=== PATIENT | male | born 1965 | race African-American/Black ===

== ENCOUNTER 2016-10-24 09:35 | Emergency (ER) | payer MEDICAID ==
[2016-10-24] MEDS ORDERED: OXYCODONE-ACETAMINOPHEN 5-325 MG TABLET PO ONE (10:36)
--- NOTE | 2016-10-24 11:23 | ER Document Report ---
ED Skin Rash/Insect Bite/Abscs - General Mode of Arrival: Ambulatory Information source: Patient TRAVEL OUTSIDE OF THE U[place] IN LAST 30 DAYS: No - HPI Patient complains to provider of: Tender/swollen area Onset: Other - Chronic, worse over the past 2-1/2 weeks Onset/Duration: Worse Quality of pain: Sharp Pain Level: 5 Skin Character: Abscess, Warm Skin Temperature: Warm Quality of rash: Painful Exacerbated by: Movement Relieved by: Denies Similar symptoms previously: Yes Recently seen / treated by doctor: No <LUCIE LAUREANO - Last Filed: 10/24/16 19:19> <LATRELL RAMOS - Last Filed: 10/25/16 14:44> - General Chief Complaint: Abscess Stated Complaint: BUTTOCKS PAIN Time Seen by Provider: 10/24/16 10:22 Notes: Patient complains of an abscess to the groin area for the past 2-1/2 weeks. Patient states he has a history of hidradenitis suprative and has had over 8 procedures including skin grafts to the sacral area, and perineum. Patient reports fever 2 days ago but none since then. Patient states that he has been taking doxycycline without improvement of his symptoms. Patient does state that he has had draining from his right inguinal abscess as well as draining from his sacral abscess. Patient states that he has had to take Percocet periodically for this and has not had any pain medication at home recently ( LUCIE LAUREANO) - Related Data Allergies/Adverse Reactions: No Known Allergies Allergy (Verified 10/24/16 09:45) Past Medical History - General Information source: Patient - Social History Smoking Status: Never Smoker Chew tobacco use (# tins/day): No Frequency of alcohol use: None Drug Abuse: None Occupation: none Family History: Reviewed & Not Pertinent Patient has suicidal ideation: No Patient has homicidal ideation: No Endocrine Medical History: Denies: Hx Diabetes Mellitus Type 1, Hx Diabetes Mellitus Type 2 Renal/ Medical History: Denies: Hx Peritoneal Dialysis Skin Medical History: Reports Hx MRSA, Reports Other - hidradenitis suprativa Psychiatric Medical History: Reports: Hx Bipolar Disorder, Hx Depression, Hx Schizophrenia Past Surgical History: Reports: Other - skin graft - Immunizations Hx Diphtheria, Pertussis, Tetanus Vaccination: Yes <LUCIE LAUREANO - Last Filed: 10/24/16 19:19> Review of Systems - Review of Systems Constitutional: Fever - 2 days ago EENT: No symptoms reported Cardiovascular: No symptoms reported Respiratory: No symptoms reported Gastrointestinal: No symptoms reported. denies: Nausea, Vomiting Genitourinary: No symptoms reported Male Genitourinary: Other - tender lump to inguinal area Musculoskeletal: No symptoms reported Skin: Lesions - perineum Hematologic/Lymphatic: No symptoms reported Neurological/Psychological: No symptoms reported <LUCIE LAUREANO - Last Filed: 10/24/16 19:19> Physical Exam - General General appearance: Appears well, Alert In distress: None - HEENT Head: Normocephalic, Atraumatic Eyes: Normal Nasal: Normal Mouth/Lips: Normal Mucous membranes: Normal Pharynx: Normal - Respiratory Respiratory status: No respiratory distress Chest status: Nontender Breath sounds: Normal Chest palpation: Normal - Cardiovascular Rhythm: Regular Heart sounds: S1 appreciated, S2 appreciated Murmur: No - Abdominal Inspection: Normal Distension: No distension Tenderness: Nontender - Back Back: Normal, Nontender - Extremities General upper extremity: Normal inspection, Normal ROM General lower extremity: Normal inspection, Normal ROM - Neurological Neuro grossly intact: Yes Cognition: Normal Hermann Coma Scale Eye Opening: Spontaneous Hermann Coma Scale Verbal: Oriented Penelope Coma Scale Motor: Obeys Commands Hermann Coma Scale Total: 15 - Psychological Associated symptoms: Normal affect, Normal mood - Skin Skin Temperature: Warm Skin Moisture: Dry Skin irregularity: Tender indurated area - Patient with tender indurated lesion to right inguinal area, left medial thigh and area to perineal raphe, no fluctuance, no obvious drainable abscess. Patient with additional tender indurated area superior aspect of gluteal cleft, this area open without any purulent drainage at this time <LUCIE LAUREANO - Last Filed: 10/24/16 19:19> Course - Laboratory Result Diagrams: 10/24/16 11:35 10/24/16 12:58 <LUCIE LAUREANO - Last Filed: 10/24/16 19:19> - Laboratory Result Diagrams: 10/24/16 11:35 10/24/16 12:58 <LATRELL RAMOS - Last Filed: 10/25/16 14:44> - Re-evaluation Re-evalutation: 10/24/16 10:[address] Ramos who agrees to examine pt 10/24/16 11:21 Dr. Ramos to bedside for examination, recommends ordering CT of pelvis with IV contrast in addition to lab work. Does not recommend any additional antibiotics at this time pending results of CT scan. States lesions do not look acutely infected 10/24/16 14:[address] ramos who advises consultation with surgery to assist with out pt f/u. 10/24/16 15:[address] Peng who agrees to come and evaluate patient 10/24/16 16:09 Dr. Peng to bedside for consultation. Incision and drainage procedure performed per Dr. Peng. Advises having patient continue on his doxycycline and giving him a short course of pain medication such as Percocet 15 tabs to go home with. (LUCIE LAUREANO) - Vital Signs Vital signs: Temp Pulse Resp BP Pulse Ox 98.0 F 76 18 124/78 100 10/24/16 16:35 10/24/16 16:35 10/24/16 16:35 10/24/16 16:35 10/24/16 16:35 - Laboratory Laboratory results interpreted by me: 10/24/16 10/24/16 11:35 12:58 WBC 12.1 H Hgb 12.2 L MCV 71 L MCH 22.2 L MCHC 31.4 L RDW 15.0 H Absolute Neutrophils 8.6 H Chloride 108 H AST 16 L Labs- Entire Visit 10/24/16 10/24/16 10/24/16 11:35 11:35 12:58 WBC 12.1 H RBC 5.52 Hgb 12.2 L Hct 39.0 MCV 71 L MCH 22.2 L MCHC 31.4 L RDW 15.0 H Plt Count 294 Seg Neutrophils % 71.3 Lymphocytes % 20.2 Monocytes % 6.4 Eosinophils % 1.3 Basophils % 0.8 Absolute Neutrophils 8.6 H Absolute Lymphocytes 2.4 Absolute Monocytes 0.8 Absolute Eosinophils 0.2 Absolute Basophils 0.1 Sodium Cancelled 140.9 Potassium Cancelled 3.9 Chloride Cancelled 108 H Carbon Dioxide Cancelled 24 Anion Gap Cancelled 9 BUN Cancelled 9 Creatinine Cancelled 0.95 Est GFR ( Amer) Cancelled > 60 Est GFR (Non-Af Amer) Cancelled > 60 Glucose Cancelled 107 Calcium Cancelled 9.1 Total Bilirubin Cancelled 0.5 Direct Bilirubin Cancelled 0.3 Indirect Bilirubin Cancelled Not Reportable Neonat Total Bilirubin Cancelled Not Reportable AST Cancelled 16 L ALT Cancelled 22 Alkaline Phosphatase Cancelled 79 Total Protein Cancelled 7.3 Albumin Cancelled 3.7 10/24/16 19:24 (LUCIE LAUREANO) Discharge <LUCIE LAUREANO - Last Filed: 10/24/16 19:19> <LATRELL RAMOS - Last Filed: 10/25/16 14:44> - Discharge Clinical Impression: Hx of hidradenitis suppurativa, Encounter for incision and drainage procedure, Abscess of left thigh Condition: Stable Disposition: HOME, SELF-CARE Instructions: Abscess ([facility]), Oral Narcotic Medication ([facility]), Post Incision and Drainage Additional Instructions: Return immediately for any new or worsening symptoms Followup with the surgical clinic on Thursday to have your packing removed continue to take your doxycycline as previously prescribed culture is pending, we will call if you need different treatment Prescriptions: Oxycodone HCl/Acetaminophen [Percocet 5-325 mg Tablet] 1 - 2 tab PO ASDIR PRN # 15 tablet PRN Reason: Referrals: DREA PENG MD [ARELY BECERRIL] - Follow up as needed [facility] [Provider Group] - 10/27/16
[2016-10-24 11:49] LABS: ABSOLUTE BASOPHILS # (AUTO) 0.1 10^3/uL (0.0-0.2); ABSOLUTE EOSINOPHILS # (AUTO) 0.2 10^3/uL (0.0-0.6); ABSOLUTE LYMPHOCYTES (AUTO) 2.4 10^3/uL (0.5-4.7); ABSOLUTE MONOCYTES (AUTO) 0.8 10^3/uL (0.1-1.4); ABSOLUTE NEUT (AUTO) 8.6 10^3/uL (1.7-8.2); BASOPHILS % (AUTO) 0.8 % (0-2); EOSINOPHILS % (AUTO) 1.3 % (0-6); HEMOGLOBIN 12.2 g/dL (13.5-17.0); HGB HCT DIFFERENCE -2.4; LYMPHOCYTES % (AUTO) 20.2 % (13-45); MEAN CORPUSCULAR HEMOGLOBIN 22.2 pg (27.0-33.4); MEAN CORPUSCULAR HGB CONC 31.4 g/dL (32.0-36.0); MEAN CORPUSCULAR VOLUME 71 fl (80-97); MONOCYTES % (AUTO) 6.4 % (3-13); RED BLOOD COUNT 5.52 10^6/uL (4.35-5.55); SEGMENTED NEUTROPHILS % (AUTO) 71.3 % (42-78); WHITE BLOOD COUNT 12.1 10^3/uL (4.0-10.5)
[2016-10-24 13:36] LABS: ALANINE AMINOTRANSFERASE 22 U/L (21-72); ALBUMIN 3.7 g/dL (3.5-5.0); ALKALINE PHOSPHATASE 79 U/L (38-126); ANION GAP 9 (5-19); ASPARTATE AMINO TRANSFERASE 16 U/L (17-59); BILIRUBIN,DIRECT 0.3 mg/dL (0.0-0.4); BILIRUBIN,TOTAL 0.5 mg/dL (0.2-1.3); BLOOD UREA NITROGEN 9 mg/dL (7-20); CALCIUM 9.1 mg/dL (8.4-10.2); CARBON DIOXIDE 24 mmol/L (22-30); CHLORIDE 108 mmol/L (98-107); CREATININE RESULT 0.95 mg/dL (0.52-1.25); GLUCOSE 107 mg/dL (75-110); POTASSIUM 3.9 mmol/L (3.6-5.0); SODIUM 140.9 mmol/L (137-145); TOTAL PROTEIN 7.3 g/dL (6.3-8.2)
--- NOTE | 2016-10-24 14:22 | RADIOLOGY REPORT (SQ) ---
EXAM DESCRIPTION: CT PELVIS WITH COMPLETED DATE/TIME: 10/24/2016 2:08 pm REASON FOR STUDY: hx hidradenitis, pain to perineal raphe/inguinal COMPARISON: None. TECHNIQUE: CT scan of the pelvis performed with intravenous or oral contrast. Images reviewed with soft tissue and bone windows. Reconstructed coronal and sagittal MPR images reviewed. All images st ored on PACS. Patient was injected with 95 mL of Isovue- 370 low osmolar contrast. Creatinine 0.95. All CT scanners at this facility use dose modulation, iterative reconstruction, and/or weight based d osing when appropriate to reduce radiation dose to as low as reasonably achievable (ALARA). [facility]: Dose Right [facility]: CareDose [facility]: Dose Right [facility]: Teradose 4D [facility]: Smart Wireless Safety RADIATION DOSE: Up-to-date CT equipment and radiation dose reduction techniques were employed. CTDIv ol: 13.6 - 17.6 mGy. DLP: 1242 mGy-cm. mGy. LIMITATIONS: None. FINDINGS: In the upper medial left site, on coronal image 48 and axial image 60, there is skin thick ening and a 3.6 x 1.7 cm cyst in the skin and immediate subcutaneous fat. In the upper medial right thigh, there is skin thickening without evidence cutaneous or deep cyst or abscess. Along the perineum, there are postsurgical changes with subcutaneous fat surgical clips on axial imag es 50-54. No deep ischial rectal fossa abscess or cyst. No perianal fissures or abscesses. Visualized right a nd left scrotum are unremarkable. Incidental finding of small fat containing bilateral inguinal hernias. PELVIC BONES: No acute fracture. No worrisome bone lesions. VISUALIZED SPINE: No acute findings. HIPS: No acute fracture or dislocation. No worrisome bone lesions. PELVIC SOFT TISSUES: No significant findings. EXTRAPELVIC SOFT TISSUES: As above. OTHER: No other significant finding. IMPRESSION: Evidence of prior surgery along the perineum with surgical clips. No deep perineal absc ess is identified. 3.6 x 1.7 cm cystic fluid collection in the skin of the medial left upper thigh. TECHNICAL DOCUMENTATION: JOB ID: [id number] Quality ID # [id number]: Final reports with documentation of one or more dose reduction techniques (e.g., Au tomated exposure control, adjustment of the mA and/or kV according to patient size, use of iterative reconstruction technique) 2010 [employer]- All Rights Reserved
[2016-10-24] MEDS ORDERED: LIDOCAINE 1% INJ-PF (10 MG/ML) 30 ML SDV ONE (15:50)
--- NOTE | 2016-10-24 16:48 | OPERATIVE REPORT E ---
Operative Report NAME: SUSAN VILLALOBOS : 1965 AGE: 51Y DATE OF SURGERY: 10/24/2016 ROOM: PREOPERATIVE DIAGNOSIS: INFECTED HIDRADENITIS OF THE LEFT THIGH. POSTOPERATIVE DIAGNOSIS: INFECTED HIDRADENITIS OF THE LEFT THIGH. OPERATION: Incision and drainage of hidradenitis left thigh. SURGEON: DREA PENG M.D. ANESTHESIA: Local. INDICATIONS: This is a 51-year-old male who had previous incision and drainage of hidradenitis long both groins and thighs in the past. He has been complaining of pains along the left thigh for the past few days. DESCRIPTION OF PROCEDURE: The patient was placed in the supine position with the left thigh slightly bent. The abscess site was then prepped and draped in the usual sterile fashion. Local anesthesia infiltrated around the abscess area and with the use of an 11 blade, an incision was made right in the middle of the fluctuant area. An incision about 1 cm long was made. Purulent material extruded out and culture specimens were obtained. Further squeezing of the contents was done. Next, the abscess cavity was then packed with quarter-inch Iodoform gauze. Sterile dressings were placed over the operative site. The patient tolerated the procedure well. The patient is to continue with his doxycycline and Percocet p.r.n. for pain. He will be scheduled for followup at the surgical clinic on Thursday10/27/2016 to have the packing removed. DICTATING PHYSICIAN: DREA PENG M.D. [id number] PHY#: [id number] ID: [id number] JOB#: [id number] ACCT: [id number] cc:DREA PENG M.D. >
[2016-10-24 16:50] VITALS: BP 124/78
== END 2016-10-24 16:35 | disposition home or self-care (01) ==
LOC: ER 09:35
PROC: 0H9JXZZ Drainage of Left Upper Leg Skin, External Approach (ICD-10-PCS; principal; 2016-10-24)
DX: L02.416 Cutaneous abscess of left lower limb (principal); L73.2 Hidradenitis suppurativa; Z86.14 Personal history of Methicillin resistant Staphylococcus aureus infection; R50.9 Fever, unspecified
CPT/HCPCS: 99284; 36415; 87040; 87070; 87205; 85025; 87075; 80053; 72193; 10060; J3490; A6266

== ENCOUNTER 2016-11-06 12:19 | Emergency (ER) | payer MEDICAID ==
--- NOTE | 2016-11-06 13:26 | ER Document Report ---
ED Medical Screen (RME) - General Chief Complaint: Abscess Stated Complaint: BODY PAIN Time Seen by Provider: 11/06/16 13:24 Notes: Patient is here for a return visit for infection and boils in his groin region that has not gotten any better since he was here a week ago. He says that he has had this condition for well over a year and is had multiple surgeries when he lived in [place]. He recently moved here. This current episode of the boils started about 3 days ago. Says that 1 of the lesions was "lacerated" by the provider, and he had antibiotics left over from treatment in [place] but he has run out of the latter. Says the condition has not improved. TRAVEL OUTSIDE OF THE [place] IN LAST 30 DAYS: No - Related Data Allergies/Adverse Reactions: No Known Allergies Allergy (Verified 11/06/16 12:34) Past Medical History - Social History Chew tobacco use (# tins/day): No Frequency of alcohol use: None Drug Abuse: None Endocrine Medical History: Denies: Hx Diabetes Mellitus Type 1, Hx Diabetes Mellitus Type 2 Renal/ Medical History: Denies: Hx Peritoneal Dialysis Skin Medical History: Reports Hx MRSA Psychiatric Medical History: Reports: Hx Bipolar Disorder, Hx Depression, Hx Schizophrenia Past Surgical History: Reports: Other - skin graft - Immunizations Hx Diphtheria, Pertussis, Tetanus Vaccination: Yes Physical Exam - Vital signs Vitals: Temp Pulse Resp BP Pulse Ox 98.9 F 80 14 108/73 97 11/06/16 12:34 11/06/16 12:34 11/06/16 12:34 11/06/16 12:34 11/06/16 12:34 Course - Vital Signs Vital signs: Temp Pulse Resp BP Pulse Ox 98.9 F 80 14 108/73 97 11/06/16 12:34 11/06/16 12:34 11/06/16 12:34 11/06/16 12:34 11/06/16 12:34
[2016-11-06] MEDS ORDERED: CLINDAMYCIN HCL 150 MG CAPSULE PO ONE (14:25)
[2016-11-06] MEDS ORDERED: NAPROXEN 250 MG TABLET PO ONE (14:25)
[2016-11-06] MEDS ORDERED: LIDOCAINE 1% INJ-PF (10 MG/ML) 30 ML SDV INJ ONE (14:26)
[2016-11-06] MEDS ORDERED: OXYCODONE-ACETAMINOPHEN 5-325 MG TABLET PO ONE (14:26)
--- NOTE | 2016-11-06 15:22 | ER Document Report ---
ED Skin Rash/Insect Bite/Abscs - General Chief Complaint: Abscess Stated Complaint: BODY PAIN Time Seen by Provider: 11/06/16 13:24 Notes: Patient is a 51-year-old male, past medical history hidradenitis supportiva that has required multiple I&D's and surgeries in [place], presents with multiple abscesses in groin and buttocks region. He was seen here 2 weeks ago and had them drained by the surgeon. He went home on doxycycline, which she said helped with some of the abscesses. He is out of Percocet. He just obtained Medicaid and has not followed up with the surgeon yet, but he says he will be able to now. He denies fevers, diarrhea, constipation, nausea, vomiting or any other wounds. TRAVEL OUTSIDE OF THE [place] IN LAST 30 DAYS: No - Related Data Allergies/Adverse Reactions: No Known Allergies Allergy (Verified 11/06/16 12:34) Past Medical History - General Information source: Patient - Social History Smoking Status: Never Smoker Chew tobacco use (# tins/day): No Frequency of alcohol use: None Drug Abuse: None Family History: Reviewed & Not Pertinent Patient has suicidal ideation: No Patient has homicidal ideation: No Endocrine Medical History: Denies: Hx Diabetes Mellitus Type 1, Hx Diabetes Mellitus Type 2 Renal/ Medical History: Denies: Hx Peritoneal Dialysis Skin Medical History: Reports Hx MRSA Psychiatric Medical History: Reports: Hx Bipolar Disorder, Hx Depression, Hx Schizophrenia Past Surgical History: Reports: Other - skin graft - Immunizations Hx Diphtheria, Pertussis, Tetanus Vaccination: Yes Review of Systems - Review of Systems Notes: REVIEW OF SYSTEMS: CONSTITUTIONAL: -fevers, -chills EENT: -eye pain, -difficulty swallowing, -nasal congestion CARDIOVASCULAR:-chest pain, -syncope. RESPIRATORY: -cough, -SOB GASTROINTESTINAL: -abdominal pain, - nausea, -vomiting, -diarrhea GENITOURINARY: -dysuria, -hematuria MUSCULOSKELETAL: -back pain, -neck pain SKIN: +multiple groin and buttock abscesses HEMATOLOGIC: -easy bruising or bleeding. LYMPHATIC: -swollen, enlarged glands. NEUROLOGICAL: -altered mental status or loss of consciousness, -headache, - neurologic symptoms PSYCHIATRIC: -anxiety, -depression. ALL OTHER SYSTEMS REVIEWED AND NEGATIVE. Physical Exam - Vital signs Vitals: Temp Pulse Resp BP Pulse Ox 98.9 F 80 14 108/73 97 11/06/16 12:34 11/06/16 12:34 11/06/16 12:34 11/06/16 12:34 11/06/16 12:34 - Notes Notes: PHYSICAL EXAMINATION: GENERAL: Well-appearing, well-nourished and in no acute distress. HEAD: Atraumatic, normocephalic. EYES: Pupils equal round and reactive to light, extraocular movements intact, sclera anicteric, conjunctiva are normal. ENT: nares patent, oropharynx clear without exudates. Moist mucous membranes. NECK: Normal range of motion, supple without lymphadenopathy LUNGS: Breath sounds clear to auscultation bilaterally and equal. No wheezes rales or rhonchi. HEART: Regular rate and rhythm without murmurs ABDOMEN: Soft, nontender, normoactive bowel sounds. No guarding, no rebound. No masses appreciated. EXTREMITIES: Normal range of motion, no pitting or edema. No cyanosis. NEUROLOGICAL: Cranial nerves grossly intact. Normal speech, normal gait. Normal sensory and motor exams. PSYCH: Normal mood, normal affect. SKIN: 2 cm fluctuant abscess in right groin, evidence of prior surgeries on buttocks, hard tender areas on right inner buttocks without fluctuance, warm, dry, normal turgor Course - Re-evaluation Re-evalutation: Only one abscess able to be I&D'ed at this time. Instructed him to continue clindamycin, anti-inflammatories and follow-up with surgeon next week. He will soak in warm bath to help with the wound. - Vital Signs Vital signs: Temp Pulse Resp BP Pulse Ox 98.9 F 80 14 108/73 97 11/06/16 12:34 11/06/16 12:34 11/06/16 12:34 11/06/16 12:34 11/06/16 12:34 Procedures - Incision and Drainage Right Groin Time completed: 15:27 Type: Simple Anesthetic type: 1% Lidocaine mL's of anesthetic: 3 Blade size: 11 I&D procedure: Betadine prep applied, Chlorprep applied, Sterile dressing applied Incision Method: Incision made by scalpel Amount/type of drainage: 3 mL serosanguinous drainage Discharge - Discharge Clinical Impression: Abscess, Hidradenitis suppurativa Condition: Stable Disposition: HOME, SELF-CARE Additional Instructions: ABSCESS: You have an abscess (boil). This a pus-forming infection, usually due to staph. Some boils may be left to drain on their own, but most require lancing. From the time the tender lump first appears, it may be three or four days before the abscess is ready to betina. Local heat and rest help at this stage of treatment. An antibiotic may prevent spread of the infection. Once the abscess is opened, packing may be placed into it. This is done so pus is not sealed inside by premature closure of the cavity. The packing will be removed at your follow-up visit or you may be advised to remove it yourself at home. Sometimes this packing must be replaced a few times during healing. The wound will heal with surprisingly little scar. Depending on the size and location of an abscess, healing can take one to four weeks. You may shower and wash the area around the incision site two or three times a day. Antibiotics may be prescribed, but are usually not necessary after an abscess has been drained. If you develop fever, chills, worsening pain, or increasing swelling in the area, call the doctor or return immediately. POST INCISION AND DRAINAGE: You have had an incision made to allow drainage of an abscess. The incision must remain open so that pus and debris can drain from the wound. If the abscess cavity is large, packing is placed. This keeps the tissues from collapsing and trapping pus inside, while the body shrinks the cavity. The packing may need to be replaced every day or two. The physician will instruct you on the packing. Keep a bulky dressing over the area. Replace it if it becomes saturated with blood or pus. Do not disturb the packing (if present). You may shower and cleanse the area with gentle soap and warm water two or three times a day. Local warmth may be soothing, and may promote faster healing. Return if you develop high fever or chills, or if you note spreading redness, increasing swelling, or increasing tenderness. MRSA CELLULITIS: You have an infection of your skin and underlying soft tissues called cellulitis. This is due to bacteria, which can enter through any break in the skin, or even through an irritated hair follicle. Untreated, cellulitis will usually worsen and may form an abscess which requires draining. Although many bacterial organisms can cause cellulitis and abscess formations, the most likely bacteria is Methicillin-Resistant Staph Aureus, or MRSA for short. Antibiotics are required. Usually, warm packs or warm soaks, and elevation of the infected area are recommended. You should start getting better within 24 to 36 hours. Most infections respond quickly to the right medication. Follow-up care is important, however, to check for abscess (boil) formation, unsuspected foreign body, or resistant infection. If you develop fever, chills, or if the area of infection is becoming rapidly more swollen or painful, call the doctor at once. ORAL NARCOTIC MEDICATION: You have been given a prescription for pain control. This medication is a narcotic. It's best taken with food, as nausea can result if taken on an empty stomach. Don't operate machinery or drive within six hours of taking this medication. Do not combine this medicine with alcohol, or with any medication which can cause sedation (such as cold tablets or sleeping pills) unless you get permission from the physician. Narcotics tend to cause constipation. If possible, drink plenty of fluids and eat a diet high in fiber and fruits. FOLLOW-UP CARE: Most simple abscesses will not require a follow up visit. If you had packing placed in the abscess, remove it as instructed by the physician. If you have been referred to a physician for follow-up care, call the physicians office for an appointment as you were instructed or within the next two days. If you experience worsening or a significant change in your symptoms, return to the Emergency Department at any time for re-evaluation. Prescriptions: Clindamycin HCl 300 mg PO Q8H #21 capsule Oxycodone HCl/Acetaminophen [Percocet 5-325 mg Tablet] 1 - 2 tab PO Q4H PRN #15 tablet PRN Reason: Referrals: LUCAS MILLER MD [ACTIVE STAFF] - Follow up as needed
[2016-11-06 16:29] VITALS: BP 107/72
== END 2016-11-06 16:23 | disposition home or self-care (01) ==
LOC: ER 12:19
PROC: 0H98XZZ Drainage of Buttock Skin, External Approach (ICD-10-PCS; principal; 2016-11-06)
DX: L73.2 Hidradenitis suppurativa (principal); L02.31 Cutaneous abscess of buttock; R52 Pain, unspecified
CPT/HCPCS: 99283; 10060; J3490 ×3; A6266

== ENCOUNTER → 2016-11-11 | Emergency (ER) | payer MEDICAID ==
[2016-11-11 15:08] VITALS: BP 134/78
--- NOTE | 2016-11-11 16:42 | ER Document Report ---
ED General - General Chief Complaint: Abscess Stated Complaint: POSSIBLE ABSCESS Time Seen by Provider: 11/11/16 16:17 Mode of Arrival: Ambulatory Information source: Patient Notes: 51-year-old male history of hydradenitis. Geovani presents for concerns of pain control. Patient states he had antibiotics he wishes for pain control, patient denies any fevers or chills nausea vomiting or diarrhea. TRAVEL OUTSIDE OF THE [place] IN LAST 30 DAYS: No - HPI Onset: Other Onset/Duration: Persistent Quality of pain: Achy Severity: Mild Pain Level: 2 Associated symptoms: Other Exacerbated by: Denies Relieved by: Denies Similar symptoms previously: Yes Recently seen / treated by doctor: Yes - Related Data Allergies/Adverse Reactions: No Known Allergies Allergy (Verified 11/11/16 16:12) Past Medical History - Social History Smoking Status: Never Smoker Cigarette use (# per day): No Chew tobacco use (# tins/day): No Smoking Education Provided: No Frequency of alcohol use: None Drug Abuse: None Family History: Reviewed & Not Pertinent Patient has suicidal ideation: No Patient has homicidal ideation: No Endocrine Medical History: Denies: Hx Diabetes Mellitus Type 1, Hx Diabetes Mellitus Type 2 Renal/ Medical History: Denies: Hx Peritoneal Dialysis Skin Medical History: Reports Hx MRSA Psychiatric Medical History: Reports: Hx Bipolar Disorder, Hx Depression, Hx Schizophrenia Past Surgical History: Reports: Other - skin graft - Immunizations Hx Diphtheria, Pertussis, Tetanus Vaccination: Yes Review of Systems - Review of Systems Notes: REVIEW OF SYSTEMS: CONSTITUTIONAL : Denies fever, chills, or sweats. Denies recent illness. EENT: Denies eye, ear, throat, or mouth pain or symptoms. Denies nasal or sinus congestion or discharge. Denies throat, tongue, or mouth swelling or difficulty swallowing. CARDIOVASCULAR: Denies chest pain. Denies palpitations or racing or irregular heart beat. Denies ankle edema. RESPIRATORY: Denies cough, cold, or chest congestion. Denies shortness of breath, difficulty breathing, or wheezing. GASTROINTESTINAL: Denies abdominal pain or distention. Denies nausea, vomiting , or diarrhea. Denies blood in vomitus, stools, or per rectum. Denies black, tarry stools. Denies constipation. GENITOURINARY: Denies difficulty urinating, painful urination, burning, frequency, blood in urine, or discharge. MUSCULOSKELETAL: Denies back or neck pain or stiffness. Denies joint pain or swelling. SKIN: Abscesses HEMATOLOGIC : Denies easy bruising or bleeding. LYMPHATIC: Denies swollen, enlarged glands. NEUROLOGICAL: Denies confusion or altered mental status. Denies passing out or loss of consciousness. Denies dizziness or lightheadedness. Denies headache. Denies weakness or paralysis or loss of use of either side. Denies problems with gait or speech. Denies sensory loss, numbness, or tingling. Denies seizures. PSYCHIATRIC: Denies anxiety or stress. Denies depression, suicidal ideation, or homicidal ideation. ALL OTHER SYSTEMS REVIEWED AND NEGATIVE. Dictation was performed using [employer] voice recognition software PHYSICAL EXAMINATION: GENERAL: Well-appearing, well-nourished and in no acute distress. HEAD: Atraumatic, normocephalic. EYES: Pupils equal round and reactive to light, extraocular movements intact, sclera anicteric, conjunctiva are normal. ENT: Nares patent, oropharynx clear without exudates. Moist mucous membranes. NECK: Normal range of motion, supple without lymphadenopathy LUNGS: Breath sounds clear to auscultation bilaterally and equal. No wheezes rales or rhonchi. HEART: Regular rate and rhythm without murmurs ABDOMEN: Soft, nontender, nondistended abdomen. No guarding, no rebound. No masses appreciated. Musculoskeletal: Normal range of motion, no pitting or edema. No cyanosis. NEUROLOGICAL: Cranial nerves grossly intact. Normal speech, normal gait. Normal sensory, motor exams PSYCH: Normal mood, normal affect. SKIN: No abscesses noted of the right groin and right buttocks left thigh the perianal region without any rectal involvement extensive skin Physical Exam - Vital signs Vitals: Temp Pulse Resp BP Pulse Ox 98.2 F 71 16 134/78 H 98 11/11/16 15:04 11/11/16 15:04 11/11/16 15:04 11/11/16 15:04 11/11/16 15:04 Course - Re-evaluation Re-evalutation: 11/11/16 19:22 Does not wish to have any of his abscesses incised, he has had these done at with 6 surgical procedures and wishes for pain control, he already has antibiotics therefore I will discharge him home at his request is obviously will not improve his abscesses and he states he understands After performing a Medical Screening Examination, I estimate there is LOW risk for OPEN FRACTURE, COMPARTMENT SYNDROME, TENDON RUPTURE, ACUTE NEUROVASCULAR INJURY, or RETAINED FOREIGN BODY, thus I consider the discharge disposition reasonable. Also, there is no evidence or peritonitis, sepsis, or toxicity. I have reevaluated this patient multiple times and no significant life threatening changes are noted. The patient and I have discussed the diagnosis and risks, and we agree with discharging home with close follow-up with the understanding that symptoms and presentations can change. We also discussed returning to the Emergency Department immediately if new or worsening symptoms occur. We have discussed the symptoms which are most concerning (e.g., changing or worsening pain, fever, numbness, weakness, cool or painful digits) that necessitate immediate return. - Vital Signs Vital signs: Temp Pulse Resp BP Pulse Ox 98.2 F 71 18 134/78 H 98 11/11/16 15:04 11/11/16 15:04 11/11/16 16:12 11/11/16 15:04 11/11/16 15:04 Discharge - Discharge Clinical Impression: Hidradenitis suppurativa Condition: Stable Disposition: HOME, SELF-CARE Instructions: Abscess ([facility]) Prescriptions: Oxycodone HCl/Acetaminophen [Percocet 10-325 Mg Tablet] 1 each PO Q6 #20 tablet Referrals: LUCAS MILLER MD [ACTIVE STAFF] - Follow up tomorrow
== END | disposition home or self-care (01) ==
LOC: ER 14:58
DX: L73.2 Hidradenitis suppurativa (principal); Z86.14 Personal history of Methicillin resistant Staphylococcus aureus infection
CPT/HCPCS: 99282

== ENCOUNTER 2016-11-17 09:15 | Emergency (ER) | payer MEDICAID ==
[2016-11-17 09:20] VITALS: BP 112/88
[2016-11-17] MEDS ORDERED: CEPHALEXIN 500 MG CAPSULE PO ONE (12:01)
[2016-11-17] MEDS ORDERED: SULFAMETHOXAZOLE/TRIMETHOPRIM 800-160 MG TABLET PO ONE (12:01)
[2016-11-17] MEDS ORDERED: OXYCODONE-ACETAMINOPHEN 5-325 MG TABLET PO ONE (12:02)
--- NOTE | 2016-11-17 12:08 | ER Document Report ---
ED Skin Rash/Insect Bite/Abscs - General Chief Complaint: Abscess Stated Complaint: ABSCESS Time Seen by Provider: 11/17/16 09:50 Notes: Patient is a 51-year-old male who presents emergency department complaining of groin pain secondary to hidradenitis suppurativa. patient has been evaluated in the emergency department 4 times previously in the past month. Patient underwent an I&D with Dr. Cavazos on October 24, patient has been to our emergency department was placed on antibiotics and followed up once in the outpatient and was told to follow-up on November 11. Patient did not go to this appointment because he did not have a ride but he was able to come to the ED. He has been to the department at least once a week for pain management and incision and drainage. Patient states over and over again that he does not have medicaid and that he has been applying but waiting for his card. Patient states that he understands that he was told to follow-up with the surgeon but that he does not want to because they will not manage his pain medication, he states that he is waiting for his Medicaid so that he can get a primary care physician. Patient states that he refuses to go to pain management because he says that he does not have any dependence on drugs and does not think he needs to be monitored by a physician for chronic narcotics. He denies any fevers, chills. He admits that his left groin area has been draining spontaneously on its own, with pain. He also has an area along his right gluteal area that is spontaneously draining as well. TRAVEL OUTSIDE OF THE [place] IN LAST 30 DAYS: No - Related Data Allergies/Adverse Reactions: No Known Allergies Allergy (Verified 11/17/16 09:17) Past Medical History - Social History Smoking Status: Never Smoker Family History: Reviewed & Not Pertinent Patient has suicidal ideation: No Patient has homicidal ideation: No Endocrine Medical History: Denies: Hx Diabetes Mellitus Type 1, Hx Diabetes Mellitus Type 2 Renal/ Medical History: Denies: Hx Peritoneal Dialysis Skin Medical History: Reports Hx MRSA Psychiatric Medical History: Reports: Hx Bipolar Disorder, Hx Depression, Hx Schizophrenia Past Surgical History: Reports: Other - skin graft - Immunizations Hx Diphtheria, Pertussis, Tetanus Vaccination: Yes Review of Systems - Review of Systems Constitutional: No symptoms reported Cardiovascular: No symptoms reported Genitourinary: No symptoms reported Skin: See HPI -: Yes All other systems reviewed and negative Physical Exam - Vital signs Vitals: Temp Pulse Resp BP Pulse Ox 98.4 F 84 16 112/88 H 96 11/17/16 09:17 11/17/16 09:17 11/17/16 09:17 11/17/16 09:11/17/16 09:17 - General General appearance: Appears well, Other - irritable In distress: None - Respiratory Respiratory status: No respiratory distress Chest status: Nontender Breath sounds: Normal Chest palpation: Normal - Cardiovascular Rhythm: Regular Heart sounds: Normal auscultation, S1 appreciated, S2 appreciated Murmur: No Gallop: None auscultated Pulses: Normal: Femoral Normal capillary refill: Yes - Genitourinary Inspection: Normal Tenderness: Nontender Cremasteric reflex: Normal Scrotum: Normal - Extremities General upper extremity: Normal inspection, Nontender, Normal color, Normal ROM , Normal strength, Normal temperature General lower extremity: Normal inspection, Nontender, Normal color, Normal ROM , Normal strength, Normal temperature, Normal weight bearing - Skin Location of irregularity: Other - groin Irregularity with: Swelling, Tenderness, Warmth, Induration, Inflammation, Other - multiple areas or induration. two areas that are draining one along the left groin and one on the right gluteal area. no areas are appreciated for fluctance requiring I & D Course - Re-evaluation Re-evalutation: 11/17/16 21:28 Patient is a 51-year-old male who is hemodynamically stable, no acute distress afebrile. No indication for I&D today given that the areas of complaint are chronically draining wounds. No indication for additional imaging or laboratory studies given that the patient has stable vital signs and complain is chronic in nature. Discussed with patient indication to follow-up with surgery as well as primary care. We were able to evaluate in the emergency department today if he has been approved for Medicaid which he has we are able to give him his Medicaid information so that he is able to attend his appointments without paying the co-pay. Also discussed with patient our department and States policy on chronic pain management. Patient understands that the emergency department can no longer supply him with narcotic pain medications until he follows up with the appropriate specialist and primary care. Patient has been given antibiotics to help prevent any other developing infection. Otherwise patient was given strict return precautions. I have also consulted case resource manager Sudarshan Mullins regarding this patient to help follow along with his management. - Vital Signs Vital signs: Temp Pulse Resp BP Pulse Ox 98.4 F 84 16 112/88 H 96 11/17/16 09:17 11/17/16 09:17 11/17/16 09:17 11/17/16 09:17 11/17/16 09:17 Discharge - Discharge Clinical Impression: Hidradenitis suppurativa Condition: Good Disposition: HOME, SELF-CARE Instructions: MRSA Cellulitis ([facility]), Abscess ([facility]), Cephalexin ([facility]), Trimethoprim-Sulfa ([facility]) Additional Instructions: [id number] [place] [address] For Appointments Call: Hours: Thu 8am to 5pm *Your appointment is on November 19 at 10:30AM at the above listed address *Please take your antibiotics as prescribed. *Have an appointment scheduled tomorrow with a general surgeon to evaluate her hidradenitis supra T. Please follow-up with them as scheduled. Otherwise please follow-up with Kylah Mishra [facility] listed above for pain management and possible referral to pain management. Chronic Pain Control Stress, inactivity, and depression make pain more severe regardless of the cause of the pain. Stress and poor physical condition can cause pain such as headaches and backache. Relaxation: Rest in a quiet place with your eyes closed for 20 minutes twice daily. Concentrate on a pleasant image, or simply "feel" your breathing. Clear your mind. Stress management: Deal with your "stressors." Either take action, or eliminate the stressor from your life. Don't let things hang over you. Accept those things you can't change. Nutrition: Eat small, balanced meals -- don't skip, don't overeat. Meals should be high-carbohydrate, low-sugar, low-fat. Exercise: Exercise helps painful conditions and eases stress. Get 30 minutes of moderate exercise, five days a week. Do an activity that does not flare your pain. Precautions: Pain which continues to disrupt daily activities, or which changes in nature, requires a medical evaluation. Pain Clinic referral is available. We do not manage chronic pain in the Emergency Department. We will try to appropriately help you through an acute flare of your chronic painful condition , but for on-going chronic pain that does not improve, you will need to see your private doctor or industrial painter. We do not provide repeated medication management of chronic painful conditions. If you wish, we can provide the name of local pain management physicians. Prescriptions: Cephalexin Monohydrate [Keflex 500 mg Capsule] 500 mg PO QID 7 Days Ibuprofen [Motrin 800 mg Tablet] 800 mg PO Q8H PRN #30 tab PRN Reason: Sulfamethoxazole/Trimethoprim [Bactrim Ds Tablet] 1 each PO BID #14 tablet Referrals: LUCAS MILLER MD [ACTIVE STAFF] - 11/18/16 3:30 pm (Surgery)
[2016-11-17] MEDS ORDERED: HYDROCODONE/ACETAMINOPHEN 5-325 MG 6 TAB/DSPK PO PRN (12:13)
== END 2016-11-17 12:34 | disposition home or self-care (01) ==
LOC: ER 09:15
DX: L73.2 Hidradenitis suppurativa (principal); Z86.14 Personal history of Methicillin resistant Staphylococcus aureus infection
CPT/HCPCS: 99282; J3490

== ENCOUNTER 2016-12-09 12:12 | Day surgery (SDC) | payer MEDICAID ==
[2016-12-09] MEDS ORDERED: NORMAL SALINE 1000 ML 1,000 ML IV PRN ×2 (12:41→19:10)
--- NOTE | 2016-12-09 12:43 | ER Document Report ---
ED Medical Screen (RME) - General Chief Complaint: Rectal Pain Stated Complaint: WEAKNESS Time Seen by Provider: 12/09/16 12:40 Notes: Patient states he has a history of hidradenitis with multiple operations including skin graft. He states for several days now he has had some swelling and tenderness around the rectal area that is consistent with his previous hidradenitis flareups. He states that his blood pressure does run low when he has flareups. He denies taking any current medications. TRAVEL OUTSIDE OF THE [place] IN LAST 30 DAYS: No - Related Data Allergies/Adverse Reactions: No Known Allergies Allergy (Verified 12/09/16 12:22) Past Medical History - Social History Frequency of alcohol use: None Drug Abuse: None Endocrine Medical History: Denies: Hx Diabetes Mellitus Type 1, Hx Diabetes Mellitus Type 2 Renal/ Medical History: Denies: Hx Peritoneal Dialysis Skin Medical History: Reports Hx MRSA Psychiatric Medical History: Reports: Hx Bipolar Disorder, Hx Depression, Hx Schizophrenia Past Surgical History: Reports: Other - skin graft - Immunizations Hx Diphtheria, Pertussis, Tetanus Vaccination: Yes Physical Exam - Vital signs Vitals: Temp Pulse Resp BP Pulse Ox 98.6 F 93 16 99/70 L 98 12/09/16 12:20 12/09/16 12:20 12/09/16 12:20 12/09/16 12:20 12/09/16 12:20 Course - Vital Signs Vital signs: Temp Pulse Resp BP Pulse Ox 98.6 F 93 16 99/70 L 98 12/09/16 12:20 12/09/16 12:20 12/09/16 12:20 12/09/16 12:20 12/09/16 12:20
[2016-12-09 13:03] LABS: ABSOLUTE BASOPHILS # (AUTO) 0.1 10^3/uL (0.0-0.2); ABSOLUTE EOSINOPHILS # (AUTO) 0.2 10^3/uL (0.0-0.6); ABSOLUTE LYMPHOCYTES (AUTO) 1.9 10^3/uL (0.5-4.7); ABSOLUTE MONOCYTES (AUTO) 1.2 10^3/uL (0.1-1.4); ABSOLUTE NEUT (AUTO) 14.2 10^3/uL (1.7-8.2); BASOPHILS % (AUTO) 0.5 % (0-2); HEMATOCRIT 43.9 % (37.9-51.0); HEMOGLOBIN 14.2 g/dL (13.5-17.0); HGB HCT DIFFERENCE -1.3; LYMPHOCYTES % (AUTO) 10.8 % (13-45); MEAN CORPUSCULAR HEMOGLOBIN 22.7 pg (27.0-33.4); MEAN CORPUSCULAR HGB CONC 32.3 g/dL (32.0-36.0); MEAN CORPUSCULAR VOLUME 70 fl (80-97); MONOCYTES % (AUTO) 6.9 % (3-13); RED BLOOD COUNT 6.25 10^6/uL (4.35-5.55); RED CELL DISTRIBUTION WIDTH 15.1 % (11.5-14.0); SEGMENTED NEUTROPHILS % (AUTO) 80.8 % (42-78); WHITE BLOOD COUNT 17.6 10^3/uL (4.0-10.5)
[2016-12-09 13:25] LABS: ALANINE AMINOTRANSFERASE 18 U/L (21-72); ALBUMIN 3.4 g/dL (3.5-5.0); ALKALINE PHOSPHATASE 76 U/L (38-126); ANION GAP 8 (5-19); ASPARTATE AMINO TRANSFERASE 15 U/L (17-59); BILIRUBIN,DIRECT 0.3 mg/dL (0.0-0.4); BILIRUBIN,TOTAL 0.6 mg/dL (0.2-1.3); BLOOD UREA NITROGEN 9 mg/dL (7-20); CALCIUM 8.7 mg/dL (8.4-10.2); CARBON DIOXIDE 25 mmol/L (22-30); CHLORIDE 107 mmol/L (98-107); CREATININE RESULT 0.93 mg/dL (0.52-1.25); GLUCOSE 94 mg/dL (75-110); POTASSIUM 4.5 mmol/L (3.6-5.0); SODIUM 139.8 mmol/L (137-145); TOTAL PROTEIN 6.5 g/dL (6.3-8.2)
--- NOTE | 2016-12-09 13:32 | ER Document Report ---
ED General - General Mode of Arrival: Ambulatory Information source: Patient TRAVEL OUTSIDE OF THE [place] IN LAST 30 DAYS: No <JOHNNY ROBBINS - Last Filed: 12/09/16 13:46> <JACKIE PARSON - Last Filed: 12/09/16 16:58> - General Chief Complaint: Rectal Pain Stated Complaint: WEAKNESS Time Seen by Provider: 12/09/16 12:40 Notes: Patient is a 51 year old male who presents to the ED with complaints of drainage from his anus x3 days. Patient states he has had multiple surgeries for pilonidal cysts in past. Patient states he tried to wait it out for the swelling to go down but states it has not done so. Patient states the last time he was on antibiotics 3 weeks ago approximately. (JOHNNY ROBBINS) - Related Data Allergies/Adverse Reactions: No Known Allergies Allergy (Verified 12/09/16 12:22) Past Medical History - General Information source: Patient - Social History Smoking Status: Never Smoker Frequency of alcohol use: None Drug Abuse: None Family History: Reviewed & Not Pertinent Patient has suicidal ideation: No Patient has homicidal ideation: No Endocrine Medical History: Denies: Hx Diabetes Mellitus Type 1, Hx Diabetes Mellitus Type 2 Renal/ Medical History: Denies: Hx Peritoneal Dialysis Skin Medical History: Reports Hx MRSA Psychiatric Medical History: Reports: Hx Bipolar Disorder, Hx Depression, Hx Schizophrenia Past Surgical History: Reports: Other - skin graft - Immunizations Hx Diphtheria, Pertussis, Tetanus Vaccination: Yes <JOHNNY ROBBINS - Last Filed: 12/09/16 13:46> Review of Systems - Review of Systems Constitutional: No symptoms reported EENT: No symptoms reported Cardiovascular: No symptoms reported Respiratory: No symptoms reported Gastrointestinal: No symptoms reported Genitourinary: No symptoms reported Male Genitourinary: No symptoms reported Musculoskeletal: No symptoms reported Skin: See HPI, Other - pilondial cyst with drainage Hematologic/Lymphatic: No symptoms reported Neurological/Psychological: No symptoms reported <JOHNNY ROBBINS - Last Filed: 12/09/16 13:46> Physical Exam - General General appearance: Alert - HEENT Head: Normocephalic, Atraumatic Eyes: Normal Extraocular movements intact: Yes Pupils: PERRL - Respiratory Respiratory status: No respiratory distress Breath sounds: Normal - Cardiovascular Rhythm: Regular Heart sounds: Normal auscultation Murmur: No - Abdominal Inspection: Normal Distension: No distension Bowel sounds: Normal Tenderness: Nontender - Back Back: Normal - Extremities General upper extremity: Normal inspection, Normal ROM General lower extremity: Normal inspection, Normal ROM - Neurological Neuro grossly intact: Yes - Psychological Associated symptoms: Normal affect, Normal mood - Skin Skin Temperature: Warm Skin Moisture: Dry Skin Color: Normal Skin irregularity: other - see rectal <JOHNNY ROBBINS - Last Filed: 12/09/16 13:46> <JACKIE PARSON - Last Filed: 12/09/16 16:58> - Vital signs Vitals: Temp Pulse Resp BP Pulse Ox 98.6 F 93 16 99/70 L 98 12/09/16 12:20 12/09/16 12:20 12/09/16 12:20 12/09/16 12:20 12/09/16 12:20 - Rectal Notes: scarring around anus and peritoneal area, right buttock, high near cleft small tender area with a scab that looks like it has previously drained from a small abscess, left proximal posterior thigh 4 cm indurated area that is very tender and appears to have abscess developing in a lot of scar tissue, area to right of anus patient states he can feel abscess, nothing felt on exam, depigmentation around anal area. (JOHNNY ROBBINS) Course - Laboratory Result Diagrams: 12/09/16 12:47 12/09/16 12:47 - Consults Dr. Cavazos Time consulted: 13:42 Consulted provider: will come to ER <JOHNNY ROBBINS - Last Filed: 12/09/16 13:46> - Laboratory Result Diagrams: 12/09/16 12:47 12/09/16 12:47 <JACKIE PARSON - Last Filed: 12/09/16 16:58> - Vital Signs Vital signs: Temp Pulse Resp BP Pulse Ox 98.4 F 88 18 101/79 99 12/09/16 16:56 12/09/16 16:56 12/09/16 16:56 12/09/16 16:56 12/09/16 16:56 - Laboratory Laboratory results interpreted by me: 12/09/16 12/09/16 12:47 12:47 WBC 17.6 H RBC 6.25 H MCV 70 L MCH 22.7 L RDW 15.1 H Seg Neutrophils % 80.8 H Lymphocytes % 10.8 L Absolute Neutrophils 14.2 H AST 15 L ALT 18 L Albumin 3.4 L - Consults Dr. Cavazos Reason for consultation: 12/09/16 13:42 Discussed patient. He will come see the patient in the ED. (JOHNNY ROBBINS) Discharge <JOHNNY ROBBINS - Last Filed: 12/09/16 13:46> - Discharge Admitting Provider: Surgicalist Unit Admitted: OR <JACKIE PARSON - Last Filed: 12/09/16 16:58> - Discharge Clinical Impression: Perineal abscess Leukocytosis Qualifiers: Leukocytosis type: unspecified Qualified Code(s): D72.829 - Elevated white blood cell count, unspecified Hypotension Qualifiers: Hypotension type: unspecified hypotension type Qualified Code(s): I95.9 - Hypotension, unspecified Condition: Stable Disposition: ADMITTED INPATIENT Referrals: LOCALMD,NO [Primary Care Provider] - Follow up as needed Scribe Attestation: 12/09/16 15:05 I personally performed the services described in the documentation, reviewed and edited the documentation which was dictated to the scribe in my presence, and it accurately records my words and actions. (JACKIE PARSON) Scribe Documentation - Scribe Written by Kaylen:: kaylen Ramirez. 12/09/2016, 1328 acting as scribe for :: Mann <JOHNNY ROBBINS - Last Filed: 12/09/16 13:46>
[2016-12-09] MEDS ORDERED: ONDANSETRON HCL INJ/PF 4 MG/2 ML SDV IV ONE (13:45)
[2016-12-09] MEDS ORDERED: CLINDAMYCIN 600 MG/D5W RTU 50 ML IV ONE (13:45)
[2016-12-09] MEDS ORDERED: MORPHINE SULFATE 10 MG/ML INJ IV ONE (13:45)
[2016-12-09] MEDS ORDERED: NORMAL SALINE 1000 ML 1,000 ML IV ONE (13:45)
--- NOTE | 2016-12-09 15:32 | HISTORY AND PHYSICAL E ---
History and Physical NAME: CHERELLE VILLALOBOS : 1965 AGE: 51Y ADMITTED: 12/09/2016 ROOM: CHIEF COMPLAINT: Pains in left upper inner thigh with tenderness and swelling. HISTORY OF PRESENT ILLNESS: This is a 51-year-old male, -[place]ian, that I did an I and D of an hidradenitis on the left upper inner thigh about a month ago. This has been getting bigger and more painful and within the past month since the I and D. He had a history of multiple hidradenitis in the past that were treated by excision and a skin graft along the perianal and the thigh areas. He also had a pilonidal cyst removed, and at this time it seems like it is starting to flare up again. ALLERGIES: None known. PAST MEDICAL HISTORY: 1. No history of drug abuse or alcohol use. 2. Endocrine history: Denies any diabetes. 3. : No VD. 4. Skin history: Reports history of MRSA. 5. Psychiatry: Reports bipolar, depression, and schizophrenia. PAST SURGICAL HISTORY: 1. History of excision of pilonidal cyst. 2. History of multiple hidradenitis with skin graft. The first operation was in [place] in February, and then the second more major operation was in [place] in April and then in August of 2015. IMMUNIZATIONS: The DPT vaccination. FAMILY HISTORY: Noncontributory. REVIEW OF SYSTEMS: As in HPI. Denies any vision or hearing problems. No history of seizures. No chest pains or shortness of breath. No abdominal pains. No diarrhea or constipation. Pains along the left thigh and along the sacrococcygeal area where he had a pilonidal cyst removed. No dysuria. Rest of the systems reviewed and unremarkable. PHYSICAL EXAMINATION: GENERAL: Well-developed, well-nourished, 51-year-old -[place]ian male, alert and oriented complaining of pains along the left upper inner thigh. VITAL SIGNS: Temperature 98.6 Fahrenheit and a pulse of 93 per minute, respirations 16 per minute, blood pressure 99/70 and a pulse oximetry of 98 on room air. HEENT: Neck is supple. No thyromegaly. LUNGS: Clear. HEART: Regular sinus rhythm. ABDOMEN: Soft, nontender. SKIN: In sacral area, there is a small area of superficial ulceration about 1 cm in diameter that is slightly tender but no drainage. He has another hidradenitis right close to the anal area on the right side. He has a large area of hidradenitis with abscess on the left upper inner thigh that is markedly tender. IMPRESSION: 1. Hidradenitis with an abscess along the left upper inner thigh. 2. Post excision of pilonidal cyst, possible recurrence. PLAN: The plan is to drain the abscess in the OR under general anesthesia since it is very tender and a little bit enlarged, roughly about 5 cm wide in inflammation with at least about 2 areas of subcutaneous abscesses. DICTATING PHYSICIAN: DREA PENG M.D. [id number] PHY#: [id number] ID: [id number] JOB#: [id number] ACCT: [id number] cc:DREA PENG M.D. NO Silvio BENITEZ
[2016-12-09 16:13] LABS: APPEARANCE,URINE CLEAR; BILIRUBIN,URINE NEGATIVE (NEGATIVE); GLUCOSE, URINE NEGATIVE (NEGATIVE); KETONES,URINE NEGATIVE (NEGATIVE); LEUKOCYTE ESTERASE,URINE NEGATIVE (NEGATIVE); NITRITE,URINE NEGATIVE (NEGATIVE); PROTEIN,URINE NEGATIVE (NEGATIVE); URINE SPECIFIC GRAVITY 1.004; UROBILINOGEN,URINE NEGATIVE mg/dL (<2.0)
[2016-12-09 16:29] LABS: URINE BARBITURATES SCREEN NEGATIVE; URINE METHADONE SCREEN NEGATIVE; URINE OPIATES LOW UNCONFIRMED POSITIVE; URINE PHENCYCLIDINE SCREEN NEGATIVE
[2016-12-09] MEDS ORDERED: LIDOCAINE 0.5% INJ-PF (5 MG/ML) 50 ML SDV ONE (17:24)
[2016-12-09] MEDS ORDERED: FENTANYL CITRATE INJ/PF 100 MCG/2 ML AMPUL ONE (17:25)
[2016-12-09] MEDS ORDERED: PROPOFOL INJ 200 MG/20 ML VIAL IV ONE (17:25)
[2016-12-09] MEDS ORDERED: IBUPROFEN INJ 800 MG/8 ML VIAL IV ONE (17:25)
[2016-12-09] MEDS ORDERED: MIDAZOLAM 2 MG/2 ML INJ ONE (17:25)
[2016-12-09] MEDS ORDERED: HYDROMORPHONE HCL INJ/PF 2 MG/ML AMPULE ONE (17:26)
[2016-12-09] MEDS ORDERED: CEFAZOLIN INJ 1 GM VIAL ONE (18:18)
[2016-12-09] MEDS ORDERED: PROMETHAZINE HCL INJ 25 MG/1 ML VIAL IV PRN ×2 (18:25)
[2016-12-09] MEDS ORDERED: ONDANSETRON HCL INJ/PF 4 MG/2 ML SDV IV PRN (18:25)
[2016-12-09] MEDS ORDERED: FENTANYL CITRATE INJ/PF 100 MCG/2 ML AMPUL IV PRN ×3 (18:25)
[2016-12-09] MEDS ORDERED: OXYCODONE-ACETAMINOPHEN 5-325 MG TABLET PO PRN ×2 (18:25)
[2016-12-09] MEDS ORDERED: MORPHINE SULFATE 10 MG/ML INJ IV PRN (18:25)
[2016-12-09] MEDS ORDERED: MEPERIDINE HCL/PF INJ 25 MG/1 ML DISP.SYRIN IV PRN (18:25)
[2016-12-09] MEDS ORDERED: DIPHENHYDRAMINE HCL 50 MG/ML VIAL IV PRN (18:25)
[2016-12-09] MEDS ORDERED: BUPIVACAINE HCL 0.5%-EPI 1:200000 INJ/PF 30 ML VIAL ONE (18:30)
[2016-12-09] MEDS ORDERED: VANCOMYCIN HCL INJ 500 MG VIAL ONE ×2 (19:01→19:03)
--- NOTE | 2016-12-09 19:57 | OPERATIVE REPORT E ---
Operative Report NAME: CHERELLE VILLALOBOS : 1965 AGE: 51Y DATE OF SURGERY: 12/09/2016 ROOM: 533 PREOPERATIVE DIAGNOSIS: Abscess of the left upper inner thigh with hidradenitis. POSTOPERATIVE DIAGNOSIS: Abscess of the left upper inner thigh with hidradenitis. OPERATION: Incision and drainage of an abscess of the left upper inner thigh. SURGEON: DREA PENG M.D. ANESTHESIA: General. INDICATIONS: This is a 51-year-old male with multiple procedures for hidradenitis suppurativa in the past. He had multiple operations along the perianal area and even had a skin grafting done at [place] about a year ago. He has been complaining of pains along the left thigh for the past several days and noted some fluctuation in one area of the thigh. DESCRIPTION OF PROCEDURE: The patient was placed in the lithotomy position after general anesthesia. The left thigh and groin were then prepped and draped in the usual sterile fashion. The incision was made over the fluctuant area on the left upper inner thigh, and purulent material extruded out. Culture of this was obtained. The area was probed and noted to be going further towards the area of the rectum. The incision was extended towards that area and also distally to a distance of about 5 cm. Further finger palpation was done, and no other obvious evidence of tunneling noted. Cautery was used to obtain hemostasis. The area appeared to be quite and measured about 1.5 cm deep but does not appear to be going below the fascia. The area was subsequently injected with Marcaine with epinephrine. It was then packed with 1/4-inch Iodoform gauze, and a sterile dressing placed over the operative site. The area was copiously irrigated with saline solution prior to placement of the packing. The patient tolerated the procedure well and brought to the recovery room in satisfactory condition. Needle, instrument, sponge count were all correct. ESTIMATED BLOOD LOSS: About 10 mL. DICTATING PHYSICIAN: DREA PENG M.D. [id number] PHY#: [id number] ID: [id number] JOB#: [id number] ACCT: [id number] cc:DREA PENG M.D. >
[2016-12-09] MEDS: OXYCODONE-ACETAMINOPHEN 5-325 MG TABLET PO PRN (20:46)
[2016-12-10] MEDS: OXYCODONE-ACETAMINOPHEN 5-325 MG TABLET PO PRN ×2 (01:14→09:02)
[2016-12-10] MEDS ORDERED: OXYCODONE HCL IR 5 MG TABLET PO PRN (09:25)
[2016-12-10] MEDS ORDERED: SUCCINYLCHOLINE CHLORIDE INJ 200 MG/10 ML VIAL ONE (12:11)
[2016-12-10 13:13] VITALS: BP 101/79
[2016-12-10] MEDS ORDERED: OXYCODONE-ACETAMINOPHEN 5-325 MG TABLET PO PRN (14:00)
--- NOTE | 2016-12-14 22:47 | DISCHARGE SUMMARY E ---
Discharge Summary NAME: CHERELLE VILLALOBOS : 1965 AGE: 51Y ADMITTED: 12/09/2016 DISCHARGED: 12/10/2016 FINAL DIAGNOSIS: Abscess of the left thigh secondary to hydradenitis suppurativa. PROCEDURE: 12/09/2016: Incision and drainage of abscess of the left upper inner thigh under general anesthesia on 12/09/2016. HOSPITAL COURSE: The patient has had multiple operations for hydradenitis along the perianal area. The *------* was done at [place] where skin grafting was done at the same time. The patient has been complaining of pains along the left thigh for the past several days and noted some fluctuation in one area of this hydradenitis site. He was then taken to the OR on 12/18 and an incision and drainage of an abscess about 5 cm wide and 1.5 cm deep was done. It was then packed with iodoform gauze. The next day on 12/10/2016, the patient has been stable and discharged on p.o. Augmentin 500 mg p.o. t.i.d. for the next 10 days. The patient is to be followed up in the surgical clinic in about 2 days for removal of the packing. DICTATING PHYSICIAN: DREA PENG M.D. [id number] PHY#: [id number] ID: [id number] JOB#: [id number] ACCT: [id number] cc:[facility], DREA WILSON M.D, M.D. >
== END 2016-12-10 13:03 | disposition home or self-care (01) ==
LOC: OROUT 12:12 → UNDOADMIN 17:11 → EH 17:11 → UNDOADMIN 18:50 → OROUT 18:50 → 5 18:50 → EH 19:22 → 5 19:22 → UNDODISIN 12-10 13:03 → OROUT 12-10 13:03
PROVIDERS: ATTEND Surgery
PROC: 0J9M0ZZ Drainage of Left Upper Leg Subcutaneous Tissue and Fascia, Open Approach (ICD-10-PCS; principal; 2016-12-09 16:00)
DX: L02.416 Cutaneous abscess of left lower limb (principal); B95.4 Other streptococcus as the cause of diseases classified elsewhere; L73.2 Hidradenitis suppurativa; F20.9 Schizophrenia, unspecified; F31.9 Bipolar disorder, unspecified; Z86.14 Personal history of Methicillin resistant Staphylococcus aureus infection
CPT/HCPCS: 99285; 96361; 96375; 96365; 36415; 87070; 87205; 85025; 87075; 87077; 80053; 81001; 87186; 80307; 10060; A6266; J2250; J3490 ×3; J0690; J3010; J2270; J1170; J0330; J2405; J3370; J7030; J2704; J1741; 400

== ENCOUNTER 2017-01-12 17:34 | Emergency (ER) | payer MEDICAID ==
[2017-01-12 17:48] VITALS: BP 107/83
== END 2017-01-12 18:45 | disposition left against medical advice (07) ==
LOC: ER 17:34
DX: Z53.9 Procedure and treatment not carried out, unspecified reason (principal); L02.91 Cutaneous abscess, unspecified

== ENCOUNTER 2017-02-06 17:34 | Emergency (ER) | payer MEDICAID ==
[2017-02-06 17:45] VITALS: BP 107/78
[2017-02-06] MEDS ORDERED: OXYCODONE-ACETAMINOPHEN 5-325 MG TABLET PO ONE (18:15)
[2017-02-06] MEDS ORDERED: SULFAMETHOXAZOLE/TRIMETHOPRIM 800-160 MG TABLET PO ONE (18:15)
--- NOTE | 2017-02-06 18:19 | ER Document Report ---
HPI - HPI Patient complains to provider of: Abscess Onset: Other - 3 days Onset/Duration: Persistent Quality of pain: Sharp Pain Level: 4 Context: Patient has a history of hidradenitis suppurativa and complains of an abscess to the left inner thigh for the past 3 days. Patient states that area has started to drain. Patient reports subjective fever a few days ago but none today. Associated Symptoms: Other - Abscess. denies: Fever Exacerbated by: Movement Relieved by: Denies Similar symptoms previously: Yes Recently seen / treated by doctor: No - ROS ROS below otherwise negative: Yes Systems Reviewed and Negative: Yes All other systems reviewed and negative - REPRODUCTIVE Reproductive: DENIES: : - MUSCULOSKELETAL Musculoskeletal: REPORTS: Extremity pain - DERM Skin Color: Normal Notes: Abscess Past Medical History - General Information source: Patient - Social History Smoking Status: Current Every Day Smoker Occupation: None Lives with: Family Family History: Reviewed & Not Pertinent Patient has suicidal ideation: No Patient has homicidal ideation: No Endocrine Medical History: Denies: Hx Diabetes Mellitus Type 1, Hx Diabetes Mellitus Type 2 Renal/ Medical History: Denies: Hx Peritoneal Dialysis Musculoskeltal Medical History: Reports Hx Arthritis Skin Medical History: Reports Hx MRSA, Reports Other - Hidradenitis Psychiatric Medical History: Reports: Hx Bipolar Disorder, Hx Depression, Hx Schizophrenia Past Surgical History: Reports: Other - skin graft - Immunizations Hx Diphtheria, Pertussis, Tetanus Vaccination: Yes Vertical Provider Document - CONSTITUTIONAL Agree With Documented VS: Yes Exam Limitations: No Limitations General Appearance: WD/WN, No Apparent Distress - INFECTION CONTROL TRAVEL OUTSIDE OF THE [place] IN LAST 30 DAYS: No - HEENT HEENT: Atraumatic, Normocephalic - NECK Neck: Normal Inspection - RESPIRATORY Respiratory: Breath Sounds Normal, No Respiratory Distress O2 Sat by Pulse Oximetry: 96 - CARDIOVASCULAR Cardiovascular: Regular Rate, Regular Rhythm - BACK Back: Normal Inspection - MUSCULOSKELETAL/EXTREMETIES Musculoskeletal/Extremeties: KIESHA LACEY - NEURO Level of Consciousness: Awake, Alert, Appropriate Motor/Sensory: No Motor Deficit, No Sensory Deficit - DERM Integumentary: Warm, Dry, Abscess - Spontaneously draining abscess medial aspect of left thigh Adult Front & Back Diagram: 1 - Spontaneously draining abscess, no scrotal tenderness, no concern for perirectal abscess Course - Vital Signs Vital signs: Temp Pulse Resp BP Pulse Ox 97.9 F 91 14 107/78 96 02/06/17 17:45 02/06/17 17:45 02/06/17 17:45 02/06/17 17:45 02/06/17 17:45 Discharge - Discharge Clinical Impression: Abscess of thigh, Hx of hidradenitis suppurativa Condition: Stable Disposition: HOME, SELF-CARE Instructions: Abscess ([facility]), Oral Narcotic Medication ([facility]), Trimethoprim- Sulfa ([facility]) Additional Instructions: Return immediately for any new or worsening symptoms Followup with your primary care provider, call tomorrow to make a followup appointment Continue to use warm compresses to the area Prescriptions: Oxycodone HCl/Acetaminophen [Percocet 5-325 mg Tablet] 1 tab PO ASDIR PRN #15 tablet PRN Reason: Sulfamethoxazole/Trimethoprim [Bactrim Ds Tablet] 1 each PO BID #20 tablet Referrals: [facility] [Provider Group] - Follow up as needed
== END 2017-02-06 18:25 | disposition home or self-care (01) ==
LOC: ER 17:34
DX: L02.416 Cutaneous abscess of left lower limb (principal); R50.9 Fever, unspecified; F17.200 Nicotine dependence, unspecified, uncomplicated
CPT/HCPCS: 99282; J3490

== ENCOUNTER 2017-02-18 09:12 | Emergency (ER) | payer MEDICAID ==
[2017-02-18 10:50] LABS: ABSOLUTE BASOPHILS # (AUTO) 0.1 10^3/uL (0.0-0.2); ABSOLUTE EOSINOPHILS # (AUTO) 0.2 10^3/uL (0.0-0.6); ABSOLUTE LYMPHOCYTES (AUTO) 1.8 10^3/uL (0.5-4.7); ABSOLUTE NEUT (AUTO) 7.5 10^3/uL (1.7-8.2); BASOPHILS % (AUTO) 0.6 % (0-2); EOSINOPHILS % (AUTO) 2.3 % (0-6); HEMATOCRIT 41.1 % (37.9-51.0); HEMOGLOBIN 13.4 g/dL (13.5-17.0); HGB HCT DIFFERENCE -0.9; LYMPHOCYTES % (AUTO) 17.4 % (13-45); MEAN CORPUSCULAR HGB CONC 32.5 g/dL (32.0-36.0); MEAN CORPUSCULAR VOLUME 71 fl (80-97); RED BLOOD COUNT 5.82 10^6/uL (4.35-5.55); RED CELL DISTRIBUTION WIDTH 15.2 % (11.5-14.0); SEGMENTED NEUTROPHILS % (AUTO) 70.7 % (42-78); WHITE BLOOD COUNT 10.6 10^3/uL (4.0-10.5)
[2017-02-18 11:02] LABS: ALANINE AMINOTRANSFERASE 25 U/L (21-72); ALBUMIN 3.5 g/dL (3.5-5.0); ALKALINE PHOSPHATASE 75 U/L (38-126); ANION GAP 9 (5-19); ASPARTATE AMINO TRANSFERASE 15 U/L (17-59); BILIRUBIN,DIRECT 0.3 mg/dL (0.0-0.4); BILIRUBIN,TOTAL 0.3 mg/dL (0.2-1.3); BLOOD UREA NITROGEN 11 mg/dL (7-20); CALCIUM 8.9 mg/dL (8.4-10.2); CARBON DIOXIDE 25 mmol/L (22-30); CHLORIDE 109 mmol/L (98-107); CREATININE RESULT 0.92 mg/dL (0.52-1.25); GLUCOSE 96 mg/dL (75-110); LIPASE 64.8 U/L (23-300); POTASSIUM 4.5 mmol/L (3.6-5.0); SODIUM 142.6 mmol/L (137-145); TOTAL PROTEIN 6.3 g/dL (6.3-8.2)
[2017-02-18] MEDS ORDERED: SULFAMETHOXAZOLE/TRIMETHOPRIM 800-160 MG TABLET PO ONE (14:26)
[2017-02-18] MEDS ORDERED: TRAMADOL HCL 50 MG TABLET PO ONE (14:27)
--- NOTE | 2017-02-18 14:33 | ER Document Report ---
ED General - General Chief Complaint: Rectal Abscess Stated Complaint: RECTAL BLEEDING Time Seen by Provider: 02/18/17 10:17 TRAVEL OUTSIDE OF THE U.S. IN LAST 30 DAYS: No - HPI Patient complains to provider of: Hidradenitis abscess Notes: Patient coming in with a history of hidradenitis coming in for possible multiple other abscesses. Patient currently states he is homeless. Patient denies fevers chills nausea vomiting diarrhea. Patient states multiple surgeries in the past. Patient states no recent antibiotics. Patient denies fevers chills. Patient states also having bleeding whenever he wipes. No gross bloody stools no black stools no maroon stools. Patient is resting comfortably upon my evaluation requesting something to eat. - Related Data Allergies/Adverse Reactions: No Known Allergies Allergy (Verified 02/18/17 09:34) Past Medical History - Social History Smoking Status: Current Every Day Smoker Chew tobacco use (# tins/day): No Frequency of alcohol use: None Drug Abuse: None Family History: Reviewed & Not Pertinent Patient has suicidal ideation: No Patient has homicidal ideation: No Endocrine Medical History: Denies: Hx Diabetes Mellitus Type 1, Hx Diabetes Mellitus Type 2 Renal/ Medical History: Denies: Hx Peritoneal Dialysis Musculoskeltal Medical History: Reports Hx Arthritis Skin Medical History: Reports Hx MRSA Psychiatric Medical History: Reports: Hx Bipolar Disorder, Hx Depression, Hx Schizophrenia Past Surgical History: Reports: Other - skin graft - Immunizations Hx Diphtheria, Pertussis, Tetanus Vaccination: Yes Review of Systems - Review of Systems Constitutional: No symptoms reported EENT: No symptoms reported Cardiovascular: No symptoms reported Respiratory: No symptoms reported Gastrointestinal: No symptoms reported Genitourinary: No symptoms reported Male Genitourinary: No symptoms reported Musculoskeletal: No symptoms reported Skin: Other - Abscess formations Hematologic/Lymphatic: No symptoms reported Neurological/Psychological: No symptoms reported Physical Exam - Vital signs Vitals: Temp Pulse Resp BP Pulse Ox 98.4 F 64 18 131/84 H 100 02/18/17 09:32 02/18/17 09:32 02/18/17 09:32 02/18/17 09:32 02/18/17 09:32 Interpretation: Normal - General General appearance: Appears well, Alert - HEENT Head: Normocephalic, Atraumatic Eyes: Normal Pupils: PERRL - Respiratory Respiratory status: No respiratory distress Chest status: Nontender Breath sounds: Normal Chest palpation: Normal - Cardiovascular Rhythm: Regular Heart sounds: Normal auscultation Murmur: No - Abdominal Inspection: Normal Distension: No distension Bowel sounds: Normal Tenderness: Nontender Organomegaly: No organomegaly - Rectal Notes: Patient with an area on the left hip consistent with subcutaneous abscess fluctuance pain to palpation. This is approximate 1 cm x 1 cm. Patient also has a another area approximately 2 cm x 3 cm on the inner left thigh fluctuant painful consistent with abscess. Patient has diffuse scar tissue in the perirectal region with induration some mild fluctuance near the anus difficult to perform rectal exam due to pain. Concern for perirectal abscess. - Back Back: Normal, Nontender - Extremities General upper extremity: Normal inspection, Nontender, Normal color, Normal ROM , Normal temperature General lower extremity: Normal inspection, Nontender, Normal color, Normal ROM , Normal temperature, Normal weight bearing. No: Jerod's sign - Neurological Neuro grossly intact: Yes Cognition: Normal Orientation: AAOx4 [place] Coma Scale Eye Opening: Spontaneous [place] Coma Scale Verbal: Oriented [place] Coma Scale Motor: Obeys Commands [place] Coma Scale Total: 15 Speech: Normal Motor strength normal: LUE, RUE, LLE, RLE Sensory: Normal - Psychological Associated symptoms: Normal affect, Normal mood - Skin Skin Temperature: Warm Skin Moisture: Dry Skin Color: Normal Course - Re-evaluation Re-evalutation: 02/18/17 15:03 Surgical consult was requested. Discussed with Dr. Cavazos states that he recommended I&D however patient this time does not request I&D only antibiotics and pain medication. Dr. Briones recommended Bactrim. Bactrim and Ultram will be given to the patient patient was educated that this was more likely not cure his disease and possibly cause worsening of his disease. Patient states that normally they will go away after antibiotics. Pathophysiology of abscesses were explained to patient however continued with his request for only antibiotics no surgery at this time. Patient does not like the choice of Ultram for pain control requesting Percocet explained that we would only give him Ultram at this time. - Vital Signs Vital signs: Temp Pulse Resp BP Pulse Ox 98.4 F 64 18 131/84 H 100 02/18/17 09:32 02/18/17 09:32 02/18/17 09:32 02/18/17 09:32 02/18/17 09:32 - Laboratory Result Diagrams: 02/18/17 10:30 02/18/17 10:30 Laboratory results interpreted by me: 02/18/17 02/18/17 10:30 10:30 WBC 10.6 H RBC 5.82 H Hgb 13.4 L MCV 71 L MCH 23.0 L RDW 15.2 H Chloride 109 H AST 15 L Discharge - Discharge Clinical Impression: Perineal abscess Condition: Good Disposition: HOME, SELF-CARE Instructions: Abscess ([facility]), Oral Narcotic Medication ([facility]), Trimethoprim- Sulfa ([facility]) Additional Instructions: Your seen and evaluated by our surgical team and came to the conclusion that she would not want any surgery at this time surgeon is recommended that we start you on antibiotics I will give you Ultram for pain control he may also take Tylenol and Motrin. Return to the ER if symptoms worsen. Prescriptions: Sulfamethoxazole/Trimethoprim [Bactrim Ds Tablet] 1 each PO BID #14 tablet Tramadol HCl [Ultram] 50 mg PO TID #20 tablet
[2017-02-18 15:01] VITALS: BP 133/85
== END 2017-02-18 15:00 | disposition home or self-care (01) ==
LOC: ER 09:12
DX: K61.0 Anal abscess (principal); F17.200 Nicotine dependence, unspecified, uncomplicated
CPT/HCPCS: 99283; 36415; 83690; 85025; 80053; J3490

== ENCOUNTER 2017-05-13 14:02 | Emergency (ER) | payer MEDICAID ==
[2017-05-13] MEDS ORDERED: OXYCODONE-ACETAMINOPHEN 5-325 MG TABLET PO ONE ×2 (15:42→21:38)
--- NOTE | 2017-05-13 15:45 | ER Document Report ---
ED Medical Screen (RME) - General Chief Complaint: Rectal Abscess Stated Complaint: ABSCESS Time Seen by Provider: 05/13/17 15:41 Mode of Arrival: Ambulatory Information source: Patient Notes: Pt is a 51 year old male who presents to the ER today for possible rectal abscess, he has an extensive history of this and also has sciatica. He has no hx of hemorrhoids. he has had f/c at home. TRAVEL OUTSIDE OF THE [place] IN LAST 30 DAYS: No - Related Data Allergies/Adverse Reactions: ibuprofen Allergy (Verified 05/13/17 14:04) sulfamethoxazole [From Bactrim] Allergy (Verified 05/13/17 14:04) trimethoprim [From Bactrim] Allergy (Verified 05/13/17 14:04) Past Medical History - General Information source: Patient Endocrine Medical History: Denies: Hx Diabetes Mellitus Type 1, Hx Diabetes Mellitus Type 2 Renal/ Medical History: Denies: Hx Peritoneal Dialysis Musculoskeltal Medical History: Reports Hx Arthritis Skin Medical History: Reports Hx MRSA Psychiatric Medical History: Reports: Hx Bipolar Disorder, Hx Depression, Hx Schizophrenia Past Surgical History: Reports: Other - skin graft - Immunizations Hx Diphtheria, Pertussis, Tetanus Vaccination: Yes Review of Systems - Review of Systems Gastrointestinal: See HPI Musculoskeletal: See HPI Physical Exam - Vital signs Vitals: Temp Pulse Resp BP Pulse Ox 98.0 F 98 16 116/78 97 05/13/17 14:16 05/13/17 14:16 05/13/17 14:16 05/13/17 14:16 05/13/17 14:16 - Notes Notes: General: limping, won't sit flat on bottom Course - Vital Signs Vital signs: Temp Pulse Resp BP Pulse Ox 98.0 F 98 16 116/78 97 05/13/17 14:16 05/13/17 14:16 05/13/17 14:16 05/13/17 14:16 05/13/17 14:16
[2017-05-13 16:52] LABS: ABSOLUTE BASOPHILS # (AUTO) 0.1 10^3/uL (0.0-0.2); ABSOLUTE EOSINOPHILS # (AUTO) 0.2 10^3/uL (0.0-0.6); ABSOLUTE LYMPHOCYTES (AUTO) 2.3 10^3/uL (0.5-4.7); ABSOLUTE MONOCYTES (AUTO) 0.9 10^3/uL (0.1-1.4); ABSOLUTE NEUT (AUTO) 9.5 10^3/uL (1.7-8.2); BASOPHILS % (AUTO) 0.7 % (0-2); EOSINOPHILS % (AUTO) 1.8 % (0-6); HEMATOCRIT 42.5 % (37.9-51.0); HEMOGLOBIN 13.6 g/dL (13.5-17.0); LYMPHOCYTES % (AUTO) 17.8 % (13-45); MEAN CORPUSCULAR HEMOGLOBIN 22.3 pg (27.0-33.4); MEAN CORPUSCULAR HGB CONC 31.9 g/dL (32.0-36.0); MEAN CORPUSCULAR VOLUME 70 fl (80-97); MONOCYTES % (AUTO) 6.9 % (3-13); PLATELET COUNT 379 10^3/uL (150-450); RED BLOOD COUNT 6.08 10^6/uL (4.35-5.55); RED CELL DISTRIBUTION WIDTH 14.7 % (11.5-14.0); SEGMENTED NEUTROPHILS % (AUTO) 72.8 % (42-78); TOTAL CELLS COUNTED % (AUTO) 100 %; WHITE BLOOD COUNT 13.1 10^3/uL (4.0-10.5)
[2017-05-13 17:17] LABS: ALANINE AMINOTRANSFERASE 25 U/L (21-72); ALBUMIN 4.6 g/dL (3.5-5.0); ALKALINE PHOSPHATASE 73 U/L (38-126); ANION GAP 11 (5-19); ASPARTATE AMINO TRANSFERASE 19 U/L (17-59); BILIRUBIN,DIRECT 0.2 mg/dL (0.0-0.4); BILIRUBIN,TOTAL 0.2 mg/dL (0.2-1.3); BLOOD UREA NITROGEN 12 mg/dL (7-20); CALCIUM 10.6 mg/dL (8.4-10.2); CARBON DIOXIDE 27 mmol/L (22-30); CHLORIDE 103 mmol/L (98-107); GLUCOSE 98 mg/dL (75-110); POTASSIUM 4.5 mmol/L (3.6-5.0); SODIUM 141.2 mmol/L (137-145); TOTAL PROTEIN 7.9 g/dL (6.3-8.2)
[2017-05-13 19:08] LABS: CHLAM PCR NOT DETECTED (NOT DETECT); GON PCR NOT DETECTED (NOT DETECT)
--- NOTE | 2017-05-13 20:46 | ER Document Report ---
HPI - HPI Patient complains to provider of: Abscess Onset: Other Onset/Duration: Persistent - 3 days Quality of pain: Sharp Pain Level: 5 Context: Patient complains of draining abscess to the perianal area for the past 3 days. Patient reports subjective fevers at home. Patient has a history of hidradenitis. Associated Symptoms: Fever, Other - Draining abscess to the perianal area Exacerbated by: Movement Relieved by: Denies Similar symptoms previously: Yes Recently seen / treated by doctor: No - ROS ROS below otherwise negative: Yes Systems Reviewed and Negative: Yes All other systems reviewed and negative - CONSTITUTIONAL Constitutional: REPORTS: Fever - RESPIRATORY Respiratory: DENIES: Trouble Breathing, Coughing - GASTROINTESTINAL Gastrointestinal: DENIES: Abdominal Pain, Nausea - REPRODUCTIVE Reproductive: DENIES: : - MUSCULOSKELETAL Musculoskeletal: DENIES: Extremity pain - DERM Skin Color: Normal Notes: Abscess to the perianal area Past Medical History - General Information source: Patient - Social History Smoking Status: Former Smoker Frequency of alcohol use: None Drug Abuse: None Occupation: None Lives with: Family Family History: Reviewed & Not Pertinent Patient has suicidal ideation: No Patient has homicidal ideation: No Endocrine Medical History: Denies: Hx Diabetes Mellitus Type 1, Hx Diabetes Mellitus Type 2 Renal/ Medical History: Denies: Hx Peritoneal Dialysis Musculoskeltal Medical History: Reports Hx Arthritis Skin Medical History: Reports Hx MRSA Psychiatric Medical History: Reports: Hx Bipolar Disorder, Hx Depression, Hx Schizophrenia Past Surgical History: Reports: Other - skin graft - Immunizations Hx Diphtheria, Pertussis, Tetanus Vaccination: Yes Vertical Provider Document - CONSTITUTIONAL Agree With Documented VS: Yes Exam Limitations: No Limitations General Appearance: WD/WN, No Apparent Distress - INFECTION CONTROL TRAVEL OUTSIDE OF THE [place] IN LAST 30 DAYS: No - HEENT HEENT: Atraumatic, Normocephalic - NECK Neck: Normal Inspection, Supple - RESPIRATORY Respiratory: Breath Sounds Normal, No Respiratory Distress O2 Sat by Pulse Oximetry: 97 - CARDIOVASCULAR Cardiovascular: Regular Rate, Regular Rhythm - GI/ABDOMEN Gastrointestinal: Abdomen Soft, Abdomen Non-Tender Notes: Patient with swelling and mild erythema to the perianal area concerning for abscess. Area is exquisitely tender to palpation. - BACK Back: Normal Inspection - MUSCULOSKELETAL/EXTREMETIES Musculoskeletal/Extremeties: MAEW - NEURO Level of Consciousness: Awake, Alert, Appropriate Motor/Sensory: No Motor Deficit - DERM Integumentary: Warm, Abscess - Perianal area with 1 cm area of erythema and fluctuance exquisitely tender to palpation Course - Re-evaluation Re-evalutation: 05/13/17 20:[address] Cavazos who agrees to come and evaluate patient in the ER 05/13/17 21:38 Dr Cavazos saw patient and patient declines to stay here for definitive treatment. Patient told surgeon that the area is draining and he would like to be discharged home and plans to follow-up with the primary doctor on Thursday. Dr. Cavazos recommends placing patient on Percocet as well as Cipro with good return precautions. 05/14/17 01:35 - Vital Signs Vital signs: Temp Pulse Resp BP Pulse Ox 98.0 F 98 16 116/78 97 05/13/17 14:16 05/13/17 14:16 05/13/17 14:16 05/13/17 14:16 05/13/17 14:16 - Laboratory Result Diagrams: 05/13/17 16:40 05/13/17 16:40 Laboratory results interpreted by me: 05/13/17 05/13/17 16:40 16:40 WBC 13.1 H RBC 6.08 H MCV 70 L MCH 22.3 L MCHC 31.9 L RDW 14.7 H Absolute Neutrophils 9.5 H Calcium 10.6 H 05/13/17 21:39 Labs- Entire Visit 05/13/17 05/13/17 05/13/17 16:40 16:40 17:10 WBC 13.1 H RBC 6.08 H Hgb 13.6 Hct 42.5 MCV 70 L MCH 22.3 L MCHC 31.9 L RDW 14.7 H Plt Count 379 Seg Neutrophils % 72.8 Lymphocytes % 17.8 Monocytes % 6.9 Eosinophils % 1.8 Basophils % 0.7 Absolute Neutrophils 9.5 H Absolute Lymphocytes 2.3 Absolute Monocytes 0.9 Absolute Eosinophils 0.2 Absolute Basophils 0.1 Sodium 141.2 Potassium 4.5 Chloride 103 Carbon Dioxide 27 Anion Gap 11 BUN 12 Creatinine 0.86 Est GFR ( Amer) > 60 Est GFR (Non-Af Amer) > 60 Glucose 98 Calcium 10.6 H Total Bilirubin 0.2 Direct Bilirubin 0.2 Neonat Total Bilirubin Not Reportable Neonat Direct Bilirubin Not Reportable Neonat Indirect Bili Not Reportable AST 19 ALT 25 Alkaline Phosphatase 73 Total Protein 7.9 Albumin 4.6 Chlamydia DNA (PCR) NOT DETECTED N.gonorrhoeae DNA (PCR) NOT DETECTED Discharge - Discharge Clinical Impression: Perianal abscess Condition: Stable Disposition: HOME, SELF-CARE Instructions: Abscess ([facility]), Ciprofloxacin ([facility]), Oral Narcotic Medication ([facility] ) Additional Instructions: Return immediately for any new or worsening symptoms Followup with your primary care provider, call tomorrow to make a followup appointment Follow-up with a surgeon for further management call tomorrow for an appointment Prescriptions: Ciprofloxacin HCl [Cipro 500 mg Tablet] 500 mg PO BID #20 tablet Oxycodone HCl/Acetaminophen [Percocet 5-325 mg Tablet] 1 tab PO ASDIR PRN #20 tablet PRN Reason: Referrals: DREA CAVAZOS MD [[facility]] - Follow up in 3-5 days
[2017-05-13] MEDS ORDERED: HYDROMORPHONE HCL INJ/PF 2 MG/ML AMPULE IM ONE (21:28)
[2017-05-13] MEDS ORDERED: CIPROFLOXACIN HCL 500 MG TABLET PO ONE (21:38)
--- NOTE | 2017-05-13 22:02 | PDOC CONSULTATION ---
Consultation Consult Date: 05/13/17 Consult reason:: Right radha-anal abscess History of Present Illness History of Present Illness: CHERELLE VILLALOBOS is a 51 year old male c/o right perianal pains past 4 days. This started draining yesterday. He came to the ER today to have pain medication.He refuses surgery because it already started to drain. He has had at least 8 I&D of radha-anal abscesses according to him. He is to see his primary physician05/18/17 to have pain medications. He also claims he injured his left leg causing sciatica pains. Past Medical History Endocrine Medical History: Denies: Diabetes Mellitus Type 1, Diabetes Mellitus Type 2 Musculoskeltal Medical History: Reports: Arthritis Psychiatric Medical History: Reports: Bipolar Disorder, Depression Past Surgical History Past Surgical History: Reports: Other - skin graft and multiple I&D's of radha- anal abscesses Social History Smoking Status: Current Every Day Smoker Family History Family History: Reviewed & Not Pertinent Parental Family History Reviewed: Yes Children Family History Reviewed: No Sibling(s) Family History Reviewed.: No Medication/Allergy Home Medications: Sulfamethoxazole/Trimethoprim [Bactrim Ds Tablet] 1 each PO BID #14 tablet 02/18 Tramadol HCl [Ultram] 50 mg PO TID #20 tablet 02/18/17 Ciprofloxacin HCl [Cipro 500 mg Tablet] 500 mg PO BID #20 tablet 05/13/17 Oxycodone HCl/Acetaminophen [Percocet 5-325 mg Tablet] 1 tab PO ASDIR PRN #20 tablet 05/13/17 Allergies/Adverse Reactions: ibuprofen Allergy (Verified 05/13/17 14:04) sulfamethoxazole [From Bactrim] Allergy (Verified 05/13/17 14:04) tramadol Allergy (Verified 05/13/17 15:46) trimethoprim [From Bactrim] Allergy (Verified 05/13/17 14:04) Review of Systems Constitutional: PRESENT: other - no fever no chills Eyes: PRESENT: other - No visual or hearing problems Nose, Mouth, and Throat: PRESENT: other - No sore throat Cardiovascular: PRESENT: other - No chest pains Respiratory: PRESENT: other - No cough Gastrointestinal: PRESENT: other - No abdominal pains Genitourinary: PRESENT: other - No dysuria Musculoskeletal: PRESENT: other - Left leg pains attributable to patient claims sciatica Integumentary: PRESENT: other - Pains perianal area Neurological: PRESENT: other - Pains left leg attributed to sciatica according to the patient Psychiatric: PRESENT: other - No anxiety Endocrine: PRESENT: other - No polydipsia no polyuria Hematologic/Lymphatic: PRESENT: other - No easy bruisability Physical Exam Vital Signs: Temp Pulse Resp BP Pulse Ox 98.0 F 98 16 116/78 97 05/13/17 14:16 05/13/17 14:16 05/13/17 14:16 05/13/17 14:16 05/13/17 21:40 Intake & Output 05/12/17 05/13/17 05/14/17 06:59 06:59 06:59 Weight 81.7 kg General appearance: PRESENT: no acute distress Head exam: PRESENT: atraumatic Eye exam: PRESENT: conjunctiva pink Mouth exam: PRESENT: moist, tongue midline Neck exam: PRESENT: full ROM Respiratory exam: PRESENT: clear to auscultation lubna Cardiovascular exam: PRESENT: RRR Pulses: PRESENT: normal radial pulses GI/Abdominal exam: PRESENT: soft Rectal exam: PRESENT: tenderness - Over minimal swelling along the right perianal area Extremities exam: PRESENT: full ROM Musculoskeletal exam: PRESENT: ambulatory Neurological exam: PRESENT: alert, oriented to person, oriented to place, oriented to time, oriented to situation Psychiatric exam: PRESENT: anxious Skin exam: PRESENT: normal color, warm Results Laboratory Results: 05/13/17 16:40 05/13/17 16:40 05/13/17 05/13/17 16:40 16:40 WBC 13.1 H RBC 6.08 H Hgb 13.6 Hct 42.5 MCV 70 L MCH 22.3 L MCHC 31.9 L RDW 14.7 H Plt Count 379 Seg Neutrophils % 72.8 Lymphocytes % 17.8 Monocytes % 6.9 Eosinophils % 1.8 Basophils % 0.7 Absolute Neutrophils 9.5 H Absolute Lymphocytes 2.3 Absolute Monocytes 0.9 Absolute Eosinophils 0.2 Absolute Basophils 0.1 Sodium 141.2 Potassium 4.5 Chloride 103 Carbon Dioxide 27 Anion Gap 11 BUN 12 Creatinine 0.86 Est GFR ( Amer) > 60 Est GFR (Non-Af Amer) > 60 Glucose 98 Calcium 10.6 H Total Bilirubin 0.2 AST 19 ALT 25 Alkaline Phosphatase 73 Total Protein 7.9 Albumin 4.6 Assessment & Plan - Diagnosis (1) Perianal abscess Is this a current diagnosis for this admission?: Yes - Time Time Spent: 30 to 50 Minutes - Plan Summary Plan Summary: Patient refuses to stay for IV antibiotics and possible I&D. He claims it already started draining yesterday.He just wants pain medications until he sees his primary care 05/18/17. D/W ER PA who will prescribe Cipro and Percocet. Pt claims if it gets worse then he will come back to the ED. I have done an I&D of perineal hydradenitis in the past and he recognized me He promised me to come back if it gets worse.
[2017-05-13 22:03] VITALS: BP 120/76
== END 2017-05-13 21:48 | disposition home or self-care (01) ==
LOC: ER 14:02
DX: K61.0 Anal abscess (principal); Z87.891 Personal history of nicotine dependence; Z86.14 Personal history of Methicillin resistant Staphylococcus aureus infection
CPT/HCPCS: 99284; 36415; 85025; 80053; 87491; 87591; J3490

== ENCOUNTER 2017-05-28 10:59 | Emergency (ER) | payer MEDICAID ==
[2017-05-28 11:30] VITALS: BP 128/95
[2017-05-28] MEDS ORDERED: DOXYCYCLINE HYCLATE 100 MG TABLET PO ONE (13:06)
--- NOTE | 2017-05-28 13:08 | ER Document Report ---
HPI - HPI Patient complains to provider of: abscess Onset: Other - 2 days Pain Level: 4 Context: 51 yo male with hx hydradenitis has new abscess left groin/upper thigh. No fever. Associated Symptoms: None Exacerbated by: Movement Relieved by: Denies Similar symptoms previously: Yes Recently seen / treated by doctor: No - ROS ROS below otherwise negative: Yes Systems Reviewed and Negative: Yes All other systems reviewed and negative - REPRODUCTIVE Reproductive: DENIES: : Past Medical History - General Information source: Patient - Social History Smoking Status: Unknown if Ever Smoked Frequency of alcohol use: None Drug Abuse: None Lives with: Family Family History: Reviewed & Not Pertinent - Medical History Medical History: Negative Renal/ Medical History: Denies: Hx Peritoneal Dialysis Musculoskeltal Medical History: Reports Hx Arthritis Skin Medical History: Reports Hx MRSA Psychiatric Medical History: Reports: Hx Bipolar Disorder, Hx Depression, Hx Schizophrenia Past Surgical History: Reports: Other - skin graft - Immunizations Hx Diphtheria, Pertussis, Tetanus Vaccination: Yes Vertical Provider Document - CONSTITUTIONAL Agree With Documented VS: Yes Exam Limitations: No Limitations General Appearance: No Apparent Distress - INFECTION CONTROL TRAVEL OUTSIDE OF THE [place] IN LAST 30 DAYS: No - RESPIRATORY O2 Sat by Pulse Oximetry: 98 - MUSCULOSKELETAL/EXTREMETIES Musculoskeletal/Extremeties: MAEW - NEURO Level of Consciousness: Awake, Alert - DERM Integumentary: Abscess - left upper medial thigh abscess 1.5 cm Course - Vital Signs Vital signs: Temp Pulse Resp BP Pulse Ox 98.2 F 76 16 128/95 H 98 05/28/17 11:29 05/28/17 11:29 05/28/17 11:29 05/28/17 11:29 05/28/17 11:29 Procedures - Incision and Drainage Left Groin Time completed: 15:42 Type: Simple Anesthetic type: 1% Lidocaine mL's of anesthetic: 3 Blade size: 11 I&D procedure: Betadine prep applied Incision Method: Incision made by scalpel Amount/type of drainage: large pus Discharge - Discharge Clinical Impression: abscess I and D Condition: Good Disposition: HOME, SELF-CARE Instructions: Abscess ([facility]), Doxycycline ([facility]), Oral Narcotic Medication ([facility]) Additional Instructions: warm compress take the antibiotic doxycycline twice a day for a week to er if worse Prescriptions: Doxycycline Hyclate 100 mg PO BID #14 capsule Oxycodone HCl/Acetaminophen [Percocet 5-325 mg Tablet] 1 - 2 tab PO ASDIR PRN # 10 tablet PRN Reason:
[2017-05-28] MEDS ORDERED: LIDOCAINE 4%/TETRACAINE 0.5%/EPI 0.18% 5 ML TOPICAL SOLN TOP ONE (14:54)
== END 2017-05-28 16:15 | disposition home or self-care (01) ==
LOC: ER 10:59
PROC: 0H9JXZZ Drainage of Left Upper Leg Skin, External Approach (ICD-10-PCS; principal; 2017-05-28)
DX: L02.214 Cutaneous abscess of groin (principal)
CPT/HCPCS: 99283; 10060; J3490 ×2

== ENCOUNTER 2017-08-08 09:09 | Emergency (ER) | payer MEDICAID ==
[2017-08-08 09:21] VITALS: BP 114/79
[2017-08-08] MEDS ORDERED: LIDOCAINE 5% (700 MG) TRANSDERMAL ADH..PATCH TP ONE (09:44)
[2017-08-08] MEDS ORDERED: DEXAMETHASONE SOD PHOS INJ 10 MG/1 ML VIAL IM ONE (09:44)
[2017-08-08] MEDS ORDERED: KETOROLAC TROMETHAMINE 60 MG/2 ML SDV IM ONE (09:44)
--- NOTE | 2017-08-08 09:44 | ER Document Report ---
ED Neck/Back Problem - General Chief Complaint: Low Back Pain Stated Complaint: BACK PAIN Time Seen by Provider: 08/08/17 09:23 Mode of Arrival: Ambulatory Information source: Patient Notes: 51-year-old male presents to ED for complaint of draining hidradenitis and back pain with sciatica that is worse than it has been. Patient is seen here frequently for pain. Patient is able to get up and walk around in the room. He is alert oriented speaks with full sentences and walks with a even steady gait. TRAVEL OUTSIDE OF THE [place] IN LAST 30 DAYS: No - HPI Patient complains to provider of: Pain, Lower back - And in his groin where his hidradenitis is Onset: Other - Chronic Onset: Chronic Timing: Still present Quality of pain: Burning, Sharp Severity: Severe Pain Level: 5 Recent injury: No Associated symptoms: Like prior neck/back pain, Radiation to leg, Lower back pain, Other - Hidradenitis pain in his groin no open active lesions. denies: Constipation, Incontinence, Motor loss, Numbness/tingling, Radiation to arm, Radiation to chest, Sensory loss, Sweaty, Upper back pain Exacerbated by: Sitting position Relieved by: Nothing Similar symptoms previously: Yes Recently seen / treated by doctor: Yes - Related Data Allergies/Adverse Reactions: sulfamethoxazole [From Bactrim] Allergy (Verified 05/13/17 14:04) tramadol Allergy (Verified 05/13/17 15:46) trimethoprim [From Bactrim] Allergy (Verified 05/13/17 14:04) Past Medical History - General Information source: Patient - Social History Smoking Status: Current Every Day Smoker Cigarette use (# per day): Yes - 6 cigarettes a day Chew tobacco use (# tins/day): No Smoking Education Provided: Yes - 4 minutes Frequency of alcohol use: None Drug Abuse: None Lives with: Family Family History: Reviewed & Not Pertinent Patient has suicidal ideation: No Patient has homicidal ideation: No - Past Medical History Cardiac Medical History: Reports: None Pulmonary Medical History: Reports: None EENT Medical History: Reports: None Neurological Medical History: Reports: None Endocrine Medical History: Reports: None Renal/ Medical History: Reports: None Malignancy Medical History: Reports None GI Medical History: Reports: None Musculoskeltal Medical History: Reports Hx Arthritis Skin Medical History: Reports Hx MRSA, Reports Other - Hydradenitis Psychiatric Medical History: Reports: Hx Bipolar Disorder, Hx Depression, Hx Schizophrenia Traumatic Medical History: Reports: None Infectious Medical History: Reports: None Past Surgical History: Reports: Other - skin graft - Immunizations Hx Diphtheria, Pertussis, Tetanus Vaccination: Yes Review of Systems - Review of Systems Constitutional: No symptoms reported EENT: No symptoms reported Cardiovascular: No symptoms reported Respiratory: No symptoms reported Gastrointestinal: No symptoms reported Genitourinary: Other - Scarring and tenderness to area where he has previously had an hydradenitis active lesions noted at this time Male Genitourinary: No symptoms reported Musculoskeletal: Back pain Skin: No symptoms reported Hematologic/Lymphatic: No symptoms reported Neurological/Psychological: No symptoms reported -: Yes All other systems reviewed and negative Physical Exam - Vital signs Vitals: Temp Pulse Resp BP Pulse Ox 97.9 F 82 16 114/79 99 08/08/17 09:20 08/08/17 09:20 08/08/17 09:20 08/08/17 09:20 08/08/17 09:20 Interpretation: Normal - General General appearance: Appears well, Alert - HEENT Head: Normocephalic, Atraumatic Eyes: Normal Pupils: PERRL - Respiratory Respiratory status: No respiratory distress Chest status: Nontender Breath sounds: Normal Chest palpation: Normal - Cardiovascular Rhythm: Regular Heart sounds: Normal auscultation Murmur: No - Abdominal Inspection: Normal Distension: No distension Bowel sounds: Normal Tenderness: Nontender Organomegaly: No organomegaly - Back Back: Normal, Tender, Vertebra tenderness. No: Deformity/step-off, CVA tenderness, Scars, Scoliosis, Wounds Notes: Signs of cauda equina, no saddle anesthesia, no loss of control of bowel bladder , no loss control of lower extremities, no loss of sensation to the lower extremities. - Extremities General upper extremity: Normal inspection, Nontender, Normal color, Normal ROM , Normal temperature General lower extremity: Normal inspection, Nontender, Normal color, Normal ROM , Normal temperature, Normal weight bearing. No: Jerod's sign - Neurological Neuro grossly intact: Yes Cognition: Normal Orientation: AAOx4 [place] Coma Scale Eye Opening: Spontaneous [place] Coma Scale Verbal: Oriented [place] Coma Scale Motor: Obeys Commands [place] Coma Scale Total: 15 Speech: Normal Motor strength normal: LUE, RUE, LLE, RLE Sensory: Normal - Psychological Associated symptoms: Normal affect, Normal mood - Skin Skin Temperature: Warm Skin Moisture: Dry Skin Color: Normal Course - Re-evaluation Re-evalutation: 08/08/17 10:14 After performing a Medical Screening Examination, patient was treated with Toradol 60 mg IM and Decadron 10 mg IM and a Lidoderm patch. I looked up the patient on the [facility] chronic controlled substance reporting system and he has been getting Percocets on a regular basis from his primary care doctor last ones were 07/28/2017. I estimate there is LOW risk for EXPANDING OR RUPTURED ABDOMINAL AORTIC ANEURYSM, CAUDA EQUINA SYNDROME, EPIDURAL MASS LESION, or HERNIATED DISK CAUSING SEVERE SPINAL STENOSIS, thus I consider the discharge disposition reasonable. I have reevaluated this patient multiple times and no significant life threatening changes are noted. The patient and I have discussed the diagnosis and risks, and we agree with discharging home and close follow-up. We also discussed returning to the Emergency Department immediately if new or worsening symptoms occur with the understanding that symptoms and presentations can change. We have discussed the symptoms which are most concerning (e.g., saddle anesthesia, urinary or bowel incontinence or retention , changing or worsening pain) that necessitate immediate return. - Vital Signs Vital signs: Temp Pulse Resp BP Pulse Ox 97.9 F 82 16 114/79 99 08/08/17 09:20 08/08/17 09:20 08/08/17 09:20 08/08/17 09:20 08/08/17 09:20 Discharge - Discharge Clinical Impression: Chronic back pain greater than 3 months duration, Hydradenitis Condition: Stable Disposition: HOME, SELF-CARE Additional Instructions: LOW BACK PAIN: Three out of every four people will have an episode of disabling back pain during their lifetime. Most commonly the pain is due to straining of the muscles and ligaments in the low back. Usual treatment includes: (1) Rest on a firm surface. Avoid lying on your stomach. (2) Ice pack the painful area. After a few days, gentle heat may be used intermittently to relax the area, or ice packs can be continued. (3) Medication may be needed -- muscle relaxers and antiinflammatory medicines are commonly used. (4) As the back improves, exercises are prescribed to strengthen the back and abdominal muscles. Your doctor will advise you on the proper care for your back at each stage in your recovery. You may be better in a few days -- or healing may take several weeks. If new symptoms of a "herniated disc" (radiation of pain, numbness, or tingling down the back of the leg or weakness in the leg) occur, you should be re-examined. Further testing may be necessary. Chronic Pain Control Stress, inactivity, and depression make pain more severe regardless of the cause of the pain. Stress and poor physical condition can cause pain such as headaches and backache. Relaxation: Rest in a quiet place with your eyes closed for 20 minutes twice daily. Concentrate on a pleasant image, or simply "feel" your breathing. Clear your mind. Stress management: Deal with your "stressors." Either take action, or eliminate the stressor from your life. Don't let things hang over you. Accept those things you can't change. Nutrition: Eat small, balanced meals -- don't skip, don't overeat. Meals should be high-carbohydrate, low-sugar, low-fat. Exercise: Exercise helps painful conditions and eases stress. Get 30 minutes of moderate exercise, five days a week. Do an activity that does not flare your pain. Precautions: Pain which continues to disrupt daily activities, or which changes in nature, requires a medical evaluation. Pain Clinic referral is available. We do not manage chronic pain in the Emergency Department. We will try to appropriately help you through an acute flare of your chronic painful condition , but for on-going chronic pain that does not improve, you will need to see your private doctor or film painter. We do not provide repeated medication management of chronic painful conditions. If you wish, we can provide the name of local pain management physicians. Cephalexin The antibiotic you've been prescribed is a member of the cephalosporin class. This type of antibiotic covers a wide variety of infections, including those of the skin, lungs, and urinary tract. It's useful for staph infections. This antibiotic is slightly similar to the penicillin family. In rare cases , a person who is allergic to penicillin will also be allergic to this medication. If you have had a severe allergic reaction to penicillin, and have not taken this antibiotic since that time, notify your doctor. Antibiotics which cover many germs ("broad spectrum" antibiotics) are more likely to cause diarrhea or "yeast" infections. Women prone to vaginal yeast problems may suffer an attack after taking this antibiotic. In infants, oral thrush (white spots "stuck" on the cheek) or yeast diaper rash may result. See your doctor if these problems occur. Call at once if you develop itching, hives , shortness of breath, or lightheadedness. Toradol Injection You have been given an injection of ketorolac tromethamine (Toradol). This is an excellent, safe drug for pain control. It also has potent antiinflammatory action. You should have significant pain relief within about one hour. Toradol is not addicting and is non-sedating. It does not interfere with driving or work. Call or return if you develop itching, hives, shortness of breath, or rash. STEROID MEDICATION: You have been given an injection of medicine of the cortisone/steroid class. This medication is used to control inflammation or allergy. It is often continued as a pill for a short period of time, until the acute process subsides. There are usually no side effects from short-term use of cortisone-like medications. Some persons feel an increased sense of well-being and are not sleepy at bedtime. Long-term use of cortisone medications is best avoided, unless required for a severe condition. If your condition does not remit, or relapses after the course of corticosteroid medication, you should consult your physician. Stretching Exercises for the Back The physician has recommended that you begin stretching exercises for your back. These are often used even while the back is painful. However, you should notify the physician if the activities seem to increase your pain. PELVIC TILT: Lie flat on your back with knees bent. Tighten your stomach and buttock muscles so it flattens your lower back against the floor. Hold 10 seconds. Repeat 10 times, twice daily. KNEE RAISE: Lying on the back with knees bent, raise one knee to your chest, then the other. Hold both knees against the chest 10 seconds, then lower one knee at a time. Repeat 10 times, twice daily. PARTIAL TRUNK RAISE: Lie face down, arms at your sides. Keeping your waist on the floor, use your arms raise your chest up. Support yourself on your elbows for 30 seconds. Repeat twice daily, increasing the time to two minutes as you recover. You were given the Lidoderm patch for your pain today. Please take this often 12 hours. You can use Aspercreme 12 hrs. after you take the Lidoderm patch off this will also help you back pain. FOLLOW-UP CARE: If you have been referred to a physician for follow-up care, call the physician s office for an appointment as you were instructed or within the next two days. If you experience worsening or a significant change in your symptoms, notify the physician immediately or return to the Emergency Department at any time for re-evaluation. Prescriptions: Cephalexin Monohydrate [Keflex 500 mg Capsule] 500 mg PO Q6H 5 Days capsule Forms: Smoking Cessation Education Referrals: AMADOR BAEZ DO [Primary Care Provider] - Follow up as needed
== END 2017-08-08 10:09 | disposition home or self-care (01) ==
LOC: ER 09:09
DX: M54.5 Low back pain (principal); G89.29 Other chronic pain; L73.2 Hidradenitis suppurativa; M54.2 Cervicalgia; F17.210 Nicotine dependence, cigarettes, uncomplicated
CPT/HCPCS: 99283; 96372; J1885; J3490; J1100

== ENCOUNTER 2017-08-17 10:31 | Emergency (ER) | payer MEDICAID ==
[2017-08-17 10:48] VITALS: BP 99/64
--- NOTE | 2017-08-17 11:27 | ER Document Report ---
ED Skin Rash/Insect Bite/Abscs - General Chief Complaint: Skin Problem Stated Complaint: PELVIC PAIN Time Seen by Provider: 08/17/17 10:54 Mode of Arrival: Ambulatory Information source: Patient Notes: 51-year-old male presents to ED for complaint of sores to the groin and buttocks 3 days. He has a history of hidradenitis. He has had multiple surgeries for this condition. He does not have an abscess at this time there are several very small areas that he needs to discontinue his current antibiotics and sitz bath to control. TRAVEL OUTSIDE OF THE [place] IN LAST 30 DAYS: No - HPI Patient complains to provider of: Tender/swollen area Onset: Other - 3 days Onset/Duration: Gradual Quality of pain: Sharp Severity: Moderate Pain Level: 3 Skin Character: Macules Quality of rash: Painful Identify cause: Yes - Hydradenitis Exacerbated by: Denies Relieved by: Denies Similar symptoms previously: Yes Recently seen / treated by doctor: Yes - Related Data Allergies/Adverse Reactions: sulfamethoxazole [From Bactrim] Allergy (Verified 08/17/17 10:34) tramadol Allergy (Verified 08/17/17 10:34) trimethoprim [From Bactrim] Allergy (Verified 08/17/17 10:34) Past Medical History - General Information source: Patient - Social History Smoking Status: Current Every Day Smoker Cigarette use (# per day): Yes - 6-8 cigarettes a day Smoking Education Provided: Yes - 4 minutes Frequency of alcohol use: None Drug Abuse: None Lives with: Family Family History: Reviewed & Not Pertinent Patient has suicidal ideation: No Patient has homicidal ideation: No - Past Medical History Cardiac Medical History: Reports: None Pulmonary Medical History: Reports: None EENT Medical History: Reports: None Neurological Medical History: Reports: None Endocrine Medical History: Reports: None Renal/ Medical History: Reports: None Malignancy Medical History: Reports None GI Medical History: Reports: None Musculoskeltal Medical History: Reports Hx Arthritis Skin Medical History: Reports Hx MRSA Psychiatric Medical History: Reports: Hx Bipolar Disorder, Hx Depression, Hx Schizophrenia Traumatic Medical History: Reports: None Infectious Medical History: Reports: Hx MRSA Past Surgical History: Reports: Other - skin graft - Immunizations Hx Diphtheria, Pertussis, Tetanus Vaccination: Yes Review of Systems - Review of Systems Constitutional: No symptoms reported EENT: No symptoms reported Cardiovascular: No symptoms reported Respiratory: No symptoms reported Gastrointestinal: No symptoms reported Genitourinary: No symptoms reported Male Genitourinary: No symptoms reported Musculoskeletal: No symptoms reported Skin: Other - Tender swelling areas in the groin Hematologic/Lymphatic: No symptoms reported Neurological/Psychological: No symptoms reported -: Yes All other systems reviewed and negative Physical Exam - Vital signs Vitals: Temp Pulse Resp BP Pulse Ox 97.9 F 77 16 99/64 L 97 08/17/17 10:46 08/17/17 10:46 08/17/17 10:46 08/17/17 10:46 08/17/17 10:46 Interpretation: Normal - General General appearance: Appears well, Alert - HEENT Head: Normocephalic, Atraumatic Eyes: Normal Pupils: PERRL - Respiratory Respiratory status: No respiratory distress Chest status: Nontender Breath sounds: Normal Chest palpation: Normal - Cardiovascular Rhythm: Regular Heart sounds: Normal auscultation Murmur: No - Abdominal Inspection: Normal Distension: No distension Bowel sounds: Normal Tenderness: Nontender Organomegaly: No organomegaly - Back Back: Normal, Nontender - Extremities General upper extremity: Normal inspection, Nontender, Normal color, Normal ROM , Normal temperature General lower extremity: Normal inspection, Nontender, Normal color, Normal ROM , Normal temperature, Normal weight bearing. No: Jerod's sign - Neurological Neuro grossly intact: Yes Cognition: Normal Orientation: AAOx4 [place] Coma Scale Eye Opening: Spontaneous [place] Coma Scale Verbal: Oriented [place] Coma Scale Motor: Obeys Commands [place] Coma Scale Total: 15 Speech: Normal Motor strength normal: LUE, RUE, LLE, RLE Sensory: Normal - Psychological Associated symptoms: Normal affect, Normal mood - Skin Skin Temperature: Warm Skin Moisture: Dry Skin Color: Normal Skin irregularity: Abscess Location of irregularity: Other - Very small abscesses in the groin. Character of irregularity: Macular Irregularity with: Tenderness. negative: Warmth, Lymphangitis, Inflammation Course - Re-evaluation Re-evalutation: 08/17/17 20:06 Patient was instructed to continue taking his medications as prescribed to continue his sitz bath and to follow-up with his primary doctor and his surgeon if he continues to have problems with his hidradenitis. - Vital Signs Vital signs: Temp Pulse Resp BP Pulse Ox 97.9 F 77 16 99/64 L 97 08/17/17 10:46 08/17/17 10:46 08/17/17 10:46 08/17/17 10:46 08/17/17 10:46 Discharge - Discharge Clinical Impression: Perineal abscess, Hydradenitis Condition: Stable Disposition: HOME, SELF-CARE Instructions: Family Physicians / Practices Additional Instructions: ABSCESS: You have an abscess (boil). This a pus-forming infection, usually due to staph. Some boils may be left to drain on their own, but most require lancing. From the time the tender lump first appears, it may be three or four days before the abscess is ready to betina. Local heat and rest help at this stage of treatment. An antibiotic may prevent spread of the infection. Once the abscess is opened, packing may be placed into it. This is done so pus is not sealed inside by premature closure of the cavity. The packing will be removed at your follow-up visit or you may be advised to remove it yourself at home. Sometimes this packing must be replaced a few times during healing. The wound will heal with surprisingly little scar. Depending on the size and location of an abscess, healing can take one to four weeks. You may shower and wash the area around the incision site two or three times a day. Antibiotics may be prescribed, but are usually not necessary after an abscess has been drained. If you develop fever, chills, worsening pain, or increasing swelling in the area, call the doctor or return immediately. CEPHALEXIN: The antibiotic you've been using is a member of the cephalosporin class. This type of antibiotic covers a wide variety of infections, including those of the skin, lungs, and urinary tract. It's useful for staph infections. This antibiotic is slightly similar to the penicillin family. In rare cases , a person who is allergic to penicillin will also be allergic to this medication. If you have had a severe allergic reaction to penicillin, and have not taken this antibiotic since that time, notify your doctor. Antibiotics which cover many germs ("broad spectrum" antibiotics) are more likely to cause diarrhea or "yeast" infections. Women prone to vaginal yeast problems may suffer an attack after taking this antibiotic. In infants, oral thrush (white spots "stuck" on the cheek) or yeast diaper rash may result. See your doctor if these problems occur. Call at once if you develop itching, hives , shortness of breath, or lightheadedness. Clindamycin You have been using clindamycin please continue prescription. It is often prescribed for infections in the mouth, such as dental infections or abscesses, and for skin infections due to MRSA. It's important that you take all the medication, unless instructed otherwise by your physician. Failure to complete the entire course can result in relapse of your condition. Common side effects of antibiotics include nausea, intestinal cramping, or diarrhea. Women may develop vaginal yeast infections, and babies can get yeast (thrush) in the mouth following the use of antibiotics. Contact your physician if you develop significant side effects from this medication. Allergy to this antibiotic can result in hives, wheezing, faintness, or itching. If symptoms of allergy occur, stop the medication and call the doctor. FOLLOW-UP CARE: Most simple abscesses will not require a follow up visit. If you had packing placed in the abscess, remove it as instructed by the physician. If you have been referred to a physician for follow-up care, call the physicians office for an appointment as you were instructed or within the next two days. If you experience worsening or a significant change in your symptoms, return to the Emergency Department at any time for re-evaluation.
== END 2017-08-17 11:35 | disposition home or self-care (01) ==
LOC: ER 10:31
DX: L02.215 Cutaneous abscess of perineum (principal); L73.2 Hidradenitis suppurativa; F17.210 Nicotine dependence, cigarettes, uncomplicated; Z86.14 Personal history of Methicillin resistant Staphylococcus aureus infection
CPT/HCPCS: 99283; 99406

== ENCOUNTER 2017-09-21 13:26 | Emergency (ER) | payer MEDICAID ==
--- NOTE | 2017-09-21 15:27 | ER Document Report ---
ED General - General Chief Complaint: Abscess Stated Complaint: ABSCESS Time Seen by Provider: 09/21/17 15:00 Mode of Arrival: Ambulatory Information source: Patient TRAVEL OUTSIDE OF THE [place] IN LAST 30 DAYS: No - HPI Notes: Patient is a 51-year-old male nondiabetic history of recurrent hidradenitis suppurativa resents to the emergency department with report of skin abscesses that have been draining, but is concerned that he is out of his antibiotic. Patient denies any fever or chills or penile drainage or dysuria or abdominal pain or nausea or vomiting. - Related Data Allergies/Adverse Reactions: sulfamethoxazole [From Bactrim] Allergy (Verified 08/17/17 10:34) tramadol Allergy (Verified 08/17/17 10:34) trimethoprim [From Bactrim] Allergy (Verified 08/17/17 10:34) Past Medical History - General Information source: Patient - Social History Smoking Status: Current Every Day Smoker Chew tobacco use (# tins/day): No Frequency of alcohol use: None Drug Abuse: None Family History: Reviewed & Not Pertinent Patient has suicidal ideation: No Patient has homicidal ideation: No Endocrine Medical History: Denies: Hx Diabetes Mellitus Type 1, Hx Diabetes Mellitus Type 2 Renal/ Medical History: Denies: Hx Peritoneal Dialysis Musculoskeltal Medical History: Reports Hx Arthritis Skin Medical History: Reports Hx MRSA Psychiatric Medical History: Reports: Hx Bipolar Disorder, Hx Depression, Hx Schizophrenia Infectious Medical History: Reports: Hx MRSA Past Surgical History: Reports: Other - skin graft - Immunizations Hx Diphtheria, Pertussis, Tetanus Vaccination: Yes Review of Systems - Review of Systems Notes: REVIEW OF SYSTEMS: CONSTITUTIONAL : Denies fever, chills, or sweats. Denies recent illness. EENT: Denies eye, ear, throat, or mouth pain or symptoms. Denies nasal or sinus congestion or discharge. Denies throat, tongue, or mouth swelling or difficulty swallowing. CARDIOVASCULAR: Denies chest pain. Denies palpitations or racing or irregular heart beat. Denies ankle edema. RESPIRATORY: Denies cough, cold, or chest congestion. Denies shortness of breath, difficulty breathing, or wheezing. GASTROINTESTINAL: Denies abdominal pain or distention. Denies nausea, vomiting , or diarrhea. Denies blood in vomitus, stools, or per rectum. Denies black, tarry stools. Denies constipation. GENITOURINARY: Denies difficulty urinating, painful urination, burning, frequency, blood in urine, or discharge. MUSCULOSKELETAL: Denies back or neck pain or stiffness. Denies joint pain or swelling. SKIN: Chronic rash and lesions on the perennial region. HEMATOLOGIC : Denies easy bruising or bleeding. LYMPHATIC: Denies swollen, enlarged glands. NEUROLOGICAL: Denies confusion or altered mental status. Denies passing out or loss of consciousness. Denies dizziness or lightheadedness. Denies headache. Denies weakness or paralysis or loss of use of either side. Denies problems with gait or speech. Denies sensory loss, numbness, or tingling. Denies seizures. PSYCHIATRIC: Denies anxiety or stress. Denies depression, suicidal ideation, or homicidal ideation. ALL OTHER SYSTEMS REVIEWED AND NEGATIVE. Dictation was performed using [employer] voice recognition software Physical Exam - Vital signs Vitals: Temp Pulse Resp BP Pulse Ox 98.4 F 75 14 104/68 96 09/21/17 13:42 09/21/17 13:42 09/21/17 13:42 09/21/17 13:42 09/21/17 13:42 - Notes Notes: PHYSICAL EXAMINATION: GENERAL: Well-appearing, well-nourished and in no acute distress. HEAD: Atraumatic, normocephalic. EYES: Pupils equal round and reactive to light, extraocular movements intact, sclera anicteric, conjunctiva are normal. ENT: Nares patent, oropharynx clear without exudates. Moist mucous membranes. NECK: Normal range of motion, supple without lymphadenopathy LUNGS: Breath sounds clear to auscultation bilaterally and equal. No wheezes rales or rhonchi. HEART: Regular rate and rhythm without murmurs ABDOMEN: Soft, nontender, nondistended abdomen. No guarding, no rebound. No masses appreciated. Musculoskeletal: Normal range of motion, no pitting or edema. No cyanosis. NEUROLOGICAL: Cranial nerves grossly intact. Normal speech, normal gait. Normal sensory, motor exams PSYCH: Normal mood, normal affect. SKIN: Patient has area of scarring on the perineal region with 2 small areas which are draining one in the left inguinal fold and one on the lower right inguinal fold. He has no evidence for significant residual abscess. There is no evidence for Rayshawn's gangrene, and he states this is normal for a draining abscess in his location. There is no perianal involvement. Patient has one area along the proximal right thigh which has about 2.5 cm of borderline induration, but the patient states that this is not ready for incision and drainage and he will try warm compresses which she states usually works when it is at this stage. There is no significant adenopathy. Distally, the patient is neurovascularly intact with good distal sensation and capillary refill. Course - Re-evaluation Re-evalutation: 09/21/17 15:44 No evidence for systemic infection nor obvious abscess that needs to be drained.. - Vital Signs Vital signs: Temp Pulse Resp BP Pulse Ox 98.4 F 75 14 104/68 96 09/21/17 13:42 09/21/17 13:42 09/21/17 13:42 09/21/17 13:42 09/21/17 13:42 Discharge - Discharge Clinical Impression: Hidradenitis suppurativa Condition: Stable Disposition: HOME, SELF-CARE Instructions: Abscess ([facility]) Additional Instructions: Warm compresses to wound. Return to the ED in case of worsening redness or swelling. Prescriptions: Oxycodone HCl/Acetaminophen [Percocet 10-325 Mg Tablet] 1 each PO QHS PRN #10 tablet PRN Reason: For Pain Clindamycin HCl 300 mg PO TID #30 capsule Nystatin 1 each MC BIDP PRN #60 powder.ea. PRN Reason: Referrals: AMADOR BAEZ DO [NO LOCAL MD] - Follow up as needed
[2017-09-21 15:53] VITALS: BP 130/99
== END 2017-09-21 15:53 | disposition home or self-care (01) ==
LOC: ER 13:26
DX: L73.2 Hidradenitis suppurativa (principal); F17.200 Nicotine dependence, unspecified, uncomplicated; Z86.14 Personal history of Methicillin resistant Staphylococcus aureus infection; Z88.1 Allergy status to other antibiotic agents; Z88.5 Allergy status to narcotic agent
CPT/HCPCS: 99282

== ENCOUNTER 2017-09-24 11:12 | Emergency (ER) | payer MEDICAID ==
--- NOTE | 2017-09-24 11:44 | ER Document Report ---
ED General - General Chief Complaint: Abscess Stated Complaint: POSSIBLE ABCESS Time Seen by Provider: 09/24/17 11:43 Mode of Arrival: Ambulatory Information source: Patient TRAVEL OUTSIDE OF THE [place] IN LAST 30 DAYS: No - HPI Notes: 51-year-old male with a past medical history of hidradenitis supprurativa presents emergency room for evaluation of an abscess to his right thigh and has been managing for the last week. Seen approximately 3 days ago, prescribed clindamycin and pain medication. Patient states that been applying heat and doing sitz baths. Pain is 4 out of 10, throbbing achy. Reports she has had multiple abscesses drained in the past. Eating and drinking without any issues. Denies any testicular rectal pain. Denies fevers, chills, chest pain, palpitations, shortness of breath, dyspnea, nausea, vomiting, diarrhea, abdominal pain, hematuria,blurred vision, double vision, loss of vision, speech changes, LH, dizziness, syncope, headaches, wheezing, ST, URI, neck pain, weakness, bowel or bladder dysfunction, saddle anesthesia, numbness or tingling in bilateral upper or lower extremities equally, muscle paralysis, weakness in bilateral upper or lower extremities equally or rash. Denies IV drug use. - Related Data Allergies/Adverse Reactions: sulfamethoxazole [From Bactrim] Allergy (Verified 08/17/17 10:34) tramadol Allergy (Verified 08/17/17 10:34) trimethoprim [From Bactrim] Allergy (Verified 08/17/17 10:34) Past Medical History - General Information source: Patient - Social History Smoking Status: Current Every Day Smoker Family History: Reviewed & Not Pertinent Endocrine Medical History: Denies: Hx Diabetes Mellitus Type 1, Hx Diabetes Mellitus Type 2 Renal/ Medical History: Denies: Hx Peritoneal Dialysis Musculoskeltal Medical History: Reports Hx Arthritis Skin Medical History: Reports Hx MRSA Psychiatric Medical History: Reports: Hx Bipolar Disorder, Hx Depression, Hx Schizophrenia Infectious Medical History: Reports: Hx MRSA Past Surgical History: Reports: Other - skin graft - Immunizations Hx Diphtheria, Pertussis, Tetanus Vaccination: Yes Review of Systems - Review of Systems Constitutional: No symptoms reported EENT: No symptoms reported Cardiovascular: No symptoms reported Respiratory: No symptoms reported Gastrointestinal: No symptoms reported Genitourinary: No symptoms reported Male Genitourinary: No symptoms reported Musculoskeletal: No symptoms reported Skin: See HPI Hematologic/Lymphatic: No symptoms reported Neurological/Psychological: No symptoms reported Physical Exam - Vital signs Vitals: Temp Pulse Resp BP Pulse Ox 98.9 F 70 16 118/78 99 09/24/17 11:25 09/24/17 11:25 09/24/17 11:25 09/24/17 11:25 09/24/17 11:25 - Respiratory Respiratory status: No respiratory distress Chest status: Nontender Breath sounds: Normal Chest palpation: Normal - Cardiovascular Rhythm: Regular Heart sounds: Normal auscultation Normal capillary refill: Yes - Genitourinary Scrotum: Normal - Back Back: Normal, Nontender - Extremities Hand: Normal Hip: Normal, Nontender Thigh: Normal, Nontender Knee: Normal, Nontender - Neurological Motor strength normal: LUE, RUE, LLE, RLE Additional motor exam normals: Equal cabinet installer, Dorsiflexion, Plantar flexion Sensory: Normal Knee - Reflex grade: 2 = Normal Ankle - Reflex grade: 2 = Normal - Psychological Associated symptoms: Normal affect, Normal mood - Skin Skin Temperature: Warm Skin Color: Normal Skin irregularity: Abscess - right medial aspect of thigh approx [id number]. no drainage. noted fluctuance, induration, erythema. No surrounding erythema. Course - Re-evaluation Re-evalutation: 09/24/17 15:33 Healthy 51-year-old male who is afebrile, vital centimeters in no distress presents for incision and drainage. Patient is taking oral clindamycin and hydrocodone as prescribed for his abscess. Tetanus is up-to-date. Patient gave verbal consent to perform incision and drainage. Patient tolerated procedure without distress. Discussed with patient that he will need to return in 2 days for packing change. Advised to continue taking antibiotic and pain control as directed, do not drive, drink alcohol or operating machinery while taking controlled pain medication. Advised to return to the ER symptoms become worse. Wound culture sent. I have reevaluated this patient multiple times and no significant life threatening changes, no signs of toxicity, sepsis or peritonitis are noted. The patient and I have discussed the diagnosis and risks , and we agree with discharging home and close follow-up. We also discussed returning to the Emergency Department immediately if new or worsening symptoms occur with the understanding that symptoms and presentations can change. At this time will discharge with return precautions and follow-up recommendations. Verbal discharge instructions given a the bedside and opportunity for questions given. We have discussed the symptoms which are most concerning (e.g. , saddle anesthesia, urinary or bowel incontinence or retention, changing or worsening pain) that necessitate immediate return. Medication warnings reviewed. Patient is in agreement with this plan and has verbalized understanding of return precautions and the need for primary care follow-up in the next 24-72 hours. Patient verbalized understanding of plan of care and agree with plan of care. After performing a Medical Screening Examination, I estimate there is LOW risk for CLOSED OR OPEN FRACTURE, COMPARTMENT SYNDROME, TENDON RUPTURE, ACUTE NEUROVASCULAR INJURY, or RETAINED FOREIGN BODY, thus I consider the discharge disposition reasonable. Also, there is no evidence or peritonitis, sepsis, or toxicity. I have reevaluated this patient multiple times and no significant life threatening changes are noted. The patient and I have discussed the diagnosis and risks, and we agree with discharging home with close follow-up with the understanding that symptoms and presentations can change. We also discussed returning to the Emergency Department immediately if new or worsening symptoms occur. We have discussed the symptoms which are most concerning (e.g., changing or worsening pain, fever, numbness, weakness, cool or painful digits) that necessitate immediate return. - Vital Signs Vital signs: Temp Pulse Resp BP Pulse Ox 98.3 F 74 20 105/81 98 09/24/17 13:44 09/24/17 13:44 09/24/17 13:44 09/24/17 13:44 09/24/17 13:44 Procedures - Incision and Drainage Left Thigh Time completed: 13:05 Type: Simple Anesthetic type: 1% Lidocaine mL's of anesthetic: 5 Blade size: 11 I&D procedure: Betadine prep applied Incision Method: Incision made by scalpel Amount/type of drainage: 4mL bloody, purulent Notes: 09/24/17 13:05 Verbal consent obtained to conduct incision and drainage. Patient tolerated procedure without incident. Discharge - Discharge Clinical Impression: Abscess, Encounter for incision and drainage procedure, Hidradenitis suppurativa Condition: Good Disposition: HOME, SELF-CARE Instructions: Abscess ([facility]), Clindamycin ([facility]), MRSA Cellulitis ([facility]), Post Incision and Drainage Additional Instructions: Abscess You have an abscess (boil). This a pus-forming infection, usually due to staph. Some boils may be left to drain on their own, but most require lancing. From the time the tender lump first appears, it may be three or four days before the abscess is ready to betina. Local heat and rest help at this stage of treatment. An antibiotic may prevent spread of the infection. Once the abscess is opened, packing may be placed into it. This is done so pus is not sealed inside by premature closure of the cavity. The packing will be removed at your follow-up visit or you may be advised to remove it yourself at home. Sometimes this packing must be replaced a few times during healing. The wound will heal with surprisingly little scar. Depending on the size and location of an abscess, healing can take one to four weeks. You may shower and wash the area around the incision site two or three times a day. Antibiotics may be prescribed, but are usually not necessary after an abscess has been drained. If you develop fever, chilling, worsening pain, or increasing swelling in the area, call the doctor or return immediately. Continue taking her oral clindamycin as prescribed for you. Continue taking hydrocodone is already prescribed for you. Do not drive, drink alcohol patient. Return in 2 days packing change. Take [id number] Tylenol and ibuprofen as needed for pain or fever. Become worse. Return immediately for any new or worsening symptoms. Follow up with primary care provider, call tomorrow to make followup appointment. Referrals: ANJEL DALY MD [ACTIVE STAFF] - Follow up in 3-5 days
[2017-09-24] MEDS ORDERED: LIDOCAINE 1% INJ-PF (10 MG/ML) 30 ML SDV INJ ONE (12:39)
[2017-09-24 13:46] VITALS: BP 105/81
== END 2017-09-24 13:46 | disposition home or self-care (01) ==
LOC: ER 11:12
DX: L02.415 Cutaneous abscess of right lower limb (principal); L73.2 Hidradenitis suppurativa; F17.200 Nicotine dependence, unspecified, uncomplicated; Z86.14 Personal history of Methicillin resistant Staphylococcus aureus infection; Z88.1 Allergy status to other antibiotic agents; Z88.5 Allergy status to narcotic agent
CPT/HCPCS: 99283; 87070; 87205; 87075; 87077; 10060; A6266; J3490

== ENCOUNTER 2017-09-29 13:25 | Emergency (ER) | payer MEDICAID ==
[2017-09-29 13:33] VITALS: BP 120/77
--- NOTE | 2017-09-29 14:25 | ER Document Report ---
HPI - HPI Pain Level: 4 Notes: Patient is a 52-year-old male with a history of hidradenitis who presents to the ED for a recheck of his abscess from previous I&D a week ago. Patient states that he believes there might be one other spot that started right next to it. He does continue to have discomfort. He has not noticed any other formation of an abscess, purulence, or discharge otherwise. No red streaks. Patient is also requesting his narcotics refill of oxycodone. No other concerns or complaints at this time. Denies any headache, fever, URI, sore throat, chest pain, palpitations, syncope, cough, shortness of breath, wheeze, dyspnea, abdominal pain, nausea/vomiting/diarrhea, urinary retention, dysuria, hematuria, or rash. - ROS Systems Reviewed and Negative: Yes All other systems reviewed and negative - REPRODUCTIVE Reproductive: DENIES: : Past Medical History - Social History Smoking Status: Current Every Day Smoker Chew tobacco use (# tins/day): No Frequency of alcohol use: None Drug Abuse: None Family History: Reviewed & Not Pertinent Patient has suicidal ideation: No Patient has homicidal ideation: No Endocrine Medical History: Denies: Hx Diabetes Mellitus Type 1, Hx Diabetes Mellitus Type 2 Renal/ Medical History: Denies: Hx Peritoneal Dialysis Musculoskeltal Medical History: Reports Hx Arthritis Skin Medical History: Reports Hx MRSA Psychiatric Medical History: Reports: Hx Bipolar Disorder, Hx Depression, Hx Schizophrenia Infectious Medical History: Reports: Hx MRSA Past Surgical History: Reports: Other - skin graft - Immunizations Hx Diphtheria, Pertussis, Tetanus Vaccination: Yes Vertical Provider Document - CONSTITUTIONAL Agree With Documented VS: Yes Notes: PHYSICAL EXAMINATION: GENERAL: Well-appearing, well-nourished and in no acute distress. LUNGS: Breath sounds clear to auscultation bilaterally and equal. No wheezes rales or rhonchi. HEART: Regular rate and rhythm without murmurs, rubs, gallops. Extremities: No cyanosis, clubbing, or edema b/l. Peripheral pulses 2+. Capillary refill less than 3 seconds. NEUROLOGICAL: Normal speech, normal gait. PSYCH: Normal mood, normal affect. SKIN: there is mild induration and erythema noted next to prev I&D site. No fluctuance or streaks. No discharge. + tenderness. - INFECTION CONTROL TRAVEL OUTSIDE OF THE [place] IN LAST 30 DAYS: No Course - Re-evaluation Re-evalutation: 09/29/17 14:25 Patient is an afebrile, well-hydrated, 52-year-old male who presents to the ED with continued mild skin infection to his right medial thigh. Vitals are acceptable. PE is otherwise unremarkable. No I&D warranted at this time based on H&P. He has no significant tachycardia, tachypnea, or hypoxia. Patient has an allergy to Bactrim. I will be sending him home with a perception for Keflex. Previous cultures have been shown to be resistant to clindamycin as well as doxycycline. Low suspicion for any other sepsis, meningitis, dehydration, or other systemic emergent condition at this time. Patient to monitor symptoms closely and seek medical attention with any acute changes. Conservative measures for symptoms otherwise. Recheck with your PCM in 3-5 days. Consider consult with the general surgeon. Return to the ED with any worsening/concerning symptoms otherwise as reviewed discharge. Patient is in agreement. - Vital Signs Vital signs: Temp Pulse Resp BP Pulse Ox 98.1 F 82 16 120/77 97 09/29/17 13:32 09/29/17 13:32 09/29/17 13:32 09/29/17 13:32 09/29/17 13:32 Discharge - Discharge Clinical Impression: Skin infection Condition: Stable Disposition: HOME, SELF-CARE Instructions: Cephalexin ([facility]) Additional Instructions: Keep the skin clean Wash with soap and water Tylenol/ibuprofen if needed Triple antibiotic ointment daily Take medication as directed Monitor for any worsening symptoms Recheck with your PCM in 3-5 days Consider consult with General Surgeon for ongoing/worsening symptoms Return to the ED with any worsening symptoms and/or development of fever, headache, chest pain, palpitations, syncope, shortness of breath, trouble breathing, abdominal pain, n/v/d, abscess, purulent discharge, red streaks, worsening swelling, or other worsening symptoms that are concerning to you. Prescriptions: Cephalexin Monohydrate [Keflex 500 mg Capsule] 500 mg PO TID #30 capsule Referrals: LUCAS MILLER MD [ACTIVE STAFF] - Follow up as needed
== END 2017-09-29 14:33 | disposition home or self-care (01) ==
LOC: ER 13:25
DX: L02.415 Cutaneous abscess of right lower limb (principal); Z98.890 Other specified postprocedural states; Z86.14 Personal history of Methicillin resistant Staphylococcus aureus infection; E11.9 Type 2 diabetes mellitus without complications; F17.200 Nicotine dependence, unspecified, uncomplicated
CPT/HCPCS: 99282

== ENCOUNTER 2017-11-19 15:10 | Emergency (ER) | payer MEDICAID ==
--- NOTE | 2017-11-19 15:19 | ER Document Report ---
HPI - HPI Patient complains to provider of: Right buttocks boil Onset: Other - 3 days Quality of pain: Achy Pain Level: 5 Context: 52-year-old male with a history of hidradenitis suppurativa is complaining of a new abscess to his right buttocks it hurts to sit on it. He wants antibiotics and pain medication. He really does not want me to incise it but he wanted me to look at it. No fever or chills. Associated Symptoms: None Exacerbated by: Movement Relieved by: Denies Similar symptoms previously: Yes Recently seen / treated by doctor: No - ROS ROS below otherwise negative: Yes Systems Reviewed and Negative: Yes All other systems reviewed and negative - REPRODUCTIVE Reproductive: DENIES: : Past Medical History - General Information source: Patient - Social History Smoking Status: Unknown if Ever Smoked Frequency of alcohol use: None Drug Abuse: None Lives with: Family Family History: Reviewed & Not Pertinent Renal/ Medical History: Denies: Hx Peritoneal Dialysis Musculoskeletal Medical History: Reports Hx Arthritis Skin Medical History: Reports Hx MRSA Psychiatric Medical History: Reports: Hx Bipolar Disorder, Hx Depression, Hx Schizophrenia Infectious Medical History: Reports: Hx MRSA Past Surgical History: Reports: Other - skin graft - Immunizations Hx Diphtheria, Pertussis, Tetanus Vaccination: Yes Vertical Provider Document - CONSTITUTIONAL Agree With Documented VS: Yes Exam Limitations: No Limitations - INFECTION CONTROL TRAVEL OUTSIDE OF THE [place] IN LAST 30 DAYS: No - MUSCULOSKELETAL/EXTREMETIES Musculoskeletal/Extremeties: MAEW, FROM, Tender - 1 cm fluctuant minimally inflamed abscess without induration, right buttocks - NEURO Level of Consciousness: Alert - DERM Integumentary: Abscess Course - Re-evaluation Re-evalutation: 11/19/17 15:39 Patient does not want incision and drainage offered, wants to try Bactroban and antibiotics and also states he will need about 5 pain pills. 11/19/17 15:39 - Vital Signs Vital signs: Temp Pulse Resp BP Pulse Ox 98.2 F 93 18 114/75 97 11/19/17 15:15 11/19/17 15:15 11/19/17 15:15 11/19/17 15:15 11/19/17 15:15 Discharge - Discharge Clinical Impression: Posterior right upper thigh abscess Condition: Good Disposition: HOME, SELF-CARE Instructions: Bactroban Ointment ([facility]), Doxycycline ([facility]) Additional Instructions: Warm compress Return if this gets larger, Hotter, red, fever Topical Bactroban 3 times a day small amount over the lesion for 5 days Doxycycline twice a day. Prescriptions: Hydrocodone Bit/Acetaminophen [Hydrocodon-Acetaminophen 5-325] 1 each PO Q4HP PRN #6 tablet PRN Reason: Doxycycline Hyclate 100 mg PO BID #14 capsule
[2017-11-19 15:21] VITALS: BP 114/75
[2017-11-19] MEDS ORDERED: MUPIROCIN 2% OINTMENT 22 GM TP ONE (15:28)
== END 2017-11-19 15:56 | disposition home or self-care (01) ==
LOC: ER 15:10
DX: L02.415 Cutaneous abscess of right lower limb (principal); L02.31 Cutaneous abscess of buttock; Z86.14 Personal history of Methicillin resistant Staphylococcus aureus infection
CPT/HCPCS: 99282; J3490

== ENCOUNTER 2017-11-22 11:26 | Emergency (ER) | payer MEDICAID ==
[2017-11-22] MEDS ORDERED: LIDOCAINE 1%/EPINEPHRINE INJ 20 ML VIAL INJ ONE (12:03)
--- NOTE | 2017-11-22 12:04 | ER Document Report ---
ED Medical Screen (RME) - General Chief Complaint: Abscess Stated Complaint: RECTAL BLEEDING Time Seen by Provider: 11/22/17 12:03 TRAVEL OUTSIDE OF THE [place] IN LAST 30 DAYS: No - HPI Notes: 11/22/17 12:04 States history of hidradenitis coming in with abscess to his thigh and on his tailbone. Patient was placed in the back for examination. - Related Data Allergies/Adverse Reactions: sulfamethoxazole [From Bactrim] Allergy (Verified 11/22/17 11:27) tramadol Allergy (Verified 11/22/17 11:27) trimethoprim [From Bactrim] Allergy (Verified 11/22/17 11:27) Past Medical History - Social History Chew tobacco use (# tins/day): No Frequency of alcohol use: None Endocrine Medical History: Denies: Hx Diabetes Mellitus Type 1, Hx Diabetes Mellitus Type 2 Renal/ Medical History: Denies: Hx Peritoneal Dialysis Musculoskeltal Medical History: Reports Hx Arthritis Skin Medical History: Reports Hx MRSA Psychiatric Medical History: Reports: Hx Bipolar Disorder, Hx Depression, Hx Schizophrenia Infectious Medical History: Reports: Hx MRSA Past Surgical History: Reports: Other - skin graft - Immunizations Hx Diphtheria, Pertussis, Tetanus Vaccination: Yes Review of Systems - Review of Systems Constitutional: Other - Abscess Physical Exam - Vital signs Vitals: Temp Pulse Resp BP Pulse Ox 97.7 F 78 18 112/90 H 98 11/22/17 11:48 11/22/17 11:48 11/22/17 11:48 11/22/17 11:48 11/22/17 11:48 - Respiratory Respiratory status: No respiratory distress Chest status: Nontender Breath sounds: Normal Chest palpation: Normal Course - Vital Signs Vital signs: Temp Pulse Resp BP Pulse Ox 97.7 F 78 18 112/90 H 98 11/22/17 11:48 11/22/17 11:48 11/22/17 11:48 11/22/17 11:48 11/22/17 11:48
[2017-11-22] MEDS ORDERED: OXYCODONE-ACETAMINOPHEN 5-325 MG TABLET PO ONE (14:34)
--- NOTE | 2017-11-22 14:40 | ER Document Report ---
ED Skin Rash/Insect Bite/Abscs - General Chief Complaint: Abscess Stated Complaint: RECTAL BLEEDING Time Seen by Provider: 11/22/17 12:03 Mode of Arrival: Ambulatory Information source: Patient TRAVEL OUTSIDE OF THE [place] IN LAST 30 DAYS: No - HPI Patient complains to provider of: Tender/swollen area Onset/Duration: Gradual Quality of pain: Fullness, Pressure Severity: Moderate Pain Level: 3 Skin Character: Abscess Skin Temperature: Warm Quality of rash: Painful Notes: Patient is a 52-year-old male with a history of hidradenitis suppurativa with various abscesses in different stages, presenting to the emergency room particularly concerned about an abscess on his right medial thigh that is painful tender and swollen, he also has one on his left inner thigh that seems to be in early stages and one on his "tailbone", that seems to be in early stages as well, he was seen in this department 3 days ago and prescribed antibiotics but declined an incision and drainage at the time, he is back today to have the right inner thigh 1 incised and drained as it is become quite more swollen and painful, he denies any fevers, has a long-standing history of abscesses - Related Data Allergies/Adverse Reactions: sulfamethoxazole [From Bactrim] Allergy (Verified 11/22/17 11:27) tramadol Allergy (Verified 11/22/17 11:27) trimethoprim [From Bactrim] Allergy (Verified 11/22/17 11:27) Past Medical History - General Information source: Patient - Social History Smoking Status: Current Every Day Smoker Chew tobacco use (# tins/day): No Frequency of alcohol use: None Family History: Reviewed & Not Pertinent Patient has suicidal ideation: No Patient has homicidal ideation: No Endocrine Medical History: Denies: Hx Diabetes Mellitus Type 1, Hx Diabetes Mellitus Type 2 Renal/ Medical History: Denies: Hx Peritoneal Dialysis Musculoskeletal Medical History: Reports Hx Arthritis Skin Medical History: Reports Hx MRSA Psychiatric Medical History: Reports: Hx Bipolar Disorder, Hx Depression, Hx Schizophrenia Infectious Medical History: Reports: Hx MRSA Past Surgical History: Reports: Other - skin graft - Immunizations Hx Diphtheria, Pertussis, Tetanus Vaccination: Yes Review of Systems - Review of Systems Constitutional: No symptoms reported EENT: No symptoms reported Cardiovascular: No symptoms reported Respiratory: No symptoms reported Gastrointestinal: No symptoms reported Genitourinary: No symptoms reported Male Genitourinary: No symptoms reported Musculoskeletal: No symptoms reported Skin: See HPI Hematologic/Lymphatic: No symptoms reported Neurological/Psychological: No symptoms reported -: Yes All other systems reviewed and negative Physical Exam - Vital signs Vitals: Temp Pulse Resp BP Pulse Ox 97.7 F 78 18 112/90 H 98 11/22/17 11:48 11/22/17 11:48 11/22/17 11:48 11/22/17 11:48 11/22/17 11:48 - Notes Notes: - General General appearance: Appears well, Alert In distress: None - HEENT Head: Normocephalic, Atraumatic Eyes: Normal Conjunctiva: Normal Extraocular movements intact: Yes Eyelashes: Normal Pupils: PERRL - Respiratory Respiratory status: No respiratory distress - Cardiovascular Rhythm: Regular - Abdominal Inspection: Normal - Back Back: Mild tender indurated area over sacral spine, no fluctuance, no erythema - Extremities General upper extremity: Normal inspection General lower extremity: Tender swollen indurated lesion to the right inner thigh positive fluctuance, tender swollen slightly indurated lesion to the left inner thigh, no fluctuance - Neurological Neuro grossly intact: Yes Orientation: AAOx4 [place] Coma Scale Eye Opening: Spontaneous [place] Coma Scale Verbal: Oriented [place] Coma Scale Motor: Obeys Commands [place] Coma Scale Total: 15 - Psychological Associated symptoms: Normal affect, Normal mood - Skin Skin Temperature: Warm Skin Moisture: Dry Skin Color: Normal Course - Vital Signs Vital signs: Temp Pulse Resp BP Pulse Ox 97.7 F 78 18 112/90 H 98 11/22/17 11:48 11/22/17 11:48 11/22/17 11:48 11/22/17 11:48 11/22/17 11:48 Procedures - Incision and Drainage Right Medial Thigh Time completed: 14:38 Type: Simple Anesthetic type: 1% Lidocaine mL's of anesthetic: 6 Blade size: 11 I&D procedure: Shurclens applied Incision Method: Incision made by scalpel Amount/type of drainage: Copious purulent drainage Discharge - Discharge Clinical Impression: Hidradenitis Subcutaneous abscess Qualifiers: Site of cutaneous abscess: extremity Site of cutaneous abscess of extremity: lower extremity Laterality: right Qualified Code(s): L02.415 - Cutaneous abscess of right lower limb Condition: Stable Disposition: HOME, SELF-CARE Instructions: Abscess ([facility]), Post Incision and Drainage, Oral Narcotic Medication ([facility]) Additional Instructions: Follow up with your primary care provider in one to 2 days. Return to the emergency room immediately if symptoms worsen or any additional concerns. Prescriptions: Oxycodone HCl/Acetaminophen [Percocet 5-325 mg Tablet] 1 - 2 tab PO ASDIR PRN # 10 tablet PRN Reason: Referrals: LUCAS MILLER MD [ACTIVE STAFF] - Follow up as needed
[2017-11-22 16:43] VITALS: BP 122/81
== END 2017-11-22 15:30 | disposition home or self-care (01) ==
LOC: ER 11:26
DX: L02.415 Cutaneous abscess of right lower limb (principal); L73.2 Hidradenitis suppurativa; F17.200 Nicotine dependence, unspecified, uncomplicated; Z86.14 Personal history of Methicillin resistant Staphylococcus aureus infection; Z88.1 Allergy status to other antibiotic agents; Z88.5 Allergy status to narcotic agent
CPT/HCPCS: 99283; 10060; J3490

== ENCOUNTER 2017-11-24 01:18 | Emergency (ER) | payer MEDICAID ==
[2017-11-24] MEDS ORDERED: NORMAL SALINE 1000 ML 1,000 ML IV ONE (01:49)
--- NOTE | 2017-11-24 01:55 | ER Document Report ---
ED General - General Chief Complaint: Flank Pain Stated Complaint: FLANK PAIN Time Seen by Provider: 11/24/17 01:39 Mode of Arrival: Ambulatory Information source: Patient Notes: Patient is a 52-year-old female who presents with complaint of right flank pain and abdominal pain. Patient reports that the pain started this morning around 11:30 AM. Patient reports that over the last 2 hours and gotten worse. Patient reports that yesterday he vomited once and he has had diarrhea for the last 2-3 days. Patient denies any history of similar episodes. Patient denies any fevers. Patient reports that he also has dark colored urine. Patient's past medical history includes depression, anxiety, arthritis, scoliosis. TRAVEL OUTSIDE OF THE [place] IN LAST 30 DAYS: No - Related Data Allergies/Adverse Reactions: sulfamethoxazole [From Bactrim] Allergy (Verified 11/22/17 11:27) tramadol Allergy (Verified 11/22/17 11:27) trimethoprim [From Bactrim] Allergy (Verified 11/22/17 11:27) Past Medical History - General Information source: Patient - Social History Smoking Status: Never Smoker Frequency of alcohol use: None Drug Abuse: None Family History: Reviewed & Not Pertinent Endocrine Medical History: Denies: Hx Diabetes Mellitus Type 1, Hx Diabetes Mellitus Type 2 Renal/ Medical History: Denies: Hx Peritoneal Dialysis Musculoskeletal Medical History: Reports Hx Arthritis Skin Medical History: Reports Hx MRSA Psychiatric Medical History: Reports: Hx Bipolar Disorder, Hx Depression, Hx Schizophrenia Infectious Medical History: Reports: Hx MRSA Surgical Hx: Negative Past Surgical History: Reports: Other - skin graft - Immunizations Hx Diphtheria, Pertussis, Tetanus Vaccination: Yes Review of Systems - Review of Systems Constitutional: No symptoms reported EENT: No symptoms reported Cardiovascular: No symptoms reported Respiratory: No symptoms reported Gastrointestinal: See HPI Genitourinary: See HPI Male Genitourinary: No symptoms reported Musculoskeletal: No symptoms reported Skin: No symptoms reported Hematologic/Lymphatic: No symptoms reported Neurological/Psychological: No symptoms reported Physical Exam - Vital signs Vitals: Temp Pulse Resp BP Pulse Ox 98.6 F 71 16 109/77 96 11/24/17 01:22 11/24/17 01:22 11/24/17 01:22 11/24/17 01:22 11/24/17 01:22 - Notes Notes: PHYSICAL EXAMINATION: GENERAL: Well-appearing, well-nourished and in no acute distress. HEAD: Atraumatic, normocephalic. EYES: Pupils equal round and reactive to light, extraocular movements intact, sclera anicteric, conjunctiva are normal. ENT: Nares patent, oropharynx clear without exudates. Moist mucous membranes. NECK: Normal range of motion, supple without lymphadenopathy LUNGS: Breath sounds clear to auscultation bilaterally and equal. No wheezes rales or rhonchi. HEART: Regular rate and rhythm without murmurs ABDOMEN: Soft, nondistended abdomen. Tenderness to palpation to right upper and left upper quadrant, right flank. No guarding, no rebound. No masses appreciated. Musculoskeletal: Normal range of motion, no pitting or edema. No cyanosis. NEUROLOGICAL: Cranial nerves grossly intact. Normal speech, normal gait. Normal sensory, motor exams PSYCH: Normal mood, normal affect. SKIN: Warm, Dry, normal turgor, no rashes or lesions noted. Course - Re-evaluation Re-evalutation: Patient is an otherwise healthy well appearing 52-year-old male who presents with chief complaint of right flank pain and abdominal pain. Patient reports no history of similar. Will order lab workup as well as CT renal protocol. Patient reports he is allergic to tramadol, hydrocodone, Tylenol and naproxen. Will hold off on medicating patient for pain as he is with multiple allergies. Patient declines need for anti-emetics. CBC and comprehensive metabolic panel are unremarkable. Urinalysis without signs of infection. CT renal study reveals a 0.3 cm obstructing calculus in the distal right ureter producing mild right hydroureter and hydronephrosis. Will start patient on Flomax and discharged home in stable condition. Patient received a prescription for Percocet in this emergency room yesterday for an abscess so I will not be prescribing any additional narcotics. Patient instructed to take ibuprofen 600 mg every 6 hours and use his Percocet as needed for breakthrough pain. Patient verbalizes understanding of same and agrees with plan of care. Patient understands the need to present back to the emergency department for worsening pain, fever or any other symptom that is concerning to him. - Vital Signs Vital signs: Temp Pulse Resp BP Pulse Ox 98.9 F 61 15 115/68 94 11/24/17 04:30 11/24/17 04:30 11/24/17 04:30 11/24/17 04:30 11/24/17 04:30 - Laboratory Result Diagrams: 11/24/17 02:05 11/24/17 02:05 Laboratory results interpreted by me: 11/24/17 11/24/17 11/24/17 01:55 02:05 02:05 WBC 12.9 H RBC 5.59 H Hgb 12.3 L MCV 70 L MCH 22.1 L MCHC 31.6 L RDW 15.4 H Absolute Neutrophils 9.1 H Sodium 145.8 H Chloride 112 H BUN 21 H AST 12 L ALT 17 L Total Protein 6.2 L Albumin 3.3 L Urine Blood LARGE H Urine Urobilinogen 2.0 H Discharge - Discharge Clinical Impression: Kidney stone on right side Condition: Stable Disposition: HOME, SELF-CARE Additional Instructions: KIDNEY STONE: You are passing or have passed a kidney stone. These stones are usually due to increased calcium or uric acid concentrations in your urine. Stones within the kidney itself are not painful. The pain occurs as the stone leaves the kidney to pass down the long tube, called the ureter, leading to the bladder. If the stone is small, it will usually pass by itself. Most patients can pass the stone at home. You will usually receive medications for pain, nausea or vomiting, and sometimes a medication to assist in passing the kidney stone. However, if the pain is very severe or if vomiting prevents you from taking oral pain medications, you may need to return for further treatment. Drink three or four quarts of fluids per day. You will be given pain medication (if needed) and urine strainers. Strain all your urine to see if the stone passes. If your doctor has asked you to bring the stone in for analysis, return with the stone once it has passed. Return if pain or vomiting become severe, if you develop a high fever, if you are unable to pass your urine, or if other unusual symptoms occur. ANT[place] MEDICATION: You have been given a medication to suppress nausea and vomiting. This type of medication can be given as a shot, pill, or suppository. It will usually last for many hours. Pills and shots usually last six to eight hours, suppositories last about 12 hours. For the typical illness, only one or two doses of the medication may be necessary. Mild lightheadedness may occur. This type of medicine can cause drowsiness. Do not drive or operate dangerous machinery while under its influence. Do not mix with alcohol. See your doctor at once if you have muscle spasms or tightness, or uncontrollable motions (particularly of the neck, mouth, or jaw). Persistent vomiting or severe lightheadedness should also be evaluated by the physician. FLOMAX (tamsulosin): Flomax is a medicine that shrinks the prostate gland. It helps relieve symptoms of benign prostatic hypertrophy, such as frequent urination, weak stream, and inadequate emptying. It has been shown to dilate the ureter (tube leading from the kidney to the bladder) and help in passing kidney stones Flomax usually causes no side effects. You may notice slight tiredness and dizziness for a few days. Some patients develop nasal congestion. Rarely, impotence can occur. If the symptoms are bothersome and don't improve with continued use, call your doctor. Contact your doctor or return if you have fainting spells, severe weakness or dizziness, shortness of breath, or rash. FOLLOW-UP CARE: If you have been referred to a physician for follow-up care, call the physician s office for an appointment as you were instructed or within the next two days. If you experience worsening or a significant change in your symptoms, notify the physician immediately or return to the Emergency Department at any time for re-evaluation. Please take the Flomax as directed. Please use Motrin 600 mg every 6 hours for pain. You were given a prescription for Percocet yesterday please use this for severe pain. Please follow-up with your primary care provider in the next 3-5 days for follow-up. Return to the emergency department for worsening flank pain , development of fever or any other symptoms that are concerning to you. Prescriptions: Tamsulosin HCl [Flomax 0.4 mg Cap.sr] 0.4 mg PO DAILY #7 cap.sr.[id number] Referrals: [facility] [Provider Group] - Follow up as needed [facility] [Provider Group] - Follow up as needed
[2017-11-24 02:15] LABS: ABSOLUTE BASOPHILS # (AUTO) 0.1 10^3/uL (0.0-0.2); ABSOLUTE EOSINOPHILS # (AUTO) 0.3 10^3/uL (0.0-0.6); ABSOLUTE LYMPHOCYTES (AUTO) 2.3 10^3/uL (0.5-4.7); ABSOLUTE MONOCYTES (AUTO) 1.1 10^3/uL (0.1-1.4); ABSOLUTE NEUT (AUTO) 9.1 10^3/uL (1.7-8.2); BASOPHILS % (AUTO) 0.7 % (0-2); EOSINOPHILS % (AUTO) 2.6 % (0-6); HEMOGLOBIN 12.3 g/dL (13.5-17.0); LYMPHOCYTES % (AUTO) 17.7 % (13-45); MEAN CORPUSCULAR HEMOGLOBIN 22.1 pg (27.0-33.4); MEAN CORPUSCULAR HGB CONC 31.6 g/dL (32.0-36.0); MEAN CORPUSCULAR VOLUME 70 fl (80-97); MONOCYTES % (AUTO) 8.3 % (3-13); PLATELET COUNT 271 10^3/uL (150-450); RED BLOOD COUNT 5.59 10^6/uL (4.35-5.55); RED CELL DISTRIBUTION WIDTH 15.4 % (11.5-14.0); SEGMENTED NEUTROPHILS % (AUTO) 70.7 % (42-78); TOTAL CELLS COUNTED % (AUTO) 100 %; WHITE BLOOD COUNT 12.9 10^3/uL (4.0-10.5)
[2017-11-24 02:20] LABS: APPEARANCE,URINE SLIGHTLY-CLOUDY; BILIRUBIN,URINE NEGATIVE (NEGATIVE); COLOR,URINE YELLOW; GLUCOSE, URINE NEGATIVE (NEGATIVE); KETONES,URINE NEGATIVE (NEGATIVE); LEUKOCYTE ESTERASE,URINE NEGATIVE (NEGATIVE); NITRITE,URINE NEGATIVE (NEGATIVE); PROTEIN,URINE NEGATIVE (NEGATIVE); URINE SPECIFIC GRAVITY 1.026
[2017-11-24 02:33] LABS: ALANINE AMINOTRANSFERASE 17 U/L (21-72); ALBUMIN 3.3 g/dL (3.5-5.0); ALKALINE PHOSPHATASE 71 U/L (38-126); ANION GAP 12 (5-19); ASPARTATE AMINO TRANSFERASE 12 U/L (17-59); BILIRUBIN,DIRECT 0.3 mg/dL (0.0-0.4); BILIRUBIN,TOTAL 0.4 mg/dL (0.2-1.3); BLOOD UREA NITROGEN 21 mg/dL (7-20); CARBON DIOXIDE 22 mmol/L (22-30); CHLORIDE 112 mmol/L (98-107); GLUCOSE 103 mg/dL (75-110); POTASSIUM 3.8 mmol/L (3.6-5.0); SODIUM 145.8 mmol/L (137-145); TOTAL PROTEIN 6.2 g/dL (6.3-8.2)
--- NOTE | 2017-11-24 03:48 | RADIOLOGY REPORT (SQ) ---
EXAM DESCRIPTION: CT ABDOMEN WITHOUT IV CONTRAST COMPLETED DATE/TME: 11/24/2017 02:37 CLINICAL HISTORY: right flank pain COMPARISON: None Available. TECHNIQUE: CT of the abdomen and pelvis without IV contrast. Evaluation of the solid organs and vasculature is suboptimal due to lack of IV contrast. DLP: 852.60 mGy-cm FINDINGS: Lung Bases: The visualized lung bases are clear. Bones: No destructive bone lesions identified. Degenerative spondylosis of the visualized thoracic and lumbar spine. Abdomen: Liver: The liver has normal size and density. Gallbladder: No calcified gallstones. Spleen, Pancreas, and Adrenal Glands: The spleen, pancreas, and adrenal glands are unremarkable. Kidneys: There is a 0.3 cm obstructing calculus in the distal right ureter producing mild right hydroureter and hydronephrosis. Punctate nonobstructing right renal calculi. No left-sided hydronephrosis. Vasculature: Aortoiliac atherosclerosis. IVC is unremarkable. Stomach: The stomach and duodenum have normal course. Other: No free intraperitoneal air. No free fluid or lymphadenopathy. Pelvis: Bladder: Urinary bladder is decompressed. Bowel: Scattered diverticula of the colon. No dilated loops of large or small bowel. Appendix: Normal appendix. Pelvis: Prostate is not enlarged. IMPRESSION: 1. There is a 0.3 cm obstructing calculus in the distal right ureter producing mild right hydroureter and hydronephrosis. 2. Nonobstructing right nephrolithiasis. 2. Diverticulosis without evidence of acute diverticulitis. This exam was performed according to our departmental dose-optimization program, which includes automated exposure control, adjustment of the mA and/or kV according to patient size and/or use of iterative reconstruction technique.
[2017-11-24] MEDS ORDERED: TAMSULOSIN HCL 0.4 MG CAP.SR.24H PO ONE (04:07)
[2017-11-24] MEDS ORDERED: MORPHINE SULFATE IR 15 MG TABLET PO ONE (04:13)
[2017-11-24] MEDS ORDERED: ONDANSETRON ODT 4 MG TAB (6 TAB/ER DISP) PO PRN (04:18)
[2017-11-24 09:12] VITALS: BP 107/74
== END 2017-11-24 09:23 | disposition home or self-care (01) ==
LOC: ER 01:18
DX: N20.0 Calculus of kidney (principal); R10.9 Unspecified abdominal pain; R11.10 Vomiting, unspecified; R19.7 Diarrhea, unspecified; Z88.3 Allergy status to other anti-infective agents; Z86.14 Personal history of Methicillin resistant Staphylococcus aureus infection
CPT/HCPCS: 99284; 96360; 36415; 83690; 85025; 80053; 81001; 76380; J3490; J7030

== ENCOUNTER 2017-12-10 09:52 | Emergency (ER) | payer MEDICAID ==
[2017-12-10 10:11] VITALS: BP 122/81
[2017-12-10] MEDS ORDERED: LIDOCAINE 1% INJ-PF (10 MG/ML) 30 ML SDV INJ ONE (10:56)
--- NOTE | 2017-12-10 10:56 | ER Document Report ---
ED Medical Screen (RME) - General Chief Complaint: Abscess Stated Complaint: scrotom Time Seen by Provider: 12/10/17 10:43 Mode of Arrival: Medic TRAVEL OUTSIDE OF THE [place] IN LAST 30 DAYS: No - HPI Notes: 12/10/17 10:51 52-year-old male with a medical history of chronic boils and abscesses presents to the ED with complaints of complaints of boils on testicles, states he has one on his right testicle, left posterior testicle and left inner groin, and they have been occurring over the last several weeks, patient has a continuous prescription for clindamycin due to having chronic boils. Patient reports he has been experiencing some fever and chills in the last 2 days. He is currently on oral antibiotics. Patient has been trying bleach baths as well as using antibacterial soap however he states he has been getting more and his boils have been occurring more frequently. Denies chest pain,palpitations, shortness of breath, dyspnea, nausea, vomiting, diarrhea, abdominal pain, hematuria, she is closed there is 2 of us weakness, bowel or bladder dysfunction , saddle anesthesia, numbness or tingling in bilateral upper or lower extremities equally, muscle paralysis, weakness in bilateral upper or lower extremities equally or rash. I have greeted and performed a rapid initial assessment of this patient. A comprehensive ED assessment and evaluation of the patient, analysis of test results and completion of medical decision making process will be conducted by an additional ED providers.: - Related Data Allergies/Adverse Reactions: tramadol Allergy (Verified 12/10/17 10:56) sulfamethoxazole [From Bactrim] Adverse Reaction (Verified 12/10/17 10:56) trimethoprim [From Bactrim] Adverse Reaction (Verified 12/10/17 10:56) Past Medical History Endocrine Medical History: Denies: Hx Diabetes Mellitus Type 1, Hx Diabetes Mellitus Type 2 Renal/ Medical History: Denies: Hx Peritoneal Dialysis Musculoskeltal Medical History: Reports Hx Arthritis Skin Medical History: Reports Hx MRSA Psychiatric Medical History: Reports: Hx Bipolar Disorder, Hx Depression, Hx Schizophrenia Infectious Medical History: Reports: Hx MRSA Past Surgical History: Reports: Other - skin graft - Immunizations Hx Diphtheria, Pertussis, Tetanus Vaccination: Yes Physical Exam - Vital signs Vitals: Temp Pulse Resp BP Pulse Ox 98.7 F 81 18 122/81 99 12/10/17 10:08 08/09/18 10:08 12/10/17 10:08 12/10/17 10:08 12/10/17 10:08 Course - Vital Signs Vital signs: Temp Pulse Resp BP Pulse Ox 98.7 F 81 18 122/81 99 12/10/17 10:08 12/10/17 10:08 12/10/17 10:08 12/10/17 10:08 12/10/17 10:08 - Laboratory Result Diagrams: 12/10/17 11:03 12/10/17 11:03 Laboratory results interpreted by me: 12/10/17 11:03 WBC 11.7 H RBC 5.75 H Hgb 12.6 L MCV 71 L MCH 22.0 L MCHC 31.1 L RDW 15.4 H Absolute Neutrophils 8.5 H Doctor's Discharge - Discharge Disposition: AGAINST MEDICAL ADVICE
[2017-12-10 11:14] LABS: ABSOLUTE BASOPHILS # (AUTO) 0.1 10^3/uL (0.0-0.2); ABSOLUTE EOSINOPHILS # (AUTO) 0.2 10^3/uL (0.0-0.6); ABSOLUTE LYMPHOCYTES (AUTO) 2.1 10^3/uL (0.5-4.7); ABSOLUTE MONOCYTES (AUTO) 0.9 10^3/uL (0.1-1.4); ABSOLUTE NEUT (AUTO) 8.5 10^3/uL (1.7-8.2); BASOPHILS % (AUTO) 0.4 % (0-2); EOSINOPHILS % (AUTO) 1.5 % (0-6); HEMATOCRIT 40.6 % (37.9-51.0); HEMOGLOBIN 12.6 g/dL (13.5-17.0); MEAN CORPUSCULAR HGB CONC 31.1 g/dL (32.0-36.0); MEAN CORPUSCULAR VOLUME 71 fl (80-97); PLATELET COUNT 255 10^3/uL (150-450); RED BLOOD COUNT 5.75 10^6/uL (4.35-5.55); RED CELL DISTRIBUTION WIDTH 15.4 % (11.5-14.0); SEGMENTED NEUTROPHILS % (AUTO) 72.1 % (42-78); TOTAL CELLS COUNTED % (AUTO) 100 %; WHITE BLOOD COUNT 11.7 10^3/uL (4.0-10.5)
== END 2017-12-10 13:04 | disposition left against medical advice (07) ==
LOC: ER 09:52
DX: N45.4 Abscess of epididymis or testis (principal); Z86.14 Personal history of Methicillin resistant Staphylococcus aureus infection; Z88.3 Allergy status to other anti-infective agents
CPT/HCPCS: 36415; 85025; 99283

== ENCOUNTER 2018-03-26 09:54 | Emergency (ER) | payer MEDICAID ==
[2018-03-26] MEDS ORDERED: MORPHINE SULFATE 10 MG/ML INJ IV ONE (11:11)
[2018-03-26] MEDS ORDERED: ONDANSETRON HCL INJ/PF 4 MG/2 ML SDV IV ONE (11:11)
[2018-03-26] MEDS ORDERED: CLINDAMYCIN 600 MG/D5W RTU 600 MG/50 ML RTUPB IV SCH ×2 (11:15→18:00)
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
[2018-03-26] MEDS ORDERED: CLINDAMYCIN 600 MG/D5W RTU 600 MG/50 ML RTUPB IV ONE (11:30)
[2018-03-26 11:38] LABS: ABSOLUTE BASOPHILS # (AUTO) 0.1 10^3/uL (0.0-0.2); ABSOLUTE EOSINOPHILS # (AUTO) 0.1 10^3/uL (0.0-0.6); ABSOLUTE LYMPHOCYTES (AUTO) 1.9 10^3/uL (0.5-4.7); ABSOLUTE MONOCYTES (AUTO) 0.9 10^3/uL (0.1-1.4); BASOPHILS % (AUTO) 0.4 % (0-2); EOSINOPHILS % (AUTO) 0.8 % (0-6); HEMATOCRIT 41.6 % (37.9-51.0); HEMOGLOBIN 13.7 g/dL (13.5-17.0); LYMPHOCYTES % (AUTO) 13.3 % (13-45); MEAN CORPUSCULAR HEMOGLOBIN 22.8 pg (27.0-33.4); MEAN CORPUSCULAR HGB CONC 32.9 g/dL (32.0-36.0); MEAN CORPUSCULAR VOLUME 69 fl (80-97); MONOCYTES % (AUTO) 6.7 % (3-13); PLATELET COUNT 307 10^3/uL (150-450); RED BLOOD COUNT 5.99 10^6/uL (4.35-5.55); RED CELL DISTRIBUTION WIDTH 14.9 % (11.5-14.0); SEGMENTED NEUTROPHILS % (AUTO) 78.8 % (42-78); TOTAL CELLS COUNTED % (AUTO) 100 %
[2018-03-26 11:48] LABS: ANION GAP 12 (5-19); BLOOD UREA NITROGEN 14 mg/dL (7-20); CALCIUM 9.4 mg/dL (8.4-10.2); CARBON DIOXIDE 25 mmol/L (22-30); CHLORIDE 106 mmol/L (98-107); GLUCOSE 93 mg/dL (75-110); POTASSIUM 3.9 mmol/L (3.6-5.0)
--- NOTE | 2018-03-26 12:52 | RADIOLOGY REPORT (SQ) ---
EXAM DESCRIPTION: CT PELVIS WITH COMPLETED DATE/TIME: 03/26/2018 12:33 pm REASON FOR STUDY: h/o rectal abscess/fistula COMPARISON: None. TECHNIQUE: CT scan of the pelvis performed with intravenous and oral contrast using helical scanning technique with dynamic intravenous contrast injection. Images reviewed with soft tissue and bone win dows. Reconstructed coronal and sagittal MPR images reviewed. Delayed images for evaluation of the ur inary system also acquired. All images stored on PACS. All CT scanners at this facility use dose modulation, iterative reconstruction, and/or weight based d osing when appropriate to reduce radiation dose to as low as reasonably achievable (ALARA). [facility]: Dose Right [facility]: CareDose [facility]: Dose Right [facility]: Teradose 4D [facility]: Podcast Ready CONTRAST TYPE AND DOSE: contrast/concentration: Isovue 370.00 mg/ml; Total Contrast Delivered: 91.0 ml; Total Saline Delivered: 70.0 ml RENAL FUNCTION: BUN 14 creatinine 1.07. RADIATION DOSE: CT Rad equipment meets quality standard of care and radiation dose reduction techniq ues were employed. CTDIvol: 8.2 - 9.6 mGy. DLP: 922 mGy-cm.. LIMITATIONS: None. FINDINGS: PELVIC BONES: No acute fracture. No worrisome bone lesions. VISUALIZED SPINE: No acute findings. HIP(S): No acute fracture or dislocation. No worrisome bone lesions. PELVIC SOFT TISSUES: No significant findings. EXTRAPELVIC SOFT TISSUES: Surgical clips in the left perirectal region. No focal fluid collection. OTHER: No other significant finding. IMPRESSION: SURGICAL CLIPS IN THE LEFT PERIRECTAL REGION. NO EVIDENCE OF ABSCESS OR OTHER SIGNIFICA NT FINDING. TECHNICAL DOCUMENTATION: JOB ID: [id number] Quality ID # [id number]: Final reports with documentation of one or more dose reduction techniques (e.g., Au tomated exposure control, adjustment of the mA and/or kV according to patient size, use of iterative reconstruction technique) 2010 [employer]- All Rights Reserved Reading location - IP/workstation name: [email or web address]
[2018-03-26 13:34] LABS: APPEARANCE,URINE CLEAR; BILIRUBIN,URINE NEGATIVE (NEGATIVE); COLOR,URINE YELLOW; GLUCOSE, URINE NEGATIVE (NEGATIVE); KETONES,URINE 20 mg/dL (NEGATIVE); LEUKOCYTE ESTERASE,URINE NEGATIVE (NEGATIVE); NITRITE,URINE NEGATIVE (NEGATIVE); PROTEIN,URINE NEGATIVE (NEGATIVE); URINE SPECIFIC GRAVITY 1.053
[2018-03-26 14:03] VITALS: BP 117/86
== END 2018-03-26 14:03 | disposition home or self-care (01) ==
LOC: ER 09:54
DX: L73.2 Hidradenitis suppurativa (principal); K62.89 Other specified diseases of anus and rectum; D72.829 Elevated white blood cell count, unspecified; L02.214 Cutaneous abscess of groin; R11.0 Nausea; Z86.14 Personal history of Methicillin resistant Staphylococcus aureus infection; F17.210 Nicotine dependence, cigarettes, uncomplicated
CPT/HCPCS: 99406; 99284; 96374; 96375; 36415; 87040; 85025; 80048; 81001; 72193; S0077; J2270; J2405

== ENCOUNTER 2018-04-06 02:49 | Emergency (ER) | payer MEDICAID ==
[2018-04-06 03:04] VITALS: BP 110/62
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
[2018-04-06] MEDS ORDERED: HYDROCODONE/ACETAMINOPHEN 5-325 MG (6 TAB/ER DISP) PO PRN (03:46)
== END 2018-04-06 03:59 | disposition home or self-care (01) ==
LOC: ER 02:49
DX: L02.91 Cutaneous abscess, unspecified (principal); M25.551 Pain in right hip; L29.9 Pruritus, unspecified; F19.10 Other psychoactive substance abuse, uncomplicated; Z86.14 Personal history of Methicillin resistant Staphylococcus aureus infection; Z88.5 Allergy status to narcotic agent
CPT/HCPCS: 99283

== ENCOUNTER 2018-04-06 22:39 | Emergency (ER) | payer MEDICAID ==
[2018-04-06 23:13] VITALS: BP 104/56
[2018-04-07] MEDS ORDERED: HYDROXYZINE PAMOATE 25 MG CAPSULE (4 CAP/ER DISP) PO SCH ×2 (00:30→22:00)
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
[2018-04-07] MEDS ORDERED: HYDROXYZINE PAMOATE 25 MG CAPSULE (4 CAP/ER DISP) PO ONE (00:45)
== END 2018-04-07 01:19 | disposition home or self-care (01) ==
LOC: ER 22:39
DX: L29.0 Pruritus ani (principal); L02.31 Cutaneous abscess of buttock; Z98.890 Other specified postprocedural states; G47.00 Insomnia, unspecified; F17.200 Nicotine dependence, unspecified, uncomplicated; Z86.14 Personal history of Methicillin resistant Staphylococcus aureus infection
CPT/HCPCS: 99282; J3490

== ENCOUNTER 2018-04-23 10:00 | Emergency (ER) | payer MEDICAID ==
[2018-04-23] MEDS ORDERED: DOXYCYCLINE HYCLATE 100 MG TABLET PO ONE (10:39)
[2018-04-23] MEDS ORDERED: OXYCODONE-ACETAMINOPHEN 5-325 MG TABLET PO ONE (10:39)
[2018-04-23] MEDS ORDERED: HYDROXYZINE PAMOATE 25 MG CAPSULE PO ONE (10:39)
[2018-04-23 11:33] VITALS: BP 109/87
--- NOTE | 2018-04-23 11:38 | ER Document Report ---
ED General - General Chief Complaint: Boil Stated Complaint: SKIN PROBLEM Time Seen by Provider: 04/23/18 10:08 Mode of Arrival: Ambulatory Information source: Patient Notes: Patient is an otherwise healthy 52-year-old male who presents to the emergency department with chief complaint of flareup of his hidradenitis. He reports he has areas to his bilateral axilla as well as his groin. He states that he typically takes doxycycline 100 mg twice daily every day and states that he is out of his medication. Patient denies any fevers, chills or drainage from the areas. TRAVEL OUTSIDE OF THE [place] IN LAST 30 DAYS: No - Related Data Allergies/Adverse Reactions: tramadol Allergy (Verified 12/10/17 10:56) sulfamethoxazole [From Bactrim] Adverse Reaction (Verified 12/10/17 10:56) trimethoprim [From Bactrim] Adverse Reaction (Verified 12/10/17 10:56) Past Medical History - General Information source: Patient - Social History Smoking Status: Current Every Day Smoker Chew tobacco use (# tins/day): No Frequency of alcohol use: None Drug Abuse: None Family History: Reviewed & Not Pertinent Patient has suicidal ideation: No Patient has homicidal ideation: No - Medical History Medical History: Other - Hidradenitis Endocrine Medical History: Denies: Hx Diabetes Mellitus Type 1, Hx Diabetes Mellitus Type 2 Renal/ Medical History: Reports: Hx Kidney Stones. Denies: Hx Peritoneal Dialysis Musculoskeletal Medical History: Reports Hx Arthritis Skin Medical History: Reports Hx MRSA Psychiatric Medical History: Reports: Hx Bipolar Disorder, Hx Depression, Hx Schizophrenia Infectious Medical History: Reports: Hx MRSA Past Surgical History: Reports: Other - skin graft - Immunizations Hx Diphtheria, Pertussis, Tetanus Vaccination: Yes Review of Systems - Review of Systems Skin: See HPI -: Yes All other systems reviewed and negative Physical Exam - Vital signs Vitals: Temp Pulse Resp BP Pulse Ox 97.9 F 42 L 20 109/87 H 97 04/23/18 11:31 04/23/18 11:31 04/23/18 11:31 04/23/18 11:31 04/23/18 11:31 - Notes Notes: PHYSICAL EXAMINATION: GENERAL: Well-appearing, well-nourished and in no acute distress. HEAD: Atraumatic, normocephalic. EYES: Pupils equal round and reactive to light, extraocular movements intact, sclera anicteric, conjunctiva are normal. ENT: Nares patent, oropharynx clear without exudates. Moist mucous membranes. NECK: Normal range of motion, supple without lymphadenopathy LUNGS: Breath sounds clear to auscultation bilaterally and equal. No wheezes rales or rhonchi. HEART: Regular rate and rhythm without murmurs ABDOMEN: Soft, nontender, nondistended abdomen. No guarding, no rebound. No masses appreciated. Musculoskeletal: Normal range of motion, no pitting or edema. No cyanosis. NEUROLOGICAL: Cranial nerves grossly intact. Normal speech, normal gait. Normal sensory, motor exams PSYCH: Normal mood, normal affect. SKIN: Warm, Dry, normal turgor. Multiple areas of induration to patient's bilateral axilla as well as groin, no fluctuance noted no drainable abscess is identified. Course - Re-evaluation Re-evalutation: There are no drainable abscess is identified as patient is having a flareup of his hidradenitis. Patient's routine scheduled medications will be ordered for him. He already states that he is planning to follow-up with surgery as he has had multiple surgeries in the past for his problems. He does not have any fever or chills and his vital signs are stable. Patient discharged home in stable condition at this time. - Vital Signs Vital signs: Temp Pulse Resp BP Pulse Ox 97.9 F 42 L 20 109/87 H 97 04/23/18 11:31 04/23/18 11:31 04/23/18 11:31 04/23/18 11:31 04/23/18 11:31 Discharge - Discharge Clinical Impression: Hidradenitis suppurativa Condition: Stable Disposition: HOME, SELF-CARE Additional Instructions: I have prescribed your medications that you use for your hidradenitis. It is important for you to follow-up with both primary care and probably a surgeon for long-term management of this. I have included the number of a surgeon in our area for you to follow-up with. Please take all medications as prescribed. Prescriptions: Doxycycline Hyclate 100 mg PO BID #60 capsule Hydroxyzine HCl [Atarax 25 mg Tablet] 1 - 2 tab PO QID #30 tablet Oxycodone HCl/Acetaminophen [Percocet 5-325 mg Tablet] 1 - 2 tab PO Q4H PRN #14 tablet PRN Reason: Pramoxine HCl/Mineral Oil/Znox [Anusol Ointment] 24 gm RC BID #24 oint..gm.
== END 2018-04-23 11:51 | disposition home or self-care (01) ==
LOC: ER 10:00
DX: L73.2 Hidradenitis suppurativa (principal); F17.200 Nicotine dependence, unspecified, uncomplicated
CPT/HCPCS: 99283; J3490 ×2

== ENCOUNTER 2018-05-05 10:31 | Emergency (ER) | payer MEDICAID ==
--- NOTE | 2018-05-05 11:14 | ER Document Report ---
ED Medical Screen (RME) - General Chief Complaint: Abscess Stated Complaint: POSSIBLE ABSCESS Time Seen by Provider: 05/05/18 11:01 Mode of Arrival: Ambulatory Information source: Patient, [facility] Records Notes: 52-year-old male with hidradenitis suppurativa, recurrent rectal and inguinal abscess, MRSA presents with complaint of buttocks pain, and rectal bleeding. Patient has had multiple surgeries in the past for this. States today he feels like he tore something. I have greeted and performed a rapid initial assessment of this patient. A comprehensive ED assessment and evaluation of the patient, analysis of test results and completion of medical decision making process we will be contacted by additional ED providers. PHYSICAL EXAMINATION: Vital signs reviewed-within normal limits GENERAL: Well-appearing, well-nourished and in no acute distress. LUNGS: No respiratory distress Musculoskeletal: Normal range of motion NEUROLOGICAL: Normal speech, normal gait. PSYCH: Normal mood, normal affect. TRAVEL OUTSIDE OF THE [place] IN LAST 30 DAYS: No - HPI Onset: Other Onset/Duration: Persistent Quality of pain: Throbbing Severity: Moderate Associated Symptoms: denies: Fever, Nausea Exacerbated by: Movement Relieved by: Denies Similar symptoms previously: Yes Recently seen / treated by doctor: Yes - Related Data Smoking: Non-smoker Frequency of alcohol use: None Drug Abuse: None Allergies/Adverse Reactions: tramadol Allergy (Verified 05/05/18 10:39) sulfamethoxazole [From Bactrim] Adverse Reaction (Verified 05/05/18 10:39) trimethoprim [From Bactrim] Adverse Reaction (Verified 05/05/18 10:39) Past Medical History - Social History Chew tobacco use (# tins/day): No Frequency of alcohol use: None Drug Abuse: None Endocrine Medical History: Denies: Hx Diabetes Mellitus Type 1, Hx Diabetes Mellitus Type 2 Renal/ Medical History: Reports: Hx Kidney Stones. Denies: Hx Peritoneal Dialysis Musculoskeltal Medical History: Reports Hx Arthritis Skin Medical History: Reports Hx MRSA Psychiatric Medical History: Reports: Hx Bipolar Disorder, Hx Depression, Hx Schizophrenia Infectious Medical History: Reports: Hx MRSA Past Surgical History: Reports: Other - skin graft - Immunizations Hx Diphtheria, Pertussis, Tetanus Vaccination: Yes Physical Exam - Vital signs Vitals: Temp Pulse Resp BP Pulse Ox 98.8 F 68 16 118/64 98 05/05/18 10:49 05/05/18 10:49 05/05/18 10:49 05/05/18 10:49 05/05/18 10:49 Course - Vital Signs Vital signs: Temp Pulse Resp BP Pulse Ox 98.8 F 68 16 118/64 98 05/05/18 10:49 05/05/18 10:49 05/05/18 10:49 05/05/18 10:49 05/05/18 10:49
--- NOTE | 2018-05-05 12:57 | ER Document Report ---
ED General - General Chief Complaint: Abscess Stated Complaint: POSSIBLE ABSCESS Time Seen by Provider: 05/05/18 11:01 Mode of Arrival: Ambulatory Notes: Patient is a 52-year-old male with history of hidradenitis that presents to the emergency department for chief complaint of rectal pain and pus drainage. Patient states that he is been having pain associated with his hidradenitis, and he wants to have a bowel movement and he felt a pop sensation 2 days ago, and it started spontaneously draining pus. He has been having pain, and lots of itching is been scratching back very states that his been excoriated as a result. He said significant pain. He states he is going to see a physician next Thursday, but has not been in to see a surgeon yet. He had his previous surgeries performed in [place]. He denies noting any fevers, chills, night sweats. He currently rates his pain as a 6 out of 10, worse with sitting down, and any pressure, and any bowel movement. Past Medical History: Hidradenitis Past Surgical History: Multiple surgeries including 8 for his perirectal abscesses Social History: Denies tobacco, alcohol or illicit drug use. Family History: Reviewed and noncontributory for presenting illness Allergies: Reviewed, see documented allergy list. REVIEW OF SYSTEMS: Other than noted above, the 12 point review of systems was reviewed with the patient and were negative, all pertinent findings are included in the HPI. PHYSICAL EXAMINATION: Vital signs reviewed, nursing noted reviewed. GENERAL: Well-appearing, well-nourished and in no acute distress. HEAD: Atraumatic, normocephalic. EYES: Eyes appear normal, extraocular movements intact, sclera anicteric, conjunctiva are normal. ENT: nares patent, oropharynx clear without exudates. Moist mucous membranes. NECK: Normal range of motion, supple without lymphadenopathy LUNGS: Breath sounds clear to auscultation bilaterally and equal. No wheezes rales or rhonchi. HEART: Regular rate and rhythm without murmurs ABDOMEN: Soft, nontender, normoactive bowel sounds. No rebound, guarding, or rigidity. No masses appreciated. External anal exam: With hand rug cleaner present, patient was noted to have what appears to be a draining perirectal abscess fistula, in the 3 o'clock position, there is some excoriation, and purulent drainage. Tenderness with palpation. Other small perianal abscess is noted as well. Consistent with the patient's history of hidradenitis. EXTREMITIES: Nontender, good range of motion, no pitting or edema. NEUROLOGICAL: No focal neurological deficits. Moves all extremities spontaneously Motor and sensory grossly intact on exam. PSYCH: Normal mood, normal affect. SKIN: Warm, Dry, normal turgor, no rashes or lesions noted on exposed skin TRAVEL OUTSIDE OF THE [place] IN LAST 30 DAYS: No - Related Data Allergies/Adverse Reactions: hydrocodone Allergy (Verified 05/05/18 12:25) ibuprofen Allergy (Verified 05/05/18 12:25) naproxen Allergy (Verified 05/05/18 12:25) tramadol Allergy (Verified 05/05/18 12:25) sulfamethoxazole [From Bactrim] Adverse Reaction (Verified 05/05/18 12:25) trimethoprim [From Bactrim] Adverse Reaction (Verified 05/05/18 12:25) Past Medical History - General Information source: Patient, [facility] Records - Social History Smoking Status: Current Every Day Smoker Chew tobacco use (# tins/day): No Frequency of alcohol use: None Drug Abuse: None Family History: Reviewed & Not Pertinent Patient has suicidal ideation: No Patient has homicidal ideation: No Endocrine Medical History: Denies: Hx Diabetes Mellitus Type 1, Hx Diabetes Mellitus Type 2 Renal/ Medical History: Reports: Hx Kidney Stones. Denies: Hx Peritoneal Dialysis Musculoskeletal Medical History: Reports Hx Arthritis Skin Medical History: Reports Hx MRSA Psychiatric Medical History: Reports: Hx Bipolar Disorder, Hx Depression, Hx Schizophrenia Infectious Medical History: Reports: Hx MRSA Past Surgical History: Reports: Other - skin graft - Immunizations Hx Diphtheria, Pertussis, Tetanus Vaccination: Yes Physical Exam - Vital signs Vitals: Temp Pulse Resp BP Pulse Ox 98.8 F 68 16 118/64 98 05/05/18 10:49 05/05/18 10:49 05/05/18 10:49 05/05/18 10:49 05/05/18 10:49 Course - Re-evaluation Re-evalutation: Patient seen and examined vital signs reviewed. Patient was evaluated and treated as appropriate for the patient's presenting symptoms and complaint, with consideration of any critical or life threatening conditions that may be associated with their obtained history and exam as noted above. Patient was treated with Percocet 5 mg / 325 mg and given a dose of doxycycline 100 mg. The patient was re-evaluated and was stable, I did have the surgeon Dr. Medrano see the patient, he recommended outpatient treatment with antibiotics, as it is spontaneously draining, there is no emergent need for surgery, but he does need follow-up Evaluation was most consistent with perirectal abscess with fistulization, with spontaneous drainage, patient be discharged home on doxycycline, given 10 days worth, as well as oxycodone for his pain, hemorrhoid cream for itching, and hydroxyzine for his itching patient was agreeable to this plan of care and discharge. Plan of care was discussed with the patient at this point, after careful consideration I feel that that patient can be discharged from the emergency department, the patient was educated treatments and reasons to return to the emergency department based on their presumed diagnosis as noted above, they were advised to followup with a primary care physician in 2-3 days. Patient was agreeable to plan of care. *Note is created using voice recognition software and may contain spelling, syntax or grammatical errors. - Vital Signs Vital signs: Temp Pulse Resp BP Pulse Ox 98.7 F 81 16 113/88 H 100 05/05/18 14:01 05/05/18 14:01 05/05/18 14:01 05/05/18 14:01 05/05/18 14:01 Discharge - Discharge Clinical Impression: Perirectal abscess, Perirectal fistula Condition: Stable Disposition: HOME, SELF-CARE Instructions: Abscess ([facility]) Additional Instructions: Please follow-up with the surgeon you are scheduled to see. Please take all medications as prescribed and complete the course of antibiotics. Prescriptions: RX: Doxycycline Hyclate 100 mg PO BID #20 capsule RX: Hydroxyzine HCl [Atarax 25 mg Tablet] 1 - 2 tab PO QID #25 tablet Oxycodone HCl/Acetaminophen [Percocet 5-325 mg Tablet] 1 tab PO Q8H PRN #15 tab PRN Reason: general pain Pramoxine HCl/Mineral Oil/Znox [Anusol Ointment] 1 applic RC TID #24 gm Referrals: JADIEL MEDRANO MD [ACTIVE STAFF] - Follow up as needed (or the surgeon you were scheduled with. )
[2018-05-05] MEDS ORDERED: DOXYCYCLINE HYCLATE 100 MG TABLET PO ONE (13:21)
[2018-05-05] MEDS ORDERED: OXYCODONE HCL IR 5 MG TABLET PO ONE (13:21)
[2018-05-05 14:07] VITALS: BP 113/88
== END 2018-05-05 14:30 | disposition home or self-care (01) ==
LOC: ER 10:31
DX: K61.1 Rectal abscess (principal)
CPT/HCPCS: 99283; J3490 ×2

== ENCOUNTER 2018-05-24 13:32 | Emergency (ER) | payer MEDICAID ==
[2018-05-24 13:37] VITALS: BP 119/81
--- NOTE | 2018-05-24 14:55 | ER Document Report ---
ED Medical Screen (RME) - General Chief Complaint: Skin Problem Stated Complaint: SKIN PROBLEM Time Seen by Provider: 05/24/18 14:54 Mode of Arrival: Ambulatory Information source: Patient Notes: Patient is an otherwise healthy 52-year-old male with past medical history of hidradenitis supra T the. He has been to this facility multiple times lately. Last time he was here he was admitted for IV antibiotics and seen by surgery. He has been going to the outpatient surgical clinic. Patient reports daily use of doxycycline. Patient reports he now he has 2 worsening abscesses to his buttock and groin. Patient upgraded to SABRA 3. I have greeted and performed a rapid initial assessment of this patient. A comprehensive ED assessment and evaluation of the patient, analysis of test results and completion of the medical decision making process will be conducted by additional ED providers. Dictation of this chart was performed using voice recognition software; therefore, there may be some unintended grammatical errors. TRAVEL OUTSIDE OF THE [place] IN LAST 30 DAYS: No - Related Data Allergies/Adverse Reactions: hydrocodone Allergy (Verified 05/24/18 13:33) ibuprofen Allergy (Verified 05/24/18 13:33) naproxen Allergy (Verified 05/24/18 13:33) tramadol Allergy (Verified 05/24/18 13:33) sulfamethoxazole [From Bactrim] Adverse Reaction (Verified 05/24/18 13:33) trimethoprim [From Bactrim] Adverse Reaction (Verified 05/24/18 13:33) Past Medical History Endocrine Medical History: Denies: Hx Diabetes Mellitus Type 1, Hx Diabetes Mellitus Type 2 Renal/ Medical History: Reports: Hx Kidney Stones. Denies: Hx Peritoneal Dialysis Musculoskeltal Medical History: Reports Hx Arthritis Skin Medical History: Reports Hx MRSA Psychiatric Medical History: Reports: Hx Bipolar Disorder, Hx Depression, Hx Schizophrenia Infectious Medical History: Reports: Hx MRSA Past Surgical History: Reports: Other - skin graft - Immunizations Hx Diphtheria, Pertussis, Tetanus Vaccination: Yes Physical Exam - Vital signs Vitals: Temp Pulse Resp BP Pulse Ox 98.0 F 99 16 119/81 99 05/24/18 13:36 05/24/18 13:36 05/24/18 13:36 05/24/18 13:36 05/24/18 13:36 Course - Vital Signs Vital signs: Temp Pulse Resp BP Pulse Ox 98.0 F 99 16 119/81 99 05/24/18 13:36 05/24/18 13:36 05/24/18 13:36 05/24/18 13:36 05/24/18 13:36
[2018-05-24] MEDS ORDERED: DIPHENHYDRAMINE HCL 25 MG CAPSULE PO ONE (16:07)
--- NOTE | 2018-05-24 17:27 | ER Document Report ---
ED General - General Chief Complaint: Skin Problem Stated Complaint: SKIN PROBLEM Time Seen by Provider: 05/24/18 14:54 Mode of Arrival: Ambulatory Notes: 52-year-old male known to this emergency department presents here for pain after scratching a lesion in the perirectal area. Patient has a history of hydradenitis suppurativa and is being followed by the surgery clinic. He states he ran out of itching/pain/powder medications and the itching is been so severe that he keeps scratching and now he is in pain. He denies fevers, chills, nausea, vomiting. Denies urinary symptoms. TRAVEL OUTSIDE OF THE [place] IN LAST 30 DAYS: No - Related Data Allergies/Adverse Reactions: hydrocodone Allergy (Verified 05/24/18 13:33) ibuprofen Allergy (Verified 05/24/18 13:33) naproxen Allergy (Verified 05/24/18 13:33) tramadol Allergy (Verified 05/24/18 13:33) sulfamethoxazole [From Bactrim] Adverse Reaction (Verified 05/24/18 13:33) trimethoprim [From Bactrim] Adverse Reaction (Verified 05/24/18 13:33) Past Medical History - General Information source: Patient - Social History Smoking Status: Unknown if Ever Smoked Family History: Reviewed & Not Pertinent Patient has suicidal ideation: No Patient has homicidal ideation: No Endocrine Medical History: Denies: Hx Diabetes Mellitus Type 1, Hx Diabetes Mellitus Type 2 Renal/ Medical History: Reports: Hx Kidney Stones. Denies: Hx Peritoneal Dialysis Musculoskeletal Medical History: Reports Hx Arthritis Skin Medical History: Reports Hx MRSA Psychiatric Medical History: Reports: Hx Bipolar Disorder, Hx Depression, Hx Schizophrenia Infectious Medical History: Reports: Hx MRSA Past Surgical History: Reports: Other - skin graft - Immunizations Hx Diphtheria, Pertussis, Tetanus Vaccination: Yes Review of Systems - Review of Systems Constitutional: See HPI EENT: No symptoms reported Cardiovascular: No symptoms reported Respiratory: No symptoms reported Gastrointestinal: See HPI Genitourinary: No symptoms reported Male Genitourinary: No symptoms reported Musculoskeletal: No symptoms reported Skin: See HPI Hematologic/Lymphatic: No symptoms reported Neurological/Psychological: No symptoms reported Physical Exam - Vital signs Vitals: Temp Pulse Resp BP Pulse Ox 98.0 F 99 16 119/81 99 05/24/18 13:36 05/24/18 13:36 05/24/18 13:36 05/24/18 13:36 05/24/18 13:36 - Notes Notes: PHYSICAL EXAMINATION: Reviewed vital signs and charting by RN GENERAL: Well-appearing, well-nourished and in no acute distress. HEAD: Atraumatic, normocephalic. EYES: Pupils equal round, extraocular movements intact, sclera anicteric, conjunctiva are normal. ENT: nares patent. Moist mucous membranes. NECK: Normal range of motion, supple without lymphadenopathy EXTREMITIES: Normal range of motion, no pitting or edema. No cyanosis. NEUROLOGICAL: Face symmetric. PSYCH: Normal mood, normal affect. SKIN: Warm, Dry, normal turgor, perirectal lesion in the right buttock open with minimal clear discharge, approximately the size of a quarter. No evidence of infection, erythema, edema - General General appearance: Appears well, Alert In distress: None - Respiratory Respiratory status: No respiratory distress Course - Re-evaluation Re-evalutation: 05/24/18 17:24 Well-appearing 52-year-old male well-known to this emergency room presents emergency department for severe itching at the site of an abscess secondary to hidradenitis suppurativa. Patient being followed by the surgery clinic but ran out of medications. He is seeking relief. I saw this patient on April 07 and prescribe him Atarax and he states he had great improvement of his symptoms from that. I am not giving him any type of narcotic medication. I will refill his Atarax. He received Benadryl 50 mg p.o. 1 time while here so we will not give him a dose here. Patient is safe and stable for discharge with close follow-up to the surgery clinic tomorrow - Vital Signs Vital signs: Temp Pulse Resp BP Pulse Ox 98.0 F 99 16 119/81 99 05/24/18 13:36 05/24/18 13:36 05/24/18 13:36 05/24/18 13:36 05/24/18 13:36 Discharge - Discharge Clinical Impression: Skin abnormality Condition: Good Disposition: HOME, SELF-CARE Additional Instructions: You were seen in the emergency department this afternoon for an open wound to an area where you have a lesion. There is no evidence of infection with the lesion. As we discussed, Atarax gave you great relief from itching so I am prescribing you Atarax again. If you develop high fever, inability to sit down, have complete numbness in your sit bones, or have any other concerning symptoms please immediately return to the emergency room. Please call the surgery clinic tomorrow for close follow-up.
== END 2018-05-24 17:42 | disposition home or self-care (01) ==
LOC: ER 13:32
DX: L98.9 Disorder of the skin and subcutaneous tissue, unspecified (principal); L29.9 Pruritus, unspecified; Z86.14 Personal history of Methicillin resistant Staphylococcus aureus infection; Z87.442 Personal history of urinary calculi; Z88.6 Allergy status to analgesic agent; Z88.3 Allergy status to other anti-infective agents
CPT/HCPCS: 99283; J3490

== ENCOUNTER 2018-07-11 13:51 | Emergency (ER) | payer MEDICAID ==
[2018-07-11] MEDS ORDERED: LIDOCAINE 1% INJ-PF (10 MG/ML) 30 ML SDV INJ ONE (14:13)
[2018-07-11] MEDS ORDERED: OXYCODONE-ACETAMINOPHEN 5-325 MG TABLET PO ONE (14:14)
--- NOTE | 2018-07-11 14:20 | ER Document Report ---
ED General - General Chief Complaint: Boil Stated Complaint: ABSCESS/GROIN AREA Time Seen by Provider: 07/11/18 14:06 Mode of Arrival: Ambulatory Information source: Patient TRAVEL OUTSIDE OF THE [place] IN LAST 30 DAYS: No - HPI Patient complains to provider of: Multiple abscesses Onset: Other - 2-3 days Onset/Duration: Gradual Severity: Severe Context: Recurrent abscesses due to hidradenitis suppurativa Associated symptoms: denies: Chills, Fever Exacerbated by: Denies Relieved by: Denies Similar symptoms previously: No Recently seen / treated by doctor: No Notes: 52-year-old -[place] male with history of hidradenitis suppurativa coming in today with 2 abscesses on the left inner thigh. Also thinks he might have a perirectal abscess because he feels pain near his rectum and says that there is a purulent or bloody drainage coming from that area. He cannot pinpoint exactly where the abscesses. No fevers or shaking chills. He is not diabetic. He does not have any known immune compromise. - Related Data Allergies/Adverse Reactions: hydrocodone Allergy (Verified 05/24/18 13:33) ibuprofen Allergy (Verified 05/24/18 13:33) naproxen Allergy (Verified 05/24/18 13:33) tramadol Allergy (Verified 05/24/18 13:33) sulfamethoxazole [From Bactrim] Adverse Reaction (Verified 05/24/18 13:33) trimethoprim [From Bactrim] Adverse Reaction (Verified 05/24/18 13:33) Past Medical History - General Information source: Patient - Social History Smoking Status: Never Smoker Family History: Reviewed & Not Pertinent Endocrine Medical History: Denies: Hx Diabetes Mellitus Type 1, Hx Diabetes Mellitus Type 2 Renal/ Medical History: Reports: Hx Kidney Stones. Denies: Hx Peritoneal Dialysis Musculoskeletal Medical History: Reports Hx Arthritis Skin Medical History: Reports Hx MRSA Psychiatric Medical History: Reports: Hx Bipolar Disorder, Hx Depression, Hx Schizophrenia Infectious Medical History: Reports: Hx MRSA Past Surgical History: Reports: Other - skin graft - Immunizations Hx Diphtheria, Pertussis, Tetanus Vaccination: Yes Review of Systems - Review of Systems Notes: Constitutional: No fevers. No chills. EENT: No eye redness. No eye pain. No ear pain. No sore throat. Cardiovascular: No chest pain. No palpitations. Respiratory: No cough. No shortness of breath. No respiratory distress. Gastrointestinal: No abdominal pain. No nausea, vomiting, or diarrhea. Genitourinary: Atraumatic. No lesions. No pain. No discharge. Musculoskeletal: Atraumatic. No swelling. No deformities. Skin: Positive for abscess Lymphatic: No swollen lymph nodes. Neurologic: No headache. No syncope. Psychiatric: No suicidal or homicidal ideation. Physical Exam - Vital signs Vitals: Temp Pulse Resp BP Pulse Ox 98.4 F 79 16 115/76 99 07/11/18 13:57 07/11/18 13:57 07/11/18 13:57 07/11/18 13:57 07/11/18 13:57 - Notes Notes: Derm: There are 2 semi-fluctuant exquisitely tender abscesses in the left thigh. No active drainage. Extensive scar tissue evidence of multiple incisions and drainage in this area. The perirectal area is examined and there is no obvious fluctuant abscess and there is no bloody or purulent drainage noted. General: Well-developed, well-nourished. In no acute distress. Non-toxic appearing. Cardiac: Well-perfused. Regular rate and rhythm. No murmurs, rubs, or gallops. Pulmonary: No respiratory distress. No cyanosis. Bilateral lung fiels are clear to auscultation. Abdominal: Non-distended. Non-rigid. Bowels sounds are present in all four quadrants. No guarding or rebound. HEENT: Head is atraumatic. Conjunctivae not reddened. No tearing. PERRL. EOMI. Orbits atraumatic. No periorbital swelling or erythema. Oropharynx is without erythema, swelling, or exudates. Neck: Supple. No adenopathy. No meningismus. Chest: Atraumatic. No chest wall tenderness to palpation. Musculoskeletal: Moves all extremities well. No range of motion deficits. no muscular or joint tenderness. No paraspinal muscle tenderness. no midline spinal tenderness or step-off. Genitourinary: Examination deferred Neurologic: No gross neurologic deficits. Psychiatric: Normal mood. Course - Re-evaluation Re-evalutation: 07/11/18 14:19 We will need to incise and drain the 2 abscesses on the thigh. We will refer the patient to general surgery for further evaluation of a possible perirectal abscess. He is nontoxic appearing. No history of diabetes. I think he would benefit from some antibiotics for now and have the surgeon determine if there is a perirectal abscess that needs to be drained. - Vital Signs Vital signs: Temp Pulse Resp BP Pulse Ox 98.4 F 79 16 115/76 99 07/11/18 13:57 07/11/18 13:57 07/11/18 13:57 07/11/18 13:57 07/11/18 13:57 Procedures - Incision and Drainage Left thigh abscess Type: Simple Anesthetic type: 1% Lidocaine mL's of anesthetic: 1 Blade size: 11 I&D procedure: Shurclens applied Incision Method: Incision made by scalpel Amount/type of drainage: Minimal purulent sanguinous drainage. Patient tolerated well Left Thigh Type: Simple Anesthetic type: 1% Lidocaine mL's of anesthetic: 1 Blade size: 11 I&D procedure: Shurclens applied Incision Method: Incision made by scalpel Amount/type of drainage: Small amount 1-2 cc sanguinous drainage Discharge - Discharge Clinical Impression: Hidradenitis suppurativa, Perirectal abscess Condition: Good Disposition: HOME, SELF-CARE Instructions: Abscess ([facility]), Post Incision and Drainage, Oral Narcotic Medication ([facility]), Cephalexin ([facility]), Trimethoprim-Sulfa ([facility]) Additional Instructions: We do not incise and drain abscesses in the rectal area in the emergency dep artment. Please follow-up with the general surgeon provided for further evaluation and treatment of possible perirectal abscess. Prescriptions: Oxycodone HCl/Acetaminophen [Percocet 5-325 mg Tablet] 1 tab PO Q8HP PRN #6 tab PRN Reason: Cephalexin Monohydrate [Keflex 500 mg Capsule] 500 mg PO Q6H 10 Days #40 capsule Sulfamethoxazole/Trimethoprim [Bactrim Ds Tablet] 1 each PO BID 10 Days #20 tablet Referrals: DAVE YODER MD [ACTIVE STAFF] - Follow up in 3-5 days
[2018-07-11 15:39] VITALS: BP 104/75
== END 2018-07-11 15:46 | disposition home or self-care (01) ==
LOC: ER 13:51
PROC: 0H9JXZZ Drainage of Left Upper Leg Skin, External Approach (ICD-10-PCS; principal; 2018-07-11)
DX: L73.2 Hidradenitis suppurativa (principal); K61.1 Rectal abscess
CPT/HCPCS: 99283; 10060; J3490

== ENCOUNTER 2018-08-03 09:59 | Emergency (ER) | payer MEDICAID ==
--- NOTE | 2018-08-03 10:35 | ER Document Report ---
ED Medical Screen (RME) - General Chief Complaint: Skin Problem Stated Complaint: POSSIBLE ABSCESS TRAVEL OUTSIDE OF THE [place] IN LAST 30 DAYS: No - HPI Notes: 08/03/18 10:33 Patient is a 52-year-old male with a history of recurrent abscesses who presents to the emergency department complaining of swelling and possible abscess to his buttocks area midline superiorly. Patient states that he has had an abscess in this area before. He has noticed swelling and increasing pain. Denies any headache, fever, neck pain, URI, sore throat, chest pain, palpitations, syncope, cough, shortness of breath, wheeze, dyspnea, abdominal pain, nausea/vomiting/diarrhea, urinary retention, dysuria, hematuria. I have treated and performed a rapid initial assessment of this patient. A comprehensive ED assessment and evaluation of the patient, analysis of test results and completion of medical decision making process will be conducted by additional ED providers. PHYSICAL EXAMINATION: GENERAL: Well-appearing, well-nourished and in no acute distress. A&Ox4. Answers questions appropriately. LUNGS: Breath sounds clear to auscultation bilaterally and equal. No wheezes rales or rhonchi. HEART: Regular rate and rhythm without murmurs, rubs, gallops. Buttock: there is induration, swelling, and tenderness midline buttock superiorly with possible pit noted as well. - Related Data Allergies/Adverse Reactions: hydrocodone Allergy (Verified 08/03/18 10:27) ibuprofen Allergy (Verified 08/03/18 10:27) naproxen Allergy (Verified 08/03/18 10:27) tramadol Allergy (Verified 08/03/18 10:27) sulfamethoxazole [From Bactrim] Adverse Reaction (Verified 08/03/18 10:27) trimethoprim [From Bactrim] Adverse Reaction (Verified 08/03/18 10:27) Past Medical History Endocrine Medical History: Denies: Hx Diabetes Mellitus Type 1, Hx Diabetes Mellitus Type 2 Renal/ Medical History: Reports: Hx Kidney Stones. Denies: Hx Peritoneal Dialysis Musculoskeltal Medical History: Reports Hx Arthritis Skin Medical History: Reports Hx MRSA Psychiatric Medical History: Reports: Hx Bipolar Disorder, Hx Depression, Hx Schizophrenia Infectious Medical History: Reports: Hx MRSA Past Surgical History: Reports: Other - skin graft - Immunizations Hx Diphtheria, Pertussis, Tetanus Vaccination: Yes Physical Exam - Vital signs Vitals: Temp Pulse Resp BP Pulse Ox 97.8 F 68 14 122/83 100 08/03/18 10:03 08/03/18 10:03 08/03/18 10:03 08/03/18 10:03 08/03/18 10:03 Course - Vital Signs Vital signs: Temp Pulse Resp BP Pulse Ox 97.8 F 68 14 122/83 100 08/03/18 10:03 08/03/18 10:03 08/03/18 10:03 08/03/18 10:03 08/03/18 10:03
[2018-08-03] MEDS: LIDOCAINE 1% INJ-PF (10 MG/ML) 30 ML SDV INJ ONE ×2 (11:45→12:36)
--- NOTE | 2018-08-03 12:15 | ER Document Report ---
ED General - General Chief Complaint: Skin Problem Stated Complaint: POSSIBLE ABSCESS Time Seen by Provider: 08/03/18 10:35 TRAVEL OUTSIDE OF THE [place] IN LAST 30 DAYS: No - HPI Notes: Patient is a 52-year-old male that presents to the emergency department for chief complaint of buttock abscess. Patient reports history of frequent abscesses on his buttocks. He states he has an appointment on Thursday with a surgeon but he has a new area of abscess. He states it is most painful around his gluteal cleft. He states he has had surgery for pilonidal cyst in the past but it seems to have returned. He states he has taken Percocet previously but has not had a primary care doctor and has been unable to get pain medication. Patient does report drainage from the area. He denies any fever, chills, difficulty with bowel movements, abdominal pain, vomiting or diarrhea. Past Medical History: Pilonidal cyst Past Surgical History: Pilonidal cyst removal Social History: Daily tobacco. Denies drugs and alcohol Family History: Reviewed and noncontributory for presenting illness Allergies: Reviewed, see documented allergy list. REVIEW OF SYSTEMS: CONSTITUTIONAL : No fever No chills No diaphoresis No recent illness EENT: No vision changes No congestion No sore throat CARDIOVASCULAR: No chest pain No palpitations RESPIRATORY: No shortness of breath No cough No difficulty breathing GASTROINTESTINAL: No abdominal pain No nausea No vomiting No diarrhea GENITOURINARY: No dysuria No hematuria No difficulty urinating MUSCULOSKELETAL: No back pain No leg pain No arm pain SKIN: No rashes lesions LYMPHATIC: No swollen, enlarged glands. NEUROLOGICAL: No lightheadedness No headache No weakness No paresthesias PSYCHIATRIC: No anxiety No depression PHYSICAL EXAMINATION: Vital signs reviewed, nursing noted reviewed. GENERAL: Well-appearing, well-nourished and in no acute distress. HEAD: Atraumatic, normocephalic. EYES: Eyes appear normal, extraocular movements intact, sclera anicteric, conjunctiva are normal. ENT: nares patent, oropharynx clear without exudates. Moist mucous membranes. NECK: Normal range of motion, supple without lymphadenopathy LUNGS: Breath sounds clear to auscultation bilaterally and equal. No wheezes rales or rhonchi. HEART: Regular rate and rhythm without murmurs ABDOMEN: Soft, nontender, normoactive bowel sounds. No rebound, guarding, or rigidity. No masses appreciated. EXTREMITIES: Nontender, good range of motion, no pitting or edema. NEUROLOGICAL: No focal neurological deficits. Moves all extremities spontaneously Motor and sensory grossly intact on exam. PSYCH: Normal mood, normal affect. SKIN: Warm, Dry, normal turgor, 2.0 cm x 2.0 cm area of fluctuance at gluteal cleft with trace purulent and bloody drainage, tender to palpation, no overlying erythema. Extensive scarring to entire gluteal cleft with no other areas of tenderness or fluctuance - Related Data Allergies/Adverse Reactions: hydrocodone Allergy (Verified 08/03/18 10:27) ibuprofen Allergy (Verified 08/03/18 10:27) naproxen Allergy (Verified 08/03/18 10:27) tramadol Allergy (Verified 08/03/18 10:27) sulfamethoxazole [From Bactrim] Adverse Reaction (Verified 08/03/18 10:27) trimethoprim [From Bactrim] Adverse Reaction (Verified 08/03/18 10:27) Past Medical History - Social History Smoking Status: Current Every Day Smoker Frequency of alcohol use: None Drug Abuse: None Family History: Reviewed & Not Pertinent Patient has suicidal ideation: No Patient has homicidal ideation: No Endocrine Medical History: Denies: Hx Diabetes Mellitus Type 1, Hx Diabetes Mellitus Type 2 Renal/ Medical History: Reports: Hx Kidney Stones. Denies: Hx Peritoneal Dialysis Musculoskeletal Medical History: Reports Hx Arthritis Skin Medical History: Reports Hx MRSA Psychiatric Medical History: Reports: Hx Bipolar Disorder, Hx Depression, Hx Schizophrenia Infectious Medical History: Reports: Hx MRSA Past Surgical History: Reports: Other - skin graft - Immunizations Hx Diphtheria, Pertussis, Tetanus Vaccination: Yes Physical Exam - Vital signs Vitals: Temp Pulse Resp BP Pulse Ox 97.8 F 68 14 122/83 100 08/03/18 10:03 08/03/18 10:03 08/03/18 10:03 08/03/18 10:03 08/03/18 10:03 Course - Re-evaluation Re-evalutation: 08/03/18 12:12 Vitals reviewed. Nursing notes reviewed. Patient has a small abscess at his gluteal cleft which was incised and drained. He has extensive scarring and likely recurrence of pilonidal cyst. He already has an appointment with surgery on Thursday which he will keep. Patient will be started on Bactrim which she states has worked well for him in the past. He will be discharged home in stable condition. - Vital Signs Vital signs: Temp Pulse Resp BP Pulse Ox 97.8 F 68 14 122/83 100 08/03/18 10:03 08/03/18 10:03 08/03/18 10:03 08/03/18 10:03 08/03/18 10:03 Procedures - Incision and Drainage Buttock Time completed: 12:10 Type: Complex Anesthetic type: 1% Lidocaine w/epi mL's of anesthetic: 2 Blade size: 11 I&D procedure: Betadine prep applied Incision Method: Incision made by scalpel Amount/type of drainage: Moderate Notes: 08/03/18 12:14 Loculations broken up with curvilinear clamp, moderate purulent and bloody discharge expressed. Bulky gauze dressing placed over. Patient tolerated well. Discharge - Discharge Clinical Impression: Gluteal abscess, Pilonidal abscess Condition: Stable Disposition: HOME, SELF-CARE Instructions: Abscess ([facility]), Trimethoprim-Sulfa ([facility]), Post Incision and Drainage Additional Instructions: Please return to the emergency department if you have any worsening, or concern of your symptoms. Please return to the emergency department if you develop chest pain, difficulty breathing, severe abdominal pain, or ongoing vomiting. Please follow-up with your primary care physician in 2-3 days and any other recommended physicians. If prescribed, take all medications as directed. If you have any questions or concerns do not hesitate to return the emergency department for evaluation. Keep your appointment with surgery on Thursday Prescriptions: Oxycodone HCl/Acetaminophen [Percocet 5-325 mg Tablet] 1 tab PO Q12 PRN #6 tablet PRN Reason: Pain Sulfamethoxazole/Trimethoprim [Bactrim Ds Tablet] 1 each PO BID #14 tablet
[2018-08-03 12:25] VITALS: BP 121/76
== END 2018-08-03 12:14 | disposition home or self-care (01) ==
LOC: ER 09:59
PROC: 0H98XZZ Drainage of Buttock Skin, External Approach (ICD-10-PCS; principal; 2018-08-03)
DX: L05.01 Pilonidal cyst with abscess (principal); Z79.899 Other long term (current) drug therapy; F17.200 Nicotine dependence, unspecified, uncomplicated
CPT/HCPCS: 99283; J3490

== ENCOUNTER 2018-12-09 08:04 | Inpatient (IN) | payer MEDICAID ==
--- NOTE | 2018-12-09 08:23 | ER Document Report ---
ED General - General Chief Complaint: Abscess Stated Complaint: ABSCESS Time Seen by Provider: 12/09/18 08:22 Mode of Arrival: Medic Information source: Patient TRAVEL OUTSIDE OF THE [place] IN LAST 30 DAYS: No - HPI Notes: 53-year-old male with a history of hidradenitis suppurativa, recurrent rectal and inguinal abscesses, MRSA presents with complaints of pain to his buttocks, with severe itching that is been occurring for the last 3 days. Patient had multiple recurrences of pilonidal cyst. Patient did have rectal surgery in [facility] approximately 4 years ago. 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 Patient states he has having pain with having a bowel movement, last bowel movement was yesterday. Denies any black tarry stool, denies any nausea or vomiting, denies history of GI bleed. Denies fevers, chills, chest pain,palpitations, shortness of breath, dyspnea, nausea, vomiting, diarrhea, abdominal pain, hematuria,neck pain, weakness, bowel or bladder dysfunction, saddle anesthesia, numbness or tingling in bilateral upper or lower extremities equally, muscle paralysis, weakness in bilateral upper or lower extremities equally or rash. - Related Data Allergies/Adverse Reactions: hydrocodone Allergy (Verified 08/03/18 10:27) ibuprofen Allergy (Verified 08/03/18 10:27) naproxen Allergy (Verified 08/03/18 10:27) tramadol Allergy (Verified 08/03/18 10:27) Past Medical History - General Information source: Patient - Social History Smoking Status: Current Every Day Smoker Family History: Reviewed & Not Pertinent Patient has suicidal ideation: No Patient has homicidal ideation: No Endocrine Medical History: Denies: Hx Diabetes Mellitus Type 1, Hx Diabetes Mellitus Type 2 Renal/ Medical History: Reports: Hx Kidney Stones. Denies: Hx Peritoneal Dialysis Musculoskeletal Medical History: Reports Hx Arthritis Skin Medical History: Reports Hx MRSA Psychiatric Medical History: Reports: Hx Bipolar Disorder, Hx Depression, Hx Schizophrenia Infectious Medical History: Reports: Hx MRSA Past Surgical History: Reports: Other - skin graft - Immunizations Hx Diphtheria, Pertussis, Tetanus Vaccination: Yes Review of Systems - Review of Systems Constitutional: No symptoms reported EENT: No symptoms reported Cardiovascular: No symptoms reported Respiratory: No symptoms reported Gastrointestinal: See HPI Genitourinary: No symptoms reported Male Genitourinary: No symptoms reported Musculoskeletal: No symptoms reported Skin: See HPI Hematologic/Lymphatic: No symptoms reported Neurological/Psychological: No symptoms reported Physical Exam - Vital signs Vitals: Temp Pulse BP Pulse Ox 98.2 F 81 115/89 H 99 12/09/18 08:11 12/09/18 08:11 12/09/18 08:11 12/09/18 08:11 - Notes Notes: PHYSICAL EXAMINATION: GENERAL: Well-appearing, well-nourished and in no acute distress. HEAD: Atraumatic, normocephalic. EYES: Pupils equal round and reactive to light, extraocular movements intact, sclera anicteric, conjunctiva are normal. ENT: Nares patent, oropharynx clear without exudates. Moist mucous membranes. NECK: Normal range of motion, supple without lymphadenopathy LUNGS: Breath sounds clear to auscultation bilaterally and equal. No wheezes rales or rhonchi. HEART: Regular rate and rhythm without murmurs ABDOMEN: Soft, nontender, nondistended abdomen. No guarding, no rebound. No masses appreciated. : Skin changes consistent with hidradenitis, right buttocks with tunneling, scant purulent drainage no induration or warmth to touch, noted tenderness on palpation Musculoskeletal: Normal range of motion, no pitting or edema. No cyanosis. NEUROLOGICAL: Cranial nerves grossly intact. Normal speech, normal gait. Normal sensory, motor exams PSYCH: Normal mood, normal affect. SKIN: Warm, Dry, normal turgor, no rashes or lesions noted. Course - Re-evaluation Re-evalutation: 12/09/18 17:20 53-year-old male afebrile in some distress due to pain vitals stable. Nurse's notes reviewed. CBC shows a leukocytosis of 17. CT of pelvis does show cyst suspicion for perirectal abscess, Dr. Rosa, radiologist was not sure if she could entirely see a fistula, did recommend getting an MRI of the pelvis. MRI shows a 2 x 1.7 cm peripheral rim fluid collection along the posterior aspect of the rectum, there is some perirectal soft tissue down to the anus with a tract of fluid as well as wall thickening of the rectum and inflammatory stranding with contrast enhancement in the perirectal fat. Consulted with Dr. Sonido Winston, surgeon on-call at approximately 1300, for perirectal abscess with fis nicholas. Dr. Winston will take patient to OR for drainage of abscess. Patient was agreeable with admission for surgery, throughout duration of stay patient's pain is been managed with IV Dilaudid, vitals have remained stable, afebrile. Patient will be admitted to surgical service. Presents to the emergency department via ground rescue complaining of worsening perianal pain, bloody rectal drainage, increased pain in his left inner thigh. Patient has a long, complex history of hidradenitis suppurativa of the perineum. - Vital Signs Vital signs: Temp Pulse Resp BP Pulse Ox 97.9 F 64 16 112/66 97 12/09/18 13:47 12/09/18 13:47 12/09/18 13:47 12/09/18 13:47 12/09/18 13:47 - Laboratory Result Diagrams: 12/09/18 08:55 12/09/18 08:55 Laboratory results interpreted by me: 12/09/18 12/09/18 08:55 09:40 WBC 17.2 H RBC 5.73 H Hgb 12.7 L MCV 70 L MCH 22.2 L MCHC 31.8 L RDW 15.0 H Lymphocytes % 12.6 L Absolute Neutrophils 13.4 H Absolute Monocytes 1.5 H Urine Protein 30 H Urine Ketones TRACE H Urine Blood SMALL H Urine Bilirubin SMALL H Urine Urobilinogen 4.0 H Urine Ascorbic Acid 20 H Discharge - Discharge Clinical Impression: Perirectal fistula, Perirectal abscess Condition: Stable Disposition: ADMITTED INPATIENT Admitting Provider: Surgicalist - Dr. Sonido Winston Unit Admitted: Surgical Floor
[2018-12-09] MEDS ORDERED: HYDROMORPHONE HCL INJ/PF 2 MG/ML AMPULE IV ONE ×2 (08:50→12:30)
[2018-12-09 09:07] LABS: ABSOLUTE BASOPHILS # (AUTO) 0.1 10^3/uL (0.0-0.2); ABSOLUTE EOSINOPHILS # (AUTO) 0.1 10^3/uL (0.0-0.6); ABSOLUTE LYMPHOCYTES (AUTO) 2.2 10^3/uL (0.5-4.7); ABSOLUTE MONOCYTES (AUTO) 1.5 10^3/uL (0.1-1.4); ABSOLUTE NEUT (AUTO) 13.4 10^3/uL (1.7-8.2); BASOPHILS % (AUTO) 0.4 % (0-2); EOSINOPHILS % (AUTO) 0.8 % (0-6); HEMOGLOBIN 12.7 g/dL (13.5-17.0); LYMPHOCYTES % (AUTO) 12.6 % (13-45); MEAN CORPUSCULAR HEMOGLOBIN 22.2 pg (27.0-33.4); MEAN CORPUSCULAR HGB CONC 31.8 g/dL (32.0-36.0); MEAN CORPUSCULAR VOLUME 70 fl (80-97); MONOCYTES % (AUTO) 8.4 % (3-13); PLATELET COUNT 294 10^3/uL (150-450); RED BLOOD COUNT 5.73 10^6/uL (4.35-5.55); SEGMENTED NEUTROPHILS % (AUTO) 77.8 % (42-78); TOTAL CELLS COUNTED % (AUTO) 100 %; WHITE BLOOD COUNT 17.2 10^3/uL (4.0-10.5)
[2018-12-09 09:28] LABS: ALBUMIN 4.2 g/dL (3.5-5.0); ALKALINE PHOSPHATASE 82 U/L (38-126); ANION GAP 10 (5-19); ASPARTATE AMINO TRANSFERASE 20 U/L (17-59); BILIRUBIN,DIRECT 0.3 mg/dL (0.0-0.4); BILIRUBIN,TOTAL 0.6 mg/dL (0.2-1.3); BLOOD UREA NITROGEN 14 mg/dL (7-20); CALCIUM 9.3 mg/dL (8.4-10.2); CARBON DIOXIDE 25 mmol/L (22-30); CHLORIDE 105 mmol/L (98-107); GLUCOSE 93 mg/dL (75-110); POTASSIUM 3.6 mmol/L (3.6-5.0); TOTAL PROTEIN 7.9 g/dL (6.3-8.2)
[2018-12-09] MEDS: NORMAL SALINE 1000 ML 1,000 ML IV PRN ×3 (09:29→18:54)
[2018-12-09] MEDS ORDERED: CEFEPIME 2 GM/D5W RTU 2 GM/50 ML RTUPB IV ONE (10:36)
[2018-12-09] MEDS ORDERED: METRONIDAZOLE 500 MG/NS RTU 500 MG/100 ML RTUPB IV ONE (10:36)
[2018-12-09 10:38] LABS: APPEARANCE,URINE SLIGHTLY-CLOUDY; BILIRUBIN,URINE SMALL (NEGATIVE); COLOR,URINE AMBER; GLUCOSE, URINE NEGATIVE (NEGATIVE); KETONES,URINE TRACE mg/dL (NEGATIVE); LEUKOCYTE ESTERASE,URINE NEGATIVE (NEGATIVE); NITRITE,URINE NEGATIVE (NEGATIVE); PROTEIN,URINE 30 mg/dL (NEGATIVE); URINE SPECIFIC GRAVITY 1.029
--- NOTE | 2018-12-09 10:39 | RADIOLOGY REPORT (SQ) ---
EXAM DESCRIPTION: CT PELVIS WITH COMPLETED DATE/TIME: 12/09/2018 10:09 am REASON FOR STUDY: Pilonidal abscess rectal pain COMPARISON: CT pelvis 03/26/2018, 11/24/2017, 10/24/2016 TECHNIQUE: CT scan of the pelvis performed without oral contrast. Patient was given IV contrast, im mediate post IV contrast and delayed post IV contrasted images were obtained. Patient was injected w ith 100 mL of IV Omnipaque 350 without complication. Creatinine 1.0. Images reviewed with soft tissue and bone windows. Reconstructed coronal and sagittal MPR images rev iewed. All images stored on PACS. All CT scanners at this facility use dose modulation, iterative reconstruction, and/or weight based d osing when appropriate to reduce radiation dose to as low as reasonably achievable (ALARA). [facility]: Dose Right [facility]: CareDose [facility]: Dose Right [facility]: Teradose 4D [facility]: [employer] RADIATION DOSE: CT Rad equipment meets quality standard of care and radiation dose reduction techniq ues were employed. CTDIvol: 12.4 - 16.8 mGy. DLP: 1094 mGy-cm. mGy. LIMITATIONS: None. FINDINGS: On axial image 33 and coronal image 56, a peripheral rim enhancing abscess is present zac g the dorsal rightward aspect of the rectum. Adjacent rectal wall thickening is present. There is i nflammatory stranding of the immediate perirectal fat on axial images 27-33. This likely represents a small perirectal abscess. It is difficult to identify a sinus tract to the skin. Small subcentime ter knees are rectal lymph nodes are present on axial image 19 and 20. Patient has a history of hidradenitis. The skin over the perineum is markedly thickened, with surgic al clips present between the base of the scrotum and rectum along the left infra gluteal fold. There is a 3 x 1.6 cm subcutaneous fluid collection along the left perineum on axial image 60 adjacent to the old surgical clips. These changes are best shown on coronal images 39 through 53. There is also skin thickening along the intergluteal cleft, with scarring along the top of the interg luteal cleft in areas of prior surgery for pilonidal cyst removal. No recurrent cyst or abscess is s een in this area today. Ischiorectal fossa fat is clear. Inguinal regions are unremarkable. The pelvis is otherwise unremarkable aside from degenerative disc changes at L5-S1. No fracture or m alalignment. No bulky pelvic adenopathy. No free intraperitoneal fluid. Limited view of the gastro intestinal tract in the pelvis is otherwise unremarkable. Findings discussed with Ara Felton in the emergency room. IMPRESSION: 2.1 x 1.1 cm right deep perirectal abscess. Skin thickening along the perineum and intergluteal cleft from chronic hidradenitis. Surgical clips in the left perineum with adjacent 3 x 1.6 cm subcutaneous fluid collection likely a s mall subcutaneous abscess. TECHNICAL DOCUMENTATION: JOB ID: [id number] Quality ID # [id number]: Final reports with documentation of one or more dose reduction techniques (e.g., Au tomated exposure control, adjustment of the mA and/or kV according to patient size, use of iterative reconstruction technique) 2010 [employer]- All Rights Reserved Reading location - IP/workstation name: [email or web address]
[2018-12-09 10:46] LABS: ADD MANUAL MICROSCOPIC YES
[2018-12-09 10:50] LABS: BACTERIA,URINE 1+ /HPF; CALCIUM OXALATE CRYSTALS,UR RARE /HPF; WBC,URINE RARE /HPF
--- NOTE | 2018-12-09 12:32 | RADIOLOGY REPORT (SQ) ---
EXAM DESCRIPTION: MRI PELVIS COMBO COMPLETED DATE/TIME: 12/09/2018 11:56 am REASON FOR STUDY: questionable fistula/rectal seen on CT pelvis COMPARISON: CT pelvis 12/09/2018, 03/26/2018, 11/24/2017, 10/24/2016 TECHNIQUE: Multiplanar multisequence imaging performed without and with contrast including axial, sa gittal and coronal T2, axial T, axial gradient fat sat T1, axial, sagittal and coronal fat sat T2 pos t contrast. CONTRAST TYPE AND DOSE: 15 mL Dotarem. RENAL FUNCTION: GFR > 60. LIMITATIONS: None. FINDINGS: Patient has a history of hidradenitis. Along the left anterior perineum, metallic artifac t from surgical clips are present with an adjacent cutaneous/subcutaneous abscess measuring about 2.5 x 2.3 cm in size on axial T1 image 32. This correlates with findings on prior CT. Diffuse skin thickening and enhancement is seen over the perineum and intergluteal fold without other cutaneous abscess identified. There is a 2 x 1.7 cm peripheral rim enhancing fluid collection along the rightward posterior aspect of the rectum best shown on axial image 17 and coronal image 13. A contrast-enhancing tract extends inferiorly down along the rightward lateral perirectal soft tissues down to the anus. This tract is seen as fluid signal on coronal STIR images and contrast enhancement on postcontrast coronal T1 weigh mariel images 13 through 15. Along the left lateral anus and rectum, a tiny thin tubular fluid collection with peripheral rim enha ncement is present likely another small fistula, best shown on coronal T2 image 16 as a tubular colle ction of high-signal fluid. There is wall thickening of the rectum, and inflammatory stranding with contrast enhancement in the p erirectal fat. No inflammatory changes seen in the ischial rectal fossa fat or in the extraperitoneal pelvic fat jose ng the obturator tissue planes. No bulky pelvic or inguinal adenopathy in the field of view. Bladder prostate unremarkable. Bony pelvis intact. Degenerative disc changes L5-S1. IMPRESSION: Perirectal fistulas and abscesses as above TECHNICAL DOCUMENTATION: JOB ID: [id number] [employer]- All Rights Reserved Reading location - IP/workstation name: [email or web address]
--- NOTE | 2018-12-09 13:46 | PDOC H&P ---
History of Present Illness Patient complains of: Perianal pain, bloody drainage from rectum, constipation History of Present Illness: CHERELLE VILLALOBOS is a 53 year old male Presents to the emergency department via ground rescue complaining of worsening perianal pain, bloody rectal drainage, increased pain in his left inner thigh. Patient has a long, complex history of hidradenitis suppurativa of the perineum. Approximately 5 years ago he underwent extensive wide excision of the perineal tissue, with skin grafting in [place]. He recovered from this, but since then he has had sporadic drainage, abscess formation all requiring either bedside or intraoperative drainage. Last procedure performed early last year by Dr. Cavazos at [facility]. Patient's only colonoscopy was 5 years ago, according to the patient no sign of inflammatory bowel disease. He is in the emergency department now complaining of worsening pain, tenderness, leukocytosis of 17,[address] and MRI scan findings consistent with perirectal abscess, and left proximal inner thigh abscess. Surgery was consulted and patient was advised admission. Past Medical History Past Medical History: History of narcotic use; history of smoking; history of hidradenitis disease. History of bipolar disorder, depression, schizophrenia. Endocrine Medical History: Denies: Diabetes Mellitus Type 1, Diabetes Mellitus Type 2 Musculoskeltal Medical History: Reports: Arthritis Psychiatric Medical History: Reports: Bipolar Disorder, Depression Infectious Medical History: Reports: Methicillin-Resistant Staph Aureus Past Surgical History Past Surgical History: Reports: Other - See HPI skin graft Social History Smoking Status: Current Every Day Smoker Frequency of Alcohol Use: Rare Past Social History Note: Patient has had issues with narcotic addiction in the past Family History Family History: Reviewed & Not Pertinent Parental Family History Reviewed: Yes Children Family History Reviewed: Yes Sibling(s) Family History Reviewed.: Yes Medication/Allergy Home Medications: Doxycycline Hyclate 100 mg PO BID #60 capsule 04/23/18 Doxycycline Hyclate 100 mg PO BID #20 capsule 05/05/18 Hydroxyzine HCl [Atarax 25 mg Tablet] 1 - 2 tab PO QID #25 tablet 05/05/18 Oxycodone HCl/Acetaminophen [Percocet 5-325 mg Tablet] 1 tab PO Q8H PRN #15 tab 05/05/18 Pramoxine HCl/Mineral Oil/Znox [Anusol Ointment] 1 applic RC TID #24 gm 05/05/18 Hydroxyzine HCl [Atarax 50 mg Tablet] 50 mg PO PRN PRN #60 tablet 05/24/18 Nystatin [Mycostatin Topical Powder 15 gm] 1 applic TP BID #1 bottle 05/24/18 Cephalexin Monohydrate [Keflex 500 mg Capsule] 500 mg PO Q6H 10 Days #40 capsule 07/11/18 Oxycodone HCl/Acetaminophen [Percocet 5-325 mg Tablet] 1 tab PO Q8HP PRN #6 tab 07/11/18 Sulfamethoxazole/Trimethoprim [Bactrim Ds Tablet] 1 each PO BID 10 Days #20 tablet 07/11/18 Oxycodone HCl/Acetaminophen [Percocet 5-325 mg Tablet] 1 tab PO Q12 PRN #6 tablet 08/03/18 Sulfamethoxazole/Trimethoprim [Bactrim Ds Tablet] 1 each PO BID #14 tablet 08/03/18 Allergies/Adverse Reactions: hydrocodone Allergy (Verified 08/03/18 10:27) ibuprofen Allergy (Verified 08/03/18 10:27) naproxen Allergy (Verified 08/03/18 10:27) tramadol Allergy (Verified 08/03/18 10:27) Review of Systems Constitutional: PRESENT: as per HPI Eyes: ABSENT: visual disturbances Ears: ABSENT: hearing changes Cardiovascular: ABSENT: chest pain, dyspnea on exertion, edema, orthropnea, palpitations Respiratory: ABSENT: cough, hemoptysis Gastrointestinal: PRESENT: other - Patient states he has not eaten in 2 and half days; he has intermittent constipation. Integumentary: PRESENT: other - Per HPI Physical Exam Vital Signs: Temp Pulse Resp BP Pulse Ox 98.2 F 81 115/89 H 99 12/09/18 08:11 12/09/18 08:11 12/09/18 08:11 12/09/18 08:11 Intake & Output 12/08/18 12/09/18 12/10/18 06:59 06:59 06:59 Intake Total 1150 Balance 1150 Weight 87.997 kg General appearance: PRESENT: mild distress Head exam: PRESENT: normocephalic Eye exam: PRESENT: EOMI Mouth exam: PRESENT: dry mucosa Neck exam: PRESENT: full ROM Respiratory exam: PRESENT: clear to auscultation lubna Cardiovascular exam: PRESENT: RRR Pulses: PRESENT: normal carotid pulses, normal radial pulses, normal femoral pulses GI/Abdominal exam: PRESENT: other - Soft, nontender, no no rigidity Rectal exam: PRESENT: other - Patient examined left lateral cubitus position, knees to chest. Findings significant for chronic scarring, hypopigmented skin, 2 x 3 cm swelling left proximal inner thigh consistent with abscess. Perianal tissue very scarred irregular tender, more on right side than left. Neurological exam: PRESENT: awake, oriented to person, oriented to place, orien mariel to time, oriented to situation Psychiatric exam: PRESENT: agitated Focused psych exam: PRESENT: restlessness, other Results Laboratory Results: 12/09/18 08:55 12/09/18 08:55 12/09/18 12/09/18 12/09/18 08:55 08:55 09:31 WBC 17.2 H RBC 5.73 H Hgb 12.7 L Hct 40.0 MCV 70 L MCH 22.2 L MCHC 31.8 L RDW 15.0 H Plt Count 294 Seg Neutrophils % 77.8 Lymphocytes % 12.6 L Monocytes % 8.4 Eosinophils % 0.8 Basophils % 0.4 Absolute Neutrophils 13.4 H Absolute Lymphocytes 2.2 Absolute Monocytes 1.5 H Absolute Eosinophils 0.1 Absolute Basophils 0.1 Sodium 139.7 Potassium 3.6 Chloride 105 Carbon Dioxide 25 Anion Gap 10 BUN 14 Creatinine 1.09 Est GFR ( Amer) > 60 Est GFR (Non-Af Amer) > 60 Glucose 93 Lactic Acid 1.0 Calcium 9.3 Total Bilirubin 0.6 AST 20 Alkaline Phosphatase 82 Total Protein 7.9 Albumin 4.2 Urine Color Urine Appearance Urine pH Ur Specific [place] Urine Protein Urine Glucose (UA) Urine Ketones Urine Blood Urine Nitrite Ur Leukocyte Esterase 12/09/18 12/09/18 09:31 09:40 WBC RBC Hgb Hct MCV MCH MCHC RDW Plt Count Seg Neutrophils % Lymphocytes % Monocytes % Eosinophils % Basophils % Absolute Neutrophils Absolute Lymphocytes Absolute Monocytes Absolute Eosinophils Absolute Basophils Sodium Potassium Chloride Carbon Dioxide Anion Gap BUN Creatinine Est GFR ( Amer) Est GFR (Non-Af Amer) Glucose Lactic Acid Cancelled Calcium Total Bilirubin AST Alkaline Phosphatase Total Protein Albumin Urine Color SAUD Urine Appearance SLIGHTLY-CLOUDY Urine pH 5.0 Ur Specific [place] 1.029 Urine Protein 30 H Urine Glucose (UA) NEGATIVE Urine Ketones TRACE H Urine Blood SMALL H Urine Nitrite NEGATIVE Ur Leukocyte Esterase NEGATIVE Impressions: Pelvis CT 12/09/18 08:44 IMPRESSION: 2.1 x 1.1 cm right deep perirectal abscess. Skin thickening along the perineum and intergluteal cleft from chronic hidradeni tis. Surgical clips in the left perineum with adjacent 3 x 1.6 cm subcutaneous fluid collection likely a small subcutaneous abscess. Pelvis MRI 12/09/18 10:27 IMPRESSION: Perirectal fistulas and abscesses as above Assessment & Plan - Diagnosis (1) Perirectal abscess Is this a current diagnosis for this admission?: Yes Plan: Impression: Exacerbation of chronic perineal sepsis with active right-sided perianal abscess, and left perineal skin abscess in 53-year-old Afro-[place] male with history of hidradenitis suppurativa of the perineum and anus status post wide excision and skin grafting in the remote past Recommendations: 1. Patient needs admission, IV fluids, intravenous antibiotics and visit to the operating room for drainage of the left perineal-proximal thigh abscess drainage, and an attempt at right posterior perianal abscess drainage. This was explained to the patient. I believe he understands the rationale for this recommendation. 2. Patient is adamant about not getting a colostomy. I told them there was no plan to offer him a colostomy at this moment. 3. We will have medicine consult to assist with management of chronic pain issues. (2) Smoker Is this a current diagnosis for this admission?: Yes (3) Hidradenitis suppurativa of anus Is this a current diagnosis for this admission?: Yes (4) Schizophrenia Is this a current diagnosis for this admission?: Yes (5) History of substance abuse Is this a current diagnosis for this admission?: Yes (6) Leukocytosis Qualifiers: Leukocytosis type: unspecified Qualified Code(s): D72.829 - Elevated white blood cell count, unspecified Is this a current diagnosis for this admission?: Yes (7) Perineal abscess Is this a current diagnosis for this admission?: Yes - Time Time Spent: 30 to 50 Minutes Medications reviewed and adjusted accordingly: Yes Anticipated discharge: Home - Inpatient Certification Based on my medical assessment, after consideration of the patient's comorbidities, presenting symptoms, or acuity I expect that the services needed warrant INPATIENT care.: Yes I certify that my determination is in accordance with my understanding of Medicare's requirements for reasonable and necessary INPATIENT services [42 CFR 412.3e].: Yes Medical Necessity: Need For IV Fluids, Need for Pain Control, Need for IV Antibiotics, Need for Surgery
[2018-12-09] MEDS ORDERED: ONDANSETRON HCL INJ/PF 4 MG/2 ML SDV IV PRN (13:50)
[2018-12-09] MEDS: METRONIDAZOLE 500 MG/NS RTU 500 MG/100 ML RTUPB IV SCH ×2 (14:07→23:37)
[2018-12-09] MEDS: CLINDAMYCIN 600 MG/D5W RTU 600 MG/50 ML RTUPB IV SCH ×2 (14:18→22:16)
--- NOTE | 2018-12-09 15:23 | PDOC CONSULTATION ---
Consultation Consult Date: 12/09/18 Attending physician:: LUCAS MILLER Provider Consulted: LUCAS MILLER Consult reason:: Patient has history of severe anxiety and PTSD History of Present Illness Admission Date/PCP: 12/09/18 13:50 Patient complains of: Came in with complaints of perianal pain/bloody rectal drainage. This is going on for the last 3 days. History of Present Illness: CHERELLE VILLALOBOS is a 53 year old male with history of hidradenitis suppurative of the perineum status post extensive wide excision of the radha-nails tissue with a skin grafting in [place] 5 years ago and he has recent surgery in May for the same problem by Dr. Cavazos in this hospital. Came in with complaints of increasing perianal pain associated with rectal bleed. MRI was done found to have perianal fistulas and abscesses surgery is going to admit the patient the call me for management of his psychiatric medications. Patient is comfortably i n the bed communicating well denies any problems other than perianal pain. Not on any psych medications for the last 6 months. To take Percocets and Xanax is stopped taking Xanax is and is not interested in taking Xanax anymore. Patient anxiety depression or suicidal or homicidal ideation at the time of my examination. Past Medical History Endocrine Medical History: Denies: Diabetes Mellitus Type 1, Diabetes Mellitus Type 2 Musculoskeltal Medical History: Reports: Arthritis Psychiatric Medical History: Reports: Bipolar Disorder, Depression, Post Traumatic Stress Disorder Infectious Medical History: Reports: Methicillin-Resistant Staph Aureus Past Surgical History Past Surgical History: Reports: Other - See HPI skin graft Social History Information Source: Patient Smoking Status: Current Every Day Smoker Frequency of Alcohol Use: Rare Hx Recreational Drug Use: No Hx Prescription Drug Abuse: No - Advance Directive Resuscitation Status: Full Code Family History Family History: Reviewed & Not Pertinent Parental Family History Reviewed: Yes - Has history of open heart surgery, hypertension. Children Family History Reviewed: Yes Sibling(s) Family History Reviewed.: Yes Medication/Allergy Home Medications: No Home Medications 12/09/18 Allergies/Adverse Reactions: hydrocodone Allergy (Verified 08/03/18 10:27) ibuprofen Allergy (Verified 08/03/18 10:27) naproxen Allergy (Verified 08/03/18 10:27) tramadol Allergy (Verified 08/03/18 10:27) Review of Systems Constitutional: ABSENT: fever(s), headache(s), weakness Eyes: ABSENT: as per HPI, visual disturbances Ears: ABSENT: hearing changes Cardiovascular: ABSENT: chest pain, dyspnea on exertion, edema, orthropnea, palpitations Respiratory: ABSENT: cough, hemoptysis Gastrointestinal: PRESENT: other - Patient came in with rectal bleed and perianal pain. Neurological: ABSENT: abnormal gait, abnormal speech, confusion, dizziness, focal weakness, syncope Physical Exam Vital Signs: Temp Pulse Resp BP Pulse Ox 98.2 F 81 115/89 H 99 12/09/18 08:11 12/09/18 08:11 12/09/18 08:11 12/09/18 08:11 Intake & Output 12/08/18 12/09/18 12/10/18 06:59 06:59 06:59 Intake Total 1150 Balance 1150 Weight 87.997 kg General appearance: PRESENT: obese Head exam: PRESENT: atraumatic Eye exam: PRESENT: PERRLA Mouth exam: PRESENT: moist, tongue midline Teeth exam: PRESENT: poor dentation Neck exam: ABSENT: carotid bruit, JVD, lymphadenopathy, thyromegaly Respiratory exam: PRESENT: clear to auscultation lubna. ABSENT: rales, rhonchi, wheezes Cardiovascular exam: PRESENT: RRR. ABSENT: diastolic murmur, rubs, systolic murmur GI/Abdominal exam: PRESENT: normal bowel sounds, soft. ABSENT: distended, guarding, mass, organolmegaly, rebound, tenderness Rectal exam: PRESENT: deferred Neurological exam: PRESENT: alert, awake, oriented to person, oriented to place, oriented to time, oriented to situation, CN II-XII grossly intact. ABSENT: motor sensory deficit Psychiatric exam: PRESENT: appropriate affect, normal mood. ABSENT: homicidal ideation, suicidal ideation Results Laboratory Results: 12/09/18 08:55 12/09/18 08:55 12/09/18 12/09/18 12/09/18 08:55 08:55 09:31 WBC 17.2 H RBC 5.73 H Hgb 12.7 L Hct 40.0 MCV 70 L MCH 22.2 L MCHC 31.8 L RDW 15.0 H Plt Count 294 Seg Neutrophils % 77.8 Lymphocytes % 12.6 L Monocytes % 8.4 Eosinophils % 0.8 Basophils % 0.4 Absolute Neutrophils 13.4 H Absolute Lymphocytes 2.2 Absolute Monocytes 1.5 H Absolute Eosinophils 0.1 Absolute Basophils 0.1 Sodium 139.7 Potassium 3.6 Chloride 105 Carbon Dioxide 25 Anion Gap 10 BUN 14 Creatinine 1.09 Est GFR ( Amer) > 60 Est GFR (Non-Af Amer) > 60 Glucose 93 Lactic Acid 1.0 Calcium 9.3 Total Bilirubin 0.6 AST 20 Alkaline Phosphatase 82 Total Protein 7.9 Albumin 4.2 Urine Color Urine Appearance Urine pH Ur Specific [place] Urine Protein Urine Glucose (UA) Urine Ketones Urine Blood Urine Nitrite Ur Leukocyte Esterase 12/09/18 12/09/18 09:31 09:40 WBC RBC Hgb Hct MCV MCH MCHC RDW Plt Count Seg Neutrophils % Lymphocytes % Monocytes % Eosinophils % Basophils % Absolute Neutrophils Absolute Lymphocytes Absolute Monocytes Absolute Eosinophils Absolute Basophils Sodium Potassium Chloride Carbon Dioxide Anion Gap BUN Creatinine Est GFR ( Amer) Est GFR (Non-Af Amer) Glucose Lactic Acid Cancelled Calcium Total Bilirubin AST Alkaline Phosphatase Total Protein Albumin Urine Color SAUD Urine Appearance SLIGHTLY-CLOUDY Urine pH 5.0 Ur Specific [place] 1.029 Urine Protein 30 H Urine Glucose (UA) NEGATIVE Urine Ketones TRACE H Urine Blood SMALL H Urine Nitrite NEGATIVE Ur Leukocyte Esterase NEGATIVE Impressions: Pelvis CT 12/09/18 08:44 IMPRESSION: 2.1 x 1.1 cm right deep perirectal abscess. Skin thickening along the perineum and intergluteal cleft from chronic hidradenitis. Surgical clips in the left perineum with adjacent 3 x 1.6 cm subcutaneous fluid collection likely a small subcutaneous abscess. Pelvis MRI 12/09/18 10:27 IMPRESSION: Perirectal fistulas and abscesses as above Assessment and Plan - Diagnosis (1) Hidradenitis suppurativa of anus Is this a current diagnosis for this admission?: Yes Plan: [id number]rbks-old male with history of hidradenitis separative off of the perianal area extensive excision and skin grafting 5 years ago in [place] he had another surgery in May in this hospital by Dr. Cavazos came in with perianal pain and. Rectal bleed he is going for the surgery today and medical consult wa s requested for management of his psychiatric medications. Patient was given cefepime in the ER started on clindamycin and Flagyl blood cultures are pending agree with present antibiotic therapy. GI prophylaxis going to be initiated because the patient is going for surgery DVT prophylaxis will be on hold. Pain management as per surgical team. (2) Schizophrenia Is this a current diagnosis for this admission?: No Plan: 12/09/2018-patient is a given the history of anxiety major depression in association with schizophrenia and he has also questionable history of PTSD not on any medications not following with any psychiatrist after moving into this town last year. On examination no evidence of any anxiety depression. We are going to start him on Ativan 1 mg IV every 6 as needed for anxiety and psych consult will be requested. (3) Smoker Is this a current diagnosis for this admission?: No Plan: -patient has history of chronic smoking smokes close to 1 pack/day smoking counseling was provided for more than 10 minutes and he will be placed on NicoDerm patches. (4) Perineal abscess Is this a current diagnosis for this admission?: Yes Plan: 12/09/2018-patient came in with perirectal abscess going for surgery today. Has right-sided perianal abscess. Plan in the meantime is start on IV fluids and IV antibiotic therapy and IV pain medications. Blood cultures are pending. - Time Time Spent with patient: 25-34 minutes Medications reviewed and adjusted accordingly: Yes Anticipated discharge: Home
[2018-12-09] MEDS: MORPHINE SULFATE 10 MG/ML INJ IV PRN ×2 (16:35→20:59)
--- NOTE | 2018-12-09 17:31 | PSYCHOLOGICAL NOTE ---
Psych Note - Psych Note Date seen by psych provider: 12/09/18 Time seen by psych provider: 16:40 Psych Note: Impression\plan: Patient is cleared from acute psychiatric services. Patient denies thoughts of wanting to harm himself or others. He is not demonstrating any behaviors indicating that he is in psychosis. Patient initially presented with slightly pressured speech and mood lability; however, disclosed significant stressors to include relationship discord with his . After being able to express his thoughts and emotions with clinician patient is visibly much calmer with slower speech and less mood lability. Patient reports he was inpatient psychiatric treatment 3 times, once in 1999 and then twice in 2000. He has not been to outpatient mental health services for therapy or medication management since then. At this time patient is undecided if he would like medication assistance but agrees to think about it and notify [facility] staff if he would like to speak with behavioral health team again or if you would like to be started on medications. Dr. Lenz was consulted to care management of this patient; attending physicians in agreement with recommendations and disposition.
[2018-12-09] MEDS: LORAZEPAM INJ 2 MG/1 ML VIAL IV PRN (19:45)
[2018-12-09] MEDS: PANTOPRAZOLE SODIUM 40 MG VIAL IV SCH (22:17)
[2018-12-10] MEDS: KETOROLAC TROMETHAMINE INJ/PF 30 MG/1 ML SDV IV PRN ×3 (01:47→23:34)
[2018-12-10] MEDS: LORAZEPAM INJ 2 MG/1 ML VIAL IV PRN ×2 (01:47→10:05)
[2018-12-10] MEDS: CLINDAMYCIN 600 MG/D5W RTU 600 MG/50 ML RTUPB IV SCH ×3 (05:25→21:41)
[2018-12-10 06:37] LABS: ABSOLUTE BASOPHILS # (AUTO) 0.1 10^3/uL (0.0-0.2); ABSOLUTE EOSINOPHILS # (AUTO) 0.2 10^3/uL (0.0-0.6); ABSOLUTE LYMPHOCYTES (AUTO) 2.5 10^3/uL (0.5-4.7); ABSOLUTE MONOCYTES (AUTO) 1.4 10^3/uL (0.1-1.4); ABSOLUTE NEUT (AUTO) 12.5 10^3/uL (1.7-8.2); BASOPHILS % (AUTO) 0.3 % (0-2); EOSINOPHILS % (AUTO) 1.4 % (0-6); HEMATOCRIT 39.1 % (37.9-51.0); HEMOGLOBIN 12.4 g/dL (13.5-17.0); LYMPHOCYTES % (AUTO) 15.2 % (13-45); MEAN CORPUSCULAR HEMOGLOBIN 22.2 pg (27.0-33.4); MEAN CORPUSCULAR HGB CONC 31.7 g/dL (32.0-36.0); MEAN CORPUSCULAR VOLUME 70 fl (80-97); MONOCYTES % (AUTO) 8.6 % (3-13); PLATELET COUNT 257 10^3/uL (150-450); RED CELL DISTRIBUTION WIDTH 15.3 % (11.5-14.0); SEGMENTED NEUTROPHILS % (AUTO) 74.5 % (42-78); TOTAL CELLS COUNTED % (AUTO) 100 %; WHITE BLOOD COUNT 16.8 10^3/uL (4.0-10.5)
[2018-12-10] MEDS: METRONIDAZOLE 500 MG/NS RTU 500 MG/100 ML RTUPB IV SCH ×3 (06:48→22:54)
[2018-12-10] MEDS: MORPHINE SULFATE 10 MG/ML INJ IV PRN ×3 (06:49→21:47)
[2018-12-10 06:58] LABS: ALBUMIN 3.8 g/dL (3.5-5.0); ALKALINE PHOSPHATASE 75 U/L (38-126); ANION GAP 9 (5-19); ASPARTATE AMINO TRANSFERASE 17 U/L (17-59); BILIRUBIN,DIRECT 0.3 mg/dL (0.0-0.4); BILIRUBIN,TOTAL 0.7 mg/dL (0.2-1.3); BLOOD UREA NITROGEN 9 mg/dL (7-20); CARBON DIOXIDE 25 mmol/L (22-30); CHLORIDE 106 mmol/L (98-107); GLUCOSE 101 mg/dL (75-110); POTASSIUM 3.9 mmol/L (3.6-5.0); TOTAL PROTEIN 7.3 g/dL (6.3-8.2)
[2018-12-10] MEDS ORDERED: SUCCINYLCHOLINE CHLORIDE INJ 200 MG/10 ML VIAL ONE (09:54)
--- NOTE | 2018-12-10 10:42 | PDOC PROGRESS REPORT ---
Subjective Progress Note for:: 12/09/18 Subjective:: 53 year old male with history of hidradenitis suppurative of the perineum status post extensive wide excision of the radha-nails tissue with a skin grafting in [place] 5 years ago and he has recent surgery in May for the same problem by Dr. Cavazos in this hospital. Came in with complaints of increasing perianal pain associated with rectal bleed. MRI was done found to have perianal fistulas and abscesses surgery is going to admit the patient the call me for management of his psychiatric medications. Patient is comfortably in the bed communicating well denies any problems other than perianal pain. Not on any psych medications for the last 6 months. To take Percocets and Xanax is stopped taking Xanax is and is not interested in taking Xanax anymore. Patient denies anxiety depression or suicidal or homicidal ideation at the time of my examination. 12/10/[id number]-[id number]-old male with history of hidradenitis suppurativa involving the perineal region admitted with perirectal abscess and irritability Dr. blankenship. He was quite upset that he did not have surgery at. As per the nurses patient was scheduled for surgery at 1 PM today. Patient is n.p.o. until that time. No acute events in the last 24 hours. Psych consult was done no new recommendation s made. Reason For Visit: PERINAL SEPSIS Physical Exam Vital Signs: Temp Pulse Resp BP Pulse Ox 98.7 F 68 20 126/71 H 99 12/09/18 21:49 12/09/18 21:49 12/09/18 21:49 12/09/18 21:49 12/09/18 21:49 Intake & Output 12/09/18 12/10/18 12/11/18 06:59 06:59 06:59 Intake Total 1586 Output Total 600 Balance 986 Weight 91.1 kg General appearance: PRESENT: cooperative, mild distress Head exam: PRESENT: atraumatic Eye exam: PRESENT: PERRLA Mouth exam: PRESENT: moist, tongue midline Teeth exam: PRESENT: poor dentation Neck exam: ABSENT: carotid bruit, JVD, lymphadenopathy, thyromegaly Respiratory exam: PRESENT: clear to auscultation lubna. ABSENT: rales, rhonchi, wheezes Cardiovascular exam: PRESENT: RRR. ABSENT: diastolic murmur, rubs, systolic murmur GI/Abdominal exam: PRESENT: normal bowel sounds, soft. ABSENT: distended, guarding, mass, organolmegaly, rebound, tenderness Rectal exam: PRESENT: deferred Extremities exam: PRESENT: full ROM. ABSENT: calf tenderness, clubbing, pedal edema Neurological exam: PRESENT: alert, awake, oriented to person, oriented to place, oriented to time, oriented to situation, CN II-XII grossly intact. ABSENT: motor sensory deficit Psychiatric exam: PRESENT: agitated Results Laboratory Results: 12/10/18 05:39 12/10/18 05:39 12/09/18 12/09/18 12/10/18 09:31 09:40 05:39 WBC 16.8 H RBC 5.60 H Hgb 12.4 L Hct 39.1 MCV 70 L MCH 22.2 L MCHC 31.7 L RDW 15.3 H Plt Count 257 Seg Neutrophils % 74.5 Lymphocytes % 15.2 Monocytes % 8.6 Eosinophils % 1.4 Basophils % 0.3 Absolute Neutrophils 12.5 H Absolute Lymphocytes 2.5 Absolute Monocytes 1.4 Absolute Eosinophils 0.2 Absolute Basophils 0.1 Sodium Potassium Chloride Carbon Dioxide Anion Gap BUN Creatinine Est GFR ( Amer) Est GFR (Non-Af Amer) Glucose Lactic Acid Cancelled Calcium Magnesium Total Bilirubin AST Alkaline Phosphatase Total Protein Albumin Urine Color SAUD Urine Appearance SLIGHTLY-CLOUDY Urine pH 5.0 Ur Specific [place] 1.029 Urine Protein 30 H Urine Glucose (UA) NEGATIVE Urine Ketones TRACE H Urine Blood SMALL H Urine Nitrite NEGATIVE Ur Leukocyte Esterase NEGATIVE 12/10/18 05:39 WBC RBC Hgb Hct MCV MCH MCHC RDW Plt Count Seg Neutrophils % Lymphocytes % Monocytes % Eosinophils % Basophils % Absolute Neutrophils Absolute Lymphocytes Absolute Monocytes Absolute Eosinophils Absolute Basophils Sodium 139.6 Potassium 3.9 Chloride 106 Carbon Dioxide 25 Anion Gap 9 BUN 9 Creatinine 1.04 Est GFR ( Amer) > 60 Est GFR (Non-Af Amer) > 60 Glucose 101 Lactic Acid Calcium 9.0 Magnesium 2.0 Total Bilirubin 0.7 AST 17 Alkaline Phosphatase 75 Total Protein 7.3 Albumin 3.8 Urine Color Urine Appearance Urine pH Ur Specific [place] Urine Protein Urine Glucose (UA) Urine Ketones Urine Blood Urine Nitrite Ur Leukocyte Esterase Impressions: Pelvis CT 12/09/18 08:44 IMPRESSION: 2.1 x 1.1 cm right deep perirectal abscess. Skin thickening along the perineum and intergluteal cleft from chronic hidradenitis. Surgical clips in the left perineum with adjacent 3 x 1.6 cm subcutaneous fluid collection likely a small subcutaneous abscess. Pelvis MRI 12/09/18 10:27 IMPRESSION: Perirectal fistulas and abscesses as above Assessment and Plan - Diagnosis (1) Hidradenitis suppurativa of anus Is this a current diagnosis for this admission?: Yes Plan: 12/09/[id number]-vgku-old male with history of hidradenitis separative off of the perianal area extensive excision and skin grafting 5 years ago in [place] he had another surgery in May in this hospital by Dr. Cavazos came in with perianal pain and. Rectal bleed he is going for the surgery today and medical consult was requested for management of his psychiatric medications. Patient was given cefepime in the ER started on clindamycin and Flagyl blood cultures are pending agree with present antibiotic therapy. GI prophylaxis going to be initiated because the patient is going for surgery DVT prophylaxis will be on hold. Pain management as per surgical team. 12/10/2018-patient is scheduled for surgery at 1 PM today. Patient is n.p.o. Not on DVT prophylaxis. Is receiving IV fluids in the meantime. Receiving Dilaudid every 4 as needed for pain. (2) Schizophrenia Is this a current diagnosis for this admission?: No Plan: 12/09/2018-patient is a given the history of anxiety major depression in association with schizophrenia and he has also questionable history of PTSD not on any medications not following with any psychiatrist after moving into this town last year. On examination no evidence of any anxiety depression. We are going to start him on Ativan 1 mg IV every 6 as needed for anxiety and psych consult will be requested. 12/10/2018-psych consult was done no new medications are recommended. (3) Smoker Is this a current diagnosis for this admission?: No (4) Perineal abscess Is this a current diagnosis for this admission?: Yes Plan: 12/09/2018-patient came in with perirectal abscess going for surgery today. Has right-sided perianal abscess. Plan in the meantime is start on IV fluids and IV antibiotic therapy and IV pain medications. Blood cultures are pending. 12/10/2018-patient admitted with perirectal abscess going for surgery at 1 PM today. Receiving IV fluids and IV antibiotic therapy. - Time Time Spent with patient: 15-24 minutes Medications reviewed and adjusted accordingly: Yes
[2018-12-10] MEDS: PANTOPRAZOLE SODIUM 40 MG VIAL IV SCH ×2 (11:55→21:41)
[2018-12-10] MEDS: NICOTINE 21 MG/24 HR PATCH.TD24 TD SCH (11:59)
[2018-12-10] MEDS ORDERED: MIDAZOLAM 2 MG/2 ML INJ ONE (16:50)
[2018-12-10] MEDS ORDERED: DEXAMETHASONE SOD PHOSPHATE INJ 4 MG/1 ML VIAL ONE (16:50)
[2018-12-10] MEDS ORDERED: FENTANYL CITRATE INJ/PF 100 MCG/2 ML AMPUL ONE (16:50)
[2018-12-10] MEDS ORDERED: ONDANSETRON HCL INJ/PF 4 MG/2 ML SDV ONE (16:50)
[2018-12-10] MEDS ORDERED: PROPOFOL INJ 200 MG/20 ML VIAL IV ONE (16:50)
[2018-12-10] MEDS ORDERED: BUPIVACAINE HCL 0.25% /EPINEPHRINE INJ/PF 30 ML SDV ONE (16:53)
[2018-12-10] MEDS ORDERED: DIPHENHYDRAMINE HCL 50 MG/ML VIAL IV PRN (17:29)
[2018-12-10] MEDS ORDERED: MORPHINE SULFATE 10 MG/ML INJ IV PRN (17:29)
[2018-12-10] MEDS ORDERED: ONDANSETRON HCL INJ/PF 4 MG/2 ML SDV IV PRN (17:29)
[2018-12-10] MEDS ORDERED: MEPERIDINE HCL/PF INJ 25 MG/1 ML DISP.SYRIN IV PRN (17:29)
[2018-12-10] MEDS ORDERED: FENTANYL CITRATE INJ/PF 100 MCG/2 ML AMPUL IV PRN ×3 (17:29)
[2018-12-10] MEDS ORDERED: PROMETHAZINE HCL INJ 25 MG/1 ML VIAL IV PRN ×2 (17:29)
--- NOTE | 2018-12-10 18:17 | Operative Report ---
Nonrecallable Operative Report DATE OF SURGERY: 12/10/18 PREOPERATIVE DIAGNOSIS: perirectal abscess POSTOPERATIVE DIAGNOSIS: perirectal abscess OPERATION: Exam under anesthesia incision and drainage of perirectal abscess ANESTHESIA: GA COMPLICATIONS: None ESTIMATED BLOOD LOSS: 20 cc PROCEDURE: Patient was brought to the operating room and awake alert stable condition placed in the operative table supine position induced under general anesthesia intubated he was then placed in a high lithotomy position. Examination was begun after appropriate timeout. Palpation of the perirectal tissue revealed swelling on the in the left rectal tissue ischial fossa and the anterior thigh the skin over the left side of the rectum was markedly swollen more than on the right side for this reason we used an 18-gauge needle pierced the skin and only was able to aspirate some gas and some turbid fluid. I made a curvilinear incision in the external to the sphincters in the initial fossa and visualized fatty tissue in the left perirectal space. I reached a cavity with turbid fluid and gas digitalized that cavity opened it widely then made a exploration of the perineum at the junction of the perineal skin and the skin on the anterior left thigh again there was some subcutaneous gas and turbid fluid from that pocket. Posteriorly in the left ischiorectal space over the buttocks there was also some swelling noted fluid collection on the MRI scan and I made a counterincision directly over that skin and visualized the fatty tissue noting some turbid fluid there also that space could be connected to the initial perirectal space incision and also to the anterior thigh incision copiously irrigated the fatty tissue and this entire subcutaneous pocket and then used 1/2 inch [address] drain in place it into the pocket with the exit sites in the posterior buttock in the anterior thigh the drain was fixed there with a 2-0 nylon suture. The right issue rectal space there was also a small abscess that was noted on the MRI scan this was supra sphincteric and I could not feel it on digital examination the rectum is the anoscope and noted that the rectum was significant ly strictured and had some difficulty passing the anoscope with some mild dilation I was able to pass it examination of the lateral wall revealed no evidence of a purulent drainage into the rectum with compression of the ischiorectal space on the right side and after multiple aspiration attempts could not really obtain any fluid or gas or even turbid serous fluid from the right buttock and therefore elected not to open up the space. The procedure was completed at this point the patient was then taken down from lithotomy position a sterile dressing was applied transferred to the recovery room in stable condition estimated blood loss for the procedure was less than 25 cc sponge needle counts were correct x2
[2018-12-10] MEDS: NORMAL SALINE 1000 ML 1,000 ML IV PRN (21:40)
[2018-12-11] MEDS: MORPHINE SULFATE 10 MG/ML INJ IV PRN ×5 (04:07→22:18)
[2018-12-11 04:26] LABS: HEMATOCRIT 36.2 % (37.9-51.0); HEMOGLOBIN 11.5 g/dL (13.5-17.0); MEAN CORPUSCULAR HEMOGLOBIN 22.2 pg (27.0-33.4); MEAN CORPUSCULAR HGB CONC 31.7 g/dL (32.0-36.0); MEAN CORPUSCULAR VOLUME 70 fl (80-97); PLATELET COUNT 262 10^3/uL (150-450); RED BLOOD COUNT 5.17 10^6/uL (4.35-5.55); RED CELL DISTRIBUTION WIDTH 15.1 % (11.5-14.0); WHITE BLOOD COUNT 17.7 10^3/uL (4.0-10.5)
[2018-12-11 04:45] LABS: ALBUMIN 3.2 g/dL (3.5-5.0); ALKALINE PHOSPHATASE 62 U/L (38-126); ANION GAP 8 (5-19); ASPARTATE AMINO TRANSFERASE 17 U/L (17-59); BILIRUBIN,DIRECT 0.3 mg/dL (0.0-0.4); BILIRUBIN,TOTAL 0.4 mg/dL (0.2-1.3); BLOOD UREA NITROGEN 10 mg/dL (7-20); CALCIUM 8.6 mg/dL (8.4-10.2); CARBON DIOXIDE 22 mmol/L (22-30); CHLORIDE 109 mmol/L (98-107); GLUCOSE 124 mg/dL (75-110); TOTAL PROTEIN 6.2 g/dL (6.3-8.2)
[2018-12-11 04:46] LABS: POTASSIUM 4.2 mmol/L (3.6-5.0)
[2018-12-11 04:48] LABS: ABSOLUTE LYMPHOCYTES# (MANUAL) 0.7 10^3/uL (0.5-4.7); ABSOLUTE MONOCYTES # (MANUAL) 0.7 10^3/uL (0.1-1.4); BAND NEUTROPHILS % (MANUAL) 2 % (3-5); BASOPHILS % (MANUAL) 0 % (0-2); EOSINOPHILS % (MANUAL) 0 % (0-6); LYMPHOCYTES % (MANUAL) 4 % (13-45); MONOCYTES % (MANUAL) 4 % (3-13); SEGMENTED NEUTROPHILS % (MAN) 90 % (42-78); TOTAL CELLS COUNTED 100
[2018-12-11 04:49] LABS: ANISOCYTOSIS 1+; HYPOCHROMASIA 1+; PLATELET COMMENT ADEQUATE; POLYCHROMASIA 1+
[2018-12-11] MEDS: CLINDAMYCIN 600 MG/D5W RTU 600 MG/50 ML RTUPB IV SCH (05:18)
[2018-12-11] MEDS: METRONIDAZOLE 500 MG/NS RTU 500 MG/100 ML RTUPB IV SCH ×3 (06:27→21:16)
[2018-12-11] MEDS: KETOROLAC TROMETHAMINE INJ/PF 30 MG/1 ML SDV IV PRN (06:27)
[2018-12-11] MEDS: NICOTINE 21 MG/24 HR PATCH.TD24 TD SCH ×2 (10:57→11:03)
[2018-12-11] MEDS: PANTOPRAZOLE SODIUM 40 MG VIAL IV SCH ×2 (10:58→21:15)
--- NOTE | 2018-12-11 11:31 | PDOC PROGRESS REPORT ---
Subjective Progress Note for:: 12/11/18 Reason For Visit: PERIANAL ABSCESS Physical Exam Vital Signs: Temp Pulse Resp BP Pulse Ox 98.7 F 82 16 108/52 L 97 12/11/18 07:39 12/11/18 07:39 12/11/18 07:39 12/11/18 07:39 12/11/18 07:39 Intake & Output 12/10/18 12/11/18 12/12/18 06:59 06:59 06:59 Intake Total 1636 4539 100 Output Total 600 645 Balance 1036 3894 100 Weight 91.1 kg 92.4 kg Results Laboratory Results: 12/11/18 03:58 12/11/18 03:58 12/11/18 12/11/18 03:58 03:58 WBC 17.7 H RBC 5.17 Hgb 11.5 L Hct 36.2 L MCV 70 L MCH 22.2 L MCHC 31.7 L RDW 15.1 H Plt Count 262 Seg Neutrophils % Not Reportable Lymphocytes % Not Reportable Monocytes % Not Reportable Eosinophils % Not Reportable Basophils % Not Reportable Absolute Neutrophils Not Reportable Absolute Lymphocytes Not Reportable Absolute Monocytes Not Reportable Absolute Eosinophils Not Reportable Absolute Basophils Not Reportable Sodium 138.9 Potassium 4.2 Chloride 109 H Carbon Dioxide 22 Anion Gap 8 BUN 10 Creatinine 0.89 Est GFR ( Amer) > 60 Est GFR (Non-Af Amer) > 60 Glucose 124 H Calcium 8.6 Magnesium 1.9 Total Bilirubin 0.4 AST 17 Alkaline Phosphatase 62 Total Protein 6.2 L Albumin 3.2 L Impressions: Pelvis CT 12/09/18 08:44 IMPRESSION: 2.1 x 1.1 cm right deep perirectal abscess. Skin thickening along the perineum and intergluteal cleft from chronic hidradenitis. Surgical clips in the left perineum with adjacent 3 x 1.6 cm subcutaneous fluid collection likely a small subcutaneous abscess. Pelvis MRI 12/09/18 10:27 IMPRESSION: Perirectal fistulas and abscesses as above Assessment & Plan - Diagnosis (1) Perineal abscess Is this a current diagnosis for this admission?: Yes - Plan Summary Plan Summary: This is a 53-year-old male status post incision and drainage of a perineal abscess x2. Patient is feeling better today. I have removed his packing at the bedside. There is no gross purulence present. His Zach drain remains in place. I have repacked his inferior wound with 4 x 4 gauze. Initiate dressing changes twice daily. It is okay for the patient to remove his dressings and shower normally. Continue antibiotics. Anticipate discharge in the next 24 to 48 hours.
[2018-12-11] MEDS ORDERED: CIPROFLOXACIN 400 MG/D5W RTU 400 MG/200 ML RTUPB IV SCH (12:00)
--- NOTE | 2018-12-11 12:02 | PDOC PROGRESS REPORT ---
Subjective Progress Note for:: 12/11/18 Subjective:: 53 year old male with history of hidradenitis suppurative of the perineum status post extensive wide excision of the radha-nails tissue with a skin grafting in [place] 5 years ago and he has recent surgery in May for the same problem by Dr. Cavazos in this hospital. Came in with complaints of increasing perianal pain associated with rectal bleed. MRI was done found to have perianal fistulas and abscesses surgery is going to admit the patient the call me for management of his psychiatric medications. Patient is comfortably in the bed communicating well denies any problems other than perianal pain. Not on any psych medications for the last 6 months. To take Percocets and Xanax is stopped taking Xanax is and is not interested in taking Xanax anymore. Patient denies anxiety depression or suicidal or homicidal ideation at the time of my examination. 12/10/[id number]-kgkm-old male with history of hidradenitis suppurativa involving the perineal region admitted with perirectal abscess and irritability Dr. blankenship. He was quite upset that he did not have surgery at. As per the nurses patient was scheduled for surgery at 1 PM today. Patient is n.p.o. until that time. No acute events in the last 24 hours. Psych consult was done no new recommendation s made. 12/11/[id number]-zgio-old male admitted with perirectal abscess status post incision drainage yesterday. 1 of the drains was removed today. Plan is to continue the antibiotics and pain medications for next 24 to 48 hours. Once is stable will make arrangements for him to follow-up with surgery as an outpatient. Reason For Visit: PERIANAL ABSCESS Physical Exam Vital Signs: Temp Pulse Resp BP Pulse Ox 98.7 F 82 16 108/52 L 97 12/11/18 07:39 12/11/18 07:39 12/11/18 07:39 12/11/18 07:39 12/11/18 07:39 Intake & Output 12/10/18 12/11/18 12/12/18 06:59 06:59 06:59 Intake Total 1636 4539 100 Output Total 600 645 Balance 1036 3894 100 Weight 91.1 kg 92.4 kg Results Laboratory Results: 12/11/18 03:58 12/11/18 03:58 12/11/18 12/11/18 03:58 03:58 WBC 17.7 H RBC 5.17 Hgb 11.5 L Hct 36.2 L MCV 70 L MCH 22.2 L MCHC 31.7 L RDW 15.1 H Plt Count 262 Seg Neutrophils % Not Reportable Lymphocytes % Not Reportable Monocytes % Not Reportable Eosinophils % Not Reportable Basophils % Not Reportable Absolute Neutrophils Not Reportable Absolute Lymphocytes Not Reportable Absolute Monocytes Not Reportable Absolute Eosinophils Not Reportable Absolute Basophils Not Reportable Sodium 138.9 Potassium 4.2 Chloride 109 H Carbon Dioxide 22 Anion Gap 8 BUN 10 Creatinine 0.89 Est GFR ( Amer) > 60 Est GFR (Non-Af Amer) > 60 Glucose 124 H Calcium 8.6 Magnesium 1.9 Total Bilirubin 0.4 AST 17 Alkaline Phosphatase 62 Total Protein 6.2 L Albumin 3.2 L Impressions: Pelvis CT 12/09/18 08:44 IMPRESSION: 2.1 x 1.1 cm right deep perirectal abscess. Skin thickening along the perineum and intergluteal cleft from chronic hidrad enitis. Surgical clips in the left perineum with adjacent 3 x 1.6 cm subcutaneous fluid collection likely a small subcutaneous abscess. Pelvis MRI 12/09/18 10:27 IMPRESSION: Perirectal fistulas and abscesses as above Assessment and Plan - Diagnosis (1) Hidradenitis suppurativa of anus Is this a current diagnosis for this admission?: Yes (2) Schizophrenia Is this a current diagnosis for this admission?: No Plan: 12/09/2018-patient is a given the history of anxiety major depression in association with schizophrenia and he has also questionable history of PTSD not on any medications not following with any psychiatrist after moving into this town last year. On examination no evidence of any anxiety depression. We are going to start him on Ativan 1 mg IV every 6 as needed for anxiety and psych consult will be requested. 12/10/2018-psych consult was done no new medications are recommended. (3) Smoker Is this a current diagnosis for this admission?: No (4) Perineal abscess Is this a current diagnosis for this admission?: Yes Plan: 12/09/2018-patient came in with perirectal abscess going for surgery today. Has right-sided perianal abscess. Plan in the meantime is start on IV fluids and IV antibiotic therapy and IV pain medications. Blood cultures are pending. 12/10/2018-patient admitted with perirectal abscess going for surgery at 1 PM today. Receiving IV fluids and IV antibiotic therapy. 12/11/2018-status post incision and drainage of the perirectal abscess surgery is following the patient. Is on still antibiotics , Cultures are negative so far. - Time Time Spent with patient: 15-24 minutes Medications reviewed and adjusted accordingly: Yes Anticipated discharge: Home
[2018-12-11] MEDS ORDERED: DOXYCYCLINE HYCLATE 100 MG in DEXTROSE 5%-WATER 250 ML IV SCH (14:00)
[2018-12-11] MEDS: NORMAL SALINE 1000 ML 1,000 ML IV PRN (17:14)
[2018-12-12] MEDS: MORPHINE SULFATE 10 MG/ML INJ IV PRN ×3 (02:13→10:32)
[2018-12-12] MEDS: NORMAL SALINE 1000 ML 1,000 ML IV PRN (02:14)
[2018-12-12 05:57] LABS: ABSOLUTE EOSINOPHILS # (AUTO) 0.4 10^3/uL (0.0-0.6); ABSOLUTE LYMPHOCYTES (AUTO) 2.3 10^3/uL (0.5-4.7); ABSOLUTE NEUT (AUTO) 10.2 10^3/uL (1.7-8.2); BASOPHILS % (AUTO) 0.2 % (0-2); HEMATOCRIT 31.2 % (37.9-51.0); HEMOGLOBIN 9.9 g/dL (13.5-17.0); LYMPHOCYTES % (AUTO) 16.6 % (13-45); MEAN CORPUSCULAR HEMOGLOBIN 22.1 pg (27.0-33.4); MEAN CORPUSCULAR HGB CONC 31.8 g/dL (32.0-36.0); MEAN CORPUSCULAR VOLUME 70 fl (80-97); MONOCYTES % (AUTO) 7.5 % (3-13); PLATELET COUNT 215 10^3/uL (150-450); RED BLOOD COUNT 4.49 10^6/uL (4.35-5.55); RED CELL DISTRIBUTION WIDTH 15.3 % (11.5-14.0); SEGMENTED NEUTROPHILS % (AUTO) 72.7 % (42-78); TOTAL CELLS COUNTED % (AUTO) 100 %
[2018-12-12] MEDS ORDERED: DOXYCYCLINE HYCLATE 100 MG in DEXTROSE 5%-WATER 250 ML IV SCH (06:00)
[2018-12-12] MEDS: METRONIDAZOLE 500 MG/NS RTU 500 MG/100 ML RTUPB IV SCH ×2 (06:22→13:39)
--- NOTE | 2018-12-12 08:15 | PDOC DISCHARGE SUMMARY ---
General - Admit/Disc Date/PCP Admission Date/Primary Care Provider: 12/09/18 13:50 amitted for perirectal abscess and hidranitis suppritiva of perineum Discharge Date: 12/12/18 - Additional Information Resuscitation Status: Full Code Discharge Diet: As Tolerated Discharge Activity: Activity As Tolerated, Other - sitz baths tid with epsome salts Home Medications: No Home Medications 12/09/18 History of Present Illness History of Present Illness: CHERELLE VILLALOBOS is a 53 year old male Hospital Course Hospital Course: pt was admitted for a rt perirectal abscess and abscess of rt side of perinium secondary to hidranitis rx intitally with abx mri scan obtained pt taken to or for exam under anesthesia and drainage of abscess the perineal abscess was drained, however the rectal absces was too proximal and small for drainage 'pt was continued on iv abx the following day felt better and had nl bm wbc trended down the second pod pt feels well and wants to go home will dc home on po abx and pain meds strict intstruction of sitz baths will appont in a wk for drain removal and reevaluation Physical Exam Vital Signs: Temp Pulse Resp BP Pulse Ox 98.2 F 65 15 137/69 H 99 12/12/18 00:08 12/12/18 00:08 12/12/18 00:08 12/12/18 00:08 12/12/18 00:08 Intake & Output 12/11/18 12/12/18 12/13/18 06:59 06:59 06:59 Intake Total 4539 3152 Output Total 645 600 Balance 3894 2552 Weight 92.4 kg 91.6 kg Results Laboratory Results: 12/12/18 05:16 12/11/18 03:58 12/12/18 05:16 WBC 14.0 H RBC 4.49 Hgb 9.9 L Hct 31.2 L MCV 70 L MCH 22.1 L MCHC 31.8 L RDW 15.3 H Plt Count 215 Seg Neutrophils % 72.7 Lymphocytes % 16.6 Monocytes % 7.5 Eosinophils % 3.0 Basophils % 0.2 Absolute Neutrophils 10.2 H Absolute Lymphocytes 2.3 Absolute Monocytes 1.0 Absolute Eosinophils 0.4 Absolute Basophils 0.0 Impressions: Pelvis CT 12/09/18 08:44 IMPRESSION: 2.1 x 1.1 cm right deep perirectal abscess. Skin thickening along the perineum and intergluteal cleft from chronic hidradenitis. Surgical clips in the left perineum with adjacent 3 x 1.6 cm subcutaneous fluid collection likely a small subcutaneous abscess. Pelvis MRI 12/09/18 10:27 IMPRESSION: Perirectal fistulas and abscesses as above Qualifiers - * PATIENT BEING DISCHARGED WITH ANY OF THE FOLLOWING DIAGNOSIS: No Acute Heart Failure - Is this a Heart Failure Patient?: No
[2018-12-12 09:03] VITALS: BP 124/67
[2018-12-12] MEDS: NICOTINE 21 MG/24 HR PATCH.TD24 TD SCH (09:40)
[2018-12-12] MEDS ORDERED: SIMETHICONE 80 MG TAB.CHEW PO ONE (10:00)
[2018-12-12] MEDS: PANTOPRAZOLE SODIUM 40 MG VIAL IV SCH (10:32)
--- NOTE | 2018-12-12 11:21 | PDOC PROGRESS REPORT ---
Subjective Progress Note for:: 12/12/18 Subjective:: 53 year old male with history of hidradenitis suppurative of the perineum status post extensive wide excision of the radha-nails tissue with a skin grafting in [place] 5 years ago and he has recent surgery in May for the same problem by Dr. Cavazos in this hospital. Came in with complaints of increasing perianal pain associated with rectal bleed. MRI was done found to have perianal fistulas and abscesses surgery is going to admit the patient the call me for management of his psychiatric medications. Patient is comfortably in the bed communicating well denies any problems other than perianal pain. Not on any psych medications for the last 6 months. To take Percocets and Xanax is stopped taking Xanax is and is not interested in taking Xanax anymore. Patient denies anxiety depression or suicidal or homicidal ideation at the time of my examination. 12/10/[id number]-rlav-old male with history of hidradenitis suppurativa involving the perineal region admitted with perirectal abscess and irritability Dr. blankenship. He was quite upset that he did not have surgery at. As per the nurses patient was scheduled for surgery at 1 PM today. Patient is n.p.o. until that time. No acute events in the last 24 hours. Psych consult was done no new recommendation s made. 12/11/[id number]-ekhf-old male admitted with perirectal abscess status post incision drainage yesterday. 1 of the drains was removed today. Plan is to continue the antibiotics and pain medications for next 24 to 48 hours. Once is stable will make arrangements for him to follow-up with surgery as an outpatient. 12/12/[id number]-hfab-old male admitted with perirectal abscess status post surgery and drainage of the 2 abscesses. Is going home on p.o. antibiotic therapy and pain medications. We are going to sign off today./ Reason For Visit: PERIANAL ABSCESS Physical Exam Vital Signs: Temp Pulse Resp BP Pulse Ox 98.2 F 65 15 137/69 H 99 12/12/18 08:54 12/12/18 08:54 12/12/18 08:54 12/12/18 08:54 12/12/18 08:54 Intake & Output 12/11/18 12/12/18 12/13/18 06:59 06:59 06:59 Intake Total 4531 3152 350 Output Total 645 600 Balance 3894 2552 350 Weight 92.4 kg 91.6 kg General appearance: PRESENT: no acute distress, cooperative Head exam: PRESENT: atraumatic Eye exam: PRESENT: PERRLA Mouth exam: PRESENT: moist, tongue midline Teeth exam: PRESENT: poor dentation Neck exam: ABSENT: carotid bruit, JVD, lymphadenopathy, thyromegaly Respiratory exam: PRESENT: clear to auscultation lubna. ABSENT: rales, rhonchi, wheezes Cardiovascular exam: PRESENT: RRR. ABSENT: diastolic murmur, rubs, systolic murmur GI/Abdominal exam: PRESENT: normal bowel sounds, soft. ABSENT: distended, guarding, mass, organolmegaly, rebound, tenderness Rectal exam: PRESENT: deferred Extremities exam: PRESENT: full ROM. ABSENT: calf tenderness, clubbing, pedal edema Neurological exam: PRESENT: alert, awake, oriented to person, oriented to place, oriented to time, oriented to situation, CN II-XII grossly intact. ABSENT: motor sensory deficit Psychiatric exam: PRESENT: appropriate affect, normal mood. ABSENT: homicidal ideation, suicidal ideation Results Laboratory Results: 12/12/18 05:16 12/11/18 03:58 12/12/18 05:16 WBC 14.0 H RBC 4.49 Hgb 9.9 L Hct 31.2 L MCV 70 L MCH 22.1 L MCHC 31.8 L RDW 15.3 H Plt Count 215 Seg Neutrophils % 72.7 Lymphocytes % 16.6 Monocytes % 7.5 Eosinophils % 3.0 Basophils % 0.2 Absolute Neutrophils 10.2 H Absolute Lymphocytes 2.3 Absolute Monocytes 1.0 Absolute Eosinophils 0.4 Absolute Basophils 0.0 Impressions: Pelvis CT 12/09/18 08:44 IMPRESSION: 2.1 x 1.1 cm right deep perirectal abscess. Skin thickening along the perineum and intergluteal cleft from chronic hidradenitis. Surgical clips in the left perineum with adjacent 3 x 1.6 cm subcutaneous fluid collection likely a small subcutaneous abscess. Pelvis MRI 12/09/18 10:27 IMPRESSION: Perirectal fistulas and abscesses as above Assessment and Plan - Diagnosis (1) Hidradenitis suppurativa of anus Is this a current diagnosis for this admission?: Yes Plan: 12/09/[id number]-rdwb-old male with history of hidradenitis separative off of the perianal area extensive excision and skin grafting 5 years ago in [place] he had another surgery in May in this hospital by Dr. Cavazos came in with perianal pain and. Rectal bleed he is going for the surgery today and medical consult was requested for management of his psychiatric medications. Patient was given cefepime in the ER started on clindamycin and Flagyl blood cultures are pending agree with present antibiotic therapy. GI prophylaxis going to be initiated because the patient is going for surgery DVT prophylaxis will be on hold. Pain management as per surgical team. 12/10/2018-patient is scheduled for surgery at 1 PM today. Patient is n.p.o. Not on DVT prophylaxis. Is receiving IV fluids in the meantime. Receiving Dilaudid every 4 as needed for pain. 12/12/2018-patient admitted with history of hidradenitis suppurativa found to have perirectal abscesses status post I&D was done. Patient is going home today on pain medications and antibiotics. (2) Schizophrenia Is this a current diagnosis for this admission?: No Plan: 12/09/2018-patient is a given the history of anxiety major depression in association with schizophrenia and he has also questionable history of PTSD not on any medications not following with any psychiatrist after moving into this town last year. On examination no evidence of any anxiety depression. We are going to start him on Ativan 1 mg IV every 6 as needed for anxiety and psych co nsult will be requested. 12/10/2018-psych consult was done no new medications are recommended. (3) Smoker Is this a current diagnosis for this admission?: No Plan: -patient has history of chronic smoking smokes close to 1 pack/day smoking counseling was provided for more than 10 minutes and he will be placed on NicoDerm patches. (4) Perineal abscess Is this a current diagnosis for this admission?: Yes Plan: 12/09/2018-patient came in with perirectal abscess going for surgery today. Has right-sided perianal abscess. Plan in the meantime is start on IV fluids and IV antibiotic therapy and IV pain medications. Blood cultures are pending. 12/10/2018-patient admitted with perirectal abscess going for surgery at 1 PM today. Receiving IV fluids and IV antibiotic therapy. 12/11/2018-status post incision and drainage of the perirectal abscess surgery is following the patient. Is on still antibiotics , Cultures are negative so far. 12/12/2018-admitted with perirectal abscesses status post incision and drainage patient is advised to follow-up with surgery as an outpatient. He is going home on p.o. antibiotics and p.o. pain medications. - Time Time Spent with patient: 25-34 minutes Medications reviewed and adjusted accordingly: Yes Anticipated discharge: Home
== END 2018-12-12 13:30 | disposition home or self-care (01) | DRG 346 ==
LOC: ER 08:04 → OBSVTOIN 13:50 → INTOOBSV 13:50 → EH 13:50 → 5 16:07
PROVIDERS: ADMIT Surgery; ATTEND Surgery
PROC: 0DJD8ZZ Inspection of Lower Intestinal Tract, Via Natural or Artificial Opening Endoscopic (ICD-10-PCS; 2018-12-10)
PROC: 0D9P0ZZ Drainage of Rectum, Open Approach (ICD-10-PCS; principal; 2018-12-10 14:30)
DX: K61.39 Other ischiorectal abscess (principal); F17.200 Nicotine dependence, unspecified, uncomplicated; L73.2 Hidradenitis suppurativa; F20.9 Schizophrenia, unspecified; F43.10 Post-traumatic stress disorder, unspecified; Z86.14 Personal history of Methicillin resistant Staphylococcus aureus infection; M19.90 Unspecified osteoarthritis, unspecified site; Z88.6 Allergy status to analgesic agent; Z88.8 Allergy status to other drugs, medicaments and biological substances
CPT/HCPCS: 36415; 72193; 72197; 80053; 81001; 83036; 83605; 83735; 85025; 87040; 87070; 87077; 87205; 902; 96361; 96365; 96367; 96375; 96376; 99285; A9576; J0330; J0692; J1100; J1170; J1885; J2060; J2250; J2270; J2405; J2704; J3010; J3490; J7030; J7060; S0164

== ENCOUNTER 2018-12-28 14:01 | Emergency (ER) | payer MEDICAID ==
--- NOTE | 2018-12-28 14:50 | ER Document Report ---
ED Medical Screen (RME) - General Chief Complaint: Post Surgical Pain Stated Complaint: POST OP COMPLICATIONS Time Seen by Provider: 12/28/18 14:45 Mode of Arrival: Ambulatory Information source: Patient Notes: This 53-year-old male presents emergency department with complaints of pilonidal cyst. Reports he recently had 2 abscesses lanced in his rectal area the groin area. He reports now he is a third one that needs to be lanced. Patient reports he was here at the beginning of December for symptoms. I have greeted and performed a rapid initial assessment of this patient. A comprehensive ED assessment and evaluation of the patient, analysis of test results and completion of the medical decision making process will be conducted by additional ED providers. Dictation of this chart was performed using voice recognition software; therefore, there may be some unintended grammatical errors. TRAVEL OUTSIDE OF THE [place] IN LAST 30 DAYS: No - Related Data Allergies/Adverse Reactions: hydrocodone Allergy (Verified 12/28/18 14:08) ibuprofen Allergy (Verified 12/28/18 14:08) naproxen Allergy (Verified 12/28/18 14:08) tramadol Allergy (Verified 12/28/18 14:08) Past Medical History Endocrine Medical History: Denies: Hx Diabetes Mellitus Type 1, Hx Diabetes Mellitus Type 2 Renal/ Medical History: Reports: Hx Kidney Stones. Denies: Hx Peritoneal Dialysis Musculoskeltal Medical History: Reports Hx Arthritis Skin Medical History: Reports Hx MRSA Psychiatric Medical History: Reports: Hx Bipolar Disorder, Hx Depression, Hx Post Traumatic Stress Disorder, Hx Schizophrenia Infectious Medical History: Reports: Hx MRSA Past Surgical History: Reports: Other - skin graft - Immunizations Hx Diphtheria, Pertussis, Tetanus Vaccination: Yes Physical Exam - Vital signs Vitals: Temp Pulse Resp BP Pulse Ox 98.3 F 83 16 116/73 97 12/28/18 14:17 12/28/18 14:17 12/28/18 14:17 12/28/18 14:17 12/28/18 14:17 Course - Vital Signs Vital signs: Temp Pulse Resp BP Pulse Ox 98.3 F 83 16 116/73 97 12/28/18 14:17 12/28/18 14:17 12/28/18 14:17 12/28/18 14:17 12/28/18 14:17
[2018-12-28] MEDS ORDERED: OXYCODONE-ACETAMINOPHEN 5-325 MG TABLET PO ONE (19:05)
[2018-12-28] MEDS ORDERED: SULFAMETHOXAZOLE/TRIMETHOPRIM 800-160 MG TABLET PO ONE (19:05)
--- NOTE | 2018-12-28 19:17 | ER Document Report ---
HPI - HPI Patient complains to provider of: abscess in groin area Time Seen by Provider: 12/28/18 14:45 Onset: Last week Onset/Duration: Gradual Quality of pain: Sharp, Throbbing Severity: Severe Pain Level: 5 Associated Symptoms: Other - Abscess to left perineal area Exacerbated by: Sitting, Movement, Walking Relieved by: Denies Similar symptoms previously: Yes Recently seen / treated by doctor: Yes - ROS ROS below otherwise negative: Yes - CONSTITUTIONAL Constitutional: DENIES: Fever, Chills - EENT EENT: DENIES: Sore Throat, Ear Pain, Nasal Drainage-Clear, Nasal Drainage- Purulent, Congestion, Eye problems - NEURO Neurology: DENIES: Headache, Weakness, Vision blurred, Dizzinesss / Vertigo - CARDIOVASCULAR Cardiovascular: DENIES: Chest pain - RESPIRATORY Respiratory: DENIES: Trouble Breathing, Coughing - GASTROINTESTINAL Gastrointestinal: DENIES: Abdominal Pain, Nausea, Patient vomiting, Diarrhea, Constipation, Black / Bloody Stools - URINARY Urinary: DENIES: Dysuria, Urgency, Frequency - REPRODUCTIVE Reproductive: DENIES: :, Postmenopausal, Abnormal bleeding / discharge - MUSCULOSKELETAL Musculoskeletal: REPORTS: Swelling - Abscess to left upper thigh/groin area - DERM Skin Color: Normal Skin Problems: Cyst - Multiple draining cyst and one that needed to be I&D in the left upper to left thigh/groin area Past Medical History - General Information source: Patient - Social History Smoking Status: Former Smoker Chew tobacco use (# tins/day): No Frequency of alcohol use: Rare Drug Abuse: None Lives with: Family Family History: Reviewed & Not Pertinent Patient has suicidal ideation: No Patient has homicidal ideation: No - Past Medical History Cardiac Medical History: Reports: None Pulmonary Medical History: Reports: None EENT Medical History: Reports: None Neurological Medical History: Reports: None Endocrine Medical History: Reports: None Renal/ Medical History: Reports: Hx Kidney Stones Malignancy Medical History: Reports None GI Medical History: Reports: None Musculoskeletal Medical History: Reports Hx Arthritis Skin Medical History: Reports Hx Cellulitis, Reports Hx MRSA, Reports Other - Hydradenitis in the groin and buttocks Psychiatric Medical History: Reports: Hx Bipolar Disorder, Hx Depression, Hx Post Traumatic Stress Disorder, Hx Schizophrenia Traumatic Medical History: Reports: None Infectious Medical History: Reports: Hx MRSA Past Surgical History: Reports: Other - skin graft - Immunizations Hx Diphtheria, Pertussis, Tetanus Vaccination: Yes Vertical Provider Document - CONSTITUTIONAL Agree With Documented VS: Yes - INFECTION CONTROL TRAVEL OUTSIDE OF THE [place] IN LAST 30 DAYS: No - HEENT HEENT: Atraumatic, Normal ENT Exam, Normocephalic, PERRLA - NECK Neck: Normal Inspection, Supple, Thyroid Normal - RESPIRATORY Respiratory: Breath Sounds Normal, No Respiratory Distress, Chest Non-Tender - CARDIOVASCULAR Cardiovascular: Regular Rate, Regular Rhythm - GI/ABDOMEN Gastrointestinal: Abdomen Soft, Abdomen Non-Tender, No Organomegaly, Normal Geo wel Sounds - REPRODUCTIVE Notes: Multiple abscesses in various stages of healing and scarring to the groin buttocks and upper thighs with one that needs opening today tender swollen painful - MUSCULOSKELETAL/EXTREMETIES Musculoskeletal/Extremeties: MAEW, FROM, Non-Tender - NEURO Level of Consciousness: Awake, Alert, Appropriate Motor/Sensory: No Motor Deficit Deep Tendon Reflexes: 2+ - DERM Integumentary: Abscess - Left groin/upper thigh Course - Re-evaluation Re-evalutation: 12/29/18 02:06 Patient treated with Percocet in the emergency room discharged home with prescription for 8 Percocet as he does have multiple abscesses in various stages of healing including one that was open tonight. Patient was also sent home with prescription for Bactrim. Patient to follow-up with his primary care doctor and pain control for his continued pain from his abscesses. - Vital Signs Vital signs: Temp Pulse Resp BP Pulse Ox 98.3 F 83 16 116/73 97 12/28/18 14:17 12/28/18 14:17 12/28/18 14:17 12/28/18 14:17 12/28/18 14:17 Procedures - Incision and Drainage Left Groin Time completed: 19:19 Type: Simple - has multiple draining one I&D'd now Anesthetic type: 1% Lidocaine mL's of anesthetic: 5 Blade size: 11 I&D procedure: Betadine prep applied Incision Method: Incision made by scalpel Amount/type of drainage: moderalte purulent Discharge - Discharge Clinical Impression: Perineal abscess Condition: Stable Disposition: HOME, SELF-CARE Additional Instructions: ABSCESS: You have an abscess (boil). This a pus-forming infection, usually due to staph. Some boils may be left to drain on their own, but most require lancing. From the time the tender lump first appears, it may be three or four days before the abscess is ready to betina. Local heat and rest help at this stage of treatment. An antibiotic may prevent spread of the infection. Once the abscess is opened, packing may be placed into it. This is done so pus is not sealed inside by premature closure of the cavity. The packing will be removed at your follow-up visit or you may be advised to remove it yourself at home. Sometimes this packing must be replaced a few times during healing. The wound will heal with surprisingly little scar. Depending on the size and location of an abscess, healing can take one to four weeks. You may shower and wash the area around the incision site two or three times a day. Antibiotics may be prescribed, but are usually not necessary after an abscess has been drained. If you develop fever, chills, worsening pain, or increasing swelling in the area, call the doctor or return immediately. POST INCISION AND DRAINAGE: You have had an incision made to allow drainage of an abscess. The incision must remain open so that pus and debris can drain from the wound. If the abscess cavity is large, packing is placed. This keeps the tissues from collapsing and trapping pus inside, while the body shrinks the cavity. The packing may need to be replaced every day or two. The physician will instruct you on the packing. Keep a bulky dressing over the area. Replace it if it becomes saturated with blood or pus. Do not disturb the packing (if present). You may shower and cleanse the area with gentle soap and warm water two or three times a day. Local warmth may be soothing, and may promote faster healing. Return if you develop high fever or chills, or if you note spreading redness, increasing swelling, or increasing tenderness. ORAL NARCOTIC MEDICATION: You have been given a prescription for pain control. This medication is a narcotic. It's best taken with food, as nausea can result if taken on an empty stomach. Don't operate machinery or drive within six hours of taking this medication. Do not combine this medicine with alcohol, or with any medication which can cause sedation (such as cold tablets or sleeping pills) unless you get permission from the physician. Narcotics tend to cause constipation. If possible, drink plenty of fluids and eat a diet high in fiber and fruits. CEPHALEXIN: The antibiotic you've been prescribed is a member of the cephalosporin class. This type of antibiotic covers a wide variety of infections, including those of the skin, lungs, and urinary tract. It's useful for staph infections. This antibiotic is slightly similar to the penicillin family. In rare cases, a person who is allergic to penicillin will also be allergic to this medication. If you have had a severe allergic reaction to penicillin, and have not taken this antibiotic since that time, notify your doctor. Antibiotics which cover many germs ("broad spectrum" antibiotics) are more likely to cause diarrhea or "yeast" infections. Women prone to vaginal yeast problems may suffer an attack after taking this antibiotic. In infants, oral thrush (white spots "stuck" on the cheek) or yeast diaper rash may result. See your doctor if these problems occur. Call at once if you develop itching, hives, shortness of breath, or lightheadedness. TRIMETHOPRIM-SULFA: You have been given a prescription for trimethoprim-sulfa (TMS, Septra, Bactrim). This is a combination antibiotic of the sulfa class, often used for urinary tract infections, middle ear infections, bronchitis, shigella intestinal infection, and Pneumocystis pneumonia. TMS is usually well-tolerated. Occasional side effects include nausea and decreased appetite. Septra is not recommended for infants less than two months of age. Do not take this medication if you have experienced severe side effects or allergy to sulfa medicine. You should stop this medicine at once and contact your physician if you develop any rash, joint pain, shortness of breath, bruising, or jaundice (yellow color in the skin), or if you develop any other new or unusual symptoms. FOLLOW-UP CARE: Most simple abscesses will not require a follow up visit. If you had packing placed in the abscess, remove it as instructed by the physician. If you have been referred to a physician for follow-up care, call the physicians office for an appointment as you were instructed or within the next two days. If you experience worsening or a significant change in your symptoms, return to the Emergency Department at any time for re-evaluation. Prescriptions: Sulfamethoxazole/Trimethoprim [Bactrim Ds Tablet] 1 each PO BID #20 tablet Oxycodone HCl/Acetaminophen [Percocet 5-325 mg Tablet] 1 tab PO BID PRN #8 tablet PRN Reason: For Pain Scale 3-5 Referrals: LUCAS MILLER MD [ACTIVE STAFF] - Follow up in 3-5 days
[2018-12-28 19:29] VITALS: BP 120/76
== END 2018-12-28 19:30 | disposition home or self-care (01) ==
LOC: ER 14:01
DX: L02.214 Cutaneous abscess of groin (principal); Z86.14 Personal history of Methicillin resistant Staphylococcus aureus infection; Z87.442 Personal history of urinary calculi
CPT/HCPCS: 10060; J3490

== ENCOUNTER 2019-01-10 13:21 | Emergency (ER) | payer MEDICAID ==
[2019-01-10 13:43] VITALS: BP 101/73
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
== END 2019-01-10 15:55 | disposition left against medical advice (07) ==
LOC: ER 13:21
DX: K62.89 Other specified diseases of anus and rectum (principal); Z88.6 Allergy status to analgesic agent; Z87.442 Personal history of urinary calculi; Z86.14 Personal history of Methicillin resistant Staphylococcus aureus infection
CPT/HCPCS: 99281

== ENCOUNTER 2019-01-12 14:05 | Emergency (ER) | payer MEDICAID ==
[2019-01-12] MEDS ORDERED: OXYCODONE-ACETAMINOPHEN 5-325 MG TABLET PO ONE (16:16)
--- NOTE | 2019-01-12 16:21 | ER Document Report ---
ED GI Bleed / Rectal Pain - General Chief Complaint: Rectal Bleeding Stated Complaint: POSSIBLE ABSCESS Time Seen by Provider: 01/12/19 15:52 Primary Care Provider: ROJELIO SUNSHINE FNP-C [Primary Care Provider] - Follow up as needed Notes: Patient says he has multiple small abscesses in the perianal region. Several of them have gone to the point he thinks they need to be cut. Patient has had to go to the operating room on 9 previous occasions over the last 5 years to drain various abscesses. Patient says the last time he had to go to the operating room was about a month ago at this hospital. He was here about a week ago and had some small lesions cut without having to go to the OR. He was discharged to take Bactrim, which he says is almost finished now. Complains of pain in all of the areas, particularly the inner left cheek in the perineal region. Patient says that while he was at home today, he noted some blood in his bowel movement, which is not happened previously. He has been told he has some of these lesions internally. TRAVEL OUTSIDE OF THE [place] IN LAST 30 DAYS: No - Related Data Allergies/Adverse Reactions: hydrocodone Allergy (Verified 01/10/19 13:22) ibuprofen Allergy (Verified 01/10/19 13:22) naproxen Allergy (Verified 01/10/19 13:22) tramadol Allergy (Verified 01/10/19 13:22) Past Medical History - Social History Smoking Status: Unknown if Ever Smoked Family History: Reviewed & Not Pertinent Patient has suicidal ideation: No Patient has homicidal ideation: No Renal/ Medical History: Reports: Hx Kidney Stones Musculoskeletal Medical History: Denies None, Reports Hx Arthritis, Denies Hx Fibromyalgia, Denies Hx Gout, Denies Hx Multiple Sclerosis, Denies Hx Muscular Dystrophy, Denies Hx Muscle Spasm, Denies Hx Muscle Weakness, Denies Hx Musculoskeletal Deformity, Denies Hx Musculoskeletal Trauma, Denies Hx Myositis, Denies Hx Restless Leg Syndrome, Denies Hx Systemic Lupus Erythematosus, Denies Other Skin Medical History: Reports Hx Cellulitis, Reports Hx MRSA Psychiatric Medical History: Reports: Hx Bipolar Disorder, Hx Depression, Hx Post Traumatic Stress Disorder, Hx Schizophrenia Infectious Medical History: Reports: Hx MRSA Past Surgical History: Reports: Other - skin graft Multiple operative procedures to drain these small abscesses - Immunizations Hx Diphtheria, Pertussis, Tetanus Vaccination: Yes Review of Systems - Review of Systems Notes: CONSTITUTIONAL : Denies fever. CARDIOVASCULAR: Denies chest pain. RESPIRATORY: Denies cough, chest congestion, or shortness of breath. GASTROINTESTINAL: Denies abdominal pain or nausea, vomiting, or diarrhea. GENITOURINARY: Denies difficulty or painful urinating, urinary frequency, blood in urine. -: Yes ROS unobtainable due to patient's medical condition Physical Exam - Vital signs Vitals: Temp Pulse Resp BP Pulse Ox 98.6 F 82 16 133/75 H 98 01/12/19 14:15 01/12/19 14:15 01/12/19 14:15 01/12/19 14:15 01/12/19 14:15 Interpretation: Normal Notes: PHYSICAL EXAMINATION: GENERAL: Well-appearing, no acute distress. HEAD: Atraumatic, normocephalic. NECK: Normal range of motion, supple. LUNGS: Breath sounds clear and equal bilaterally. HEART: Regular rate and rhythm without murmurs heard. ABDOMEN: Soft, nontender. No guarding or rebound or masses felt. Perineum: Multiple small subcutaneous abscesses in the perianal region, especially on the left. No current drainage. Course - Re-evaluation Re-evalutation: 01/12/19 19:27 Patient was evaluated by Dr. Zimmerman, surgeon epic beacon analyst. He requested a CT scan which was done. No large, deep abscess seen on the CT scan. Patient is white count was 16,500. Dr. Zimmerman feels patient can be discharged on antibiotics to follow-up in the office. - Vital Signs Vital signs: Temp Pulse Resp BP Pulse Ox 98.3 F 82 16 133/75 H 98 01/12/19 16:07 01/12/19 14:15 01/12/19 14:15 01/12/19 14:15 01/12/19 14:15 - Laboratory Result Diagrams: 01/12/19 16:31 Laboratory results interpreted by me: 01/12/19 16:31 WBC 16.5 H Hgb 11.9 L MCV 70 L MCH 21.8 L MCHC 31.2 L RDW 15.4 H Absolute Neuts (auto) 11.0 H Discharge - Discharge Clinical Impression: Perirectal abscess, Hidradenitis suppurativa of anus, Perineal abscess, Leukocytosis Condition: Stable Disposition: HOME, SELF-CARE Additional Instructions: ABSCESS: You have an abscess (boil). This a pus-forming infection, usually due to staph. Some boils may be left to drain on their own, but most require lancing. From the time the tender lump first appears, it may be three or four days before the abscess is ready to betina. Local heat and rest help at this stage of treatment. An antibiotic may prevent spread of the infection. Once the abscess is opened, packing may be placed into it. This is done so pus is not sealed inside by premature closure of the cavity. The packing will be removed at your follow-up visit or you may be advised to remove it yourself at home. Sometimes this packing must be replaced a few times during healing. The wound will heal with surprisingly little scar. Depending on the size and location of an abscess, healing can take one to four weeks. You may shower and wash the area around the incision site two or three times a day. Antibiotics may be prescribed, but are usually not necessary after an abs cess has been drained. If you develop fever, chills, worsening pain, or increasing swelling in the area, call the doctor or return immediately. ORAL NARCOTIC MEDICATION: You have been given a prescription for pain control. This medication is a narcotic. It's best taken with food, as nausea can result if taken on an empty stomach. Don't operate machinery or drive within six hours of taking this medication. Do not combine this medicine with alcohol, or with any medication which can cause sedation (such as cold tablets or sleeping pills) unless you get permission from the physician. Narcotics tend to cause constipation. If possible, drink plenty of fluids and eat a diet high in fiber and fruits. TRIMETHOPRIM-SULFA: You have been given a prescription for trimethoprim-sulfa (TMS, Septra, Bactrim). This is a combination antibiotic of the sulfa class, often used for urinary tract infections, middle ear infections, bronchitis, shigella intestinal infection, and Pneumocystis pneumonia. TMS is usually well-tolerated. Occasional side effects include nausea and decreased appetite. Septra is not recommended for infants less than two months of age. Do not take this medication if you have experienced severe side effects or allergy to sulfa medicine. You should stop this medicine at once and contact your physician if you develop any rash, joint pain, shortness of breath, bruising, or jaundice (yellow color in the skin), or if you develop any other new or unusual symptoms. FOLLOW-UP CARE: Most simple abscesses will not require a follow up visit. If you had packing placed in the abscess, remove it as instructed by the physician. If you have been referred to a physician for follow-up care, call the physicians office for an appointment as you were instructed or within the next two days. If you experience worsening or a significant change in your symptoms, return to the Emergency Department at any time for re-evaluation. Prescriptions: Oxycodone HCl/Acetaminophen [Percocet 5-325 mg Tablet] 1 - 2 tab PO Q4H PRN #12 tablet PRN Reason: Sulfamethoxazole/Trimethoprim [Septra-Ds 800-160 mg Tablet] 1 tab PO BID #20 tablet Referrals: ROJELIO SUNSHINE FNP-C [Primary Care Provider] - Follow up as needed
[2019-01-12] MEDS ORDERED: ONDANSETRON 4 MG TAB.RAPDIS PO ONE (17:02)
[2019-01-12 17:03] LABS: ABSOLUTE BASOPHILS # (AUTO) 0.1 10^3/uL (0.0-0.2); ABSOLUTE EOSINOPHILS # (AUTO) 0.2 10^3/uL (0.0-0.6); ABSOLUTE MONOCYTES (AUTO) 1.3 10^3/uL (0.1-1.4); BASOPHILS % (AUTO) 0.5 % (0-2); EOSINOPHILS % (AUTO) 1.3 % (0-6); HEMATOCRIT 38.2 % (37.9-51.0); HEMOGLOBIN 11.9 g/dL (13.5-17.0); LYMPHOCYTES % (AUTO) 24.1 % (13-45); MEAN CORPUSCULAR HEMOGLOBIN 21.8 pg (27.0-33.4); MEAN CORPUSCULAR HGB CONC 31.2 g/dL (32.0-36.0); MEAN CORPUSCULAR VOLUME 70 fl (80-97); MONOCYTES % (AUTO) 7.8 % (3-13); PLATELET COUNT 253 10^3/uL (150-450); RED BLOOD COUNT 5.46 10^6/uL (4.35-5.55); RED CELL DISTRIBUTION WIDTH 15.4 % (11.5-14.0); SEGMENTED NEUTROPHILS % (AUTO) 66.3 % (42-78); TOTAL CELLS COUNTED % (AUTO) 100 %; WHITE BLOOD COUNT 16.5 10^3/uL (4.0-10.5)
--- NOTE | 2019-01-12 18:56 | RADIOLOGY REPORT (SQ) ---
EXAM DESCRIPTION: CT ABD/PELVIS NO ORAL OR IV COMPLETED DATE/TIME: 01/12/2019 6:06 pm REASON FOR STUDY: Multiple small perineal abscesses, 9 surgeries COMPARISON: 12/09/2018 and 11/24/2017 TECHNIQUE: CT scan of the abdomen and pelvis performed without intravenous or oral contrast. Images reviewed with lung, soft tissue, and bone windows. Reconstructed coronal and sagittal MPR images revi ewed. All images stored on PACS. All CT scanners at this facility use dose modulation, iterative reconstruction, and/or weight based d osing when appropriate to reduce radiation dose to as low as reasonably achievable (ALARA). [facility]: Dose Right [facility]: CareDose [facility]: Dose Right [facility]: Teradose 4D [facility]: [employer] RADIATION DOSE: CT Rad equipment meets quality standard of care and radiation dose reduction techniq ues were employed. CTDIvol: 14.5 mGy. DLP: 811 mGy-cm.mGy. LIMITATIONS: None. FINDINGS: LOWER CHEST: Similar small right lower lobe nodularity. No consolidation or pleural effus ion. NON-CONTRASTED LIVER, SPLEEN, ADRENALS: Evaluation limited by lack of IV contrast. No identified sign ificant masses. PANCREAS: No masses. No peripancreatic inflammatory changes. GALLBLADDER: Small calcified stones. No inflammatory changes to suggest cholecystitis. RIGHT KIDNEY AND URETER: No cysts identified. No solid masses. Small calcified stones. No hydronephr osis or hydroureter. LEFT KIDNEY AND URETER: No cysts identified. No solid masses. No calcified stones. No hydronephrosis or hydroureter. AORTA AND RETROPERITONEUM: No aneurysm. No retroperitoneal masses or adenopathy. BOWEL AND PERITONEAL CAVITY: Mild perirectal inflammatory changes without evidence for recurrent flui d collection compared with the prior study. Diverticulosis. APPENDIX: Normal. PELVIS, BLADDER, AND ABDOMINAL WALL:Mild perirectal inflammatory changes without evidence for recurre nt fluid collection compared with the prior study. . Unremarkable bladder. BONES: No acute findings. OTHER: No other significant finding. IMPRESSION: Mild perirectal inflammatory changes without evidence for recurrent fluid collection com pared with the prior study. TECHNICAL DOCUMENTATION: JOB ID: [id number] [place]-72 Quality ID # [id number]: Final reports with documentation of one or more dose reduction techniques (e.g., Au tomated exposure control, adjustment of the mA and/or kV according to patient size, use of iterative reconstruction technique) 2010 [employer]- All Rights Reserved Reading location - IP/workstation name: [email or web address]
[2019-01-12 19:28] VITALS: BP 114/69
== END 2019-01-12 19:05 | disposition home or self-care (01) ==
LOC: ER 14:05
DX: K61.0 Anal abscess (principal); L73.2 Hidradenitis suppurativa; D72.829 Elevated white blood cell count, unspecified; R19.5 Other fecal abnormalities
CPT/HCPCS: 36415; 85025; 74176; S0119

== ENCOUNTER 2019-02-15 09:27 | Emergency (ER) | payer MEDICAID ==
[2019-02-15] MEDS ORDERED: LIDOCAINE 1% INJ-PF (10 MG/ML) 30 ML SDV INJ ONE (09:38)
--- NOTE | 2019-02-15 09:44 | ER Document Report ---
ED Skin Rash/Insect Bite/Abscs - General Chief Complaint: Cyst Stated Complaint: POSSIBLE ABSCESS Time Seen by Provider: 02/15/19 09:33 Primary Care Provider: DAVE LORA MD [ACTIVE STAFF] - Follow up as needed ROJELIO SUNSHINE FNP-C [Primary Care Provider] - Follow up as needed TRAVEL OUTSIDE OF THE [place] IN LAST 30 DAYS: No - HPI Notes: Patient is a 53-year-old male that presents to the emergency department for chief complaint of abscesses. Patient reports history of multiple abscesses in his groin and buttocks region over the last few years. He states that some of them spontaneously drained on their own. Today he presents for concern of an abscess on his left thigh that is requiring drainage. Patient denies fever, chills, difficulty urinating or having bowel movements. He is not currently on antibiotics but states he has been on multiple courses throughout the year. Patient is requesting pain medication and states he has not taken anything at home for pain including Tylenol and Motrin. Past Medical History: Pilonidal cyst, perirectal abscess, hidradenitis suppurativa of groin Past Surgical History: Abscess incision and drainage Social History: reviewed in chart Family History: Reviewed and noncontributory for presenting illness Allergies: Reviewed, see documented allergy list. REVIEW OF SYSTEMS: CONSTITUTIONAL : No fever No chills No diaphoresis No recent illness EENT: No vision changes No congestion No sore throat CARDIOVASCULAR: No chest pain No palpitations RESPIRATORY: No shortness of breath No cough No difficulty breathing GASTROINTESTINAL: No abdominal pain No nausea No vomiting No diarrhea GENITOURINARY: No dysuria No hematuria No difficulty urinating MUSCULOSKELETAL: No back pain No leg pain No arm pain SKIN: No rashes lesions LYMPHATIC: No swollen, enlarged glands. NEUROLOGICAL: No lightheadedness No headache No weakness No paresthesias PSYCHIATRIC: No anxiety No depression PHYSICAL EXAMINATION: Vital signs reviewed, nursing noted reviewed. GENERAL: Well-appearing, well-nourished and in no acute distress. HEAD: Atraumatic, normocephalic. EYES: Eyes appear normal, extraocular movements intact, sclera anicteric, conjunctiva are normal. ENT: nares patent, oropharynx clear without exudates. Moist mucous membranes. NECK: Normal range of motion, supple without lymphadenopathy LUNGS: Breath sounds clear to auscultation bilaterally and equal. No wheezes rales or rhonchi. HEART: Regular rate and rhythm without murmurs ABDOMEN: Soft, nontender, normoactive bowel sounds. No rebound, guarding, or rigidity. No masses appreciated. : No inguinal crepitus or erythema. Extensive inguinal scarring without tenderness or drainage. No scrotal erythema or crepitus EXTREMITIES: Nontender, good range of motion, no pitting or edema. NEUROLOGICAL: No focal neurological deficits. Moves all extremities spontaneously Motor and sensory grossly intact on exam. PSYCH: Normal mood, normal affect. SKIN: Warm, Dry, normal turgor. Left medial thigh erythema measuring 3.0 cm x 2.5 cm with central area of fluctuance and no spontaneous drainage. - Related Data Allergies/Adverse Reactions: ibuprofen Allergy (Verified 01/10/19 13:22) naproxen Allergy (Verified 01/10/19 13:22) tramadol Allergy (Verified 01/10/19 13:22) Past Medical History - Social History Smoking Status: Unknown if Ever Smoked Family History: Reviewed & Not Pertinent Endocrine Medical History: Denies: Hx Diabetes Mellitus Type 1, Hx Diabetes Mellitus Type 2 Renal/ Medical History: Reports: Hx Kidney Stones. Denies: Hx Peritoneal Dialysis Musculoskeletal Medical History: Reports Hx Arthritis, Denies Hx Fibromyalgia, Denies Hx Gout, Denies Hx Multiple Sclerosis, Denies Hx Muscular Dystrophy, Denies Hx Muscle Spasm, Denies Hx Muscle Weakness, Denies Hx Musculoskeletal Deformity, Denies Hx Musculoskeletal Trauma, Denies Hx Systemic Lupus Erythematosus Skin Medical History: Reports Hx Cellulitis, Reports Hx MRSA Psychiatric Medical History: Reports: Hx Bipolar Disorder, Hx Depression, Hx Post Traumatic Stress Disorder, Hx Schizophrenia Infectious Medical History: Reports: Hx MRSA Past Surgical History: Reports: Other - skin graft Multiple operative procedures to drain these small abscesses - Immunizations Hx Diphtheria, Pertussis, Tetanus Vaccination: Yes Physical Exam - Vital signs Vitals: Temp Pulse Resp BP 97.4 F 88 19 91/71 L 02/15/19 09:49 02/15/19 09:49 10 09:49 02/15/19 09:49 Course - Re-evaluation Re-evalutation: 02/15/19 10:21 Vitals reviewed. Nursing notes reviewed. Patient had a superficial simple abscess in the medial aspect of his left thigh that was incised and drained. There is no sign currently of perianal/perirectal abscess, or Rayshawn's. Patient has been requesting narcotic pain medication since arrival in the ED. His pain will be treated with Percocet in the emergency room since he just received incision and drainage. Currently patient has a superficial simple abscess without extensive tracking. Patient on chart review has had multiple prescriptions for opiate medications this year. I am concerned he may be developing a dependence on this medication given his frequent reoccurrence of abscesses. At this point I do not feel opiate pain medicine is indicated given the simplicity of his current abscess. Patient does need to be reevaluated by surgery for more definitive treatment and possible long-term antibiotics which I did discuss with him. Patient would like a new referral to a different surgeon than he had previously seen and will be provided Dr. Lora's contact information. Patient will be started on Bactrim. He is discharged in stable condition with return precautions 02/15/19 11:19 After discharge patient became increasingly agitated. He states that his pain is intolerable. He states that he requires more pain medication than just Tylenol at home. I have had a lengthy discussion with this patient regarding my concerns for his frequent dosing of narcotic pain medications and the risk of dependence on these medications. Patient has extensive disease with his hidradenitis and pilonidal cyst as well as a history of surgeries and I anticipate he will continue to have issues with abscesses in the future. I strongly advised limited use of narcotic pain medications but will provide a short course of [place] to bridge patient's pain while his current abscess is healing. I advised him on the addictive properties of this medication. I also advised him on close follow-up with the surgeon's office and return precautions. - Vital Signs Vital signs: Temp Pulse Resp BP Pulse Ox 98.1 F 94 20 104/71 99 02/15/19 10:36 02/15/19 10:36 02/15/19 10:36 02/15/19 10:36 02/15/19 10:36 Procedures - Incision and Drainage Left Thigh Time completed: 10:20 - Verbal verbal consent obtained by patient Type: Simple Anesthetic type: 1% Lidocaine w/epi mL's of anesthetic: 3 Blade size: 11 I&D procedure: Betadine prep applied, Iodoform packing placed, Sterile dressing applied Incision Method: Incision made by scalpel Amount/type of drainage: copius purulent drainage Notes: 02/15/19 10:20 Tolerated without immediate complications Discharge - Discharge Clinical Impression: Abscess of left thigh Condition: Stable Disposition: HOME, SELF-CARE Additional Instructions: Please return to the emergency department if you have any worsening, or concern of your symptoms. Please return to the emergency department if you develop chest pain, difficulty breathing, severe abdominal pain, or ongoing vomiting. Please follow-up with your primary care physician in 2-3 days and any other recommended physicians. If prescribed, take all medications as directed. If you have any questions or concerns do not hesitate to return the emergency department for evaluation. Continue washing with antibacterial soap. Contact Dr. Lora, general surgery, for follow-up and more definitive treatment of your abscesses. Please discuss with him the possibility of starting long- term antibiotics to prevent further abscesses. Take Tylenol as needed for pain Prescriptions: Sulfamethoxazole/Trimethoprim [Septra-Ds 800-160 mg Tablet] 1 tab PO BID #20 tablet Referrals: ROJELIO SUNSHINE, [employer]-C [Primary Care Provider] - Follow up as needed DAVE LORA MD [ACTIVE STAFF] - Follow up as needed
[2019-02-15] MEDS ORDERED: SULFAMETHOXAZOLE/TRIMETHOPRIM 800-160 MG TABLET PO ONE (10:19)
[2019-02-15] MEDS ORDERED: OXYCODONE-ACETAMINOPHEN 5-325 MG TABLET PO ONE (10:19)
[2019-02-15 10:38] VITALS: BP 104/71
[2019-02-15] MEDS ORDERED: HYDROCODONE/ACETAMINOPHEN 5-325 MG (6 TAB/ER DISP) PO PRN (11:18)
== END 2019-02-15 10:44 | disposition home or self-care (01) ==
LOC: ER 09:27
PROC: 0H9JXZZ Drainage of Left Upper Leg Skin, External Approach (ICD-10-PCS; principal; 2019-02-15)
DX: L02.416 Cutaneous abscess of left lower limb (principal); L02.31 Cutaneous abscess of buttock; Z86.14 Personal history of Methicillin resistant Staphylococcus aureus infection
CPT/HCPCS: 10060; J3490 ×2; 99283

== ENCOUNTER 2019-03-19 13:20 | Emergency (ER) | payer MEDICAID ==
[2019-03-19 13:36] VITALS: BP 136/96
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
--- NOTE | 2019-03-19 16:22 | ER Document Report ---
Doctor's Note Notes: 03/19/19 16:20 I signed up to see this patient. I went to the room to evaluate the patient. I was notified at that point by nursing that the patient had left AGAINST MEDICAL ADVICE. Evidently he had some place to be. I reviewed his chart, but I did not interview, examined, or evaluate the patient in any other way.
== END 2019-03-19 15:21 | disposition left against medical advice (07) ==
LOC: ER 13:20
DX: Z53.21 Procedure and treatment not carried out due to patient leaving prior to being seen by health care provider (principal); L02.416 Cutaneous abscess of left lower limb; L02.214 Cutaneous abscess of groin
CPT/HCPCS: 99283

== ENCOUNTER 2019-06-01 11:48 | Emergency (ER) | payer MEDICAID ==
--- NOTE | 2019-06-01 13:04 | ER Document Report ---
ED Medical Screen (RME) - General Chief Complaint: Rectal Abscess Stated Complaint: POSSIBLE ABSCESS Time Seen by Provider: 06/01/19 13:00 Primary Care Provider: ROJELIO SUNSHINE FNP-C [Primary Care Provider] - Follow up as needed Mode of Arrival: Wheelchair Information source: Patient Notes: 53-year-old male presented to ED for exacerbation of multiple abscesses to the perineal and rectal area. He states that his wound is inside his rectum that is draining frequently. He has 2 others that are draining also. He did states that the one inside his rectum is having a lot of blood come from. Patient is alert oriented respirations regular nonlabored speaking in full sentences. I have greeted and performed a rapid initial assessment of this patient. A co mprehensive ED assessment and evaluation of the patient, analysis of test results and completion of medical decision making process will be conducted by an additional ED providers. TRAVEL OUTSIDE OF THE [place] IN LAST 30 DAYS: No - Related Data Allergies/Adverse Reactions: ibuprofen Allergy (Verified 06/01/19 12:59) naproxen Allergy (Verified 06/01/19 12:59) sulfamethoxazole [From Bactrim] Allergy (Verified 06/01/19 12:59) tramadol Allergy (Verified 06/01/19 12:59) trimethoprim [From Bactrim] Allergy (Verified 06/01/19 12:59) Past Medical History Endocrine Medical History: Denies: Hx Diabetes Mellitus Type 1, Hx Diabetes Mellitus Type 2 Renal/ Medical History: Reports: Hx Kidney Stones. Denies: Hx Peritoneal Dialysis Musculoskeltal Medical History: Reports Hx Arthritis, Denies Hx Fibromyalgia, Denies Hx Gout, Denies Hx Multiple Sclerosis, Denies Hx Muscular Dystrophy, Denies Hx Muscle Spasm, Denies Hx Muscle Weakness, Denies Hx Musculoskeletal Deformity, Denies Hx Musculoskeletal Trauma, Denies Hx Systemic Lupus E rythematosus Skin Medical History: Reports Hx Cellulitis, Reports Hx MRSA Psychiatric Medical History: Reports: Hx Bipolar Disorder, Hx Depression, Hx Post Traumatic Stress Disorder, Hx Schizophrenia Infectious Medical History: Reports: Hx MRSA Past Surgical History: Reports: Other - skin graft Multiple operative procedures to drain these small abscesses - Immunizations Hx Diphtheria, Pertussis, Tetanus Vaccination: Yes Physical Exam - Vital signs Vitals: Temp Pulse Resp BP Pulse Ox 97.6 F 85 18 104/89 H 100 06/01/19 12:02 06/01/19 12:02 06/01/19 12:02 06/01/19 12:02 06/01/19 12:02 Course - Vital Signs Vital signs: Temp Pulse Resp BP Pulse Ox 97.6 F 85 18 104/89 H 100 06/01/19 12:02 06/01/19 12:02 06/01/19 12:02 06/01/19 12:02 06/01/19 12:02 Doctor's Discharge - Discharge Referrals: ROJELIO SUNSHINE, S[employer]IOR [employer]-C [Primary Care Provider] - Follow up as needed
[2019-06-01 13:56] LABS: ABSOLUTE BASOPHILS # (AUTO) 0.1 10^3/uL (0.0-0.2); ABSOLUTE EOSINOPHILS # (AUTO) 0.2 10^3/uL (0.0-0.6); ABSOLUTE MONOCYTES (AUTO) 1.4 10^3/uL (0.1-1.4); ABSOLUTE NEUT (AUTO) 11.3 10^3/uL (1.7-8.2); BASOPHILS % (AUTO) 0.8 % (0-2); HEMATOCRIT 42.7 % (37.9-51.0); HEMOGLOBIN 13.8 g/dL (13.5-17.0); LYMPHOCYTES % (AUTO) 18.5 % (13-45); MEAN CORPUSCULAR HEMOGLOBIN 22.4 pg (27.0-33.4); MEAN CORPUSCULAR HGB CONC 32.2 g/dL (32.0-36.0); MEAN CORPUSCULAR VOLUME 69 fl (80-97); PLATELET COUNT 366 10^3/uL (150-450); RED BLOOD COUNT 6.15 10^6/uL (4.35-5.55); RED CELL DISTRIBUTION WIDTH 14.7 % (11.5-14.0); SEGMENTED NEUTROPHILS % (AUTO) 70.7 % (42-78); TOTAL CELLS COUNTED % (AUTO) 100 %
[2019-06-01 14:19] LABS: ALBUMIN 4.6 g/dL (3.5-5.0); ALKALINE PHOSPHATASE 94 U/L (38-126); ANION GAP 12 (5-19); ASPARTATE AMINO TRANSFERASE 17 U/L (17-59); BILIRUBIN,TOTAL 0.7 mg/dL (0.2-1.3); BLOOD UREA NITROGEN 10 mg/dL (7-20); CALCIUM 9.8 mg/dL (8.4-10.2); CARBON DIOXIDE 25 mmol/L (22-30); CHLORIDE 105 mmol/L (98-107); GLUCOSE 98 mg/dL (75-110); POTASSIUM 4.2 mmol/L (3.6-5.0); TOTAL PROTEIN 8.6 g/dL (6.3-8.2)
[2019-06-01 14:50] LABS: APPEARANCE,URINE CLEAR; BILIRUBIN,URINE NEGATIVE (NEGATIVE); COLOR,URINE YELLOW; GLUCOSE, URINE NEGATIVE (NEGATIVE); KETONES,URINE NEGATIVE (NEGATIVE); PROTEIN,URINE NEGATIVE (NEGATIVE); URINE SPECIFIC GRAVITY 1.015
[2019-06-01] MEDS ORDERED: DOXYCYCLINE HYCLATE 100 MG TABLET PO ONE (16:16)
[2019-06-01] MEDS ORDERED: OXYCODONE-ACETAMINOPHEN 5-325 MG TABLET PO ONE (16:16)
--- NOTE | 2019-06-01 16:16 | ER Document Report ---
ED GI Bleed / Rectal Pain - General Chief Complaint: Rectal Abscess Stated Complaint: POSSIBLE ABSCESS Time Seen by Provider: 06/01/19 13:00 Primary Care Provider: DAVE LORA MD [ACTIVE STAFF] - Follow up as needed Mode of Arrival: Wheelchair Notes: Patient is a 53-year-old male with a history of hidradenitis suppurativa, schizophrenia, bipolar, depression and PTSD who presents to the emergency department with a chief complaint of rectal pain. Patient reports he has an extensive history of hidradenitis with multiple surgeries over the past 5 years. Patient reports that on Thursday he noticed that the right side of his buttocks was more swollen and tender to touch. Patient reports when he wipes with a tissue he notices a small amount of blood. Patient denies fever. Patient d enies history of diabetes or MRSA. Patient reports that when this happens he does require oral antibiotics. TRAVEL OUTSIDE OF THE [place] IN LAST 30 DAYS: No - Related Data Allergies/Adverse Reactions: ibuprofen Allergy (Verified 06/01/19 12:59) naproxen Allergy (Verified 06/01/19 12:59) sulfamethoxazole [From Bactrim] Allergy (Verified 06/01/19 12:59) tramadol Allergy (Verified 06/01/19 12:59) trimethoprim [From Bactrim] Allergy (Verified 06/01/19 12:59) Past Medical History - General Information source: Patient - Social History Smoking Status: Current Some Day Smoker Chew tobacco use (# tins/day): No Drug Abuse: None Family History: Reviewed & Not Pertinent Patient has suicidal ideation: No Patient has homicidal ideation: No Endocrine Medical History: Denies: Hx Diabetes Mellitus Type 1, Hx Diabetes Mellitus Type 2 Renal/ Medical History: Reports: Hx Kidney Stones. Denies: Hx Peritoneal Dialysis Musculoskeletal Medical History: Reports Hx Arthritis, Denies Hx Fibromyalgia, Denies Hx Gout, Denies Hx Multiple Sclerosis, Denies Hx Muscular Dystrophy, Denies Hx Muscle Spasm, Denies Hx Muscle Weakness, Denies Hx Musculoskeletal Deformity, Denies Hx Musculoskeletal Trauma, Denies Hx Systemic Lupus E rythematosus Skin Medical History: Reports Hx Cellulitis, Reports Hx MRSA Psychiatric Medical History: Reports: Hx Bipolar Disorder, Hx Depression, Hx Post Traumatic Stress Disorder, Hx Schizophrenia Infectious Medical History: Reports: Hx MRSA Past Surgical History: Reports: Other - skin graft Multiple operative procedures to drain these small abscesses - Immunizations Hx Diphtheria, Pertussis, Tetanus Vaccination: Yes Physical Exam - Vital signs Vitals: Temp Pulse Resp BP Pulse Ox 97.6 F 85 18 104/89 H 100 06/01/19 12:02 06/01/19 12:02 06/01/19 12:02 06/01/19 12:02 06/01/19 12:02 Interpretation: Normal - Notes Notes: GENERAL: Well-appearing, well-nourished and in no acute distress. HEAD: Atraumatic, normocephalic. EYES: Pupils equal round and reactive to light, extraocular movements intact, sclera anicteric, conjunctiva are normal. ENT: Nares patent, oropharynx clear without exudates. Moist mucous membranes. NECK: Normal range of motion, supple without lymphadenopathy or JVD. LUNGS: Breath sounds clear to auscultation bilaterally and equal. No wheezes rales or rhonchi. HEART: Regular rate and rhythm without murmurs, rubs or gallops. ABDOMEN: Soft, nontender, normoactive bowel sounds. No guarding, no rebound. No masses appreciated. BACK: No cervical, thoracic, lumbar midline tenderness. No saddle anesthesia, normal distal neurovascular exam. GENITOURINARY: Deferred. EXTREMITIES: Normal range of motion, no pitting or edema. No clubbing or cyanosis. NEUROLOGICAL: Cranial nerves II through XII grossly intact. Normal speech, normal gait. PSYCH: Normal mood, normal affect. SKIN: Warm, Dry, patient's rectum was tender to touch. I did perform an internal examination which did not reveal any area of fluctuance consistent with an abscess. The inside of the patient's right buttocks was tender to touch with slight erythema. Patient does have extensive inguinal and buttocks scarring with hypopigmented skin to the groin, perineum and buttocks area (pt. reports hx. of skin graft) Patient has a 2 x 2 centimeter area of fluctuance currently has spontaneous drainage of a yellow discharge to the right inner thigh. There is no surrounding edema or erythema. Course - Re-evaluation Re-evalutation: 06/01/19 15:57 I did call and spoke with Dr. Lora to discuss patient case and blood work, who will come to the ER and see patient. 06/01/19 16:05 Dr. Lora at the bedside with patient for physical examination, I was also at the bedside during interaction. [facility] Plan is to discharge with doxycycline and follow-up with Dr. Lora in the office within 1 week. Patient was noted to have a leukocytosis which is consistent with his previous visits here in the emergency department. Patient is afebrile, normotensive, not tachycardic. Patient's leukocytosis likely consistent with his chronic inflammatory disease of the severe hidradenitis as discussed with patient by Dr. Lora. Patient was given strict return precautions to include fever, worsening pain, worsening swelling, elevated to have a bowel movement. Patient instructed to drink plenty of fluids and use a stool softener as this may help with his discomfort. 06/01/19 16:56 At time of discharge patient did not have a fever, tachycardia, hypotension. Patient is stable for discharge. Patient nontoxic-appearing. - Vital Signs Vital signs: Temp Pulse Resp BP Pulse Ox 98.1 F 79 17 115/75 99 06/01/19 16:50 06/01/19 16:50 06/01/19 16:50 06/01/19 16:50 06/01/19 16:50 - Laboratory Result Diagrams: 06/01/19 13:40 06/01/19 13:40 Laboratory results interpreted by me: 06/01/19 06/01/19 06/01/19 13:35 13:40 13:40 WBC 16.0 H RBC 6.15 H MCV 69 L MCH 22.4 L RDW 14.7 H Absolute Neuts (auto) 11.3 H Total Protein 8.6 H Urine Blood MODERATE H Urine Urobilinogen 2.0 H 06/01/19 16:41 Patient has leukocytosis of 16. Patient does not have a significant anemia or alteration electrolytes or kidney function. Patient has a normal liver panel as well as a negative urinalysis. Laboratory 06/01/19 06/01/19 06/01/19 13:35 13:40 13:40 WBC 16.0 H RBC 6.15 H Hgb 13.8 Hct 42.7 MCV 69 L MCH 22.4 L MCHC 32.2 RDW 14.7 H Plt Count 366 Lymph % (Auto) 18.5 [place] % (Auto) 9.0 Eos % (Auto) 1.0 Baso % (Auto) 0.8 Absolute Neuts (auto) 11.3 H Absolute Lymphs (auto) 3.0 Absolute Monos (auto) 1.4 Absolute Eos (auto) 0.2 Absolute Basos (auto) 0.1 Seg Neutrophils % 70.7 Sodium 141.7 Potassium 4.2 Chloride 105 Carbon Dioxide 25 Anion Gap 12 BUN 10 Creatinine 0.92 Est GFR ( Amer) > 60 Est GFR (MDRD) Non-Af > 60 Glucose 98 Calcium 9.8 Total Bilirubin 0.7 Direct Bilirubin 0.0 Neonat Total Bilirubin Not Reportable Neonat Direct Bilirubin Not Reportable Neonat Indirect Bili Not Reportable AST 17 ALT 20 Alkaline Phosphatase 94 Total Protein 8.6 H Albumin 4.6 Urine Color YELLOW Urine Appearance CLEAR Urine pH 6.0 Ur Specific Fidelity 1.015 Urine Protein NEGATIVE Urine Glucose (UA) NEGATIVE Urine Ketones NEGATIVE Urine Blood MODERATE H Urine Nitrite (Reflex) NEGATIVE Urine Bilirubin NEGATIVE Urine Urobilinogen 2.0 H Leukocyte Esterase Rfl NEGATIVE Urine RBC (Auto) 4 U Hyaline Cast (Auto) 1 Urine WBC (Reflex) 2 Squamous Epi Cells Auto <1 Urine Mucus (Auto) MOD Urine Ascorbic Acid NEGATIVE Discharge - Discharge Clinical Impression: Hidradenitis suppurativa of anus Leukocytosis Qualifiers: Leukocytosis type: unspecified Qualified Code(s): D72.829 - Elevated white blood cell count, unspecified Condition: Stable Disposition: HOME, SELF-CARE Additional Instructions: *Today you were seen in the emergency department for buttocks and rectal pain. I did discuss your case with Dr. Lora & he was the surgeon who evaluated you in the ER. After evaluation and discussion the plan is to discharge you home on oral antibiotics. The antibiotic you will be prescribed is called doxycycline. You will take this twice a day for the next 10 days. He does want you to follow-up with him at [facility] within the next week. Please call his office tomorrow to schedule a appointment. In the meantime take your antibiotics, pain medication and return to the emergency department if you develop fever, chills, worsening rectal pain or drainage, severe swelling to this area. *There was a small area of drainage noted to the right inner thigh. This is draining appropriately and does not require incision and drainage at this time. Please use warm compresses to the site. The oral antibiotics will also help heal this area. If the area seems to get larger, more red, more painful please return to the emergency department. Doxycycline Doxycycline (Vibramycin, Doryx) is an antibiotic of the tetracycline f amily. This type of drug is useful for infections of the respiratory tract and genital tract, and is sometimes used for intestinal infections. Unlike most tetracyclines, doxycycline can be taken with food. It is longer acting, and (usually) less prone to side effects than regular tetracycline. Tetracycline antibiotics can stain immature teeth and SHOULD NOT BE TAKEN BY CHILDREN, NURSING MOTHERS, OR WOMEN. Tetracyclines can make you more prone to sunburn. Abdominal cramping, nausea, and diarrhea are occasional side effects. Women may experience vaginal yeast infections. Call the doctor at once if you develop hives, itching, shortness of breath, or lightheadedness. Prescriptions: Doxycycline Monohydrate 100 mg PO BID #20 capsule Oxycodone HCl/Acetaminophen [Percocet 5-325 mg Tablet] 1 tab PO Q6 PRN #6 tablet PRN Reason: Referrals: DAVE LORA MD [ACTIVE STAFF] - Follow up as needed
[2019-06-01 16:53] VITALS: BP 115/75
== END 2019-06-01 16:54 | disposition home or self-care (01) ==
LOC: ER 11:48
DX: L73.2 Hidradenitis suppurativa (principal); D72.829 Elevated white blood cell count, unspecified; F17.200 Nicotine dependence, unspecified, uncomplicated; Z86.14 Personal history of Methicillin resistant Staphylococcus aureus infection; Z88.8 Allergy status to other drugs, medicaments and biological substances; Z88.1 Allergy status to other antibiotic agents; Z88.6 Allergy status to analgesic agent
CPT/HCPCS: 99284; 36415; 85025; 80053; 81001; J3490

== ENCOUNTER → 2019-08-12 | Outpatient (CLI) | payer MEDICAID ==
--- NOTE | 2019-08-12 16:16 | ER RDC ASSESSMENT REPORT ---
Intake - In the Last 14 days Have you traveled outside [place]?: No Have you been in close contact with someone CONFIRMED: No Worked in Healthcare?: No - Symptoms Subjective Fever([place] feverish): Yes Chills: Yes Muscule Aches: Yes Runny Nose: Yes Sore Throat: No Cough (New or worsening chronic cough): Yes Shortness of breath: Yes Nausea or Vomiting: Yes Headache: Yes Abdominal Pain: No Diarrhea(3 or more loose stools in last 24 hours): No - Do you have any of the following Chronic lung disease: Asthma or emphysema or COPD: No Cystic Fibrosis: No Diabetes: No High Blood Pressure: No Cardiovascular Disease: No Chronic Kidney Disease: No Chronic Liver Disease: No Chronic blood disorder like Sickle Cell Disease: No Weak immune system due to disease or medication: No Neurologic condition that limits movement: No Developmental delay - Moderate to Severe: No Recent (within past 2 weeks) or current : No Morbid Obesity (>100 pounds over ideal weight): No - Objective Temperature: 96.7 F Pulse Rate: 93 Respiratory Rate: 18 Blood Pressure: 111/79 O2 Sat by Pulse Oximetry: 97 Objective: Patient is a well-appearing 53-year-old male who presents today for COVID-19 Screening. General - General Stated Complaint: Upper respiratory symptoms for 2 days Mode of Arrival: Ambulatory Information source: Patient Notes: The patient was evaluated during the global COVID 19 pandemic, and that diagnosis was suspected/considered upon their initial presentation. Their evaluation, treatment, and testing was consistent with current guidelines for patients who present with complaints or symptoms that may be related to COVID 19. - HPI Onset: Other - 2 days Onset/Duration: Gradual Quality of pain: Achy Severity: Mild Pain Level: 1 Context: Generalized body aches. Associated symptoms: Body/muscle aches, Chills, Nonproductive cough, Headache, Nausea, Vomiting, Rhinnorhea, Shortness of breath Similar symptoms previously: No Recently seen / treated by doctor: No Notes: Patient denies any known contact with lab confirmed COVID-19 positive individ ual. - Related Data Allergies/Adverse Reactions: ibuprofen Allergy (Verified 06/01/19 12:59) naproxen Allergy (Verified 06/01/19 12:59) sulfamethoxazole [From Bactrim] Allergy (Verified 06/01/19 12:59) tramadol Allergy (Verified 06/01/19 12:59) trimethoprim [From Bactrim] Allergy (Verified 06/01/19 12:59) Past Medical History - General Information source: Patient - Social History Smoking Status: Current Every Day Smoker Cigarette use (# per day): Yes - 1 pack/day Chew tobacco use (# tins/day): No Smoking Education Provided: Yes Occupation: Unemployed Lives with: Family Family History: Reviewed & Not Pertinent Endocrine Medical History: Denies: Hx Diabetes Mellitus Type 1, Hx Diabetes Mellitus Type 2 Renal/ Medical History: Reports: Hx Kidney Stones. Denies: Hx Peritoneal Dialysis Musculoskeletal Medical History: Reports Hx Arthritis, Denies Hx Fibromyalgia, Denies Hx Gout, Denies Hx Multiple Sclerosis, Denies Hx Muscular Dystrophy, Denies Hx Muscle Spasm, Denies Hx Muscle Weakness, Denies Hx Musculoskeletal Deformity, Denies Hx Musculoskeletal Trauma, Denies Hx Systemic Lupus Erythematosus Skin Medical History: Reports Hx Cellulitis, Reports Hx MRSA Psychiatric Medical History: Reports: Hx Bipolar Disorder, Hx Depression, Hx Post Traumatic Stress Disorder, Hx Schizophrenia Infectious Medical History: Reports: Hx MRSA Past Surgical History: Reports: Other - skin graft Multiple operative procedures to drain these small abscesses Physical Exam - General General appearance: Appears well In distress: None Notes: PHYSICAL EXAMINATION: GENERAL: Well-appearing and in no acute distress. HEAD: Atraumatic, normocephalic. EYES: sclera anicteric, conjunctiva are normal. ENT: nares patent. Moist mucous membranes. NECK: Normal range of motion, supple without lymphadenopathy LUNGS: CTAB and equal. No wheezes rales or rhonchi. HEART: Regular rate and rhythm without murmurs EXTREMITIES: Normal range of motion, no pitting edema. No cyanosis. BACK: No midline or CVA tenderness. NEUROLOGICAL: Cranial nerves grossly intact. Normal speech. PSYCH: Normal mood, normal affect. SKIN: Warm, Dry, normal turgor, no obvious rashes or lesions noted. Diagnostic Results Laboratory Results: Patient notified of NEGATIVE results on Rapid Flu (A & B) and Rapid Strep. Advised Throat Culture and COVID testing are PENDING, and they will be notified of any POSITIVE results at a later date/time. Patient Education/Counseling Counseling/Education: Patient presents with upper respiratory symptoms worrisome for possible Covid 19. Patient does not have emergency worring symptoms such as difficulty breathing, shortness of breath, chest pain, pressure, confusion or cyanosis. Patient appears suitable for discharge. Patient's vital signs are stable and patient is nontoxic in appearance. Good return precautions have been discussed with patient, patient verbalized understanding and is agreeable with discharge plan of care at this time. Patient provided COVID 19 discharge instructions to include: As a person under investigation for Covid 19, the [facility], division of public health advises you to adhere to the following guidance until your test results are reported to you. If your test result is positive, you will receive additional information from your provider and your local health department at that time. Remain at home until you are cleared by the health provider or public health authorities. Keep a log of visitors to your home, notify any visitors to your home of your isolation status. If you plan to move to a new address or leave the county, notify the local health department in your County. Call your doctor or seek care if you have an urgent medical need. Before seeking medical care, call ahead to get instructions from the provider before arriving at the medical office clinic or hospital. Notify them that you are b eing tested for the virus that causes Covid 19 so that arrangements can be made, as necessary, to prevent transmission to others in the healthcare setting. Next, notify the local health department in your county. If a medical emergency arises and you need to call 911, inform the first responders that you are being tested for the virus that causes Covid 19. Next, notify the local health department in your county. Patient provided education on smoking cessation, and the increased health benefits of quitting. Guidance for worsening S/SX: For worsening symptoms, patient has been advised to contact their Primary Care Provide, or go to the nearest Emergency Department. RDC Discharge - Discharge Clinical Impression: COVID-19 Screening URI (upper respiratory infection) Qualifiers: URI type: unspecified URI Qualified Code(s): J06.9 - Acute upper respiratory infection, unspecified Disposition: Home; Selfcare
[2019-08-12 16:17] VITALS: BP 111/79
[2019-08-12 16:29] LABS: A TYPE INFLUENZA AG NEGATIVE (NEGATIVE); B INFLUENZA AG NEGATIVE (NEGATIVE)
== END ==
LOC: RDC 15:06
PROVIDERS: ATTEND Nurse Practitioner Family
DX: J06.9 Acute upper respiratory infection, unspecified (principal); R06.02 Shortness of breath; R05 Cough; R11.2 Nausea with vomiting, unspecified; M79.10 Myalgia, unspecified site; R68.83 Chills (without fever); R51 Headache; Z88.2 Allergy status to sulfonamides; Z88.6 Allergy status to analgesic agent; Z88.8 Allergy status to other drugs, medicaments and biological substances; F17.210 Nicotine dependence, cigarettes, uncomplicated; Z86.14 Personal history of Methicillin resistant Staphylococcus aureus infection
CPT/HCPCS: 87070; 87635; 87804; 87880

== ENCOUNTER 2019-08-13 18:01 | Emergency (ER) | payer MEDICAID ==
[2019-08-13] MEDS ORDERED: ONDANSETRON HCL INJ/PF 4 MG/2 ML SDV IV ONE (18:26)
[2019-08-13] MEDS ORDERED: NORMAL SALINE 1000 ML 1,000 ML IV ONE (18:27)
[2019-08-13] MEDS ORDERED: FENTANYL CITRATE INJ/PF 100 MCG/2 ML AMPUL IV ONE (18:27)
--- NOTE | 2019-08-13 18:31 | ER Document Report ---
ED General - General Chief Complaint: Possible Kidney Stone Stated Complaint: URINARY PROBLEMS Time Seen by Provider: 08/13/19 18:05 Primary Care Provider: AISHA KHOURY [NO LOCAL MD] - Follow up as needed TRAVEL OUTSIDE OF THE [place] IN LAST 30 DAYS: No - HPI Notes: Chief complaint: Gross hematuria and suprapubic pain 53-year-old male with previous history of renal stones noted sudden onset of initially painless gross hematuria about 4 hours prior to arrival here. Since then he is having intermittent pain in the suprapubic area he describes a spasm. No nausea vomiting. No fever chills. - Related Data Allergies/Adverse Reactions: ibuprofen Allergy (Verified 06/01/19 12:59) naproxen Allergy (Verified 06/01/19 12:59) sulfamethoxazole [From Bactrim] Allergy (Verified 06/01/19 12:59) tramadol Allergy (Verified 06/01/19 12:59) trimethoprim [From Bactrim] Allergy (Verified 06/01/19 12:59) Past Medical History - General Information source: Patient, [facility] Records - Social History Smoking Status: Current Every Day Smoker Frequency of alcohol use: None Drug Abuse: None Family History: Reviewed & Not Pertinent Patient has suicidal ideation: No Patient has homicidal ideation: No Endocrine Medical History: Denies: Hx Diabetes Mellitus Type 1, Hx Diabetes Mellitus Type 2 Renal/ Medical History: Reports: Hx Kidney Stones. Denies: Hx Peritoneal Dialysis Musculoskeletal Medical History: Reports Hx Arthritis, Denies Hx Fibromyalgia, Denies Hx Gout, Denies Hx Multiple Sclerosis, Denies Hx Muscular Dystrophy, Denies Hx Muscle Spasm, Denies Hx Muscle Weakness, Denies Hx Musculoskeletal Deformity, Denies Hx Musculoskeletal Trauma, Denies Hx Systemic Lupus Erythematosus Skin Medical History: Reports Hx Cellulitis, Reports Hx MRSA Psychiatric Medical History: Reports: Hx Bipolar Disorder, Hx Depression, Hx Post Traumatic Stress Disorder, Hx Schizophrenia Infectious Medical History: Reports: Hx MRSA Past Surgical History: Reports: Other - skin graft Multiple operative procedures to drain these small abscesses - Immunizations Hx Diphtheria, Pertussis, Tetanus Vaccination: Yes Review of Systems - Review of Systems Notes: Constitutional: Negative for fever. HENT: Negative for sore throat. Eyes: Negative for visual changes. Cardiovascular: Negative for chest pain. Respiratory: Negative for shortness of breath. Gastrointestinal: Negative for abdominal pain, vomiting or diarrhea. Genitourinary: As per HPI. Musculoskeletal: Negative for back pain. Skin: Negative for rash. Neurological: Negative for headaches, weakness or numbness. 10 point ROS negative except as marked above and in HPI. Physical Exam - Vital signs Vitals: Temp Pulse Resp BP Pulse Ox 98.4 F 86 18 98/66 L 96 08/13/19 18:06 08/13/19 18:06 08/13/19 18:06 08/13/19 18:06 08/13/19 18:06 - Notes Notes: GENERAL: Well-developed well-nourished appearing moderate pain. SKIN: Good turgor no rashes. HEAD: Normocephalic atraumatic. EYES: PERRLA. EOMI. Conjunctivae and sclerae clear. EARS: CANALS AND TMS CLEAR. NOSE: CLEAR. MOUTH: Moist mucosa. Good dentition. No stridor or edema. No drooling. NECK: Supple. No masses or thyromegaly. No adenopathy. Carotids 2+ without bruits. No JVD. BACK: Symmetrical without tenderness. CHEST: Respirations unlabored. Breath sounds clear and symmetrical. HEART: Regular rhythm. No murmur gallop or rub. ABDOMEN: Soft nontender without masses, organomegaly or rebound. Bowel sounds normally active. No bruits. GENITALIA: Uncircumcised male. No urethral discharge. EXTREMITIES: No edema. No calf tenderness. Cap refill less than 1.5 seconds. Dorsalis pedis and posterior tibial pulses 3+ and symmetrical. NEUROLOGICAL: GCS 15. Alert and oriented x3. Normal gait. Fluent speech. Cranial nerves II through XII intact. Sensorimotor and cerebellar normal. Normal tone. PSYCHIATRIC: Appropriate affect. Course - Re-evaluation Re-evalutation: 08/13/19 19:35 Patient came in with grossly bloody urine and clinically was felt to have renal colic. We got a noncontrast CT abdomen pelvis which indeed demonstrates a 3 mm obstructing stone at the right UVJ with moderate hydronephrosis. Patient was given IV normal saline and some IV Zofran and fentanyl with good relief of symptoms. I talked with him at some length about renal stones encouraged him to increase oral fluids and explained that the stone will in all likelihood passed spontaneously. He will be sent home with some Percocet and Zofran for as needed use and is instructed to follow-up with urology outpatient. He will return here as needed for new or worsening symptoms. - Vital Signs Vital signs: Temp Pulse Resp BP Pulse Ox 98.4 F 86 18 98/66 L 96 08/13/19 18:06 08/13/19 18:06 08/13/19 18:06 08/13/19 18:06 08/13/19 18:06 - Laboratory Laboratory results interpreted by me: 08/13/19 18:25 Urine Protein 100 H Urine Ketones TRACE H Urine Blood LARGE H Urine Urobilinogen 2.0 H - Diagnostic Test Radiology reviewed: Reports reviewed - 3 mm obstructing stone right UVJ per radiology Discharge - Discharge Clinical Impression: Ureterolithiasis with renal colic Condition: Stable Disposition: HOME, SELF-CARE Additional Instructions: Kidney Stone You are passing or have passed a kidney stone. These stones are usually due to increased calcium or uric acid concentrations in your urine. Stones within the kidney itself are not painful. The pain occurs as the stone leaves the kidney to pass down the long tube, called the ureter, leading to the bladder. If the stone is small, it will usually pass by itself. Most patients can pass the stone at home. You will usually receive medications for pain, nausea or vomiting, and sometimes a medication to assist in passing the kidney stone. However, if the pain is very severe or if vomiting prevents you from taking oral pain medications, you may need to return for further treatment. Drink three or four quarts of fluids per day. You will be given pain medication (if needed) and urine strainers. Strain all your urine to see if the stone passes. If your doctor has asked you to bring the stone in for analysis, return with the stone once it has passed. Return if pain or vomiting become severe, if you develop a high fever, if you are unable to pass your urine, or if other unusual symptoms occur. Increase oral fluid intake as directed. Take prescribed medications provided as directed. Return here as needed for new or worsening symptoms: Pain that is worsening or unimproved Uncontrolled vomiting High fever or shaking chills Overall worsening Follow-up with referral urologist within the next 1 week. Referrals: LOCALMD,NO [NO LOCAL MD] - Follow up as needed [facility] [Provider Group] - Follow up as needed
[2019-08-13 18:50] LABS: APPEARANCE,URINE CLOUDY; BILIRUBIN,URINE NEGATIVE (NEGATIVE); COLOR,URINE RED; GLUCOSE, URINE NEGATIVE (NEGATIVE); KETONES,URINE TRACE mg/dL (NEGATIVE); PROTEIN,URINE 100 mg/dL (NEGATIVE); URINE SPECIFIC GRAVITY 1.029
--- NOTE | 2019-08-13 19:05 | RADIOLOGY REPORT (SQ) ---
EXAM DESCRIPTION: CT ABD/PELVIS NO ORAL OR IV IMAGES COMPLETED DATE/TIME: 08/13/2019 6:55 pm REASON FOR STUDY: gross hematuria COMPARISON: 01/12/2019 TECHNIQUE: CT scan of the abdomen and pelvis performed without intravenous or oral contrast. Images reviewed with lung, soft tissue, and bone windows. Reconstructed coronal and sagittal MPR images revi ewed. All images stored on PACS. All CT scanners at this facility use dose modulation, iterative reconstruction, and/or weight based d osing when appropriate to reduce radiation dose to as low as reasonably achievable (ALARA). [facility]: Dose Right [facility]: CareDose [facility]: Dose Right [facility]: Teradose 4D [facility]: Smart eMarketer RADIATION DOSE: CT Rad equipment meets quality standard of care and radiation dose reduction techniq ues were employed. CTDIvol: 12.6 mGy. DLP: 615 mGy-cm.mGy. LIMITATIONS: None. FINDINGS: LOWER CHEST: No significant findings. No nodules or infiltrates. NON-CONTRASTED LIVER, SPLEEN, ADRENALS: Evaluation limited by lack of IV contrast. No identified sign ificant masses. PANCREAS: No masses. No peripancreatic inflammatory changes. GALLBLADDER: No identified stones by CT criteria. No inflammatory changes to suggest cholecystitis. RIGHT KIDNEY AND URETER: No suspicious masses. Assessment limited by lack of IV contrast. 3 mm ston e ureterovesical junction. Mild hydronephrosis. LEFT KIDNEY AND URETER: No suspicious masses. Assessment limited by lack of IV contrast. No signifi cant calcifications. No hydronephrosis or hydroureter. AORTA AND RETROPERITONEUM: No aneurysm. No retroperitoneal masses or adenopathy. BOWEL AND PERITONEAL CAVITY: No obvious masses or inflammatory changes. No free fluid. APPENDIX: Normal. PELVIS, BLADDER, AND ABDOMINAL WALL:No abnormal masses. No free fluid. Bladder normal. BONES: No significant findings. OTHER: No other significant finding. IMPRESSION: 3 mm stone right ureterovesical junction. Mild hydronephrosis. COMMENT: Quality ID # [id number]: Final reports with documentation of one or more dose reduction techniques (e.g., Automated exposure control, adjustment of the mA and/or kV according to patient size, use of iterative reconstruction technique) TECHNICAL DOCUMENTATION: JOB ID: [id number] 2010 [email or web address]- All Rights Reserved Reading location - IP/workstation name: [email or web address]-RSLOAN
[2019-08-13] MEDS ORDERED: HYDROCODONE/ACETAMINOPHEN 5-325 MG (6 TAB/ER DISP) PO PRN (19:37)
[2019-08-13] MEDS ORDERED: ONDANSETRON ODT 4 MG TAB (6 TAB/ER DISP) PO PRN (19:38)
[2019-08-13 20:10] VITALS: BP 110/77
== END 2019-08-13 20:08 | disposition home or self-care (01) ==
LOC: ER 18:01
DX: N13.2 Hydronephrosis with renal and ureteral calculous obstruction (principal); R31.0 Gross hematuria; F17.200 Nicotine dependence, unspecified, uncomplicated; Z88.8 Allergy status to other drugs, medicaments and biological substances; Z88.1 Allergy status to other antibiotic agents; Z88.6 Allergy status to analgesic agent
CPT/HCPCS: 99284; 96361; 96374; 96375; 81001; 74176; J3010; J2405; J7030

== ENCOUNTER 2019-11-18 09:57 | Emergency (ER) | payer MEDICAID ==
--- NOTE | 2019-11-18 10:27 | ER Document Report ---
ED Medical Screen (RME) - General Chief Complaint: Abscess Stated Complaint: ABSCES Time Seen by Provider: 11/18/19 10:25 Mode of Arrival: Ambulatory Information source: Patient Notes: 54-year-old male presented to ED for exacerbation of his pilonidal cyst that is now draining again. He states he also has multiple abscesses to his left thigh the need to be examined possibly treated and may be antibiotics. He states he has been here about every 4 to 6 months and needs care for these areas. He is alert oriented respirations regular nonlabored speaking in full sentences. I have greeted and performed a rapid initial assessment of this patient. A comprehensive ED assessment and evaluation of the patient, analysis of test results and completion of medical decision making process will be conducted by an additional ED providers. TRAVEL OUTSIDE OF THE [place] IN LAST 30 DAYS: No - Related Data Allergies/Adverse Reactions: ibuprofen Allergy (Verified 06/01/19 12:59) naproxen Allergy (Verified 06/01/19 12:59) sulfamethoxazole [From Bactrim] Allergy (Verified 06/01/19 12:59) tramadol Allergy (Verified 06/01/19 12:59) trimethoprim [From Bactrim] Allergy (Verified 06/01/19 12:59) Past Medical History Endocrine Medical History: Denies: Hx Diabetes Mellitus Type 1, Hx Diabetes Mellitus Type 2 Renal/ Medical History: Reports: Hx Kidney Stones. Denies: Hx Peritoneal Dialysis Musculoskeltal Medical History: Reports Hx Arthritis, Denies Hx Fibromyalgia, Denies Hx Gout, Denies Hx Multiple Sclerosis, Denies Hx Muscular Dystrophy, Denies Hx Muscle Spasm, Denies Hx Muscle Weakness, Denies Hx Musculoskeletal Def ormity, Denies Hx Musculoskeletal Trauma, Denies Hx Systemic Lupus Erythematosus Skin Medical History: Reports Hx Cellulitis, Reports Hx MRSA Psychiatric Medical History: Reports: Hx Bipolar Disorder, Hx Depression, Hx Post Traumatic Stress Disorder, Hx Schizophrenia Infectious Medical History: Reports: Hx MRSA Past Surgical History: Reports: Other - skin graft Multiple operative procedures to drain these small abscesses - Immunizations Hx Diphtheria, Pertussis, Tetanus Vaccination: Yes Physical Exam - Vital signs Vitals: Temp Pulse Resp BP Pulse Ox 98.5 F 78 20 113/84 100 11/18/19 10:04 11/18/19 10:04 11/18/19 10:04 11/18/19 10:04 11/18/19 10:04 Course - Vital Signs Vital signs: Temp Pulse Resp BP Pulse Ox 98.5 F 78 20 113/84 100 11/18/19 10:04 11/18/19 10:04 11/18/19 10:04 11/18/19 10:04 11/18/19 10:04
[2019-11-18 10:50] LABS: ABSOLUTE BASOPHILS # (AUTO) 0.1 10^3/uL (0.0-0.2); ABSOLUTE EOSINOPHILS # (AUTO) 0.3 10^3/uL (0.0-0.6); ABSOLUTE LYMPHOCYTES (AUTO) 2.7 10^3/uL (0.5-4.7); ABSOLUTE MONOCYTES (AUTO) 1.2 10^3/uL (0.1-1.4); ABSOLUTE NEUT (AUTO) 9.9 10^3/uL (1.7-8.2); BASOPHILS % (AUTO) 0.6 % (0-2); EOSINOPHILS % (AUTO) 1.9 % (0-6); HEMATOCRIT 42.1 % (37.9-51.0); HEMOGLOBIN 13.6 g/dL (13.5-17.0); LYMPHOCYTES % (AUTO) 18.7 % (13-45); MEAN CORPUSCULAR HEMOGLOBIN 22.6 pg (27.0-33.4); MEAN CORPUSCULAR HGB CONC 32.4 g/dL (32.0-36.0); MEAN CORPUSCULAR VOLUME 70 fl (80-97); MONOCYTES % (AUTO) 8.7 % (3-13); PLATELET COUNT 291 10^3/uL (150-450); RED BLOOD COUNT 6.01 10^6/uL (4.35-5.55); RED CELL DISTRIBUTION WIDTH 15.5 % (11.5-14.0); SEGMENTED NEUTROPHILS % (AUTO) 70.1 % (42-78); TOTAL CELLS COUNTED % (AUTO) 100 %; WHITE BLOOD COUNT 14.1 10^3/uL (4.0-10.5)
[2019-11-18 11:12] LABS: ALBUMIN 4.3 g/dL (3.5-5.0); ALKALINE PHOSPHATASE 82 U/L (38-126); ANION GAP 8 (5-19); ASPARTATE AMINO TRANSFERASE 19 U/L (17-59); BILIRUBIN,TOTAL 0.5 mg/dL (0.2-1.3); BLOOD UREA NITROGEN 12 mg/dL (7-20); CALCIUM 9.6 mg/dL (8.4-10.2); CARBON DIOXIDE 24 mmol/L (22-30); CHLORIDE 106 mmol/L (98-107); GLUCOSE 108 mg/dL (75-110); POTASSIUM 4.3 mmol/L (3.6-5.0); TOTAL PROTEIN 8.4 g/dL (6.3-8.2)
[2019-11-18] MEDS ORDERED: LIDOCAINE 1% INJ-PF (10 MG/ML) 30 ML SDV INJ ONE (11:54)
[2019-11-18] MEDS ORDERED: HYDROCODONE/ACETAMINOPHEN 5-325 MG TABLET PO ONE (11:55)
--- NOTE | 2019-11-18 11:57 | ER Document Report ---
ED General - General Chief Complaint: Cyst Stated Complaint: ABSCES Time Seen by Provider: 11/18/19 10:25 Primary Care Provider: DAVE YODER MD [ACTIVE STAFF] - Follow up as needed Mode of Arrival: Ambulatory Notes: Patient is a 54-year-old male who presents emergency department with a chief complaint of abscesses to his left buttock area. Patient has history of abscesses in the past. He denies any fever, but states that if he does not get antibiotics he ends up having abscesses get bigger. Patient has history of skin grafting to his perianal area. TRAVEL OUTSIDE OF THE [place] IN LAST 30 DAYS: No - Related Data Allergies/Adverse Reactions: ibuprofen Allergy (Verified 06/01/19 12:59) naproxen Allergy (Verified 06/01/19 12:59) sulfamethoxazole [From Bactrim] Allergy (Verified 06/01/19 12:59) tramadol Allergy (Verified 06/01/19 12:59) trimethoprim [From Bactrim] Allergy (Verified 06/01/19 12:59) Past Medical History - General Information source: Patient - Social History Smoking Status: Unknown if Ever Smoked Family History: Reviewed & Not Pertinent Endocrine Medical History: Denies: Hx Diabetes Mellitus Type 1, Hx Diabetes Mellitus Type 2 Renal/ Medical History: Reports: Hx Kidney Stones. Denies: Hx Peritoneal Dialysis Musculoskeletal Medical History: Reports Hx Arthritis, Denies Hx Fibromyalgia, Denies Hx Gout, Denies Hx Multiple Sclerosis, Denies Hx Muscular Dystrophy, Denies Hx Muscle Spasm, Denies Hx Muscle Weakness, Denies Hx Musculoskeletal Deformity, Denies Hx Musculoskeletal Trauma, Denies Hx Systemic Lupus Erythematosus Skin Medical History: Reports Hx Cellulitis, Reports Hx MRSA Psychiatric Medical History: Reports: Hx Bipolar Disorder, Hx Depression, Hx Post Traumatic Stress Disorder, Hx Schizophrenia Infectious Medical History: Reports: Hx MRSA Past Surgical History: Reports: Other - skin graft Multiple operative procedures to drain these small abscesses - Immunizations Hx Diphtheria, Pertussis, Tetanus Vaccination: Yes Review of Systems - Review of Systems Notes: REVIEW OF SYSTEMS: CONSTITUTIONAL : Denies recent illness. Denies recent unintentional weight loss. Denies fever, chills, or sweats. EENT: Denies eye, ear, throat, or mouth pain, discharge, or symptoms. Denies nasal or sinus congestion. CARDIOVASCULAR: Denies chest pain. RESPIRATORY: Denies shortness of breath, cough, congestion, difficulty breathing, or wheezing. GASTROINTESTINAL: Denies nausea, vomiting, and diarrhea. Denies abdominal pain. Denies constipation. GENITOURINARY: Denies difficulty urinating, burning, blood in urine, urgency or frequency. MUSCULOSKELETAL: Denies neck and back pain. Denies joint pain or swelling. SKIN: See HPI. HEMATOLOGIC : Denies easy bruising or bleeding. LYMPHATIC: Denies swollen, painful, enlarged glands. NEUROLOGICAL: Denies no numbness or tingling denies weakness. Denies headache. Denies altered mental status. Denies alteration in speech. PSYCHIATRIC: Denies stress, anxiety, alteration in sleep patterns, or depression. All other systems reviewed and negative. Physical Exam - Vital signs Vitals: Temp Pulse Resp BP Pulse Ox 98.5 F 78 20 113/84 100 11/18/19 10:04 11/18/19 10:04 11/18/19 10:04 11/18/19 10:04 11/18/19 10:04 - Notes Notes: PHYSICAL EXAMINATION: GENERAL: Appears well, healthy, well-nourished, no acute distress. HEAD: Normocephalic, atraumatic. EYES: PERRL, conjunctiva normal, all extraocular movements intact, sclera nonicteric ENT: Moist mucous membranes. NECK: Supple, no noticeable swelling, redness, rash. Normal range of motion. LUNGS: Equal breath sounds bilaterally and clear to auscultation. No wheezes rales or rhonchi. CARDIOVASCULAR: S1-S2, regular rate, regular rhythm. Radial pulses 2+, normal. ABDOMEN: Normoactive bowel sounds. Soft, nontender, no guarding, no rebound tenderness, and no masses palpated. EXTREMITIES: Normal strength and range of motion, no pitting or edema. No cyanosis. NEUROLOGICAL: Moves all extremities upon command. Strength 5/5 in all extremities. PSYCH: Normal mood, normal affect. SKIN: Warm, dry. 2 small abscess noted to right buttock area. Abscess area noted to left medial thigh in 3 separate areas, all have drained and did not have any fluctuance noted. Course - Re-evaluation Re-evalutation: 11/18/19 13:19 Differential diagnosis includes but normal limited to: abscess, dermoid cyst, sebaceous cyst, furnucle, or others. Based on patient's physical exam and history, this is an abscess. It was drained in the ER. There is a small amount of surrounding cellulitis. I do not believe the patient has underlying necrotizing fasciitis. Based on patient's physical exam and these factors, they will be treated with antibiotics. 11/18/19 13:24 Patient states that he is unable to go to the [facility] for his prescriptions. I called [facility] and canceled his prescriptions and resent them to [facility]. - Vital Signs Vital signs: Temp Pulse Resp BP Pulse Ox 97.9 F 75 18 124/77 97 11/18/19 13:12 11/18/19 13:12 11/18/19 13:12 11/18/19 13:12 11/18/19 13:12 - Laboratory Result Diagrams: 11/18/19 10:35 11/18/19 10:35 Laboratory results interpreted by me: 11/18/19 11/18/19 10:35 10:35 WBC 14.1 H RBC 6.01 H MCV 70 L MCH 22.6 L RDW 15.5 H Absolute Neuts (auto) 9.9 H Total Protein 8.4 H Procedures - Incision and Drainage Right Medial Buttock Type: Simple, Single Anesthetic type: 1% Lidocaine mL's of anesthetic: 20 Blade size: 11 I&D procedure: Betadine prep applied, Shurclens applied Incision Method: Incision made by scalpel Amount/type of drainage: 5 mls; purulent/blood Adult Front & Back picture: 1 - small abcess noted Discharge - Discharge Clinical Impression: Abscess Condition: Stable Disposition: HOME, SELF-CARE Instructions: Abscess ([facility]), Oral Narcotic Medication ([facility]), Post Incision and Drainage Additional Instructions: You were seen for an abscess that required drainage. Please clean this area with soap and water twice daily and apply a topical antibiotic. Dress the area after each cleaning. Take your antibiotics as prescribed. Please return if you d evelop fever, vomiting, the pain at the site worsens, you notice spreading redness from the area, or you have any other symptoms that are concerning to you. Take the pain medication only as needed. Prescriptions: Clindamycin HCl [Cleocin 150 mg Capsule] 300 mg PO Q6 7 Days #56 capsule Clindamycin HCl [Cleocin 150 mg Capsule] 300 mg PO Q6 7 Days #56 capsule Oxycodone HCl/Acetaminophen [Percocet 5-325 mg Tablet] 1 - 2 tab PO Q4H PRN #15 tablet PRN Reason: Oxycodone HCl/Acetaminophen [Percocet 5-325 mg Tablet] 1 - 2 tab PO Q4H PRN #15 tablet PRN Reason: Ondansetron [Zofran Odt 4 mg Tablet] 1 - 2 tab PO Q4H PRN #15 tab.rapdis PRN Reason: For Nausea/Vomiting Ondansetron [Zofran Odt 4 mg Tablet] 1 - 2 tab PO Q4H PRN #15 tab.rapdis PRN Reason: For Nausea/Vomiting Referrals: DAVE YODER MD [ACTIVE STAFF] - Follow up as needed
[2019-11-18 13:16] VITALS: BP 124/77
== END 2019-11-18 13:20 | disposition home or self-care (01) ==
LOC: ER 09:57
PROC: 0H98XZZ Drainage of Buttock Skin, External Approach (ICD-10-PCS; principal; 2019-11-18)
DX: L02.31 Cutaneous abscess of buttock (principal); Z88.2 Allergy status to sulfonamides; Z88.8 Allergy status to other drugs, medicaments and biological substances
CPT/HCPCS: 36415; 80053; 85025; 87070; 87075; 87077; 87205; 99283

== ENCOUNTER 2019-12-05 09:34 | Observation (INO) | payer MEDICAID ==
--- NOTE | 2019-12-05 10:45 | ER Document Report ---
ED Medical Screen (RME) - General Chief Complaint: Abscess Stated Complaint: BUTTOCK PAIN/POSSIBLE ABSCESS Time Seen by Provider: 12/05/19 10:41 Notes: HPI: 54-year-old male with history of abscesses presenting for abscess to the left gluteal region over the last 3 to 4 days. No fever PHYSICAL EXAMINATION: There is a large indurated region on the inner aspect of the left gluteus. Patient is uncomfortable difficult exam unable to determine definitively if the indurated region abuts the rectum I have greeted and performed a rapid initial assessment of this patient. A comprehensive ED assessment and evaluation of the patient, analysis of test results and completion of medical decision making process will be conducted by an additional ED providers. TRAVEL OUTSIDE OF THE [place] IN LAST 30 DAYS: No - Related Data Allergies/Adverse Reactions: ibuprofen Allergy (Verified 12/01/19 11:28) naproxen Allergy (Verified 12/01/19 11:28) sulfamethoxazole [From Bactrim] Allergy (Verified 12/01/19 11:28) tramadol Allergy (Verified 12/01/19 11:28) trimethoprim [From Bactrim] Allergy (Verified 12/01/19 11:28) Past Medical History - Social History Family history: Reviewed & Not Pertinent Endocrine Medical History: Denies: Hx Diabetes Mellitus Type 1, Hx Diabetes Mellitus Type 2 Renal/ Medical History: Reports: Hx Kidney Stones. Denies: Hx Peritoneal Dialysis Musculoskeltal Medical History: Reports Hx Arthritis, Denies Hx Fibromyalgia, Denies Hx Gout, Denies Hx Multiple Sclerosis, Denies Hx Muscular Dystrophy, Denies Hx Muscle Spasm, Denies Hx Muscle Weakness, Denies Hx Musculoskeletal Deformity, Denies Hx Musculoskeletal Trauma, Denies Hx Systemic Lupus Erythematosus Skin Medical History: Reports Hx Cellulitis, Reports Hx MRSA Psychiatric Medical History: Reports: Hx Bipolar Disorder, Hx Depression, Hx Post Traumatic Stress Disorder, Hx Schizophrenia Infectious Medical History: Reports: Hx MRSA Past Surgical History: Reports: Other - skin graft Multiple operative procedures to drain these small abscesses - Immunizations Hx Diphtheria, Pertussis, Tetanus Vaccination: Yes Physical Exam - Vital signs Vitals: Temp Pulse Resp BP Pulse Ox 98.7 F 82 17 106/67 96 12/05/19 09:44 12/05/19 09:44 12/05/19 09:44 12/05/19 09:44 12/05/19 09:44 Course - Vital Signs Vital signs: Temp Pulse Resp BP Pulse Ox 98.7 F 82 17 106/67 96 12/05/19 09:44 12/05/19 09:44 12/05/19 09:44 12/05/19 09:44 12/05/19 09:44
[2019-12-05] MEDS ORDERED: AMPICILLIN SOD/SULBACTAM 3 GM VIAL IV ONE (12:01)
--- NOTE | 2019-12-05 12:23 | ER Document Report ---
Entered by JOHN HARRELL SCRIBE 12/05/19 1138 Acting as scribe for:JACKIE PARSON MD ED Skin Rash/Insect Bite/Abscs - General Chief Complaint: Abscess Stated Complaint: BUTTOCK PAIN/POSSIBLE ABSCESS Time Seen by Provider: 12/05/19 10:41 Mode of Arrival: Ambulatory Information source: Patient Notes: This 54 year old male patient with a history of multiple MRSA abscesses presents to the emergency department today for complaints of a buttock abscess. Patient was seen here on 11/17 for an abscess and he was sent home with a 7 day supply of 300 mg clindamycin q6 and he has around half of this bottle left stating that he "stopped taking it when the abscess went down". Patient was seen here again on 11/30 and was sent home on pain medication and clindamycin. Patient did fill the prescription for pain medication but did not fill the prescription for the doxycycline. Patient last had P.O. intake at 1:00 AM. Patient had a wound culture done with the I&D on 11/17 which grew out Peptostreptococcus and the recommended antibiotic was Unasyn. TRAVEL OUTSIDE OF THE [place] IN LAST 30 DAYS: No - Related Data Allergies/Adverse Reactions: ibuprofen Allergy (Verified 12/05/19 11:31) naproxen Allergy (Verified 12/05/19 11:31) sulfamethoxazole [From Bactrim] Allergy (Verified 12/05/19 11:31) tramadol Allergy (Verified 12/05/19 11:31) trimethoprim [From Bactrim] Allergy (Verified 12/05/19 11:31) Home Medications: dicloamine, percocet, sitz bath with hibicleanse Past Medical History - General Information source: Patient - Social History Smoking Status: Current Every Day Smoker Cigarette use (# per day): Yes Frequency of alcohol use: None Drug Abuse: None Lives with: Family Family History: Reviewed & Not Pertinent Patient has suicidal ideation: No Patient has homicidal ideation: No Renal/ Medical History: Reports: Hx Kidney Stones Musculoskeletal Medical History: Reports Hx Arthritis Skin Medical History: Reports Hx Cellulitis, Reports Hx MRSA Psychiatric Medical History: Reports: Hx Bipolar Disorder, Hx Depression, Hx Post Traumatic Stress Disorder, Hx Schizophrenia Infectious Medical History: Reports: Hx MRSA Past Surgical History: Reports: Other - skin graft Multiple operative procedures to drain these small abscesses - Immunizations Hx Diphtheria, Pertussis, Tetanus Vaccination: Yes Review of Systems - Review of Systems Constitutional: No symptoms reported EENT: No symptoms reported Cardiovascular: No symptoms reported Respiratory: No symptoms reported Gastrointestinal: No symptoms reported Genitourinary: No symptoms reported Male Genitourinary: No symptoms reported Musculoskeletal: No symptoms reported Skin: See HPI, Other - buttock abscess Hematologic/Lymphatic: No symptoms reported Neurological/Psychological: No symptoms reported -: Yes All other systems reviewed and negative Physical Exam - Vital signs Vitals: Temp Pulse Resp BP Pulse Ox 98.7 F 82 17 106/67 96 12/05/19 09:44 12/05/19 09:44 12/05/19 09:44 12/05/19 09:44 12/05/19 09:44 - Notes Notes: Physical Exam: General: Alert, appears well. HEENT: Normocephalic. Atraumatic. PERRL. Extraocular movements intact. Orophary nx clear. Neck: Supple. Non-tender. Respiratory: No respiratory distress. Clear and equal breath sounds bilaterally. Cardiovascular: Regular rate and rhythm. Abdominal: Normal Inspection. Non-tender. No distension. Normal Bowel Sounds. Back: No gross abnormalities. Extremities: Moves all four extremities. Upper extremities: Normal inspection. Normal ROM. Lower extremities: Normal inspection. No edema. Normal ROM. Neurological: Normal cognition. AAOx4. Normal speech. Psychological: Normal affect. Normal Mood. Skin: Over the left buttock along the gluteal cleft there is an area of swelling, induration, fluctuance, and tenderness on palpation. Course - Vital Signs Vital signs: Temp Pulse Resp BP Pulse Ox 98.7 F 82 20 107/70 96 12/05/19 15:00 12/05/19 15:00 12/05/19 15:00 12/05/19 15:01 12/05/19 15:01 - Laboratory Result Diagrams: 12/05/19 12:06 12/05/19 12:06 Laboratory results interpreted by me: 12/05/19 12/05/19 12/05/19 12:06 12:06 13:40 WBC 15.0 H RBC 5.64 H Hgb 12.6 L MCV 70 L MCH 22.4 L RDW 15.5 H Absolute Neuts (auto) 10.7 H Sodium 135.9 L Urine Urobilinogen 2.0 H Urine Ascorbic Acid 40 H - Consults Dr. Winston Time consulted: 11:53 Consulted provider: will come to ER Discharge - Discharge Clinical Impression: Left buttock abscess Leukocytosis Qualifiers: Leukocytosis type: unspecified Qualified Code(s): D72.829 - Elevated white blood cell count, unspecified Hypotension Qualifiers: Hypotension type: unspecified hypotension type Qualified Code(s): I95.9 - Hypotension, unspecified Condition: Stable Disposition: ADMITTED OBSERVATION Admitting Provider: Surgicalist Unit Admitted: Surgical Floor I personally performed the services described in the documentation, reviewed and edited the documentation which was dictated to the scribe in my presence, and it accurately records my words and actions.
[2019-12-05 12:26] LABS: ABSOLUTE BASOPHILS # (AUTO) 0.1 10^3/uL (0.0-0.2); ABSOLUTE EOSINOPHILS # (AUTO) 0.2 10^3/uL (0.0-0.6); ABSOLUTE LYMPHOCYTES (AUTO) 2.9 10^3/uL (0.5-4.7); ABSOLUTE MONOCYTES (AUTO) 1.2 10^3/uL (0.1-1.4); ABSOLUTE NEUT (AUTO) 10.7 10^3/uL (1.7-8.2); BASOPHILS % (AUTO) 0.4 % (0-2); EOSINOPHILS % (AUTO) 1.4 % (0-6); HEMATOCRIT 39.3 % (37.9-51.0); HEMOGLOBIN 12.6 g/dL (13.5-17.0); LYMPHOCYTES % (AUTO) 19.2 % (13-45); MEAN CORPUSCULAR HEMOGLOBIN 22.4 pg (27.0-33.4); MEAN CORPUSCULAR HGB CONC 32.1 g/dL (32.0-36.0); MEAN CORPUSCULAR VOLUME 70 fl (80-97); MONOCYTES % (AUTO) 7.7 % (3-13); PLATELET COUNT 327 10^3/uL (150-450); RED BLOOD COUNT 5.64 10^6/uL (4.35-5.55); RED CELL DISTRIBUTION WIDTH 15.5 % (11.5-14.0); SEGMENTED NEUTROPHILS % (AUTO) 71.3 % (42-78); TOTAL CELLS COUNTED % (AUTO) 100 %
[2019-12-05] MEDS ORDERED: MORPHINE SULFATE 10 MG/ML INJ IV ONE (12:38)
[2019-12-05] MEDS ORDERED: ONDANSETRON HCL INJ/PF 4 MG/2 ML SDV IV ONE (12:38)
[2019-12-05 12:57] LABS: ALBUMIN 3.7 g/dL (3.5-5.0); ALKALINE PHOSPHATASE 85 U/L (38-126); ANION GAP 7 (5-19); ASPARTATE AMINO TRANSFERASE 22 U/L (17-59); BILIRUBIN,TOTAL 0.4 mg/dL (0.2-1.3); BLOOD UREA NITROGEN 14 mg/dL (7-20); CALCIUM 9.5 mg/dL (8.4-10.2); CARBON DIOXIDE 24 mmol/L (22-30); CHLORIDE 105 mmol/L (98-107); GLUCOSE 106 mg/dL (75-110); POTASSIUM 4.5 mmol/L (3.6-5.0); TOTAL PROTEIN 7.4 g/dL (6.3-8.2)
[2019-12-05] MEDS ORDERED: NORMAL SALINE 1000 ML 1,000 ML IV ONE (13:16)
--- NOTE | 2019-12-05 13:40 | PDOC H&P ---
History of Present Illness Patient complains of: Left buttock pain History of Present Illness: CHERELLE VILLALOBOS is a 54 year old male Presents emergency room via ground rescue complaining of a several day history of left buttock pain, swelling. Patient was seen in the emergency department was found to have left buttock tenderness, swelling and erythema. She had a leukocytosis of 15,000. Surgery was consulted, patient was evaluated and felt to have exacerbation of left buttock abscess. He was advised admission and definitive management. Patient is one-week status post I&D of the left inner thigh abscesses in the emergency department. Patient has a long history of hidradenitis suppurativa of the perineum, and buttock regions. Patient is status post wide excision, bilateral buttock and perineal skin grafting in [place]. Over the last 10 years he has had multiple I&D procedures of the perineum and the radha-buttock tissue. Past Medical History Endocrine Medical History: Denies: Diabetes Mellitus Type 1, Diabetes Mellitus Type 2 Musculoskeltal Medical History: Reports: Arthritis Denies: Fibromyalgia, Gout Psychiatric Medical History: Reports: Bipolar Disorder, Depression, Post Traumatic Stress Disorder Infectious Medical History: Reports: Methicillin-Resistant Staph Aureus Past Surgical History Past Surgical History: Reports: Other - See skin graft Multiple operative procedures to drain these small abscesses Social History Lives with: Family Smoking Status: Current Every Day Smoker Frequency of Alcohol Use: Rare Hx Recreational Drug Use: No Hx Prescription Drug Abuse: No Family History Family History: None, Reviewed & Not Pertinent Parental Family History Reviewed: No Children Family History Reviewed: No Sibling(s) Family History Reviewed.: No Medication/Allergy Home Medications: Doxycycline Monohydrate 100 mg PO BID #20 capsule 06/01/19 Oxycodone HCl/Acetaminophen [Percocet 5-325 mg Tablet] 1 tab PO Q6 PRN #6 tablet 06/01/19 Clindamycin HCl [Cleocin 150 mg Capsule] 300 mg PO Q6 7 Days #56 capsule 11/18/19 Clindamycin HCl [Cleocin 150 mg Capsule] 300 mg PO Q6 7 Days #56 capsule 11/18/19 Ondansetron [Zofran Odt 4 mg Tablet] 1 - 2 tab PO Q4H PRN #15 tab.rapdis 11/18/19 Ondansetron [Zofran Odt 4 mg Tablet] 1 - 2 tab PO Q4H PRN #15 tab.rapdis 11/18/19 Oxycodone HCl/Acetaminophen [Percocet 5-325 mg Tablet] 1 - 2 tab PO Q4H PRN #15 tablet 11/18/19 Oxycodone HCl/Acetaminophen [Percocet 5-325 mg Tablet] 1 - 2 tab PO Q4H PRN #15 tablet 11/18/19 Doxycycline Monohydrate 100 mg PO BID #20 capsule 12/01/19 Indomethacin [Indocin 25 Mg Capsule] 25 mg PO DAILY #7 capsule 12/01/19 Oxycodone HCl/Acetaminophen [Percocet 5-325 mg Tablet] 1 tab PO BID 7 Days #15 tablet 12/01/19 Allergies/Adverse Reactions: ibuprofen Allergy (Verified 12/05/19 11:31) naproxen Allergy (Verified 12/05/19 11:31) sulfamethoxazole [From Bactrim] Allergy (Verified 12/05/19 11:31) tramadol Allergy (Verified 12/05/19 11:31) trimethoprim [From Bactrim] Allergy (Verified 12/05/19 11:31) Review of Systems Constitutional: ABSENT: chills, fever(s), headache(s), weight gain, weight loss Eyes: ABSENT: visual disturbances Ears: ABSENT: hearing changes Cardiovascular: ABSENT: chest pain, dyspnea on exertion, edema, orthropnea, palpitations Respiratory: ABSENT: cough, hemoptysis Gastrointestinal: ABSENT: abdominal pain, constipation, diarrhea, hematemesis, hematochezia, nausea, vomiting Neurological: ABSENT: abnormal gait, abnormal speech, confusion, dizziness, focal weakness, syncope Psychiatric: ABSENT: anxiety, depression, homidical ideation, suicidal ideation Physical Exam Vital Signs: Temp Pulse Resp BP Pulse Ox 98.7 F 82 17 106/67 96 12/05/19 09:44 12/05/19 09:44 12/05/19 09:44 12/05/19 09:44 12/05/19 09:44 Intake & Output 12/04/19 12/05/19 12/06/19 06:59 06:59 06:59 Weight 89.811 kg General appearance: PRESENT: no acute distress Head exam: PRESENT: normocephalic, other - Several scars consistent with previous mild trauma Eye exam: PRESENT: EOMI Ear exam: PRESENT: normal external ear exam Neck exam: PRESENT: full ROM Respiratory exam: PRESENT: rhonchi Pulses: PRESENT: normal carotid pulses, normal radial pulses, normal femoral pulses GI/Abdominal exam: PRESENT: diminished bowel sounds Rectal exam: PRESENT: other - Patient rolled in the right lateral cubitus position. Multiple extensive scarring both cheeks of the buttocks, as well as perineum. The left buttock cheek is more swollen, erythematous and tender compared to the right. There is no active draining site appreciated. Neurological exam: PRESENT: awake, oriented to person, oriented to place, oriented to time, reflexes normal Psychiatric exam: PRESENT: appropriate affect Skin exam: PRESENT: dry Results Laboratory Results: 12/05/19 12:06 12/05/19 12:06 12/05/19 12/05/19 12:06 12:06 WBC 15.0 H RBC 5.64 H Hgb 12.6 L Hct 39.3 MCV 70 L MCH 22.4 L MCHC 32.1 RDW 15.5 H Plt Count 327 Seg Neutrophils % 71.3 Sodium 135.9 L Potassium 4.5 Chloride 105 Carbon Dioxide 24 Anion Gap 7 BUN 14 Creatinine 0.97 Est GFR ( Amer) > 60 Glucose 106 Calcium 9.5 Total Bilirubin 0.4 AST 22 Alkaline Phosphatase 85 Total Protein 7.4 Albumin 3.7 Assessment & Plan - Diagnosis (1) Abscess of left buttock Is this a current diagnosis for this admission?: Yes Plan: Impression: Exacerbation of a left buttock abscess in patient with chronic buttock and perineal infection, excision, debridement, and skin grafting. Recommendations: 1. Will admit, keep n.p.o. and IV fluids intravenous antibiotics 2. Take patient to the operating for drainage using ultrasound as a guide left buttock abscess, possible counterincision, possible loop drain placement. This was explained to the patient. Patient expresses understanding and agrees to proceed. (2) Hidradenitis suppurativa of anus Is this a current diagnosis for this admission?: Yes (3) History of substance abuse Is this a current diagnosis for this admission?: Yes (4) Leukocytosis Is this a current diagnosis for this admission?: Yes (5) Schizophrenia Is this a current diagnosis for this admission?: Yes (6) Smoker Is this a current diagnosis for this admission?: Yes - Time Time Spent: 30 to 50 Minutes Critical Time spent with patient: Less than 15 minutes Smoking Cessation Education: 3 to 10 minutes Medications reviewed and adjusted accordingly: Yes Anticipated Discharge Disposition: Home, Self Care Anticipated Discharge Timeframe: within 24 hours - Inpatient Certification Based on my medical assessment, after consideration of the patient's comorbidities, presenting symptoms, or acuity I expect that the services needed warrant INPATIENT care.: Yes I certify that my determination is in accordance with my understanding of Medicare's requirements for reasonable and necessary INPATIENT services [42 CFR 412.3e].: Yes Medical Necessity: Need For IV Fluids
[2019-12-05] MEDS: RINGERS SOLUTION,LACTATED 1,000 ML IV PRN ×2 (14:13→21:49)
[2019-12-05 14:24] LABS: APPEARANCE,URINE CLEAR; BILIRUBIN,URINE NEGATIVE (NEGATIVE); COLOR,URINE YELLOW; GLUCOSE, URINE NEGATIVE (NEGATIVE); KETONES,URINE NEGATIVE (NEGATIVE); LEUKOCYTE ESTERASE,URINE NEGATIVE (NEGATIVE); NITRITE,URINE NEGATIVE (NEGATIVE); PROTEIN,URINE NEGATIVE (NEGATIVE); URINE SPECIFIC GRAVITY 1.026
[2019-12-05] MEDS ORDERED: LIDOCAINE 0.5% INJ-PF (5 MG/ML) 50 ML SDV ONE (15:31)
[2019-12-05] MEDS ORDERED: BUPIVACAINE HCL 0.25 % INJ/PF (2.5 MG/1 ML) 30 ML VIAL ONE (15:31)
[2019-12-05] MEDS ORDERED: ONDANSETRON HCL INJ/PF 4 MG/2 ML SDV ONE (15:38)
[2019-12-05] MEDS ORDERED: MIDAZOLAM 2 MG/2 ML INJ ONE (15:38)
[2019-12-05] MEDS ORDERED: FENTANYL CITRATE INJ/PF 100 MCG/2 ML AMPUL ONE (15:38)
[2019-12-05] MEDS ORDERED: PROPOFOL INJ 200 MG/20 ML VIAL IV ONE (15:39)
[2019-12-05] MEDS ORDERED: LIDOCAINE 2% INJ-PF (20 MG/ML) 2 ML AMPUL ONE (15:45)
[2019-12-05] MEDS ORDERED: DEXMEDETOMIDINE INJ 80 MCG/20 ML VIAL IV ONE (15:50)
[2019-12-05] MEDS ORDERED: MEPERIDINE HCL/PF INJ 25 MG/1 ML DISP.SYRIN IV PRN (16:24)
[2019-12-05] MEDS ORDERED: PROMETHAZINE HCL INJ 25 MG/1 ML VIAL IV PRN ×2 (16:24)
[2019-12-05] MEDS ORDERED: DIPHENHYDRAMINE HCL 50 MG/ML VIAL IV PRN (16:24)
[2019-12-05] MEDS ORDERED: ONDANSETRON HCL INJ/PF 4 MG/2 ML SDV IV PRN (16:24)
[2019-12-05] MEDS ORDERED: FENTANYL CITRATE INJ/PF 100 MCG/2 ML AMPUL IV PRN ×3 (16:24)
[2019-12-05] MEDS ORDERED: KETOROLAC TROMETHAMINE INJ/PF 30 MG/1 ML SDV IV PRN (16:39)
[2019-12-05] MEDS ORDERED: OXYCODONE-ACETAMINOPHEN 5-325 MG TABLET PO PRN (16:39)
--- NOTE | 2019-12-05 16:39 | Operative Report ---
Operative Report DATE OF SURGERY: 12/05/19 PREOPERATIVE DIAGNOSIS: 1. Subacute left buttock abscess. 2. History of hidr adenitis of the buttock and perineum POSTOPERATIVE DIAGNOSIS: Same OPERATION: 1. Examination of perineum under anesthesia. 2. Focused ultrasound of the perianal tissue. 3. Incision and drainage and packing of left buttock abscess SURGEON: LUCAS MILLER ANESTHESIA: Other - Via LMA TISSUE REMOVED OR ALTERED: Fluid from left buttock cavity COMPLICATIONS: None ESTIMATED BLOOD LOSS: 5 cc INTRAOPERATIVE FINDINGS: See below PROCEDURE: The patient was taken to the preop holding area to the main operating room where LMA general anesthesia was induced. He was left in supine position, legs placed in high lithotomy position. The perineum including lower scrotum, and renal tissue prepped with Betadine Surgical plan surgical timeout were conducted. Aayush ultrasound with a variable frequency linear transducer was used to scan the perineum, and perianal tissue. Because of the history of previous extensive skin grafting, I&D, and scarring, examination, and even focused ultrasound was somewhat challenging. Nonetheless the elevated, swollen puffy tissue at the patient's left lateral buttock position was scanned. Findings were significant for streaks of hypoechoic tissue, but no discrete, dominant fluid pocket. Nonetheless I felt this is the area of acute pathology. Of note the perineum, lower scrotum, and perianal tissue was examined and there was no evidence of acute erythema, or swelling. I also scanned these areas with the transducer and I could not find any loculated fluid. The anal canal had several small pedunculation's, but no acute pathology. I anesthetized the left perianal tissue approximately 4 to 5 cm from the anal verge. I made a vertically oriented incision approximately 5 cm long, and the Denia clamp was used to spread the thick dermis and scar tissue. We opened up into a watery pocket that was broken up cephalad and caudad however no discrete pus. Fluid was sent for Gram stain culture and sensitivity. I used my index finger to break up loculations and ensure that the pocket was evacuated. No further counterincisions were made. Wound cavity irrigated with saline and packed with several feet of half-inch iodoform packing. I felt the acute problem was addressed with the above maneuvers. I felt the operation was complete. 4 x 4's were applied and special panties applied. Patient tolerated the procedure well, taken to recovery room in stable condition Plan: 1. Keep on IV antibiotics 2. Follow-up on cultures 3. Likely remove packing tomorrow and discharge patient home.
[2019-12-05] MEDS: FENTANYL CITRATE INJ/PF 100 MCG/2 ML AMPUL ONE ×2 (16:46→16:53)
[2019-12-05] MEDS: DOCUSATE SODIUM 100 MG CAPSULE PO SCH (18:18)
[2019-12-05] MEDS: AMPICILLIN SODIUM/SULBACTAM NA 3 GM in NORMAL SALINE 100 ML IV SCH (21:49)
[2019-12-05] MEDS: OXYCODONE-ACETAMINOPHEN 5-325 MG TABLET PO PRN (22:37)
[2019-12-06] MEDS: OXYCODONE-ACETAMINOPHEN 5-325 MG TABLET PO PRN ×2 (04:09→08:29)
[2019-12-06] MEDS: AMPICILLIN SODIUM/SULBACTAM NA 3 GM in NORMAL SALINE 100 ML IV SCH (05:14)
[2019-12-06] MEDS: RINGERS SOLUTION,LACTATED 1,000 ML IV PRN (05:17)
[2019-12-06 08:08] VITALS: BP 117/71
--- NOTE | 2019-12-06 08:46 | PDOC DISCHARGE SUMMARY ---
General - Admit/Disc Date/PCP Admission Date/Primary Care Provider: 12/05/19 14:07 Discharge Date: 12/06/19 - Discharge Diagnosis Final Diagnosis: Perirectal abscess - Assessment Summary: Is a 54-year-old male who has had multiple visits for chronic hidradenitis and perirectal abscess who was admitted last night for similar complaints in the left buttock where he was taken the operating room underwent a incision and drainage of a perirectal abscess. The packing was removed the following day and he felt better is afebrile with stable vital signs tolerating regular diet and ready for discharge home. He will be discharged home today on p.o. dicloxacillin 500 mg p.o. every 6 hours and will be given a follow-up appointment in 7 to 10 days. - Additional Information Resuscitation Status: Full Code Discharge Diet: As Tolerated Discharge Activity: Activity As Tolerated, No Lifting Over 10 Pounds Referrals: [facility] [Provider Group] (OFFICE CLOSED PLEASE CALL OFFICE TOMORROW FOR YOUR FOLLOW UP DATE AND TIME) Prescriptions: Dicloxacillin Sodium [Dynapen 250 mg Capsule] 500 mg PO Q6 #40 capsule Dicloxacillin Sodium [Dynapen 250 mg Capsule] 500 mg PO Q6 #40 capsule Oxycodone HCl/Acetaminophen [Percocet 10-325 Mg Tablet] 1 each PO Q6HP PRN #10 tablet PRN Reason: Home Medications: Oxycodone HCl/Acetaminophen [Percocet 5-325 mg Tablet] 1 tab PO BIDP PRN 12/05/19 Dicloxacillin Sodium [Dynapen 250 mg Capsule] 500 mg PO Q6 #40 capsule 12/06/19 Dicloxacillin Sodium [Dynapen 250 mg Capsule] 500 mg PO Q6 #40 capsule 12/06/19 Oxycodone HCl/Acetaminophen [Percocet 10-325 Mg Tablet] 1 each PO Q6HP PRN #10 tablet 12/06/19 History of Present Illiness History of Present Illness: CHERELLE VILLALOBOS is a 54 year old male Physical Exam Vital Signs: Temp Pulse Resp BP Pulse Ox 98.7 F 69 16 117/71 99 12/06/19 07:26 12/06/19 07:26 12/06/19 07:26 12/06/19 07:26 12/06/19 07:26 Intake & Output 12/05/19 12/06/19 12/07/19 06:59 06:59 06:59 Intake Total 4640 Output Total 415 Balance 4225 Weight 86.4 kg Results Laboratory Results: WBC 15.0 10^3/uL (4.0-10.5) H 12/05/19 12:06 RBC 5.64 10^6/uL (4.35-5.55) H 12/05/19 12:06 Hgb 12.6 g/dL (13.5-17.0) L 12/05/19 12:06 Hct 39.3 % (37.9-51.0) 12/05/19 12:06 MCV 70 fl (80-97) L 12/05/19 12:06 MCH 22.4 pg (27.0-33.4) L 12/05/19 12:06 MCHC 32.1 g/dL (32.0-36.0) 12/05/19 12:06 RDW 15.5 % (11.5-14.0) H 12/05/19 12:06 Plt Count 327 10^3/uL (150-450) 12/05/19 12:06 Lymph % (Auto) 19.2 % (13-45) 12/05/19 12:06 Mckenzie % (Auto) 7.7 % (3-13) 12/05/19 12:06 Eos % (Auto) 1.4 % (0-6) 12/05/19 12:06 Baso % (Auto) 0.4 % (0-2) 12/05/19 12:06 Absolute Neuts (auto) 10.7 10^3/uL (1.7-8.2) H 12/05/19 12:06 Absolute Lymphs (auto) 2.9 10^3/uL (0.5-4.7) 12/05/19 12:06 Absolute Monos (auto) 1.2 10^3/uL (0.1-1.4) 12/05/19 12:06 Absolute Eos (auto) 0.2 10^3/uL (0.0-0.6) 12/05/19 12:06 Absolute Basos (auto) 0.1 10^3/uL (0.0-0.2) 12/05/19 12:06 Seg Neutrophils % 71.3 % (42-78) 12/05/19 12:06 Sodium 135.9 mmol/L (137-145) L 12/05/19 12:06 Potassium 4.5 mmol/L (3.6-5.0) 12/05/19 12:06 Chloride 105 mmol/L (98-107) 12/05/19 12:06 Carbon Dioxide 24 mmol/L (22-30) 12/05/19 12:06 Anion Gap 7 (5-19) 12/05/19 12:06 BUN 14 mg/dL (7-20) 12/05/19 12:06 Creatinine 0.97 mg/dL (0.52-1.25) 12/05/19 12:06 Est GFR ( Amer) > 60 (>60) 12/05/19 12:06 Est GFR (MDRD) Non-Af > 60 (>60) 12/05/19 12:06 Glucose 106 mg/dL (75-110) 12/05/19 12:06 Calcium 9.5 mg/dL (8.4-10.2) 12/05/19 12:06 Total Bilirubin 0.4 mg/dL (0.2-1.3) 12/05/19 12:06 Direct Bilirubin 0.0 mg/dL (0.0-0.4) 12/05/19 12:06 Neonat Total Bilirubin Not Reportable 12/05/19 12:06 Neonat Direct Bilirubin Not Reportable 12/05/19 12:06 Neonat Indirect Bili Not Reportable 12/05/19 12:06 AST 22 U/L (17-59) 12/05/19 12:06 ALT 20 U/L (<50) 12/05/19 12:06 Alkaline Phosphatase 85 U/L (38-126) 12/05/19 12:06 Total Protein 7.4 g/dL (6.3-8.2) 12/05/19 12:06 Albumin 3.7 g/dL (3.5-5.0) 12/05/19 12:06 Urine Color YELLOW 12/05/19 13:40 Urine Appearance CLEAR 12/05/19 13:40 Urine pH 5.0 (5.0-9.0) 12/05/19 13:40 Ur Specific Hurst 1.026 12/05/19 13:40 Urine Protein NEGATIVE mg/dL (NEGATIVE) 12/05/19 13:40 Urine Glucose (UA) NEGATIVE mg/dL (NEGATIVE) 12/05/19 13:40 Urine Ketones NEGATIVE mg/dL (NEGATIVE) 12/05/19 13:40 Urine Blood NEGATIVE (NEGATIVE) 12/05/19 13:40 Urine Nitrite NEGATIVE (NEGATIVE) 12/05/19 13:40 Urine Bilirubin NEGATIVE (NEGATIVE) 12/05/19 13:40 Urine Urobilinogen 2.0 mg/dL (<2.0) H 12/05/19 13:40 Ur Leukocyte Esterase NEGATIVE (NEGATIVE) 12/05/19 13:40 Urine WBC (Auto) 1 /HPF 12/05/19 13:40 Urine RBC (Auto) 3 /HPF 12/05/19 13:40 Urine Bacteria (Auto) TRACE /HPF 12/05/19 13:40 Urine Mucus (Auto) MANY /LPF 12/05/19 13:40 Urine Ascorbic Acid 40 (NEGATIVE) H 12/05/19 13:40 SARS-CoV-2 (PCR) NEGATIVE (NEGATIVE) 12/05/19 13:01
[2019-12-06] MEDS: DOCUSATE SODIUM 100 MG CAPSULE PO SCH (09:19)
== END 2019-12-06 10:57 | disposition home or self-care (01) ==
LOC: ER 09:34 → EH 14:07 → 4N 17:24
PROVIDERS: ATTEND Surgery
PROC: 0J990ZZ Drainage of Buttock Subcutaneous Tissue and Fascia, Open Approach (ICD-10-PCS; principal; 2019-12-05 15:00)
DX: K61.1 Rectal abscess (principal); L73.2 Hidradenitis suppurativa; M19.90 Unspecified osteoarthritis, unspecified site; F31.9 Bipolar disorder, unspecified; F43.10 Post-traumatic stress disorder, unspecified; F20.9 Schizophrenia, unspecified; F17.210 Nicotine dependence, cigarettes, uncomplicated; Z20.828 Contact with and (suspected) exposure to other viral communicable diseases; Z88.6 Allergy status to analgesic agent; Z88.1 Allergy status to other antibiotic agents; Z88.2 Allergy status to sulfonamides; Z86.14 Personal history of Methicillin resistant Staphylococcus aureus infection
CPT/HCPCS: 99284; 96361; 96375; 96365; 36415; 87070; 87205; 85025; 87635; 87075; 80053; 81001; J2250; J3490 ×5; J3010; J0295 ×2; J2270; J2405; J7050 ×2; J7030; J7120 ×2; J2704; C9803; 300; 99140

== ENCOUNTER 2020-01-18 09:05 | Emergency (ER) | payer MEDICAID ==
--- NOTE | 2020-01-18 10:21 | ER Document Report ---
Entered by DILAN BURGER SCRIBE 01/18/20 0943 Acting as scribe for:JACKIE PARSON MD ED GI Bleed / Rectal Pain - General Chief Complaint: Rectal Pain Stated Complaint: RECTAL PAIN Time Seen by Provider: 01/18/20 09:34 Mode of Arrival: Ambulatory Information source: Patient Notes: This 54 year old male patient with a history of multiple MRSA abscesses presents to the ED today with complaints of a rectal pain and bleeding related to a perirectal abscess that developed about x1.5 weeks ago. Patient states that the pain increases after a bowel movement, so he hasn't been eating for the last x2 days. Patient was seen here on 12/04 for a perirectal abscess and was admitted to the surgical service for an I&D, which was done that same day. Patient was discharged on 12/05 with a prescription for antibiotics and pain medication and with instructions to follow up; however, he has not done so yet. Denies any other complaints. TRAVEL OUTSIDE OF THE [place] IN LAST 30 DAYS: No - Related Data Allergies/Adverse Reactions: ibuprofen Allergy (Unknown, Verified 01/18/20 09:30) Pruritis naproxen Allergy (Verified 01/18/20 09:30) sulfamethoxazole [From Bactrim] Allergy (Verified 01/18/20 09:30) tramadol Allergy (Verified 01/18/20 09:30) trimethoprim [From Bactrim] Allergy (Verified 01/18/20 09:30) Past Medical History - General Information source: Patient, [facility] Records - Social History Smoking Status: Current Every Day Smoker Cigarette use (# per day): Yes Chew tobacco use (# tins/day): No Smoking Education Provided: No Frequency of alcohol use: None Drug Abuse: None Family History: Reviewed & Not Pertinent Patient has suicidal ideation: No Patient has homicidal ideation: No Renal/ Medical History: Reports: Hx Kidney Stones Musculoskeletal Medical History: Reports Hx Arthritis Skin Medical History: Reports Hx Cellulitis, Reports Hx MRSA Psychiatric Medical History: Reports: Hx Bipolar Disorder, Hx Depression, Hx Post Traumatic Stress Disorder, Hx Schizophrenia Infectious Medical History: Reports: Hx MRSA Past Surgical History: Reports: Other - skin graft, multiple operative procedures to drain these small abscesses - Immunizations Hx Diphtheria, Pertussis, Tetanus Vaccination: Yes Review of Systems - Review of Systems Constitutional: No symptoms reported EENT: No symptoms reported Cardiovascular: No symptoms reported Respiratory: No symptoms reported Gastrointestinal: See HPI Genitourinary: No symptoms reported Male Genitourinary: No symptoms reported Musculoskeletal: No symptoms reported Skin: See HPI Hematologic/Lymphatic: No symptoms reported Neurological/Psychological: No symptoms reported -: Yes All other systems reviewed and negative Physical Exam - Vital signs Vitals: Temp Pulse Resp BP Pulse Ox 98.6 F 74 16 105/74 99 01/18/20 09:12 01/18/20 09:12 01/18/20 09:12 01/18/20 09:12 01/18/20 09:12 Interpretation: Normal - General General appearance: Appears well, Alert In distress: None - HEENT Head: Normocephalic, Atraumatic Eyes: Normal Pupils: PERRL - Respiratory Respiratory status: No respiratory distress Chest status: Nontender Breath sounds: Normal Chest palpation: Normal - Cardiovascular Rhythm: Regular Heart sounds: Normal auscultation Murmur: No Friction rub: No Gallop: None auscultated - Abdominal Inspection: Normal Distension: No distension Bowel sounds: Normal Tenderness: Nontender - Abdomen soft Organomegaly: No organomegaly - Rectal Notes: Numerous scars from previous I&D procedures noted around the buttock area. There is a patch of pearly white skin appreciated just left of the anus that is exquisitely tender to palpation without any fluctuance. - Back Back: Normal, Nontender - Extremities General upper extremity: Normal inspection General lower extremity: Normal inspection - Neurological Neuro grossly intact: Yes - Psychological Associated symptoms: Normal affect, Normal mood - Skin Skin Temperature: Warm Skin Moisture: Dry Skin Color: Normal Course - Re-evaluation Re-evalutation: 01/18/20 11:16 The patient discussed his case with Dr. Lora at length. He ultimately decided that he wanted to try the antibiotic route and not go to the operating room this time. His white blood cell count is only mildly elevated, so we will go with t he patient's request for antibiotics and pain management. - Vital Signs Vital signs: Temp Pulse Resp BP Pulse Ox 98.6 F 74 16 105/74 99 01/18/20 09:12 01/18/20 09:12 01/18/20 09:12 01/18/20 09:12 01/18/20 09:12 - Laboratory Result Diagrams: 01/18/20 10:31 09/16/20 10:31 Laboratory results interpreted by me: 01/18/20 10:31 WBC 11.9 H RBC 5.65 H Hgb 12.5 L MCV 70 L MCH 22.2 L MCHC 31.8 L RDW 16.3 H Absolute Neuts (auto) 8.5 H - Consults Dr. Lora Time consulted: 09:55 Consulted provider: will come to ER - Came and spoke with patient at length. He knows the patient quite well. They ultimately decided to try antibiotics and pain management and follow-up in the office next week. Discharge - Discharge Clinical Impression: Perianal abscess Condition: Stable Disposition: HOME, SELF-CARE Additional Instructions: Abscess You have an abscess (boil). This a pus-forming infection, usually due to staph. Some boils may be left to drain on their own, but most require lancing. From the time the tender lump first appears, it may be three or four days before the abscess is ready to betina. Local heat and rest help at this stage of treatment. An antibiotic may prevent spread of the infection. Once the abscess is opened, packing may be placed into it. This is done so pus is not sealed inside by premature closure of the cavity. The packing will be removed at your follow-up visit or you may be advised to remove it yourself at home. Sometimes this packing must be replaced a few times during healing. The wound will heal with surprisingly little scar. Depending on the size and location of an abscess, healing can take one to four weeks. You may shower and wash the area around the incision site two or three times a day. Antibiotics may be prescribed, but are usually not necessary after an abscess has been drained. If you develop fever, chilling, worsening pain, or increasing swelling in the area, call the doctor or return immediately. Take the medications as prescribed. Call [facility] to schedule an appointment with Dr. Lora next week. RETURN TO THE EMERGENCY ROOM IF ANY NEW OR WORSENING SYMPTOMS. Prescriptions: Doxycycline Hyclate 100 mg PO BID #20 tablet. Oxycodone HCl/Acetaminophen [Percocet 5-325 mg Tablet] 1 tab PO ASDIR PRN #15 tablet PRN Reason: Referrals: [facility] [Provider Group] - Follow up in 1 week I personally performed the services described in the documentation, reviewed and edited the documentation which was dictated to the scribe in my presence, and it accurately records my words and actions.
[2020-01-18 10:47] LABS: ABSOLUTE BASOPHILS # (AUTO) 0.1 10^3/uL (0.0-0.2); ABSOLUTE EOSINOPHILS # (AUTO) 0.2 10^3/uL (0.0-0.6); ABSOLUTE LYMPHOCYTES (AUTO) 2.3 10^3/uL (0.5-4.7); ABSOLUTE MONOCYTES (AUTO) 0.9 10^3/uL (0.1-1.4); ABSOLUTE NEUT (AUTO) 8.5 10^3/uL (1.7-8.2); BASOPHILS % (AUTO) 0.5 % (0-2); EOSINOPHILS % (AUTO) 1.3 % (0-6); HEMATOCRIT 39.4 % (37.9-51.0); HEMOGLOBIN 12.5 g/dL (13.5-17.0); MEAN CORPUSCULAR HEMOGLOBIN 22.2 pg (27.0-33.4); MEAN CORPUSCULAR HGB CONC 31.8 g/dL (32.0-36.0); MEAN CORPUSCULAR VOLUME 70 fl (80-97); MONOCYTES % (AUTO) 7.7 % (3-13); PLATELET COUNT 280 10^3/uL (150-450); RED BLOOD COUNT 5.65 10^6/uL (4.35-5.55); RED CELL DISTRIBUTION WIDTH 16.3 % (11.5-14.0); SEGMENTED NEUTROPHILS % (AUTO) 71.5 % (42-78); TOTAL CELLS COUNTED % (AUTO) 100 %; WHITE BLOOD COUNT 11.9 10^3/uL (4.0-10.5)
[2020-01-18 11:07] LABS: ALBUMIN 4.1 g/dL (3.5-5.0); ALKALINE PHOSPHATASE 86 U/L (38-126); ANION GAP 8 (5-19); ASPARTATE AMINO TRANSFERASE 18 U/L (17-59); BILIRUBIN,DIRECT 0.3 mg/dL (0.0-0.4); BILIRUBIN,TOTAL 0.8 mg/dL (0.2-1.3); BLOOD UREA NITROGEN 7 mg/dL (7-20); CALCIUM 9.1 mg/dL (8.4-10.2); CARBON DIOXIDE 25 mmol/L (22-30); CHLORIDE 107 mmol/L (98-107); GLUCOSE 102 mg/dL (75-110); POTASSIUM 3.9 mmol/L (3.6-5.0); TOTAL PROTEIN 7.8 g/dL (6.3-8.2)
[2020-01-18 11:33] VITALS: BP 110/68
--- NOTE | 2020-01-18 16:37 | PDOC CONSULTATION ---
Consultation Consult Date: 01/18/20 Provider Consulted: SURGICAL SURGICALIST MD Consult reason:: perirectal pain, rectal bleeding History of Present Illness History of Present Illness: CHERELLE VILLALOBOS is a 54 year old male seen in consultation at the request of the emergency room physician. The patient is well-known to me, and has been seen by myself and my partners on multiple occasions. The patient has severe hidradenitis, as well as recurrent perirectal abscesses. The patient presents with a several week history of increasing anal/rectal pain with rectal bleeding. He denies any fevers, chills, shortness of breath, nausea, vomiting, abdominal pain, orthostasis, dizziness. He rates his pain as 10 out of 10. It is sharp and stabbing. It is located on the left lateral aspect of the anus. Pressure and defecation make his pain worse. He does report bleeding with bowel movements. Of note, the patient has declined surgical intervention for similar complaints in the past. Past Medical History Endocrine Medical History: Denies: Diabetes Mellitus Type 1, Diabetes Mellitus Type 2 Musculoskeltal Medical History: Reports: Arthritis Denies: Fibromyalgia, Gout Psychiatric Medical History: Reports: Bipolar Disorder, Depression, Post Traumatic Stress Disorder Infectious Medical History: Reports: Methicillin-Resistant Staph Aureus Past Surgical History Past Surgical History: Reports: Other - skin grafts. Multiple I&D's of cutaneous and perirectal abscesses Social History Smoking Status: Unknown if Ever Smoked Electronic Cigarette use?: No Frequency of Alcohol Use: Rare Hx Recreational Drug Use: No Hx Prescription Drug Abuse: No Family History Family History: Reviewed & Not Pertinent Parental Family History Reviewed: Yes Children Family History Reviewed: Yes Sibling(s) Family History Reviewed.: Yes Medication/Allergy Home Medications: Oxycodone HCl/Acetaminophen [Percocet 5-325 mg Tablet] 1 tab PO BIDP PRN 12/05/19 Dicloxacillin Sodium [Dynapen 250 mg Capsule] 500 mg PO Q6 #40 capsule 12/06/19 Dicloxacillin Sodium [Dynapen 250 mg Capsule] 500 mg PO Q6 #40 capsule 12/06/19 Oxycodone HCl/Acetaminophen [Percocet 10-325 Mg Tablet] 1 each PO Q6HP PRN #10 tablet 12/06/19 Doxycycline Hyclate 100 mg PO BID #20 tablet. 01/18/20 Oxycodone HCl/Acetaminophen [Percocet 5-325 mg Tablet] 1 tab PO ASDIR PRN #15 tablet 01/18/20 Allergies/Adverse Reactions: ibuprofen Allergy (Unknown, Verified 01/18/20 09:30) Pruritis naproxen Allergy (Verified 01/18/20 09:30) sulfamethoxazole [From Bactrim] Allergy (Verified 01/18/20 09:30) tramadol Allergy (Verified 01/18/20 09:30) trimethoprim [From Bactrim] Allergy (Verified 01/18/20 09:30) Review of Systems Constitutional: ABSENT: anorexia, chills, fatigue Eyes: ABSENT: visual disturbances Ears: ABSENT: hearing changes Nose, Mouth, and Throat: ABSENT: headache(s), sore throat Cardiovascular: ABSENT: chest pain Respiratory: ABSENT: cough Gastrointestinal: PRESENT: hematochezia, other - rectal pain. ABSENT: abdominal pain Genitourinary: ABSENT: dysuria Musculoskeletal: ABSENT: back pain Integumentary: PRESENT: lesions - perirectal swelling and pain, wounds Neurological: ABSENT: confusion, convulsions, dizziness Psychiatric: ABSENT: anxiety, depression Endocrine: ABSENT: cold intolerance, heat intolerance Hematologic/Lymphatic: ABSENT: easy bleeding, easy bruising Physical Exam Vital Signs: Temp Pulse Resp BP Pulse Ox 98.6 F 74 16 105/74 99 01/18/20 09:12 01/18/20 09:12 01/18/20 09:12 01/18/20 09:12 01/18/20 09:12 Intake & Output 01/17/20 01/18/20 01/19/20 06:59 06:59 06:59 Weight 86 kg General appearance: PRESENT: no acute distress, cooperative. ABSENT: disheveled Head exam: PRESENT: atraumatic, normocephalic Eye exam: PRESENT: EOMI, PERRLA. ABSENT: scleral icterus Mouth exam: PRESENT: moist, neck supple Neck exam: ABSENT: meningismus, tenderness, thyromegaly, tracheal deviation Respiratory exam: PRESENT: unlabored. ABSENT: tachypnea, wheezes Cardiovascular exam: ABSENT: tachycardia Vascular exam: PRESENT: normal capillary refill GI/Abdominal exam: PRESENT: soft. ABSENT: rigid, tenderness Rectal exam: PRESENT: normal rectal tone, tenderness - Left posterior lateral position, other - Induration, and evidence of perirectal abscess in the left lateral position.. ABSENT: hemorrhoids Extremities exam: ABSENT: clubbing Musculoskeletal exam: ABSENT: deformity Neurological exam: PRESENT: alert, awake, oriented to person, oriented to place, oriented to time, oriented to situation, CN II-XII grossly intact. ABSENT: motor sensory deficit Psychiatric exam: PRESENT: anxious. ABSENT: agitated, depressed Focused psych exam: ABSENT: delusional Skin exam: ABSENT: cyanosis, erythema, jaundice Assessment & Plan - Diagnosis (1) Perirectal abscess Is this a current diagnosis for this admission?: Yes - Plan Summary Plan Summary: This is a 54-year-old male whom I am well acquainted with. He has recurrent perirectal and perianal abscesses. The patient reports swelling and pain in his perirectal area. He reports blood with bowel movements. I have again recommended that the patient undergo incision and drainage of this perirectal abscess. The patient has declined. He is requesting antibiotics and pain medications. I have discussed this with him at length. I believe that long- term, this is not a solution to his problem. The patient has again declined surgical intervention. I will have him follow-up with me in the office in approximately 1 week. If his symptoms have not completely resolved, he will likely require surgical intervention. With the patient refusing surgery, discharge is reasonable. He is to contact me immediately with any new questions or concerns.
== END 2020-01-18 11:32 | disposition home or self-care (01) ==
LOC: ER 09:05
DX: K61.2 Anorectal abscess (principal); F17.210 Nicotine dependence, cigarettes, uncomplicated; Z87.442 Personal history of urinary calculi; Z86.14 Personal history of Methicillin resistant Staphylococcus aureus infection
CPT/HCPCS: 36415; 80053; 85025; 87040; 99284

== ENCOUNTER 2020-02-07 07:35 | Day surgery (SDC) | payer MEDICAID ==
[2020-02-02 11:13] LABS: ABSOLUTE BASOPHILS # (AUTO) 0.1 10^3/uL (0.0-0.2); ABSOLUTE EOSINOPHILS # (AUTO) 0.2 10^3/uL (0.0-0.6); ABSOLUTE LYMPHOCYTES (AUTO) 3.1 10^3/uL (0.5-4.7); ABSOLUTE MONOCYTES (AUTO) 1.1 10^3/uL (0.1-1.4); ABSOLUTE NEUT (AUTO) 11.1 10^3/uL (1.7-8.2); BASOPHILS % (AUTO) 0.4 % (0-2); EOSINOPHILS % (AUTO) 1.6 % (0-6); HEMATOCRIT 41.1 % (37.9-51.0); HEMOGLOBIN 13.3 g/dL (13.5-17.0); LYMPHOCYTES % (AUTO) 19.7 % (13-45); MEAN CORPUSCULAR HEMOGLOBIN 22.7 pg (27.0-33.4); MEAN CORPUSCULAR HGB CONC 32.4 g/dL (32.0-36.0); MEAN CORPUSCULAR VOLUME 70 fl (80-97); MONOCYTES % (AUTO) 7.2 % (3-13); PLATELET COUNT 343 10^3/uL (150-450); RED BLOOD COUNT 5.88 10^6/uL (4.35-5.55); RED CELL DISTRIBUTION WIDTH 15.9 % (11.5-14.0); SEGMENTED NEUTROPHILS % (AUTO) 71.1 % (42-78); TOTAL CELLS COUNTED % (AUTO) 100 %; WHITE BLOOD COUNT 15.5 10^3/uL (4.0-10.5)
[~2020-02-07 07:35] MED LIST: LACTATED RINGERS 1000 ML IV PRN; LIDOCAINE 0.5% INJ-PF (5 MG/ML) 50 ML SDV SUBCUT PRN
[2020-02-07] MEDS ORDERED: BUPIVACAINE HCL 0.25 % INJ/PF (2.5 MG/1 ML) 30 ML VIAL ONE (08:49)
[2020-02-07] MEDS ORDERED: LIDOCAINE 2% INJ-PF (20 MG/ML) 10 ML AMPUL ONE (08:52)
[2020-02-07] MEDS ORDERED: DEXAMETHASONE SOD PHOSPHATE INJ 4 MG/1 ML VIAL ONE (08:53)
[2020-02-07] MEDS ORDERED: PROPOFOL INJ 200 MG/20 ML VIAL IV ONE (08:53)
[2020-02-07] MEDS ORDERED: FENTANYL CITRATE INJ/PF 100 MCG/2 ML AMPUL ONE ×2 (08:53→10:15)
[2020-02-07] MEDS ORDERED: MIDAZOLAM 2 MG/2 ML INJ ONE (08:53)
[2020-02-07] MEDS ORDERED: ONDANSETRON HCL INJ/PF 4 MG/2 ML SDV ONE (08:53)
[2020-02-07] MEDS ORDERED: CEFAZOLIN 2 GM/D5W RTU 2 GM/50 ML RTUPB IV ONE (09:04)
[2020-02-07] MEDS ORDERED: FENTANYL CITRATE INJ/PF 100 MCG/2 ML AMPUL IV PRN ×3 (09:34)
[2020-02-07] MEDS ORDERED: DIPHENHYDRAMINE HCL 50 MG/ML VIAL IV PRN (09:34)
[2020-02-07] MEDS ORDERED: MEPERIDINE HCL/PF INJ 25 MG/1 ML DISP.SYRIN IV PRN (09:34)
[2020-02-07] MEDS ORDERED: PROMETHAZINE HCL INJ 25 MG/1 ML VIAL IV PRN ×2 (09:34)
--- NOTE | 2020-02-07 10:00 | Discharge Summary ---
Discharge Summary (SDC) - Discharge Final Diagnosis: Hidradenitis suppurativa of the left thigh and right buttock Date of Surgery: 02/07/20 Discharge Date: 02/07/20 Condition: Stable Treatment or Instructions: Discharge home. Diet as tolerated. Activity: Nonstrenuous. Okay to take bandage off and shower tomorrow (Thursday). Percocet follow-up at [facility] in 7 to 10 days. 5 mg p.o. every 6 hours as needed for pain. Prescriptions: Oxycodone HCl/Acetaminophen [Percocet 5-325 mg Tablet] 1 tab PO Q6HP PRN #15 tab PRN Reason: For Pain Discharge Diet: As Tolerated Respiratory Treatments at Home: Deep Breathing/Coughing, Incentive Spirometer Discharge Activity: Balance Activity w/Rest Home Care Assistance: None Needed Report the Following to Your Physician Immediately: Shortness of Breath, Nausea, Vomiting, Increase in Pain, Fever over 101 Degrees, Unusual Bleeding, Redness
[2020-02-07] MEDS ORDERED: OXYCODONE-ACETAMINOPHEN 5-325 MG TABLET PO PRN (10:33)
[2020-02-07] MEDS ORDERED: OXYCODONE-ACETAMINOPHEN 5-325 MG TABLET ONE (10:55)
[2020-02-07 15:31] VITALS: BP 113/83
--- NOTE | 2020-02-14 10:24 | Operative Report ---
Nonrecallable Operative Report DATE OF SURGERY: 02/07/20 PREOPERATIVE DIAGNOSIS: Subcutaneous abscesses due to hidradenitis POSTOPERATIVE DIAGNOSIS: Same as above OPERATION: 1. Excision of 3 cm right buttock abscess due to hidradenitis. 2. Excision of 3.5 cm left leg abscess due to hidradenitis. SURGEON: DAVE YODER ANESTHESIA: LMAC TISSUE REMOVED OR ALTERED: 1. 3 cm subcutaneous skin lesion of the buttock. 2. 3.5 cm subcutaneous lesion of the left leg. COMPLICATIONS: None apparent ESTIMATED BLOOD LOSS: Minimal PROCEDURE: Procedure in detail: After informed consent was obtained, the patient was brought to the operating room and laid in the left lateral decubitus position. The buttock and medial left thigh were prepped and draped in a normal sterile fashion. The patient had a history of hidradenitis, with abscess formation. The right buttock abscess was approximately 3 cm in diameter. An elliptical incision was created around the area of abscess. The inflamed area was completely excised down to the normal fatty tissue. The lesion was excised completely using a 15 blade scalpel. Hemostasis was achieved using electrocautery. A dressing was then placed. Attention was then turned to the left leg lesion. It measured 3.5 cm in diameter. A 15 blade scalpel was used to excise the lesion completely, down to the normal subcutaneous fatty tissue. The lesion was passed off the field. Hemostasis was achieved using electrocautery. A dressing was placed, and the procedure was concluded. All sponge, instrument, and needle counts were correct x2. Condition: Stable.
== END 2020-02-07 12:05 | disposition home or self-care (01) ==
LOC: OROUT 07:35
PROVIDERS: ATTEND Surgery
DX: L02.31 Cutaneous abscess of buttock (principal); L73.2 Hidradenitis suppurativa; Z03.818 Encounter for observation for suspected exposure to other biological agents ruled out; M19.90 Unspecified osteoarthritis, unspecified site; F32.9 Major depressive disorder, single episode, unspecified; R06.02 Shortness of breath; Z87.891 Personal history of nicotine dependence
CPT/HCPCS: 36415; 85025; 87635; 00300; 21930; J2250; J1100; J3010; J2405; J3490 ×2; J2704; J0690; C9803; 300

== ENCOUNTER 2020-02-25 09:45 | Emergency (ER) | payer MEDICAID ==
[2020-02-25] MEDS ORDERED: VANCOMYCIN HCL INJ 1000 MG VIAL IV ONE (10:43)
[2020-02-25 11:38] LABS: ABSOLUTE BASOPHILS # (AUTO) 0.1 10^3/uL (0.0-0.2); ABSOLUTE EOSINOPHILS # (AUTO) 0.2 10^3/uL (0.0-0.6); ABSOLUTE LYMPHOCYTES (AUTO) 2.2 10^3/uL (0.5-4.7); ABSOLUTE NEUT (AUTO) 9.3 10^3/uL (1.7-8.2); BASOPHILS % (AUTO) 0.8 % (0-2); EOSINOPHILS % (AUTO) 1.4 % (0-6); HEMATOCRIT 38.2 % (37.9-51.0); HEMOGLOBIN 12.4 g/dL (13.5-17.0); LYMPHOCYTES % (AUTO) 17.2 % (13-45); MEAN CORPUSCULAR HEMOGLOBIN 22.7 pg (27.0-33.4); MEAN CORPUSCULAR HGB CONC 32.5 g/dL (32.0-36.0); MEAN CORPUSCULAR VOLUME 70 fl (80-97); PLATELET COUNT 279 10^3/uL (150-450); RED BLOOD COUNT 5.45 10^6/uL (4.35-5.55); RED CELL DISTRIBUTION WIDTH 15.2 % (11.5-14.0); SEGMENTED NEUTROPHILS % (AUTO) 72.6 % (42-78); TOTAL CELLS COUNTED % (AUTO) 100 %; WHITE BLOOD COUNT 12.8 10^3/uL (4.0-10.5)
--- NOTE | 2020-02-25 11:45 | ER Document Report ---
ED General - General Chief Complaint: Rectal Pain Stated Complaint: CYSTS Time Seen by Provider: 02/25/20 10:04 Mode of Arrival: Ambulatory Information source: Patient Notes: 54-year-old man presenting to the emergency department with a complaint of pain in the buttock/perirectal area. He has a history of hidradenitis suppurativa. He has had a recent incision and drainage procedure on the left buttock and right thigh. He notes that developed swelling in the buttock area on the right with pain defecates or sits. He states he has had multiple procedures a lot of scar tissue and swelling. He denies fever, drainage or bleeding. TRAVEL OUTSIDE OF THE [place] IN LAST 30 DAYS: No - Related Data Allergies/Adverse Reactions: ibuprofen Allergy (Unknown, Verified 01/18/20 09:30) Pruritis naproxen Allergy (Verified 01/18/20 09:30) sulfamethoxazole [From Bactrim] Allergy (Verified 01/18/20 09:30) tramadol Allergy (Verified 01/18/20 09:30) trimethoprim [From Bactrim] Allergy (Verified 01/18/20 09:30) clindamycin Adverse Reaction (Verified 02/02/20 10:11) hydrocodone Adverse Reaction (Verified 02/02/20 10:11) ketorolac [From Toradol] Adverse Reaction (Verified 02/02/20 10:11) tomato Adverse Reaction (Verified 02/02/20 10:11) Past Medical History - Social History Smoking Status: Current Every Day Smoker Chew tobacco use (# tins/day): No Frequency of alcohol use: None Drug Abuse: None Family History: Reviewed & Not Pertinent - Past Medical History Cardiac Medical History: Denies: Hx Coronary Artery Disease, Hx Heart Attack, Hx Hypertension Pulmonary Medical History: Denies: Hx Asthma, Hx Bronchitis, Hx COPD, Hx Pneumonia Neurological Medical History: Denies: Hx Cerebrovascular Accident, Hx Seizures Endocrine Medical History: Denies: Hx Diabetes Mellitus Type 1, Hx Diabetes Mellitus Type 2 Renal/ Medical History: Reports: Hx Kidney Stones. Denies: Hx Peritoneal Dialysis Musculoskeletal Medical History: Reports Hx Arthritis, Denies Hx Fibromyalgia, Denies Hx Gout, Denies Hx Multiple Sclerosis, Denies Hx Muscular Dystrophy, Denies Hx Muscle Spasm, Denies Hx Muscle Weakness, Denies Hx Musculoskeletal Deformity, Denies Hx Musculoskeletal Trauma, Denies Hx Systemic Lupus Erythematosus Skin Medical History: Reports Hx Cellulitis, Reports Hx MRSA Psychiatric Medical History: Reports: Hx Bipolar Disorder, Hx Depression, Hx Post Traumatic Stress Disorder, Hx Schizophrenia Infectious Medical History: Reports: Hx MRSA Past Surgical History: Reports: Other - skin grafts. Multiple I&D's of cutaneous and perirectal abscesses - Immunizations Hx Diphtheria, Pertussis, Tetanus Vaccination: Yes Review of Systems - Review of Systems Notes: Constitutional: Negative for fever. HENT: Negative for sore throat. Eyes: Negative for visual changes. Cardiovascular: Negative for chest pain. Respiratory: Negative for shortness of breath. Gastrointestinal: See HPI Genitourinary: Negative for dysuria. Musculoskeletal: Negative for back pain. Skin: See HPI Neurological: Negative for headaches, weakness or numbness. 10 point ROS negative except as marked above and in HPI. Physical Exam - Vital signs Vitals: Temp Pulse Resp BP Pulse Ox 98.0 F 76 16 104/64 100 02/25/20 09:47 02/25/20 09:47 02/25/20 09:47 02/25/20 09:47 02/25/20 09:47 - Notes Notes: PHYSICAL EXAMINATION: Physical Exam: General: Well-nourished well-developed 54-year-old man in no acute distress HEENT: NC/AT, pupils equal round and reactive to light, MM moist,nares clear, oropharynx clear, airway patent Neck: supple, no adenopathy, no masses. Good range of motion Lungs: clear, no wheezing, no rales no rhonchi CVS: Regular rate and rhythm no murmur gallop or rub Abdomen: Soft, active, nontender, no masses, no hepatosplenomegaly Ext: No edema, clubbing or cyanosis. Neuro: Alert and responsive, moving all 4 extremities on command, cranial nerves intact, no focal findings Skin: Multiple scarring with thickening and swelling left buttock and low intra- buttock region.. PSYCH: Normal mood, normal affect. Course - Re-evaluation Re-evalutation: 02/25/20 13:24 Patient who presents with a history of hidradenitis suppurativa, CT scan reveals stranding in the tissues but no focal abscess identified. She is given vancomycin IV and will be discharged with doxycycline and short course of pain medication. Instructed to use doughnut to take the pressure off the area and to use a stool softener to reduce the discomfort with bowel movement. Patient acknowledges understanding of this plan and is in agreement with discharge. Follow-up appointment with the general surgeon next week. - Vital Signs Vital signs: Temp Pulse Resp BP Pulse Ox 98.4 F 62 16 115/75 97 02/25/20 13:34 02/25/20 13:34 02/25/20 13:34 02/25/20 13:34 02/25/20 13:34 - Laboratory Result Diagrams: 02/25/20 11:28 02/25/20 11:28 Laboratory results interpreted by me: 02/25/20 02/25/20 11:28 11:28 WBC 12.8 H Hgb 12.4 L MCV 70 L MCH 22.7 L RDW 15.2 H Absolute Neuts (auto) 9.3 H Chloride 110 H Albumin 3.4 L - Diagnostic Test Radiology reviewed: Image reviewed, Reports reviewed Radiology results interpreted by me: 02/25/20 13:[address] 02/25/20 10:44 IMPRESSION: Mild stranding in the superficial perianal soft tissues without focal collection or other findings for abscess. Discharge - Discharge Clinical Impression: Hidradenitis suppurativa of anus Leukocytosis Qualifiers: Leukocytosis type: unspecified Qualified Code(s): D72.829 - Elevated white blood cell count, unspecified Condition: Good Disposition: HOME, SELF-CARE Instructions: Cellulitis ([facility]) Additional Instructions: You are seen in the emergency department today with complaint of pain in the anal area. CT scan reveals swelling and inflammation and tissue compatible with cellulitis. You were given a prescription for doxycycline please take this medication as prescribed. You are also given a short course of pain medications. Please use the Colace to soften the stool use the doughnut to reduce the pressure on the area and follow-up with your appointment next week. HOME CARE INSTRUCTIONS & INFORMATION: Thank you for choosing us for your medical needs. We hope you're satisfied with the care you received. After you leave, you must properly care for your problem and, at the same time, observe its progress. Any condition can change. Some illnesses can change rapidly over hours or days. If your condition worsens, return to the Emergency Department or see your physician promptly. ABOUT YOUR X-RAYS AND EKG'S: If you had an EKG or X-rays taken, they have been read by the Emergency Physician. The X-rays and EKG's will also be read by a Radiologist or Roulette Dealer within 24 hours. If discrepancies are noted, you will be notified by telephone. Please be certain the ED has a correct telephone number & address where you can be reached. Also, realize that some fractures or abnormalities do not show up on initial X-rays. If your symptoms continue, see your physician. ABOUT YOUR LABORATORY TEST: If you had laboratory tests, the results have been reviewed by the Emergency Physician. Some test results (for example cultures) may not be available for several days. You will be contacted if any test result shows you need additional treatment. Please be certain the ED has a correct telephone number and address where you can be reached. ABOUT YOUR MEDICATIONS: You will receive instructions on how to take your medicine on the prescription label you receive. Additional information may be provided by the Pharmacy. If you have questions afterwards, call the ED for clarification or further instructions. Some prescribed medications may cause drowsiness. Do not perform tasks such as driving a car or operating machinery without consulting your Pharmacist. If you feel you need a refill of pain medication, your condition will need re-evaluation. Please do not call for a refill of any medication. ABOUT YOUR SIGNATURE: Signature of this document acknowledges to followin. Understanding that you received emergency treatment and that you may be released before al medical problems are known or treated. Please be certain the ED has a correct phone number & address where you can be reached. 2. Acknowledgement that you will arrange for follow-up care as recommended. 3. Authorization for the Emergency Physician to provide information to your follow-up Physician in order to maximize your care. AT ANY TIME, IF YOUR SYMPTOMS CHANGE SIGNIFICANTLY OR WORSEN OR YOU DEVELOP NEW SYMPTOMS, RETURN TO THE EMERGENCY DEPARTMENT IMMEDIATELY FOR RE-EVALUATION. OUR GOAL IS TO PROVIDE EXCELLENT MEDICAL CARE! WE HOPE THAT WE HAVE MET YOUR EXPECTATIONS DURING YOUR EMERGENCY DEPARTMENT VISIT AND THAT YOU FEEL YOU HAVE RECEIVED EXCELLENT CARE! Prescriptions: Doxycycline Monohydrate 100 mg PO BID #20 capsule Oxycodone HCl/Acetaminophen [Percocet 5-325 mg Tablet] 1 tab PO Q4H PRN #10 tablet PRN Reason: For Pain Oxycodone HCl/Acetaminophen [Percocet 5-325 mg Tablet] 1 tab PO Q6 PRN #10 tablet PRN Reason: For Pain
[2020-02-25 12:05] LABS: ALBUMIN 3.4 g/dL (3.5-5.0); ALKALINE PHOSPHATASE 67 U/L (38-126); ANION GAP 6 (5-19); ASPARTATE AMINO TRANSFERASE 17 U/L (17-59); BILIRUBIN,DIRECT 0.3 mg/dL (0.0-0.4); BILIRUBIN,TOTAL 0.3 mg/dL (0.2-1.3); BLOOD UREA NITROGEN 8 mg/dL (7-20); CALCIUM 8.9 mg/dL (8.4-10.2); CARBON DIOXIDE 24 mmol/L (22-30); CHLORIDE 110 mmol/L (98-107); GLUCOSE 89 mg/dL (75-110); POTASSIUM 4.3 mmol/L (3.6-5.0); TOTAL PROTEIN 6.6 g/dL (6.3-8.2)
--- NOTE | 2020-02-25 12:57 | RADIOLOGY REPORT (SQ) ---
EXAM DESCRIPTION: CT PELVIS WITH IMAGES COMPLETED DATE/TIME: 02/25/2020 12:33 pm REASON FOR STUDY: abscess perirectal COMPARISON: None. TECHNIQUE: CT scan of the pelvis performed with intravenous contrast. Images reviewed with soft tis ana m and bone windows. Reconstructed coronal and sagittal MPR images reviewed. Delayed expiratory ph ase images were also obtained. All images stored on PACS. All CT scanners at this facility use dose modulation, iterative reconstruction, and/or weight based d osing when appropriate to reduce radiation dose to as low as reasonably achievable (ALARA). [facility]: Dose Right [facility]: CareDose [facility]: Dose Right [facility]: Teradose 4D [facility]: IM5 RADIATION DOSE: CT Rad equipment meets quality standard of care and radiation dose reduction techniq ues were employed. CTDIvol: 8.3 - 11.7 mGy. DLP: 699 mGy-cm. mGy. LIMITATIONS: None. FINDINGS: PELVIC BONES: No acute fracture. No worrisome bone lesions. VISUALIZED SPINE: No acute findings. HIP(S): No acute fracture or dislocation. No worrisome bone lesions. PELVIC SOFT TISSUES: No significant findings. EXTRAPELVIC SOFT TISSUES: There is a mild stranding in the superficial perianal soft tissues. No foc al collection. OTHER: No other significant finding. IMPRESSION: Mild stranding in the superficial perianal soft tissues without focal collection or othe r findings for abscess. TECHNICAL DOCUMENTATION: JOB ID: [id number] Quality ID # [id number]: Final reports with documentation of one or more dose reduction techniques (e.g., Au tomated exposure control, adjustment of the mA and/or kV according to patient size, use of iterative reconstruction technique) 2010 [employer]- All Rights Reserved Reading location - IP/workstation name: [email or web address]
[2020-02-25] MEDS ORDERED: OXYCODONE-ACETAMINOPHEN 5-325 MG TABLET PO ONE (13:18)
[2020-02-25 13:34] VITALS: BP 115/75
== END 2020-02-25 13:59 | disposition home or self-care (01) ==
LOC: ER 09:45
DX: L73.2 Hidradenitis suppurativa (principal); D72.829 Elevated white blood cell count, unspecified; F17.200 Nicotine dependence, unspecified, uncomplicated; Z86.14 Personal history of Methicillin resistant Staphylococcus aureus infection; Z98.890 Other specified postprocedural states; Z88.8 Allergy status to other drugs, medicaments and biological substances; Z88.1 Allergy status to other antibiotic agents; Z88.6 Allergy status to analgesic agent
CPT/HCPCS: 99285; 96374; 36415; 85025; 80053; 72193; J3370

== ENCOUNTER 2020-03-27 10:06 | Observation (INO) | payer MEDICAID ==
[~2020-03-27 10:06] MED LIST changes: -LACTATED RINGERS 1000 ML IV PRN; -LIDOCAINE 0.5% INJ-PF (5 MG/ML) 50 ML SDV SUBCUT PRN; +SUCCINYLCHOLINE CHLORIDE INJ 200 MG/10 ML VIAL ONE
[2020-03-27] MEDS ORDERED: OXYCODONE-ACETAMINOPHEN 5-325 MG TABLET PO ONE (12:02)
[2020-03-27 12:55] LABS: ABSOLUTE BASOPHILS # (AUTO) 0.1 10^3/uL (0.0-0.2); ABSOLUTE EOSINOPHILS # (AUTO) 0.2 10^3/uL (0.0-0.6); ABSOLUTE LYMPHOCYTES (AUTO) 2.7 10^3/uL (0.5-4.7); ABSOLUTE NEUT (AUTO) 9.9 10^3/uL (1.7-8.2); BASOPHILS % (AUTO) 0.5 % (0-2); EOSINOPHILS % (AUTO) 1.3 % (0-6); HEMATOCRIT 39.1 % (37.9-51.0); HEMOGLOBIN 12.5 g/dL (13.5-17.0); LYMPHOCYTES % (AUTO) 19.3 % (13-45); MEAN CORPUSCULAR HEMOGLOBIN 22.4 pg (27.0-33.4); MEAN CORPUSCULAR HGB CONC 31.9 g/dL (32.0-36.0); MEAN CORPUSCULAR VOLUME 70 fl (80-97); MONOCYTES % (AUTO) 7.1 % (3-13); PLATELET COUNT 333 10^3/uL (150-450); RED BLOOD COUNT 5.56 10^6/uL (4.35-5.55); RED CELL DISTRIBUTION WIDTH 15.6 % (11.5-14.0); SEGMENTED NEUTROPHILS % (AUTO) 71.8 % (42-78); TOTAL CELLS COUNTED % (AUTO) 100 %; WHITE BLOOD COUNT 13.8 10^3/uL (4.0-10.5)
[2020-03-27 13:10] LABS: ALKALINE PHOSPHATASE 91 U/L (38-126); ANION GAP 8 (5-19); ASPARTATE AMINO TRANSFERASE 16 U/L (17-59); BILIRUBIN,DIRECT 0.1 mg/dL (0.0-0.4); BILIRUBIN,TOTAL 0.4 mg/dL (0.2-1.3); BLOOD UREA NITROGEN 10 mg/dL (7-20); CALCIUM 9.6 mg/dL (8.4-10.2); CARBON DIOXIDE 26 mmol/L (22-30); CHLORIDE 106 mmol/L (98-107); GLUCOSE 89 mg/dL (75-110); POTASSIUM 4.6 mmol/L (3.6-5.0); TOTAL PROTEIN 7.7 g/dL (6.3-8.2)
--- NOTE | 2020-03-27 14:03 | RADIOLOGY REPORT (SQ) ---
EXAM DESCRIPTION: CT PELVIS WITH IMAGES COMPLETED DATE/TIME: 03/27/2020 1:35 pm REASON FOR STUDY: hx of rectal abscess, rectal pain and purulence COMPARISON: 02/25/2020 TECHNIQUE: CT scan of the pelvis performed after the uneventful administration of intravenous contra st. Images reviewed with soft tissue and bone windows. Reconstructed coronal and sagittal MPR image s reviewed. All images stored on PACS. All CT scanners at this facility use dose modulation, iterative reconstruction, and/or weight based d osing when appropriate to reduce radiation dose to as low as reasonably achievable (ALARA). [facility]: Dose Right [facility]: CareDose [facility]: Dose Right [facility]: Teradose 4D [facility]: [employer]dik RADIATION DOSE: CT Rad equipment meets quality standard of care and radiation dose reduction techniq ues were employed. CTDIvol: 9.6 mGy. DLP: 365 mGy-cm. mGy. LIMITATIONS: None. FINDINGS: PELVIC BONES: No acute fracture. No worrisome bone lesions. VISUALIZED SPINE: No acute findings. HIP(S): No acute fracture or dislocation. No worrisome bone lesions. PELVIC SOFT TISSUES: There appears to be a new abscess involving the posterior wall of the rectum danilo suring on the order of 1.7 x 0.9 x 4.0 cm which tracks to the perianal tissues EXTRAPELVIC SOFT TISSUES: Re- demonstration of perianal soft tissue stranding and gluteal cleft skin thickening, asymmetric to the left. This may be somewhat increased in the study interval. OTHER: Incidental note is made of bilateral fat containing inguinal hernias. IMPRESSION: Likely progression in previously demonstrated perianal cellulitis with the appearance of a 1.7 x 0.9 x 4.0 cm perirectal abscess tracking toward the anus. TECHNICAL DOCUMENTATION: JOB ID: [id number] Quality ID # [id number]: Final reports with documentation of one or more dose reduction techniques (e.g., Au tomated exposure control, adjustment of the mA and/or kV according to patient size, use of iterative reconstruction technique) 2010 [employer]- All Rights Reserved Reading location - IP/workstation name: [email or web address]
[2020-03-27] MEDS ORDERED: METRONIDAZOLE 500 MG/NS RTU 500 MG/100 ML RTUPB IV ONE (14:16)
[2020-03-27] MEDS ORDERED: CEFTRIAXONE 1 GM/D5W RTU 1 GM/50 ML RTUPB IV ONE (14:17)
--- NOTE | 2020-03-27 14:22 | ER Document Report ---
ED General - General Chief Complaint: Abscess Stated Complaint: RECTAL BLEEDING Time Seen by Provider: 03/27/20 11:43 TRAVEL OUTSIDE OF THE [place] IN LAST 30 DAYS: No - HPI Notes: Patient is a 54-year-old male with a past medical history of hydradenitis suppurativa who presents with rectal pain. Patient states that he frequently gets abscesses. He recently had a thigh abscess drained by surgery. Patient states he finished his Bactrim 10 days ago. Patient states he has had rectal pain for about 1 month but it is worsening. He states he feels that there is pressure there. He also states that he has purulence and blood when he wipes. Denies any fevers or chills. No chest pain or shortness of breath. No nausea or vomiting. - Related Data Allergies/Adverse Reactions: ibuprofen Allergy (Unknown, Verified 03/27/20 10:18) Pruritis naproxen Allergy (Verified 03/27/20 10:18) sulfamethoxazole [From Bactrim] Allergy (Verified 03/27/20 10:18) tramadol Allergy (Verified 03/27/20 10:18) trimethoprim [From Bactrim] Allergy (Verified 03/27/20 10:18) clindamycin Adverse Reaction (Verified 03/27/20 10:18) hydrocodone Adverse Reaction (Verified 03/27/20 10:18) ketorolac [From Toradol] Adverse Reaction (Verified 03/27/20 10:18) tomato Adverse Reaction (Verified 03/27/20 10:18) Past Medical History - Social History Smoking Status: Current Every Day Smoker Chew tobacco use (# tins/day): No Drug Abuse: None Family History: Reviewed & Not Pertinent Patient has homicidal ideation: No - Past Medical History Cardiac Medical History: Denies: Hx Coronary Artery Disease, Hx Heart Attack, Hx Hypertension Pulmonary Medical History: Denies: Hx Asthma, Hx Bronchitis, Hx COPD, Hx Pneumonia Neurological Medical History: Denies: Hx Cerebrovascular Accident, Hx Seizures Endocrine Medical History: Denies: Hx Diabetes Mellitus Type 1, Hx Diabetes Mellitus Type 2 Renal/ Medical History: Reports: Hx Kidney Stones. Denies: Hx Peritoneal Dialysis Musculoskeletal Medical History: Reports Hx Arthritis, Denies Hx Fibromyalgia, Denies Hx Gout, Denies Hx Multiple Sclerosis, Denies Hx Muscular Dystrophy, Denies Hx Muscle Spasm, Denies Hx Muscle Weakness, Denies Hx Musculoskeletal Deformity, Denies Hx Musculoskeletal Trauma, Denies Hx Systemic Lupus Erythematosus Skin Medical History: Reports Hx Cellulitis, Reports Hx MRSA Psychiatric Medical History: Reports: Hx Bipolar Disorder, Hx Depression, Hx Post Traumatic Stress Disorder, Hx Schizophrenia Infectious Medical History: Reports: Hx MRSA Past Surgical History: Reports: Other - skin grafts. Multiple I&D's of cutaneous and perirectal abscesses - Immunizations Hx Diphtheria, Pertussis, Tetanus Vaccination: Yes Review of Systems - Review of Systems Notes: CONSTITUTIONAL: No fever, fatigue or weight loss. SKIN: No rash. HENT: No congestion, ear pain, or sore throat. CARDIOVASCULAR: No chest pain or edema. RESPIRATORY: No cough, shortness of breath, congestion, or wheezing. GASTROINTESTINAL: No abdominal pain, nausea, vomiting, bloody stools or diarrhea. GENITOURINARY: No dysuria. Positive for rectal pain and purulence. MUSCULOSKELETAL: No joint pain or swelling. NEUROLOGIC: No seizures. No headache, focal weakness or sensory changes. HEMATOLOGIC: No unusual bruising or bleeding. PSYCHIATRIC: No depression or anxiety. Physical Exam - Vital signs Vitals: Temp Pulse Resp BP Pulse Ox 98.1 F 70 16 112/66 99 03/27/20 10:10 03/27/20 10:10 03/27/20 10:10 03/27/20 10:10 03/27/20 10:10 - General General appearance: Appears well Notes: VITAL SIGNS: Within normal limits. GENERAL: No acute distress, non-toxic appearance. HEAD: Normal with no signs of head trauma. EYES: EOMI, conjunctiva normal, no discharge. EARS: Hearing grossly intact. NOSE: Normal. NECK: Normal range of motion, no tenderness, supple, no lymphadenopathy, No adenopathy, no JVD. CHEST: Clear breath sounds bilaterally. No wheezes, rales, or rhonchi. CARDIAC: Regular rate and rhythm. S1 and S2, without murmurs, gallops, or rubs. VASCULAR: No Edema. Peripheral pulses normal and equal in all extremities. ABDOMEN: Normal and soft with no tenderness, no masses or pulsatile masses. GENITOURINARY: Normal, No tenderness. Rectal exam performed with blade aligner. Patient has induration of the bilateral gluteal cleft. There is also purulence that is expressed in that area from multiple small spots in the skin. LYMPATHTIC: No lymphadenopathy noted. MUSCULOSKELETAL: Good range of motion of all major joints. Extremities without clubbing, cyanosis or edema. NEUROLOGICAL: Alert and oriented x 3. No focal sensory or strength deficits. Speech normal. Follows commands appropriately. PSYCHIATRIC: Normal Affect, judgement and mood. SKIN: Normal appearance with no rashes or lesions. Course - Re-evaluation Re-evalutation: 03/27/20 21:17 Patient has cellulitis and a perirectal abscess. He was given antibiotics. I did discuss with general surgery, Dr. Winston, who evaluated the patient in the ED. Patient will be taken to the OR. I updated the patient on the plan. He is agreeable. - Vital Signs Vital signs: Temp Pulse Resp BP Pulse Ox 97.8 F 65 16 94/58 L 94 03/27/20 18:37 03/27/20 18:37 03/27/20 18:37 03/27/20 18:37 03/27/20 18:37 - Laboratory Result Diagrams: 03/27/20 12:35 03/27/20 12:35 Laboratory results interpreted by me: 03/27/20 03/27/20 12:35 12:35 WBC 13.8 H RBC 5.56 H Hgb 12.5 L MCV 70 L MCH 22.4 L MCHC 31.9 L RDW 15.6 H Absolute Neuts (auto) 9.9 H AST 16 L Discharge - Discharge Clinical Impression: Perirectal abscess Leukocytosis Qualifiers: Leukocytosis type: unspecified Qualified Code(s): D72.829 - Elevated white blood cell count, unspecified Condition: Stable Disposition: ADMITTED INPATIENT Admitting Provider: Surgicalist Unit Admitted: Surgical Floor
[2020-03-27] MEDS ORDERED: NORMAL SALINE 1000 ML 1,000 ML IV ONE (14:24)
[2020-03-27] MEDS ORDERED: VANCOMYCIN HCL INJ 1000 MG VIAL IV ONE (15:16)
--- NOTE | 2020-03-27 15:51 | PDOC H&P ---
History of Present Illness Patient complains of: Perianal drainage History of Present Illness: CHERELLE VILLALOBOS is a 54 year old male Presents emergency department with increased drainage in his perineum, tenderness left perianal ridge. Patient continues to smoke. He seen emergency department found to have perineal drainage from multiple small punctate sites around the lower buttocks, and increased drainage in the left perianal region. White blood cell count elevated to 13,800, which is his baseline. CT scan of the abdomen and pelvis menstruated left perianal-rectal abscess. Surgery was consulted, patient was advised admission for drainage. He last ate yesterday. Covid rapid pending Past Medical History Past Medical History: chronic radial hidradenitis smoking abuse, schizophrenia, bipolar disorder, Cardiac Medical History: Denies: Coronary Artery Disease, Myocardial Infarction, Hypertension Pulmonary Medical History: Denies: Asthma, Bronchitis, Chronic Obstructive Pulmonary Disease (COPD), Pneumonia Neurological Medical History: Denies: Seizures Endocrine Medical History: Denies: Diabetes Mellitus Type 1, Diabetes Mellitus Type 2 Musculoskeltal Medical History: Reports: Arthritis Denies: Fibromyalgia, Gout Psychiatric Medical History: Reports: Bipolar Disorder, Depression, Post Traumatic Stress Disorder Hematology: Denies: Anemia Infectious Medical History: Reports: Methicillin-Resistant Staph Aureus Past Surgical History Past Surgical History: Multiple operations of the perineum including multiple drainage procedures, perianal as well as perirectal, skin grafting Past Surgical History: Reports: Other - skin grafts. Multiple I&D's of cutaneous and perirectal abscesses Social History Information Source: Patient Smoking Status: Current Every Day Smoker Electronic Cigarette use?: No Frequency of Alcohol Use: Rare Hx Recreational Drug Use: No Hx Prescription Drug Abuse: No Family History Family History: None, Reviewed & Not Pertinent Parental Family History Reviewed: No Children Family History Reviewed: No Sibling(s) Family History Reviewed.: No Medication/Allergy Home Medications: Oxycodone HCl/Acetaminophen [Percocet 5-325 mg Tablet] 1 tab PO Q6HP PRN #15 tab 02/07/20 Doxycycline Monohydrate 100 mg PO BID #20 capsule 02/25/20 Oxycodone HCl/Acetaminophen [Percocet 5-325 mg Tablet] 1 tab PO Q4H PRN #10 tablet 02/25/20 Oxycodone HCl/Acetaminophen [Percocet 5-325 mg Tablet] 1 tab PO Q6 PRN #10 tablet 02/25/20 Allergies/Adverse Reactions: ibuprofen Allergy (Unknown, Verified 03/27/20 10:18) Pruritis naproxen Allergy (Verified 03/27/20 10:18) sulfamethoxazole [From Bactrim] Allergy (Verified 03/27/20 10:18) tramadol Allergy (Verified 03/27/20 10:18) trimethoprim [From Bactrim] Allergy (Verified 03/27/20 10:18) clindamycin Adverse Reaction (Verified 03/27/20 10:18) hydrocodone Adverse Reaction (Verified 03/27/20 10:18) ketorolac [From Toradol] Adverse Reaction (Verified 03/27/20 10:18) tomato Adverse Reaction (Verified 03/27/20 10:18) Review of Systems Constitutional: PRESENT: as per HPI Eyes: ABSENT: visual disturbances Ears: ABSENT: hearing changes Cardiovascular: ABSENT: chest pain, dyspnea on exertion, edema, orthropnea, palpitations Respiratory: ABSENT: cough, hemoptysis Gastrointestinal: PRESENT: as per HPI Genitourinary: ABSENT: dysuria, hematuria Musculoskeletal: ABSENT: joint swelling Neurological: ABSENT: abnormal gait, abnormal speech, confusion, dizziness, focal weakness, syncope Physical Exam Vital Signs: Temp Pulse Resp BP Pulse Ox 98.1 F 70 16 112/66 99 03/27/20 10:10 03/27/20 10:10 03/27/20 10:10 03/27/20 10:10 03/27/20 10:10 Intake & Output 03/26/20 03/27/20 03/28/20 06:59 06:59 06:59 Intake Total 50 Balance 50 Weight 88.904 kg General appearance: PRESENT: no acute distress Head exam: PRESENT: normocephalic Eye exam: PRESENT: EOMI Mouth exam: PRESENT: dry mucosa Neck exam: PRESENT: full ROM Respiratory exam: PRESENT: rhonchi Cardiovascular exam: PRESENT: RRR Pulses: PRESENT: normal radial pulses, normal femoral pulses GI/Abdominal exam: PRESENT: other - Soft nontender no peritoneal signs Rectal exam: PRESENT: other - Patient rolled in left lateral cubitus position, right set up. Marked squamation, and excoriation of the perianal tissue, with multiple punctate sites of pus draining on both cheeks. The left perianal tis ana m is exquisitely tender. I did not digitalize the anal canal Psychiatric exam: PRESENT: appropriate affect Skin exam: PRESENT: dry Results Laboratory Results: 03/27/20 12:35 03/27/20 12:35 03/27/20 03/27/20 12:35 12:35 WBC 13.8 H RBC 5.56 H Hgb 12.5 L Hct 39.1 MCV 70 L MCH 22.4 L MCHC 31.9 L RDW 15.6 H Plt Count 333 Seg Neutrophils % 71.8 Sodium 140.4 Potassium 4.6 Chloride 106 Carbon Dioxide 26 Anion Gap 8 BUN 10 Creatinine 0.94 Est GFR ( Amer) > 60 Glucose 89 Calcium 9.6 Total Bilirubin 0.4 AST 16 L Alkaline Phosphatase 91 Total Protein 7.7 Albumin 4.0 Impressions: Pelvis CT 03/27/20 12:06 IMPRESSION: Likely progression in previously demonstrated perianal cellulitis with the appearance of a 1.7 x 0.9 x 4.0 cm perirectal abscess tracking toward the anus. Assessment & Plan - Diagnosis (1) Perirectal abscess Is this a current diagnosis for this admission?: Yes Plan: Impression: Acute superimposed on chronic recurrent perineal infection, with a left perianal abscess based on examination and CT scan findings Recommendations: 1. Keep n.p.o., check rapid Covid test status, intravenous antibiotics 2. Take patient to the operating room for exam under anesthesia, drainage of left perianal abscess. (2) History of substance abuse Is this a current diagnosis for this admission?: Yes (3) Schizophrenia Is this a current diagnosis for this admission?: Yes (4) Smoker Is this a current diagnosis for this admission?: Yes - Time Time Spent: 30 to 50 Minutes Critical Time spent with patient: Less than 15 minutes Smoking Cessation Education: 3 to 10 minutes Medications reviewed and adjusted accordingly: Yes Anticipated Discharge Disposition: Home, Self Care Anticipated Discharge Timeframe: within 24 hours
[2020-03-27] MEDS: NORMAL SALINE 1000 ML 1,000 ML IV PRN ×2 (16:54→20:47)
[2020-03-27] MEDS ORDERED: FENTANYL CITRATE INJ/PF 100 MCG/2 ML AMPUL ONE (17:18)
[2020-03-27] MEDS ORDERED: ONDANSETRON HCL INJ/PF 4 MG/2 ML SDV ONE (17:18)
[2020-03-27] MEDS ORDERED: MORPHINE SULFATE 10 MG/ML INJ ONE (17:18)
[2020-03-27] MEDS ORDERED: PROPOFOL INJ 200 MG/20 ML VIAL IV ONE ×2 (17:18→17:39)
[2020-03-27] MEDS ORDERED: MIDAZOLAM 2 MG/2 ML INJ ONE (17:18)
[2020-03-27] MEDS ORDERED: FENTANYL CITRATE INJ/PF 100 MCG/2 ML AMPUL IV PRN ×3 (17:50)
[2020-03-27] MEDS ORDERED: PROMETHAZINE HCL INJ 25 MG/1 ML VIAL IV PRN ×2 (17:50)
[2020-03-27] MEDS ORDERED: DIPHENHYDRAMINE HCL 50 MG/ML VIAL IV PRN (17:50)
[2020-03-27] MEDS ORDERED: MEPERIDINE HCL/PF INJ 25 MG/1 ML DISP.SYRIN IV PRN (17:50)
[2020-03-27] MEDS ORDERED: MORPHINE SULFATE 10 MG/ML INJ IV PRN (17:50)
--- NOTE | 2020-03-27 18:09 | Operative Report ---
Operative Report DATE OF SURGERY: 03/27/20 PREOPERATIVE DIAGNOSIS: 1. Left perirectal abscess. 2. History of extensive perineal and perianal drainage procedures occluding skin grafting. 3. Smoker POSTOPERATIVE DIAGNOSIS: Same with left perianal abscess OPERATION: 1. Examination under anesthesia of the anorectal canal. 2. Focused ultrasound of the perineum and anal canal. 3. Incision and drainage and packing of perianal abscess SURGEON: LUCAS MILLER ANESTHESIA: GA TISSUE REMOVED OR ALTERED: Polyps COMPLICATIONS: None ESTIMATED BLOOD LOSS: Minimal INTRAOPERATIVE FINDINGS: See below PROCEDURE: The patient was taken to the operating room where he underwent general anesthesia placed in the prone jackknife position and buttocks spread. Surgical timeout: Surgical plan discussed Preoperatively the patient had a CT scan which suggested a 4 cm perirectal abscess on the left side. Clinically the patient had multiple sites of punctate pus drainage from the perineum and perianal tissue sites of previous scar and skin grafting. The perianal tissue exposed by taping the buttocks open. The perianal tissue was prepped with Betadine. Visual and manual inspection revealed areas of scar, split thickness skin grafting well-healed, and several small punctate sites of pus drainage but no readily palpable abscess. Again physical examination limited due to chronic scarring. The anal canal was examined. There was marked irregularity of the anal verge consistent with previous scarring. The anal canal could not be dilated to accept a moderate or large anoscope due to scarring without rupturing the anal verge. Therefore a small Hill-Cummins retractor was used to inspect the anal canal after inserting 1-1/2 adult fingers. Visualization was limited to the anal canal only. No visible intracanal pathology identified. We brought onto the field the variable frequency ultrasound and scanned the perianal tissue, buttocks as well as the anal canal. Posteriorly laterally and on the patient's right anterior side there was no pathology, however there was a hypoechoic area the left lateral anal position consistent with fluid. This was aspirated with an 18-gauge needle and 3 cc of pus returned. This was sent for Gram stain culture and sensitivity. I made a lateral incision approximately 2 and half centimeters long with the 11 blade, and broken to the pus pocket which tracked anteriorly and deep, all lateral to the presumed external sphincter muscle location. Wound was irrigated with saline, then packed open with a portion of half-inch iodoform packing. I inserted the ultrasound transducer back into the anal canal, focusing on the patient's left lateral position and I could see no obvious fluid collection in need of drainage. At this point felt the operation was complete. Sponge and counts are correct. Dry dressing applied to the of I&D site, patient rotated in supine position, extubated, and taken to recovery in stable condition.
[2020-03-27] MEDS ORDERED: KETOROLAC TROMETHAMINE INJ/PF 30 MG/1 ML SDV IV PRN (18:10)
[2020-03-27] MEDS: OXYCODONE-ACETAMINOPHEN 5-325 MG TABLET PO PRN (19:49)
[2020-03-27] MEDS: METRONIDAZOLE 500 MG/NS RTU 500 MG/100 ML RTUPB IV SCH (21:12)
[2020-03-28] MEDS ORDERED: ACETAMINOPHEN INJ/PF 1000 MG/100 ML SDV IV SCH
[2020-03-28] MEDS: ACETAMINOPHEN 1,000 MG/100 ML RTUPB IV SCH ×3 (00:06→12:05)
[2020-03-28] MEDS: OXYCODONE-ACETAMINOPHEN 5-325 MG TABLET PO PRN ×2 (02:05→10:35)
[2020-03-28] MEDS: NORMAL SALINE 1000 ML 1,000 ML IV PRN ×2 (02:08→08:24)
[2020-03-28] MEDS: METRONIDAZOLE 500 MG/NS RTU 500 MG/100 ML RTUPB IV SCH (05:26)
[2020-03-28] MEDS ORDERED: INFLUENZA QUAD (6MOS+) 2020-21 VAC 0.5 ML SYR IM ONE (08:00)
[2020-03-28] MEDS ORDERED: ONDANSETRON HCL INJ/PF 4 MG/2 ML SDV IV PRN (09:47)
[2020-03-28] MEDS ORDERED: DOCUSATE SODIUM 100 MG CAPSULE PO SCH (10:00)
--- NOTE | 2020-03-28 11:29 | PDOC DISCHARGE SUMMARY ---
General - Admit/Disc Date/PCP Admission Date/Primary Care Provider: 03/27/20 15:38 Discharge Date: 03/28/20 - Discharge Diagnosis Final Diagnosis: Perianal abscess, chronic hidradenitis - Assessment Summary: 54-year-old male with known, chronic, perianal hidradenitis. He presented yesterday with a large abscess in the perianal area. This was incised and drained in the operating room yesterday. The patient was taken to the floor in stable condition. The patient did well on the floor. His pain was controlled. By postoperative day #1, he was ambulating, tolerating a diet, afebrile, and it was felt that he had reached maximal hospital benefit and was fit for discharge. - Additional Information Resuscitation Status: Full Code Discharge Diet: As Tolerated Discharge Activity: Balance Activity w/Rest Referrals: LUCAS MILLER MD [ACTIVE STAFF] - 04/10/20 2:15 pm Prescriptions: Doxycycline Hyclate 100 mg PO BID #20 tablet. Oxycodone HCl/Acetaminophen [Percocet 5-325 mg Tablet] 1 tab PO Q6HP PRN #20 tab PRN Reason: For Pain Home Medications: Doxycycline Hyclate 100 mg PO BID #20 tablet. 03/28/20 Oxycodone HCl/Acetaminophen [Percocet 5-325 mg Tablet] 1 tab PO Q6HP PRN #20 tab 03/28/20 Additional Information: Discharge home. Diet as tolerated. Activity: Nonstrenuous. Follow-up with [facility] in 1 to 2 weeks. Wash buttock with soap and water (sits baths or shower) twice daily and after bowel movements. Fiber and stool softeners twice daily. Percocet 5/325 mg p.o. every 6 hours as needed for pain. History of Present Illiness History of Present Illness: CHERELLE VILLALOBOS is a 54 year old male Physical Exam Vital Signs: Temp Pulse Resp BP Pulse Ox 98.8 F 59 L 19 101/63 96 03/28/20 08:18 03/28/20 08:18 03/28/20 08:18 03/28/20 08:18 03/28/20 08:18 Intake & Output 03/27/20 03/28/20 03/29/20 06:59 06:59 06:59 Intake Total 4671 Output Total 905 Balance 3766 Weight 88.9 kg Results Laboratory Results: WBC 13.8 10^3/uL (4.0-10.5) H 03/27/20 12:35 RBC 5.56 10^6/uL (4.35-5.55) H 03/27/20 12:35 Hgb 12.5 g/dL (13.5-17.0) L 03/27/20 12:35 Hct 39.1 % (37.9-51.0) 03/27/20 12:35 MCV 70 fl (80-97) L 03/27/20 12:35 MCH 22.4 pg (27.0-33.4) L 03/27/20 12:35 MCHC 31.9 g/dL (32.0-36.0) L 03/27/20 12:35 RDW 15.6 % (11.5-14.0) H 03/27/20 12:35 Plt Count 333 10^3/uL (150-450) 03/27/20 12:35 Lymph % (Auto) 19.3 % (13-45) 03/27/20 12:35 [place] % (Auto) 7.1 % (3-13) 03/27/20 12:35 Eos % (Auto) 1.3 % (0-6) 03/27/20 12:35 Baso % (Auto) 0.5 % (0-2) 03/27/20 12:35 Absolute Neuts (auto) 9.9 10^3/uL (1.7-8.2) H 03/27/20 12:35 Absolute Lymphs (auto) 2.7 10^3/uL (0.5-4.7) 03/27/20 12:35 Absolute Monos (auto) 1.0 10^3/uL (0.1-1.4) 03/27/20 12:35 Absolute Eos (auto) 0.2 10^3/uL (0.0-0.6) 03/27/20 12:35 Absolute Basos (auto) 0.1 10^3/uL (0.0-0.2) 03/27/20 12:35 Seg Neutrophils % 71.8 % (42-78) 03/27/20 12:35 Sodium 140.4 mmol/L (137-145) 03/27/20 12:35 Potassium 4.6 mmol/L (3.6-5.0) 03/27/20 12:35 Chloride 106 mmol/L (98-107) 03/27/20 12:35 Carbon Dioxide 26 mmol/L (22-30) 03/27/20 12:35 Anion Gap 8 (5-19) 03/27/20 12:35 BUN 10 mg/dL (7-20) 03/27/20 12:35 Creatinine 0.94 mg/dL (0.52-1.25) 03/27/20 12:35 Est GFR ( Amer) > 60 (>60) 03/27/20 12:35 Est GFR (MDRD) Non-Af > 60 (>60) 03/27/20 12:35 Glucose 89 mg/dL (75-110) 03/27/20 12:35 Calcium 9.6 mg/dL (8.4-10.2) 03/27/20 12:35 Total Bilirubin 0.4 mg/dL (0.2-1.3) 03/27/20 12:35 Direct Bilirubin 0.1 mg/dL (0.0-0.4) 03/27/20 12:35 Neonat Total Bilirubin Not Reportable 03/27/20 12:35 Neonat Direct Bilirubin Not Reportable 03/27/20 12:35 Neonat Indirect Bili Not Reportable 03/27/20 12:35 AST 16 U/L (17-59) L 03/27/20 12:35 ALT 11 U/L (<50) 03/27/20 12:35 Alkaline Phosphatase 91 U/L (38-126) 03/27/20 12:35 Total Protein 7.7 g/dL (6.3-8.2) 03/27/20 12:35 Albumin 4.0 g/dL (3.5-5.0) 03/27/20 12:35 Influenza A (RT-PCR) NEGATIVE (NEGATIVE) 03/27/20 15:45 Influenza B (RT-PCR) NEGATIVE (NEGATIVE) 03/27/20 15:45 RSV (RT-PCR) NEGATIVE (NEGATIVE) 03/27/20 15:45 SARS-CoV-2 Rap RNA(RT-PCR) NEGATIVE (NEGATIVE) 03/27/20 15:45 Impressions: Pelvis CT 03/27/20 12:06 IMPRESSION: Likely progression in previously demonstrated perianal cellulitis with the appearance of a 1.7 x 0.9 x 4.0 cm perirectal abscess tracking toward the anus.
[2020-03-28 11:40] VITALS: BP 121/71
== END 2020-03-28 15:58 | disposition home or self-care (01) ==
LOC: ER 10:06 → EH 15:38 → 4S 18:50
PROVIDERS: ATTEND Surgery
DX: K61.0 Anal abscess (principal); K61.1 Rectal abscess; L73.2 Hidradenitis suppurativa; F17.200 Nicotine dependence, unspecified, uncomplicated; Z20.828 Contact with and (suspected) exposure to other viral communicable diseases; Z86.14 Personal history of Methicillin resistant Staphylococcus aureus infection; D72.829 Elevated white blood cell count, unspecified; Z98.890 Other specified postprocedural states; F20.9 Schizophrenia, unspecified; F19.11 Other psychoactive substance abuse, in remission
CPT/HCPCS: 46050; 99285; 96365; 96368; 36415; 87040; 87070; 87205; 85025; 0241U ×4; 87075; 87077; 80053; 72193; 00902; G0378 ×3; J2250; J3490 ×3; J3010; J2270; J0330; J2405 ×2; J7030 ×2; J2704; J3370; J0696; J0131; C9803; 902

== ENCOUNTER 2020-05-27 13:48 | Emergency (ER) | payer MEDICAID ==
[2020-05-27 14:04] VITALS: BP 106/82
== END 2020-05-27 14:20 | disposition left against medical advice (07) ==
LOC: ER 13:48
DX: Z53.21 Procedure and treatment not carried out due to patient leaving prior to being seen by health care provider (principal)